=== PATIENT | female | born 1960 | race African-American/Black ===

== ENCOUNTER 2017-07-06 08:33 | Day surgery (SDC) | payer OTHER ==
[2017-07-05 15:24] VITALS: BMI 20.5
[~2017-07-06 08:33] MED LIST: ceFAZolin SODIUM 1 GM VIAL IVPB ONE
--- NOTE | 2017-07-06 09:12 | HP ---
Admitting History and Physical - Admission Chief Complaint: right renal colic History Source: Patient Limitations to Obtaining History: No Limitations - Past Medical History ...LMP: 07/02/09 - Smoking History Smoking history: Current every day smoker Have you smoked in the past 12 months: Yes Aproximately how many cigarettes per day: 10 - Alcohol/Substance Use Hx Alcohol Use: No Home Medications - Allergies Allergies/Adverse Reactions: Allergies Allergy/AdvReac Type Severity Reaction Status Date / Time shellfish derived Allergy Severe Swelling Verified 07/06/17 08:33 codeine Allergy Verified 07/06/17 08:33 levofloxacin [From Levaquin] Allergy Verified 07/06/17 08:33 Penicillins Allergy Verified 07/06/17 08:33 ketorolac tromethamine AdvReac Intermediate Nausea Verified 07/06/17 08:33 [From Toradol] - Home Medications Home Medications: Ambulatory Orders Amlodipine Besylate [Norvasc -] 10 mg PO DAILY 07/22/15 Baclofen 10 mg PO TID 07/22/15 Glatiramer Acetate [Copaxone] 44 mg SQ ASDIR 07/22/15 Cyanocobalamin (Vitamin B-12) [Vitamin B12] 2,500 mcg PO DAILY 06/07/17 Gabapentin 600 mg PO TID 06/07/17 Magnesium 30 mg PO DAILY 06/07/17 Metoprolol Succinate [Toprol XL -] 25 mg PO DAILY 06/07/17 Ramipril 5 mg PO HS 06/07/17 Physical Examination Vital Signs: Vital Signs Temperature 98.1 F 07/06/17 08:31 Pulse Rate 87 07/06/17 08:31 Respiratory Rate 18 07/06/17 08:31 Blood Pressure 142/62 07/06/17 08:31 O2 Sat by Pulse Oximetry (%) 100 07/06/17 08:30
[2017-07-06] MEDS ORDERED: PROPOFOL 20 ML ONE (09:15)
[2017-07-06] MEDS ORDERED: MIDAZOLAM HCL 2 MG/2 ML SINGLE DOSE VIAL ONE (09:15)
[2017-07-06] MEDS ORDERED: VANCOMYCIN 1,000 MG VIAL (RESTRICTED TO ID ONLY) ONE (09:22)
[2017-07-06] MEDS ORDERED: VANCOMYCIN 1,000 MG VIAL (RESTRICTED TO ID ONLY) IVPB ONE (09:25)
[2017-07-06] MEDS ORDERED: ACETAMINOPHEN 500 MG TABLET (FP) PO PRN (09:58)
[2017-07-06] MEDS ORDERED: ONDANSETRON 4 MG/2 ML VIAL IVPUSH PRN (09:58)
[2017-07-06] MEDS ORDERED: LACTATED RINGERS SOLUTION 1,000 ML IV SCH (10:00)
--- NOTE | 2017-07-06 10:26 | OP ---
Operative Note - Note: Operative Date: 07/06/17 Operation: right Lithotripsy Surgeon: Wagner Ruiz MD. Anesthesia: General Operative Report Dictated: Yes
[2017-07-06 12:29] VITALS: TEMP 98.2
[2017-07-06 13:30] VITALS: BP 140/75; PULSE 73
--- NOTE | 2017-07-07 08:29 | OP ---
DATE OF OPERATION: 07/06/2017 SURGEON: Wagner Ruiz MD PREOPERATIVE DIAGNOSIS: Right ureteral calculus. POSTOPERATIVE DIAGNOSIS: Right ureteral calculus. PROCEDURE: Right lithotripsy. HISTORY: This is a 56-year-old lady with a history of MS and prior history of renal calculi. She was found to have an obstructing ureteral stone on preoperative imaging, which appeared to be a 4-mm distal ureteral stone. Discussing treatment options, the patient elected to undergo the above stated procedure. Risks and benefits of treatment and treatment alternative were discussed in detail. All questions were answered. BRIEF OPERATIVE NOTE: The patient was brought into the operating room, placed in supine position. Once general anesthesia was administered, the stone was visualized under 3D fluoroscopy, and approximately 3000 shocks were delivered in electromagnetic fashion. The patient tolerated the procedure well and was brought to the recovery room in stable and satisfactory condition. WAGNER RUIZ M.D. [id number]
== END 2017-07-06 14:00 | disposition home or self-care (01) ==
LOC: JASU-SURG 08:33
PROVIDERS: ATTEND Urology
PROC: 0TF3XZZ Fragmentation in Right Kidney Pelvis, External Approach (ICD-10-PCS; principal; 2017-07-06 10:30)
DX: N20.0 Calculus of kidney (principal)

== ENCOUNTER 2017-09-24 07:36 | Day surgery (SDC) | payer OTHER ==
[2017-09-24] MEDS ORDERED: IRON SUCROSE INJECTION 200 MG in SODIUM CHLORIDE 100 ML IVPB ONE (10:00)
[2017-09-24 11:09] VITALS: BP 149/77; PULSE 90; TEMP 98.2
== END 2017-09-24 11:00 | disposition home or self-care (01) ==
LOC: JONCNONCHE 07:36 → J7W 09:07 → JONCNONCHE 11:00
PROVIDERS: ATTEND Internal Medicine Hematology & Oncology
PROC: 3E033GC Introduction of Other Therapeutic Substance into Peripheral Vein, Percutaneous Approach (ICD-10-PCS; principal; 2017-09-24)
DX: D50.9 Iron deficiency anemia, unspecified (principal)
CPT/HCPCS: 96365; J1756

== ENCOUNTER 2017-12-13 07:57 | Day surgery (SDC) | payer OTHER ==
[2017-12-10 19:59] VITALS: BMI 20.2
[2017-12-13 08:22] LABS: BASO % 0.9 % (0-2.0); EOS % 3.4 % (0-4.5); HEMATOCRIT 37.5 % (32.4-45.2); HEMOGLOBIN 12.8 GM/dL (10.7-15.3); LYMPH % 26.6 % (8-40); MCH 29.5 pg (25.7-33.7); MCHC 34.1 g/dl (32.0-36.0); MEAN CELL VOLUME 86.4 fl (80-96); MEAN PLT VOLUME 8.4 fl (7.5-11.1); MONO % 6.8 % (3.8-10.2); NEUT % 62.3 % (42.8-82.8); PLATELET COUNT 399 K/MM3 (134-434); RBC 4.34 M/mm3 (3.60-5.2); RDW 14.8 % (11.6-15.6); WHITE BLOOD COUNT 10.8 K/mm3 (4.0-10.0)
[2017-12-13 08:40] LABS: INR 1.13 (0.82-1.09); PROTHROMBIN TIME (PATIENT) 12.8 SEC (9.7-13.0)
[2017-12-13 09:27] VITALS: TEMP 98.7
[2017-12-13] MEDS ORDERED: PORTA CATH FLUSH 10 ML IVPUSH PRN (09:45)
[2017-12-13 13:29] VITALS: BP 135/84; PULSE 78
== END 2017-12-13 15:00 | disposition home or self-care (01) ==
LOC: JRADIR 07:57
PROVIDERS: ATTEND Internal Medicine Hematology & Oncology
PROC: 02HV33Z Insertion of Infusion Device into Superior Vena Cava, Percutaneous Approach (ICD-10-PCS; principal; 2017-12-13)
PROC: B518YZA Fluoroscopy of Superior Vena Cava using Other Contrast, Guidance (ICD-10-PCS; 2017-12-13)
DX: C18.9 Malignant neoplasm of colon, unspecified (principal)
CPT/HCPCS: 36561; C1751; 36415; 77001-TC-FY; 85025; 85610; C1788

== ENCOUNTER 2017-12-14 07:35 | Day surgery (SDC) | payer OTHER ==
[2017-12-14] MEDS ORDERED: DEXAMETHASONE INJECTION 10 MG in SODIUM CHLORIDE 50 ML IVPB ONE (08:00)
[2017-12-14] MEDS ORDERED: PALONOSETRON HCL 0.25 MG/5 ML VIAL IVPUSH ONE (08:00)
[2017-12-14] MEDS ORDERED: OXALIPLATIN 100 MG, OXALIPLATIN 50 MG in DEXTROSE 5%-WATER - 500 ML IV ONE (08:30)
[2017-12-14] MEDS ORDERED: DEXTROSE 5% IVPB ONE (08:30)
[2017-12-14] MEDS ORDERED: LEUCOVORIN IVPB ONE (08:30)
[2017-12-14] MEDS ORDERED: WATER IVPB ONE (08:30)
[2017-12-14] MEDS ORDERED: FLUOROURACIL 2,500 MG/50 ML VIAL IVPUSH ONE (10:30)
[2017-12-14] MEDS ORDERED: SODIUM CHLORIDE CP ONE (10:40)
[2017-12-14] MEDS ORDERED: FLUOROURACIL CP ONE (10:40)
[2017-12-14 11:25] LABS: BASO % 0.8 % (0-2.0); EOS % 2.1 % (0-4.5); HEMATOCRIT 34.6 % (32.4-45.2); HEMOGLOBIN 11.5 GM/dL (10.7-15.3); LYMPH % 29.7 % (8-40); MCH 28.8 pg (25.7-33.7); MCHC 33.2 g/dl (32.0-36.0); MEAN CELL VOLUME 86.8 fl (80-96); MEAN PLT VOLUME 8.4 fl (7.5-11.1); MONO % 6.4 % (3.8-10.2); PLATELET COUNT 367 K/MM3 (134-434); RBC 3.98 M/mm3 (3.60-5.2); WHITE BLOOD COUNT 8.6 K/mm3 (4.0-10.0)
[2017-12-14 11:53] LABS: ALBUMIN 3.5 g/dl (3.4-5.0); ANION GAP 6 (8-16); BILIRUBIN,DIRECT < 0.2 mg/dL (0.0-0.2); BILIRUBIN,TOTAL 0.4 mg/dL (0.2-1.0); BLOOD UREA NITROGEN 10 mg/dL (7-18); CHLORIDE 107 mmol/L (98-107); CO2 29 mmol/L (21-32); CREATININE 0.8 mg/dL (0.55-1.02); GLUCOSE,RANDOM 192 mg/dL (74-106); MAGNESIUM 2.3 mg/dL (1.8-2.4); POTASSIUM 3.8 mmol/L (3.5-5.1); SGOT/AST 10 U/L (15-37); SGPT/ALT 19 U/L (12-78); SODIUM 142 mmol/L (136-145); TOT PROT 7.8 g/dl (6.4-8.2)
[2017-12-14 11:54] LABS: ALK PHOS 125 U/L (45-117)
[2017-12-14] MEDS ORDERED: SODIUM CHLORIDE 500 ML IV STA (12:27)
[2017-12-14 16:55] VITALS: TEMP 98.4
[2017-12-14 17:16] VITALS: BP 170/85; PULSE 92
== END 2017-12-14 17:18 | disposition home or self-care (01) ==
LOC: JONCCHEMO 07:35 → J7W 12:18 → JONCCHEMO 17:18
PROVIDERS: ATTEND Internal Medicine Hematology & Oncology
PROC: 3E04305 Introduction of Other Antineoplastic into Central Vein, Percutaneous Approach (ICD-10-PCS; principal; 2017-12-14)
PROC: 3E04305 Introduction of Other Antineoplastic into Central Vein, Percutaneous Approach (ICD-10-PCS; 2017-12-14)
PROC: 3E043GC Introduction of Other Therapeutic Substance into Central Vein, Percutaneous Approach (ICD-10-PCS; 2017-12-14)
DX: Z51.11 Encounter for antineoplastic chemotherapy (principal); C18.9 Malignant neoplasm of colon, unspecified; I10 Essential (primary) hypertension; E78.00 Pure hypercholesterolemia, unspecified; K58.9 Irritable bowel syndrome, unspecified; G35 Multiple sclerosis; Z87.442 Personal history of urinary calculi
CPT/HCPCS: 36415; 80053; 80076; 83735; 85025; 96366; 96367; 96375; 96409; 96413; 96415; 96417; G0498; J1100; J2469; J7030; J9263

== ENCOUNTER 2017-12-16 07:41 | Day surgery (SDC) | payer OTHER ==
[2017-12-16 16:45] VITALS: TEMP 98.7
[2017-12-16 16:47] VITALS: BP 150/87; PULSE 92
== END 2017-12-16 14:39 | disposition home or self-care (01) ==
LOC: JONCNONCHE 07:41 → J7W 13:27 → JONCNONCHE 14:39
PROVIDERS: ATTEND Internal Medicine Hematology & Oncology
PROC: 0JPVXVZ Removal of Infusion Pump from Upper Extremity Subcutaneous Tissue and Fascia, External Approach (ICD-10-PCS; principal; 2017-12-16)
DX: Z53.8 Procedure and treatment not carried out for other reasons (principal); C18.9 Malignant neoplasm of colon, unspecified

== ENCOUNTER 2017-12-28 08:01 | Day surgery (SDC) | payer OTHER ==
[~2017-12-28 08:01] MED LIST changes: +DEXAMETHASONE INJECTION 10 MG in SODIUM CHLORIDE 100 ML IVPB ONE; +PALONOSETRON HCL 0.25 MG/5 ML VIAL IVPUSH ONE; -ceFAZolin SODIUM 1 GM VIAL IVPB ONE
[2017-12-28] MEDS ORDERED: DEXTROSE 5% IVPB ONE (08:30)
[2017-12-28] MEDS ORDERED: WATER IV ONE (08:30)
[2017-12-28] MEDS ORDERED: WATER IVPB ONE (08:30)
[2017-12-28] MEDS ORDERED: DEXTROSE 5% IV ONE (08:30)
[2017-12-28] MEDS ORDERED: OXALIPLATIN IV ONE (08:30)
[2017-12-28] MEDS ORDERED: LEUCOVORIN IVPB ONE (08:30)
[2017-12-28 09:25] LABS: BASO % 0.6 % (0-2.0); EOS % 2.7 % (0-4.5); HEMATOCRIT 33.5 % (32.4-45.2); HEMOGLOBIN 11.1 GM/dL (10.7-15.3); LYMPH % 28.2 % (8-40); MCH 28.3 pg (25.7-33.7); MCHC 33.1 g/dl (32.0-36.0); MEAN CELL VOLUME 85.5 fl (80-96); MEAN PLT VOLUME 7.3 fl (7.5-11.1); MONO % 8.2 % (3.8-10.2); NEUT % 60.3 % (42.8-82.8); PLATELET COUNT 257 K/MM3 (134-434); RBC 3.92 M/mm3 (3.60-5.2); RDW 14.8 % (11.6-15.6); WHITE BLOOD COUNT 5.2 K/mm3 (4.0-10.0)
[2017-12-28] MEDS ORDERED: SODIUM CHLORIDE 1,000 ML IV STA (09:35)
[2017-12-28 10:21] LABS: ALBUMIN 3.3 g/dl (3.4-5.0); ANION GAP 6 (8-16); BILIRUBIN,DIRECT < 0.2 mg/dL (0.0-0.2); BLOOD UREA NITROGEN 6 mg/dL (7-18); CALCIUM 8.5 mg/dL (8.5-10.1); CHLORIDE 113 mmol/L (98-107); CO2 27 mmol/L (21-32); CREATININE 0.7 mg/dL (0.55-1.02); GLUCOSE,RANDOM 129 mg/dL (74-106); MAGNESIUM 2.1 mg/dL (1.8-2.4); POTASSIUM 3.2 mmol/L (3.5-5.1); SGOT/AST 14 U/L (15-37); SGPT/ALT 18 U/L (12-78); SODIUM 146 mmol/L (136-145)
[2017-12-28 10:23] LABS: ALK PHOS 109 U/L (45-117); BILIRUBIN,TOTAL 0.2 mg/dL (0.2-1.0); TOT PROT 6.9 g/dl (6.4-8.2)
[2017-12-28] MEDS ORDERED: FLUOROURACIL 2,500 MG/50 ML VIAL IVPUSH ONE (10:30)
[2017-12-28] MEDS ORDERED: FLUOROURACIL CP ONE (10:40)
[2017-12-28] MEDS ORDERED: SODIUM CHLORIDE CP ONE (10:40)
[2017-12-28] MEDS ORDERED: POTASSIUM CHLORIDE TABS 20 MEQ TABLET.ER (FP) PO ONE ×2 (11:08)
[2017-12-28] MEDS ORDERED: KCL 10 MEQ IVPB 10 MEQ/100 ML INFUS.BAG IVPB SCH (11:15)
[2017-12-28 14:14] VITALS: TEMP 98.1
[2017-12-28] MEDS ORDERED: PORTA CATH FLUSH 10 ML IVPUSH ONE (15:59)
[2017-12-28 16:12] VITALS: BP 134/74; PULSE 84
== END 2017-12-28 15:40 | disposition home or self-care (01) ==
LOC: JONCCHEMO 08:01 → J7W 09:53 → JONCCHEMO 15:40
PROVIDERS: ATTEND Internal Medicine Hematology & Oncology
DX: Z51.11 Encounter for antineoplastic chemotherapy (principal); C18.9 Malignant neoplasm of colon, unspecified
CPT/HCPCS: 36415; 80053; 80076; 83735; 85025; 96361; 96366; 96367; 96375; 96409; 96413; 96415; 96417; G0498; J1100; J2469; J7030; J9263

== ENCOUNTER 2017-12-30 09:01 | Day surgery (SDC) | payer OTHER ==
[2017-12-30 14:01] VITALS: BP 137/85; PULSE 81; TEMP 98.5
== END 2017-12-30 13:30 | disposition home or self-care (01) ==
LOC: JONCCHEMO 09:01 → J7W 13:00 → JONCCHEMO 13:30
PROVIDERS: ATTEND Internal Medicine Hematology & Oncology
PROC: 0JPVXVZ Removal of Infusion Pump from Upper Extremity Subcutaneous Tissue and Fascia, External Approach (ICD-10-PCS; principal; 2017-12-30)
DX: Z53.8 Procedure and treatment not carried out for other reasons (principal)

== ENCOUNTER → 2018-01-11 | Day surgery (SDC) | payer OTHER ==
[2018-01-11 09:14] LABS: BASO % 1.3 % (0-2.0); EOS % 4.4 % (0-4.5); HEMOGLOBIN 11.6 GM/dL (10.7-15.3); LYMPH % 46.4 % (8-40); MCH 28.5 pg (25.7-33.7); MCHC 33.2 g/dl (32.0-36.0); MEAN CELL VOLUME 85.9 fl (80-96); MEAN PLT VOLUME 7.3 fl (7.5-11.1); MONO % 10.4 % (3.8-10.2); NEUT % 37.5 % (42.8-82.8); PLATELET COUNT 225 K/MM3 (134-434); RBC 4.08 M/mm3 (3.60-5.2); RDW 15.4 % (11.6-15.6)
[2018-01-11 09:47] LABS: ALBUMIN 3.5 g/dl (3.4-5.0); ALK PHOS 116 U/L (45-117); ANION GAP 6 (8-16); BILIRUBIN,DIRECT < 0.2 mg/dL (0.0-0.2); BILIRUBIN,TOTAL 0.2 mg/dL (0.2-1.0); BLOOD UREA NITROGEN 8 mg/dL (7-18); CALCIUM 8.6 mg/dL (8.5-10.1); CHLORIDE 112 mmol/L (98-107); CO2 27 mmol/L (21-32); CREATININE 0.7 mg/dL (0.55-1.02); GLUCOSE,RANDOM 86 mg/dL (74-106); MAGNESIUM 2.2 mg/dL (1.8-2.4); POTASSIUM 3.7 mmol/L (3.5-5.1); SGOT/AST 12 U/L (15-37); SGPT/ALT 22 U/L (12-78); SODIUM 145 mmol/L (136-145); TOT PROT 7.3 g/dl (6.4-8.2)
== END | disposition home or self-care (01) ==
LOC: JONCCHEMO 07:36
PROVIDERS: ATTEND Internal Medicine Hematology & Oncology
PROC: 0JPVXVZ Removal of Infusion Pump from Upper Extremity Subcutaneous Tissue and Fascia, External Approach (ICD-10-PCS; principal; 2018-01-11)
DX: Z53.8 Procedure and treatment not carried out for other reasons (principal)
CPT/HCPCS: 36415; 80048; 80076; 83735; 85025

== ENCOUNTER 2018-01-25 07:37 | Day surgery (SDC) | payer OTHER ==
[~2018-01-25 07:37] MED LIST changes: -DEXAMETHASONE INJECTION 10 MG in SODIUM CHLORIDE 100 ML IVPB ONE; +DEXAMETHASONE INJECTION 10 MG in SODIUM CHLORIDE 50 ML IVPB ONE; +DEXTROSE 5% IV ONE; +DEXTROSE 5% IVPB ONE; +FLUOROURACIL 500 MG/10 ML VIAL IVPUSH ONE; +FLUOROURACIL CP ONE; +LEUCOVORIN IVPB ONE; +OXALIPLATIN IV ONE; +SODIUM CHLORIDE CP ONE; +WATER IV ONE; +WATER IVPB ONE
[2018-01-25 09:49] LABS: BASO % 0.8 % (0-2.0); EOS % 2.1 % (0-4.5); HEMATOCRIT 39.3 % (32.4-45.2); HEMOGLOBIN 13.1 GM/dL (10.7-15.3); LYMPH % 23.1 % (8-40); MCH 28.9 pg (25.7-33.7); MCHC 33.3 g/dl (32.0-36.0); MEAN CELL VOLUME 86.9 fl (80-96); MEAN PLT VOLUME 8.7 fl (7.5-11.1); MONO % 7.2 % (3.8-10.2); NEUT % 66.8 % (42.8-82.8); PLATELET COUNT 270 K/MM3 (134-434); RBC 4.52 M/mm3 (3.60-5.2); RDW 17.7 % (11.6-15.6); WHITE BLOOD COUNT 10.7 K/mm3 (4.0-10.0)
[2018-01-25] MEDS ORDERED: PALONOSETRON HCL 0.25 MG/5 ML VIAL IVPUSH ONE (10:00)
[2018-01-25] MEDS ORDERED: DEXAMETHASONE INJECTION 10 MG in SODIUM CHLORIDE 50 ML IVPB ONE (10:00)
[2018-01-25] MEDS ORDERED: WATER IVPB ONE (10:30)
[2018-01-25] MEDS ORDERED: WATER IV ONE (10:30)
[2018-01-25] MEDS ORDERED: OXALIPLATIN IV ONE (10:30)
[2018-01-25] MEDS ORDERED: LEUCOVORIN IVPB ONE (10:30)
[2018-01-25] MEDS ORDERED: DEXTROSE 5% IVPB ONE (10:30)
[2018-01-25] MEDS ORDERED: DEXTROSE 5% IV ONE (10:30)
[2018-01-25 10:32] LABS: ALBUMIN 3.8 g/dl (3.4-5.0); ALK PHOS 119 U/L (45-117); ANION GAP 6 (8-16); BILIRUBIN,DIRECT < 0.2 mg/dL (0.0-0.2); BILIRUBIN,TOTAL 0.3 mg/dL (0.2-1.0); BLOOD UREA NITROGEN 6 mg/dL (7-18); CALCIUM 9.1 mg/dL (8.5-10.1); CHLORIDE 111 mmol/L (98-107); CO2 29 mmol/L (21-32); CREATININE 0.8 mg/dL (0.55-1.02); GLUCOSE,RANDOM 95 mg/dL (74-106); MAGNESIUM 2.2 mg/dL (1.8-2.4); POTASSIUM 3.5 mmol/L (3.5-5.1); SGOT/AST 15 U/L (15-37); SGPT/ALT 17 U/L (12-78); SODIUM 146 mmol/L (136-145); TOT PROT 7.6 g/dl (6.4-8.2)
[2018-01-25] MEDS ORDERED: SODIUM CHLORIDE 500 ML IV SCH (11:30)
[2018-01-25] MEDS ORDERED: FLUOROURACIL 2,500 MG/50 ML VIAL IVPUSH ONE (12:30)
[2018-01-25] MEDS ORDERED: SODIUM CHLORIDE CP ONE (12:45)
[2018-01-25] MEDS ORDERED: FLUOROURACIL CP ONE (12:45)
[2018-01-25 17:13] VITALS: TEMP 98
[2018-01-25 18:01] VITALS: BP 158/91; PULSE 66
== END 2018-01-25 16:05 | disposition home or self-care (01) ==
LOC: JONCCHEMO 07:37 → J7W 11:07 → JONCCHEMO 16:05
PROVIDERS: ATTEND Internal Medicine Hematology & Oncology
DX: Z51.11 Encounter for antineoplastic chemotherapy (principal); C18.9 Malignant neoplasm of colon, unspecified
CPT/HCPCS: 36415; 80053; 80076; 83735; 85025; 96361; 96375; 96409; 96413; 96415; 96417; G0498; J1100; J2469; J7030; J9263

== ENCOUNTER 2018-02-08 07:35 | Day surgery (SDC) | payer OTHER ==
[2018-02-08] MEDS ORDERED: DEXAMETHASONE INJECTION 10 MG in SODIUM CHLORIDE 50 ML IVPB ONE (08:00)
[2018-02-08] MEDS ORDERED: PALONOSETRON HCL 0.25 MG/5 ML VIAL IVPUSH ONE (08:00)
[2018-02-08] MEDS ORDERED: WATER IVPB ONE (08:30)
[2018-02-08] MEDS ORDERED: OXALIPLATIN 100 MG, OXALIPLATIN 10 MG in DEXTROSE 5%-WATER - 500 ML IV ONE (08:30)
[2018-02-08] MEDS ORDERED: LEUCOVORIN IVPB ONE (08:30)
[2018-02-08] MEDS ORDERED: DEXTROSE 5% IVPB ONE (08:30)
[2018-02-08 09:24] LABS: EOS % 3.4 % (0-4.5); HEMATOCRIT 38.6 % (32.4-45.2); HEMOGLOBIN 12.8 GM/dL (10.7-15.3); LYMPH % 27.9 % (8-40); MCH 29.2 pg (25.7-33.7); MCHC 33.1 g/dl (32.0-36.0); MEAN CELL VOLUME 88.2 fl (80-96); MEAN PLT VOLUME 8.3 fl (7.5-11.1); MONO % 6.2 % (3.8-10.2); NEUT % 61.5 % (42.8-82.8); PLATELET COUNT 284 K/MM3 (134-434); RBC 4.37 M/mm3 (3.60-5.2); RDW 17.8 % (11.6-15.6); WHITE BLOOD COUNT 7.5 K/mm3 (4.0-10.0)
[2018-02-08 09:56] LABS: ALBUMIN 3.5 g/dl (3.4-5.0); ALK PHOS 115 U/L (45-117); ANION GAP 8 (8-16); BILIRUBIN,DIRECT < 0.2 mg/dL (0.0-0.2); BILIRUBIN,TOTAL 0.2 mg/dL (0.2-1.0); BLOOD UREA NITROGEN 7 mg/dL (7-18); CALCIUM 8.8 mg/dL (8.5-10.1); CHLORIDE 111 mmol/L (98-107); CO2 25 mmol/L (21-32); CREATININE 0.7 mg/dL (0.55-1.02); GLUCOSE,RANDOM 135 mg/dL (74-106); MAGNESIUM 2.2 mg/dL (1.8-2.4); POTASSIUM 3.7 mmol/L (3.5-5.1); SGOT/AST 17 U/L (15-37); SGOT/AST 20 U/L (15-37); SGPT/ALT 23 U/L (12-78); SGPT/ALT 24 U/L (12-78); SODIUM 144 mmol/L (136-145); TOT PROT 7.4 g/dl (6.4-8.2)
[2018-02-08 09:57] LABS: ALK PHOS 113 U/L (45-117)
[2018-02-08 10:08] VITALS: BP 146/82; PULSE 71; TEMP 98.4
[2018-02-08] MEDS ORDERED: PORTA CATH FLUSH 10 ML IVPUSH ONE (10:09)
[2018-02-08] MEDS ORDERED: FLUOROURACIL 2,500 MG/50 ML VIAL IVPUSH ONE (10:30)
[2018-02-08] MEDS ORDERED: SODIUM CHLORIDE 1,000 ML IV SCH (10:45)
[2018-02-08] MEDS ORDERED: SODIUM CHLORIDE CP ONE (10:45)
[2018-02-08] MEDS ORDERED: FLUOROURACIL CP ONE (10:45)
== END 2018-02-08 13:20 | disposition home or self-care (01) ==
LOC: JONCCHEMO 07:35 → J7W 09:54 → JONCCHEMO 13:20
PROVIDERS: ATTEND Internal Medicine Hematology & Oncology
PROC: 3E04305 Introduction of Other Antineoplastic into Central Vein, Percutaneous Approach (ICD-10-PCS; principal; 2018-02-08)
PROC: 3E043GC Introduction of Other Therapeutic Substance into Central Vein, Percutaneous Approach (ICD-10-PCS; 2018-02-08)
PROC: 3E0437Z Introduction of Electrolytic and Water Balance Substance into Central Vein, Percutaneous Approach (ICD-10-PCS; 2018-02-08)
DX: Z51.11 Encounter for antineoplastic chemotherapy (principal); C18.9 Malignant neoplasm of colon, unspecified; I10 Essential (primary) hypertension; E78.00 Pure hypercholesterolemia, unspecified; G35 Multiple sclerosis
CPT/HCPCS: 36415; 80053; 80076; 83735; 84439; 84443; 85025; 96361; 96375; 96409; 96413; 96415; 96417; G0498; J1100; J2469; J7030; J9263

== ENCOUNTER 2018-02-22 07:32 | Day surgery (SDC) | payer OTHER ==
[2018-02-22] MEDS ORDERED: DEXAMETHASONE INJECTION 10 MG in SODIUM CHLORIDE 50 ML IVPB ONE (08:00)
[2018-02-22] MEDS ORDERED: PALONOSETRON HCL 0.25 MG/5 ML VIAL IVPUSH ONE (08:00)
[2018-02-22] MEDS ORDERED: WATER IVPB ONE (08:30)
[2018-02-22] MEDS ORDERED: DEXTROSE 5% IV ONE (08:30)
[2018-02-22] MEDS ORDERED: OXALIPLATIN IV ONE (08:30)
[2018-02-22] MEDS ORDERED: WATER IV ONE (08:30)
[2018-02-22] MEDS ORDERED: LEUCOVORIN IVPB ONE (08:30)
[2018-02-22] MEDS ORDERED: DEXTROSE 5% IVPB ONE (08:30)
[2018-02-22 09:19] LABS: BASO % 0.9 % (0-2.0); EOS % 5.1 % (0-4.5); HEMATOCRIT 37.8 % (32.4-45.2); HEMOGLOBIN 12.5 GM/dL (10.7-15.3); LYMPH % 40.8 % (8-40); MCH 29.2 pg (25.7-33.7); MCHC 33.1 g/dl (32.0-36.0); MEAN CELL VOLUME 88.3 fl (80-96); MEAN PLT VOLUME 7.8 fl (7.5-11.1); MONO % 8.8 % (3.8-10.2); NEUT % 44.4 % (42.8-82.8); PLATELET COUNT 214 K/MM3 (134-434); RBC 4.28 M/mm3 (3.60-5.2); RDW 17.6 % (11.6-15.6); WHITE BLOOD COUNT 6.3 K/mm3 (4.0-10.0)
[2018-02-22 09:55] LABS: ALBUMIN 3.4 g/dl (3.4-5.0); ALBUMIN 3.5 g/dl (3.4-5.0); ANION GAP 8 (8-16); BILIRUBIN,DIRECT < 0.2 mg/dL (0.0-0.2); BLOOD UREA NITROGEN 9 mg/dL (7-18); CALCIUM 8.9 mg/dL (8.5-10.1); CHLORIDE 112 mmol/L (98-107); CO2 27 mmol/L (21-32); GLUCOSE,RANDOM 103 mg/dL (74-106); MAGNESIUM 2.2 mg/dL (1.8-2.4); POTASSIUM 3.7 mmol/L (3.5-5.1); SGOT/AST 17 U/L (15-37); SGPT/ALT 20 U/L (12-78); SODIUM 147 mmol/L (136-145)
[2018-02-22 09:58] LABS: ALK PHOS 109 U/L (45-117); BILIRUBIN,TOTAL 0.2 mg/dL (0.2-1.0); TOT PROT 7.2 g/dl (6.4-8.2)
[2018-02-22 09:59] LABS: ALK PHOS 107 U/L (45-117); BILIRUBIN,TOTAL 0.2 mg/dL (0.2-1.0); CREATININE 0.8 mg/dL (0.55-1.02); SGOT/AST 16 U/L (15-37); SGPT/ALT 19 U/L (12-78); TOT PROT 6.9 g/dl (6.4-8.2)
[2018-02-22] MEDS ORDERED: SODIUM CHLORIDE 500 ML IV ONE ×2 (10:15→12:15)
[2018-02-22] MEDS ORDERED: DEXAMETHASONE INJECTION 20 MG in SODIUM CHLORIDE 100 ML IVPB ONE (10:15)
[2018-02-22] MEDS ORDERED: DEXAMETHASONE SOD PHOSPHATE 10 MG/1 ML VIAL ONE (10:24)
[2018-02-22] MEDS ORDERED: FLUOROURACIL 2,500 MG/50 ML VIAL IVPUSH ONE (10:30)
[2018-02-22] MEDS ORDERED: DEXAMETHASONE SOD PHOSPHATE 20 MG/5 ML VIAL IVPB ONE (10:45)
[2018-02-22] MEDS ORDERED: FLUOROURACIL CP ONE (10:45)
[2018-02-22] MEDS ORDERED: SODIUM CHLORIDE CP ONE (10:45)
[2018-02-22] MEDS ORDERED: SODIUM CHLORIDE 0.45% 500 ML IV ONE ×2 (10:45→12:45)
[2018-02-22 16:31] VITALS: TEMP 98.1
[2018-02-22 16:33] VITALS: BP 144/77; PULSE 84
== END 2018-02-22 15:30 | disposition home or self-care (01) ==
LOC: JONCCHEMO 07:32 → J7W 09:53 → JONCCHEMO 15:30
PROVIDERS: ATTEND Internal Medicine Hematology & Oncology
DX: Z51.11 Encounter for antineoplastic chemotherapy (principal); C18.9 Malignant neoplasm of colon, unspecified; I10 Essential (primary) hypertension; E78.00 Pure hypercholesterolemia, unspecified; G35 Multiple sclerosis
CPT/HCPCS: 36415; 80053; 80076; 83735; 85025; 96361; 96375; 96409; 96413; 96415; 96417; G0498; J1100; J2469; J9263

== ENCOUNTER 2018-03-22 07:45 | Day surgery (SDC) | payer OTHER ==
[2018-03-22 09:00] LABS: BASO % 1.1 % (0-2.0); EOS % 4.1 % (0-4.5); HEMATOCRIT 35.1 % (32.4-45.2); HEMOGLOBIN 12.1 GM/dL (10.7-15.3); LYMPH % 30.8 % (8-40); MCH 30.9 pg (25.7-33.7); MCHC 34.5 g/dl (32.0-36.0); MEAN CELL VOLUME 89.7 fl (80-96); MEAN PLT VOLUME 8.4 fl (7.5-11.1); MONO % 8.7 % (3.8-10.2); NEUT % 55.3 % (42.8-82.8); PLATELET COUNT 188 K/MM3 (134-434); RBC 3.91 M/mm3 (3.60-5.2); RDW 18.5 % (11.6-15.6); WHITE BLOOD COUNT 5.9 K/mm3 (4.0-10.0)
[2018-03-22] MEDS ORDERED: SODIUM CHLORIDE 500 ML IV ONE ×2 (09:00→12:30)
[2018-03-22 09:56] LABS: ALBUMIN 3.2 g/dl (3.4-5.0); ANION GAP 10 (8-16); BILIRUBIN,DIRECT < 0.2 mg/dL (0.0-0.2); BLOOD UREA NITROGEN 10 mg/dL (7-18); CALCIUM 8.4 mg/dL (8.5-10.1); CHLORIDE 113 mmol/L (98-107); CO2 23 mmol/L (21-32); GLUCOSE,RANDOM 155 mg/dL (74-106); MAGNESIUM 2.1 mg/dL (1.8-2.4); POTASSIUM 3.6 mmol/L (3.5-5.1); SODIUM 146 mmol/L (136-145)
[2018-03-22 09:59] LABS: ALK PHOS 107 U/L (45-117); BILIRUBIN,TOTAL 0.2 mg/dL (0.2-1.0); CREATININE 0.6 mg/dL (0.55-1.02); SGOT/AST 22 U/L (15-37); SGPT/ALT 26 U/L (12-78); TOT PROT 7.1 g/dl (6.4-8.2)
[2018-03-22] MEDS ORDERED: PALONOSETRON HCL 0.25 MG/5 ML VIAL IVPUSH ONE (10:00)
[2018-03-22] MEDS ORDERED: DEXAMETHASONE INJECTION 20 MG in SODIUM CHLORIDE 50 ML IVPB ONE (10:00)
[2018-03-22] MEDS ORDERED: LEUCOVORIN IVPB ONE (10:30)
[2018-03-22] MEDS ORDERED: WATER IVPB ONE (10:30)
[2018-03-22] MEDS ORDERED: OXALIPLATIN IV ONE ×3 (10:30→11:01)
[2018-03-22] MEDS ORDERED: DEXTROSE 5% IVPB ONE (10:30)
[2018-03-22] MEDS ORDERED: WATER IV ONE ×3 (10:30→11:01)
[2018-03-22] MEDS ORDERED: DEXTROSE 5% IV ONE ×3 (10:30→11:01)
[2018-03-22] MEDS ORDERED: FLUOROURACIL 500 MG/10 ML VIAL IVPUSH ONE (12:30)
[2018-03-22] MEDS ORDERED: SODIUM CHLORIDE CP ONE (12:45)
[2018-03-22] MEDS ORDERED: FLUOROURACIL CP ONE (12:45)
[2018-03-22 17:43] VITALS: TEMP 98
[2018-03-22 18:28] VITALS: BP 143/83; PULSE 89
== END 2018-03-22 16:20 | disposition home or self-care (01) ==
LOC: JONCCHEMO 07:45 → J7W 10:46 → JONCCHEMO 16:20
PROVIDERS: ATTEND Internal Medicine Hematology & Oncology
DX: Z51.11 Encounter for antineoplastic chemotherapy (principal); C18.9 Malignant neoplasm of colon, unspecified
CPT/HCPCS: 36415; 80048; 80076; 83735; 85025; 96361; 96366; 96367; 96375; 96409; 96413; 96415; 96417; G0498; J1100; J2469; J9190; J9263

== ENCOUNTER 2018-04-06 07:43 | Day surgery (SDC) | payer OTHER ==
[~2018-04-06 07:43] MED LIST changes: -DEXAMETHASONE INJECTION 10 MG in SODIUM CHLORIDE 50 ML IVPB ONE; -DEXTROSE 5% IV ONE; -DEXTROSE 5% IVPB ONE; -FLUOROURACIL 500 MG/10 ML VIAL IVPUSH ONE; -FLUOROURACIL CP ONE; -LEUCOVORIN IVPB ONE; -OXALIPLATIN IV ONE; -PALONOSETRON HCL 0.25 MG/5 ML VIAL IVPUSH ONE; +SODIUM CHLORIDE 500 ML IV ONE; -SODIUM CHLORIDE CP ONE; -WATER IV ONE; -WATER IVPB ONE
[2018-04-06] MEDS ORDERED: PALONOSETRON HCL 0.25 MG/5 ML VIAL IVPUSH ONE (08:00)
[2018-04-06] MEDS ORDERED: DEXAMETHASONE INJECTION 20 MG in SODIUM CHLORIDE 50 ML IVPB ONE (08:00)
[2018-04-06] MEDS ORDERED: DEXTROSE 5% IV ONE (08:30)
[2018-04-06] MEDS ORDERED: LEUCOVORIN IVPB ONE (08:30)
[2018-04-06] MEDS ORDERED: DEXTROSE 5% IVPB ONE (08:30)
[2018-04-06] MEDS ORDERED: WATER IVPB ONE (08:30)
[2018-04-06] MEDS ORDERED: OXALIPLATIN IV ONE (08:30)
[2018-04-06] MEDS ORDERED: WATER IV ONE (08:30)
[2018-04-06 08:43] VITALS: TEMP 98.5
[2018-04-06 09:00] LABS: BASO % 0.9 % (0-2.0); EOS % 3.4 % (0-4.5); HEMATOCRIT 35.8 % (32.4-45.2); HEMOGLOBIN 11.9 GM/dL (10.7-15.3); LYMPH % 26.4 % (8-40); MCH 30.5 pg (25.7-33.7); MCHC 33.3 g/dl (32.0-36.0); MEAN CELL VOLUME 91.7 fl (80-96); MEAN PLT VOLUME 8.3 fl (7.5-11.1); MONO % 9.9 % (3.8-10.2); NEUT % 59.4 % (42.8-82.8); PLATELET COUNT 245 K/MM3 (134-434); RDW 18.4 % (11.6-15.6); WHITE BLOOD COUNT 7.3 K/mm3 (4.0-10.0)
[2018-04-06 09:34] LABS: ALBUMIN 3.3 g/dl (3.4-5.0); ALK PHOS 117 U/L (45-117); ANION GAP 9 MMOL/L (8-16); BILIRUBIN,DIRECT < 0.2 mg/dL (0.0-0.2); BILIRUBIN,TOTAL 0.3 mg/dL (0.2-1.0); BLOOD UREA NITROGEN 10 mg/dL (7-18); CALCIUM 9.1 mg/dL (8.5-10.1); CHLORIDE 109 mmol/L (98-107); CO2 28 mmol/L (21-32); CREATININE 0.6 mg/dL (0.55-1.02); GLUCOSE,RANDOM 162 mg/dL (74-106); MAGNESIUM 2.4 mg/dL (1.8-2.4); POTASSIUM 4.2 mmol/L (3.5-5.1); SGOT/AST 17 U/L (15-37); SGPT/ALT 22 U/L (12-78); SODIUM 146 mmol/L (136-145); TOT PROT 7.3 g/dl (6.4-8.2)
[2018-04-06] MEDS ORDERED: FLUOROURACIL 2,500 MG/50 ML VIAL IVPUSH ONE (10:30)
[2018-04-06] MEDS ORDERED: PORTA CATH FLUSH 10 ML IVPUSH ONE (10:38)
[2018-04-06] MEDS ORDERED: FLUOROURACIL CP ONE (10:45)
[2018-04-06] MEDS ORDERED: SODIUM CHLORIDE CP ONE (10:45)
[2018-04-06] MEDS ORDERED: SODIUM CHLORIDE 500 ML IV ONE (14:15)
[2018-04-06 16:59] VITALS: BP 154/88; PULSE 90
== END 2018-04-06 15:10 | disposition home or self-care (01) ==
LOC: JONCCHEMO 07:43 → J7W 10:10 → JONCCHEMO 15:10
PROVIDERS: ATTEND Internal Medicine Hematology & Oncology
PROC: 3E04305 Introduction of Other Antineoplastic into Central Vein, Percutaneous Approach (ICD-10-PCS; principal; 2018-04-06)
PROC: 3E04305 Introduction of Other Antineoplastic into Central Vein, Percutaneous Approach (ICD-10-PCS; 2018-04-06)
PROC: 3E043GC Introduction of Other Therapeutic Substance into Central Vein, Percutaneous Approach (ICD-10-PCS; 2018-04-06)
PROC: 3E0437Z Introduction of Electrolytic and Water Balance Substance into Central Vein, Percutaneous Approach (ICD-10-PCS; 2018-04-06)
DX: Z51.11 Encounter for antineoplastic chemotherapy (principal); C18.9 Malignant neoplasm of colon, unspecified; I10 Essential (primary) hypertension; E78.00 Pure hypercholesterolemia, unspecified; G35 Multiple sclerosis
CPT/HCPCS: 36415; 80048; 80076; 83735; 85025; 96361; 96366; 96367; 96375; 96409; 96413; 96415; 96417; G0498; J1100; J2469; J9263

== ENCOUNTER 2018-04-08 07:31 | Day surgery (SDC) | payer OTHER ==
[2018-04-08] MEDS ORDERED: PORTA CATH FLUSH 10 ML IVPUSH ONE (10:51)
[2018-04-08 10:52] VITALS: BP 147/80; PULSE 64; TEMP 97.7
== END 2018-04-08 10:30 | disposition home or self-care (01) ==
LOC: JONCCHEMO 07:31 → J7W 09:40 → JONCCHEMO 10:30
PROVIDERS: ATTEND Internal Medicine Hematology & Oncology
PROC: 0JPVXVZ Removal of Infusion Pump from Upper Extremity Subcutaneous Tissue and Fascia, External Approach (ICD-10-PCS; principal; 2018-04-08)
DX: Z53.8 Procedure and treatment not carried out for other reasons (principal)

== ENCOUNTER 2018-04-20 07:40 | Day surgery (SDC) | payer OTHER ==
[2018-04-20] MEDS ORDERED: SODIUM CHLORIDE 500 ML IV ONE (09:00)
[2018-04-20 09:59] LABS: ALBUMIN 3.3 g/dl (3.4-5.0); ALK PHOS 112 U/L (45-117); ANION GAP 3 MMOL/L (8-16); BILIRUBIN,DIRECT < 0.2 mg/dL (0.0-0.2); BILIRUBIN,TOTAL 0.2 mg/dL (0.2-1); BLOOD UREA NITROGEN 11 mg/dL (7-18); CALCIUM 8.7 mg/dL (8.5-10.1); CHLORIDE 111 mmol/L (98-107); CO2 31 mmol/L (21-32); CREATININE 0.8 mg/dL (0.55-1.3); GLUCOSE,RANDOM 99 mg/dL (74-106); MAGNESIUM 2.2 mg/dL (1.8-2.4); POTASSIUM 3.9 mmol/L (3.5-5.1); SGOT/AST 21 U/L (15-37); SGPT/ALT 19 U/L (13-61); SODIUM 145 mmol/L (136-145); TOT PROT 7.4 g/dl (6.4-8.2)
[2018-04-20] MEDS ORDERED: PALONOSETRON HCL 0.25 MG/5 ML VIAL IVPUSH ONE (10:00)
[2018-04-20] MEDS ORDERED: DEXAMETHASONE INJECTION 20 MG in SODIUM CHLORIDE 50 ML IVPB ONE (10:00)
[2018-04-20 10:14] LABS: BASO % 0.8 % (0-2.0); HEMATOCRIT 35.6 % (32.4-45.2); HEMOGLOBIN 11.8 GM/dL (10.7-15.3); LYMPH % 33.7 % (8-40); MCH 31.3 pg (25.7-33.7); MCHC 33.3 g/dl (32.0-36.0); MEAN CELL VOLUME 94.1 fl (80-96); MONO % 9.1 % (3.8-10.2); NEUT % 53.4 % (42.8-82.8); PLATELET COUNT 222 K/MM3 (134-434); RBC 3.78 M/mm3 (3.60-5.2); RDW 18.6 % (11.6-15.6)
[2018-04-20] MEDS ORDERED: DEXTROSE 5% IVPB ONE (10:30)
[2018-04-20] MEDS ORDERED: OXALIPLATIN IV ONE (10:30)
[2018-04-20] MEDS ORDERED: WATER IV ONE (10:30)
[2018-04-20] MEDS ORDERED: DEXTROSE 5% IV ONE (10:30)
[2018-04-20] MEDS ORDERED: WATER IVPB ONE (10:30)
[2018-04-20] MEDS ORDERED: LEUCOVORIN IVPB ONE (10:30)
[2018-04-20] MEDS ORDERED: FLUOROURACIL 2,500 MG/50 ML VIAL IVPUSH ONE (12:30)
[2018-04-20] MEDS ORDERED: SODIUM CHLORIDE CP ONE (12:45)
[2018-04-20] MEDS ORDERED: FLUOROURACIL CP ONE (12:45)
[2018-04-20] MEDS: SODIUM CHLORIDE 500 ML IV ONE ×2 (14:15→14:42)
[2018-04-20 17:52] VITALS: BP 156/90; PULSE 82; TEMP 98.2
== END 2018-04-20 15:20 | disposition home or self-care (01) ==
LOC: JONCCHEMO 07:40 → J7W 09:34 → JONCCHEMO 15:20
PROVIDERS: ATTEND Internal Medicine Hematology & Oncology
DX: Z51.11 Encounter for antineoplastic chemotherapy (principal); C18.9 Malignant neoplasm of colon, unspecified
CPT/HCPCS: 36415; 80053; 80076; 82378; 83735; 84439; 84443; 85025; 96361; 96366; 96367; 96375; 96413; 96415; 96417; G0498; J1100; J2469; J9263

== ENCOUNTER 2018-05-04 07:38 | Day surgery (SDC) | payer OTHER ==
[2018-05-04] MEDS ORDERED: DEXAMETHASONE INJECTION 20 MG in SODIUM CHLORIDE 50 ML IVPB ONE (08:00)
[2018-05-04] MEDS ORDERED: PALONOSETRON HCL 0.25 MG/5 ML VIAL IVPUSH ONE (08:00)
[2018-05-04] MEDS ORDERED: DEXTROSE 5% IV ONE (08:30)
[2018-05-04] MEDS ORDERED: WATER IV ONE (08:30)
[2018-05-04] MEDS ORDERED: WATER IVPB ONE (08:30)
[2018-05-04] MEDS ORDERED: LEUCOVORIN IVPB ONE (08:30)
[2018-05-04] MEDS ORDERED: DEXTROSE 5% IVPB ONE (08:30)
[2018-05-04] MEDS ORDERED: OXALIPLATIN IV ONE (08:30)
[2018-05-04 09:12] LABS: BASO % 0.7 % (0-2.0); EOS % 3.2 % (0-4.5); HEMATOCRIT 36.5 % (32.4-45.2); LYMPH % 26.2 % (8-40); MCH 31.3 pg (25.7-33.7); MEAN CELL VOLUME 94.8 fl (80-96); MEAN PLT VOLUME 8.7 fl (7.5-11.1); MONO % 7.6 % (3.8-10.2); NEUT % 62.3 % (42.8-82.8); PLATELET COUNT 240 K/MM3 (134-434); RBC 3.85 M/mm3 (3.60-5.2); RDW 18.3 % (11.6-15.6); WHITE BLOOD COUNT 8.8 K/mm3 (4.0-10.0)
[2018-05-04 09:40] LABS: ALBUMIN 3.3 g/dl (3.4-5.0); ALK PHOS 122 U/L (45-117); ANION GAP 6 MMOL/L (8-16); BILIRUBIN,DIRECT < 0.2 mg/dL (0.0-0.2); BILIRUBIN,TOTAL 0.2 mg/dL (0.2-1); BLOOD UREA NITROGEN 11 mg/dL (7-18); CALCIUM 8.9 mg/dL (8.5-10.1); CHLORIDE 111 mmol/L (98-107); CO2 24 mmol/L (21-32); CREATININE 0.6 mg/dL (0.55-1.3); GLUCOSE,RANDOM 165 mg/dL (74-106); MAGNESIUM 2.2 mg/dL (1.8-2.4); POTASSIUM 4.2 mmol/L (3.5-5.1); SGOT/AST 16 U/L (15-37); SGPT/ALT 20 U/L (13-61); SODIUM 141 mmol/L (136-145); TOT PROT 7.4 g/dl (6.4-8.2)
[2018-05-04] MEDS ORDERED: FLUOROURACIL 500 MG/10 ML VIAL IVPUSH ONE (10:30)
[2018-05-04] MEDS ORDERED: SODIUM CHLORIDE 500 ML IV ONE ×3 (10:30→11:41)
[2018-05-04] MEDS ORDERED: DEXAMETHASONE SOD PHOSPHATE 10 MG/1 ML VIAL IVPB ONE (10:37)
[2018-05-04] MEDS ORDERED: SODIUM CHLORIDE CP ONE (10:45)
[2018-05-04] MEDS ORDERED: FLUOROURACIL CP ONE (10:45)
[2018-05-04] MEDS ORDERED: SODIUM CHLORIDE 500 ML IV SCH (10:45)
[2018-05-04 11:17] VITALS: TEMP 98
[2018-05-04 15:18] VITALS: BP 129/72; PULSE 84
== END 2018-05-04 15:18 | disposition home or self-care (01) ==
LOC: JONCCHEMO 07:38 → J7W 10:28 → JONCCHEMO 15:18
PROVIDERS: ATTEND Internal Medicine Hematology & Oncology
DX: Z51.11 Encounter for antineoplastic chemotherapy (principal); C18.9 Malignant neoplasm of colon, unspecified
CPT/HCPCS: 36415; 80053; 80076; 83735; 85025; 96361; 96365; 96366; 96375; 96409; 96411; 96415; 96417; G0498; J1100; J2469; J7030; J9190

== ENCOUNTER 2018-05-18 07:30 | Day surgery (SDC) | payer OTHER ==
[2018-05-18] MEDS ORDERED: SODIUM CHLORIDE 500 ML IV ONE ×2 (09:00→12:30)
[2018-05-18 09:18] VITALS: TEMP 98.1
[2018-05-18 09:55] LABS: EOS % 3.3 % (0-4.5); HEMATOCRIT 39.3 % (32.4-45.2); HEMOGLOBIN 12.9 GM/dL (10.7-15.3); MCH 31.4 pg (25.7-33.7); MCHC 32.8 g/dl (32.0-36.0); MEAN CELL VOLUME 95.5 fl (80-96); MEAN PLT VOLUME 8.8 fl (7.5-11.1); MONO % 7.8 % (3.8-10.2); NEUT % 62.9 % (42.8-82.8); PLATELET COUNT 319 K/MM3 (134-434); RBC 4.12 M/mm3 (3.60-5.2); WHITE BLOOD COUNT 9.3 K/mm3 (4.0-10.0)
[2018-05-18] MEDS ORDERED: DEXAMETHASONE INJECTION 20 MG in SODIUM CHLORIDE 50 ML IVPB ONE (10:00)
[2018-05-18] MEDS ORDERED: PALONOSETRON HCL 0.25 MG/5 ML VIAL IVPUSH ONE (10:00)
[2018-05-18 10:29] LABS: ALBUMIN 3.4 g/dl (3.4-5.0); ALK PHOS 120 U/L (45-117); ANION GAP 8 MMOL/L (8-16); BILIRUBIN,TOTAL 0.2 mg/dL (0.2-1); BLOOD UREA NITROGEN 11 mg/dL (7-18); CALCIUM 9.4 mg/dL (8.5-10.1); CHLORIDE 111 mmol/L (98-107); CO2 26 mmol/L (21-32); CREATININE 0.6 mg/dL (0.55-1.3); GLUCOSE,RANDOM 121 mg/dL (74-106); POTASSIUM 4.1 mmol/L (3.5-5.1); SGOT/AST 17 U/L (15-37); SGPT/ALT 22 U/L (13-61); SODIUM 144 mmol/L (136-145); TOT PROT 7.8 g/dl (6.4-8.2)
[2018-05-18] MEDS ORDERED: DEXTROSE 5% IV ONE (10:30)
[2018-05-18] MEDS ORDERED: DEXTROSE 5% IVPB ONE (10:30)
[2018-05-18] MEDS ORDERED: WATER IVPB ONE (10:30)
[2018-05-18] MEDS ORDERED: WATER IV ONE (10:30)
[2018-05-18] MEDS ORDERED: LEUCOVORIN IVPB ONE (10:30)
[2018-05-18] MEDS ORDERED: OXALIPLATIN IV ONE (10:30)
[2018-05-18 11:07] LABS: ALBUMIN 3.4 g/dl (3.4-5.0); BILIRUBIN,DIRECT 0.1 mg/dL (0.0-0.2); BILIRUBIN,TOTAL 0.2 mg/dL (0.2-1); MAGNESIUM 2.2 mg/dL (1.8-2.4); TOT PROT 7.7 g/dl (6.4-8.2)
[2018-05-18] MEDS ORDERED: FLUOROURACIL 500 MG/10 ML VIAL IVPUSH ONE (12:30)
[2018-05-18] MEDS ORDERED: SODIUM CHLORIDE CP ONE (12:45)
[2018-05-18] MEDS ORDERED: FLUOROURACIL CP ONE (12:45)
[2018-05-18 14:42] VITALS: BP 126/62; PULSE 77
== END 2018-05-18 14:50 | disposition home or self-care (01) ==
LOC: JONCCHEMO 07:30 → J7W 09:55 → JONCCHEMO 14:50
PROVIDERS: ATTEND Internal Medicine Hematology & Oncology
DX: Z51.11 Encounter for antineoplastic chemotherapy (principal); C18.9 Malignant neoplasm of colon, unspecified
CPT/HCPCS: 36415; 80053; 80076; 83735; 85025; 96361; 96366; 96367; 96375; 96413; 96415; 96417; G0498; J1100; J2469; J9190; J9263

== ENCOUNTER 2018-05-20 07:42 | Day surgery (SDC) | payer OTHER ==
[2018-05-20 13:13] VITALS: BP 131/68; PULSE 88; TEMP 97.9
[2018-05-20] MEDS ORDERED: PORTA CATH FLUSH 10 ML IVPUSH ONE (13:15)
== END 2018-05-20 12:40 | disposition home or self-care (01) ==
LOC: JONCCHEMO 07:42 → J7W 12:52
PROVIDERS: ATTEND Internal Medicine Hematology & Oncology
PROC: 0JPVXVZ Removal of Infusion Pump from Upper Extremity Subcutaneous Tissue and Fascia, External Approach (ICD-10-PCS; principal; 2018-05-20)
DX: Z53.8 Procedure and treatment not carried out for other reasons (principal)

== ENCOUNTER 2018-06-01 07:30 | Day surgery (SDC) | payer OTHER ==
[2018-06-01] MEDS ORDERED: SODIUM CHLORIDE 500 ML IV ONE ×2 (08:00→11:30)
[2018-06-01] MEDS ORDERED: PALONOSETRON HCL 0.25 MG/5 ML VIAL IVPUSH ONE (08:30)
[2018-06-01] MEDS ORDERED: DEXAMETHASONE INJECTION 20 MG in SODIUM CHLORIDE 50 ML IVPB ONE (08:30)
[2018-06-01] MEDS ORDERED: DEXTROSE 5% IVPB ONE (09:00)
[2018-06-01] MEDS ORDERED: OXALIPLATIN IV ONE (09:00)
[2018-06-01] MEDS ORDERED: DEXTROSE 5% IV ONE (09:00)
[2018-06-01] MEDS ORDERED: WATER IVPB ONE (09:00)
[2018-06-01] MEDS ORDERED: WATER IV ONE (09:00)
[2018-06-01] MEDS ORDERED: LEUCOVORIN IVPB ONE (09:00)
[2018-06-01 09:32] LABS: BASO % 0.8 % (0-2.0); EOS % 3.7 % (0-4.5); HEMATOCRIT 37.1 % (32.4-45.2); HEMOGLOBIN 12.4 GM/dL (10.7-15.3); LYMPH % 28.8 % (8-40); MCH 32.1 pg (25.7-33.7); MCHC 33.5 g/dl (32.0-36.0); MEAN CELL VOLUME 95.8 fl (80-96); MEAN PLT VOLUME 8.2 fl (7.5-11.1); MONO % 6.3 % (3.8-10.2); NEUT % 60.4 % (42.8-82.8); PLATELET COUNT 264 K/MM3 (134-434); RBC 3.87 M/mm3 (3.60-5.2); RDW 17.8 % (11.6-15.6); WHITE BLOOD COUNT 7.5 K/mm3 (4.0-10.0)
[2018-06-01 10:02] LABS: ALBUMIN 3.6 g/dl (3.4-5.0); ALK PHOS 129 U/L (45-117); ANION GAP 7 MMOL/L (8-16); BILIRUBIN,DIRECT 0.1 mg/dL (0.0-0.2); BILIRUBIN,TOTAL 0.2 mg/dL (0.2-1); BLOOD UREA NITROGEN 11 mg/dL (7-18); CALCIUM 8.8 mg/dL (8.5-10.1); CHLORIDE 109 mmol/L (98-107); CO2 27 mmol/L (21-32); CREATININE 0.7 mg/dL (0.55-1.3); GLUCOSE,RANDOM 131 mg/dL (74-106); MAGNESIUM 2.1 mg/dL (1.8-2.4); SGOT/AST 18 U/L (15-37); SGPT/ALT 22 U/L (13-61); SODIUM 143 mmol/L (136-145); TOT PROT 7.5 g/dl (6.4-8.2)
[2018-06-01] MEDS ORDERED: FLUOROURACIL 500 MG/10 ML VIAL IVPUSH ONE (11:00)
[2018-06-01] MEDS ORDERED: SODIUM CHLORIDE CP ONE (11:15)
[2018-06-01] MEDS ORDERED: FLUOROURACIL CP ONE (11:15)
[2018-06-01 16:21] VITALS: TEMP 97.9
[2018-06-01 16:25] VITALS: BP 129/70; PULSE 83
== END 2018-06-01 16:00 | disposition home or self-care (01) ==
LOC: JONCCHEMO 07:30 → J7W 11:11 → JONCCHEMO 16:00
PROVIDERS: ATTEND Internal Medicine Hematology & Oncology
DX: Z51.11 Encounter for antineoplastic chemotherapy (principal); C18.9 Malignant neoplasm of colon, unspecified
CPT/HCPCS: 36415; 80053; 80076; 83735; 85025; 96361; 96366; 96367; 96375; 96409; 96411; 96413; 96415; 96417; G0498; J1100; J2469; J9190; J9263

== ENCOUNTER 2018-06-03 07:29 | Day surgery (SDC) | payer OTHER ==
[2018-06-03] MEDS ORDERED: PORTA CATH FLUSH 10 ML IVPUSH ONE (13:54)
[2018-06-03 13:59] VITALS: BP 156/72; PULSE 80; TEMP 97.5
== END 2018-06-03 09:40 | disposition home or self-care (01) ==
LOC: JONCCHEMO 07:29 → J7W 08:39 → JONCCHEMO 09:40
PROVIDERS: ATTEND Internal Medicine Hematology & Oncology
PROC: 0JPVXVZ Removal of Infusion Pump from Upper Extremity Subcutaneous Tissue and Fascia, External Approach (ICD-10-PCS; principal; 2018-06-03)
DX: Z53.8 Procedure and treatment not carried out for other reasons (principal)

== ENCOUNTER 2018-07-14 05:44 | Day surgery (SDC) | payer OTHER ==
[2018-07-14 09:33] LABS: BASO % 1.4 % (0-2.0); EOS % 3.9 % (0-4.5); HEMATOCRIT 38.6 % (32.4-45.2); HEMOGLOBIN 12.4 GM/dL (10.7-15.3); LYMPH % 30.5 % (8-40); MCH 30.5 pg (25.7-33.7); MCHC 32.2 g/dl (32.0-36.0); MEAN CELL VOLUME 94.8 fl (80-96); MEAN PLT VOLUME 9.4 fl (7.5-11.1); NEUT % 58.2 % (42.8-82.8); PLATELET COUNT 346 K/MM3 (134-434); RBC 4.07 M/mm3 (3.60-5.2); WHITE BLOOD COUNT 11.6 K/mm3 (4.0-10.0)
[2018-07-14] MEDS ORDERED: ATROPINE SO4 0.4 MG/1 ML VIAL IVPUSH ONE (10:00)
[2018-07-14] MEDS ORDERED: DEXAMETHASONE SODIUM PHOSPHATE 10 MG, ONDANSETRON INJECTION 12 MG in SODIUM CHLORIDE 10... IVPB ONE (10:00)
[2018-07-14 10:16] LABS: ALBUMIN 3.6 g/dl (3.4-5.0); ALK PHOS 127 U/L (45-117); ANION GAP 8 MMOL/L (8-16); BILIRUBIN,DIRECT 0.1 mg/dL (0.0-0.2); BILIRUBIN,TOTAL 0.2 mg/dL (0.2-1); BLOOD UREA NITROGEN 10 mg/dL (7-18); CHLORIDE 109 mmol/L (98-107); CO2 26 mmol/L (21-32); CREATININE 0.7 mg/dL (0.55-1.3); GLUCOSE,RANDOM 90 mg/dL (74-106); POTASSIUM 3.9 mmol/L (3.5-5.1); SGOT/AST 17 U/L (15-37); SGPT/ALT 23 U/L (13-61); SODIUM 143 mmol/L (136-145); TOT PROT 7.7 g/dl (6.4-8.2)
[2018-07-14] MEDS ORDERED: IRINOTECAN HCL 200 MG in DEXTROSE 5%-WATER - 500 ML IVPB ONE (10:30)
[2018-07-14] MEDS ORDERED: SODIUM CHLORIDE 1,000 ML IV SCH ×2 (12:15→18:45)
[2018-07-14 16:33] VITALS: BP 148/76; PULSE 78
[2018-07-14 17:55] VITALS: TEMP 98.2
== END 2018-07-14 17:10 | disposition home or self-care (01) ==
LOC: JONCCHEMO 05:44 → J7W 10:42 → JONCCHEMO 17:10
PROVIDERS: ATTEND Internal Medicine Hematology & Oncology
PROC: 3E04305 Introduction of Other Antineoplastic into Central Vein, Percutaneous Approach (ICD-10-PCS; principal; 2018-07-14)
PROC: 3E043GC Introduction of Other Therapeutic Substance into Central Vein, Percutaneous Approach (ICD-10-PCS; 2018-07-14)
PROC: 3E0437Z Introduction of Electrolytic and Water Balance Substance into Central Vein, Percutaneous Approach (ICD-10-PCS; 2018-07-14)
DX: Z51.11 Encounter for antineoplastic chemotherapy (principal); C18.8 Malignant neoplasm of overlapping sites of colon; I10 Essential (primary) hypertension; E78.00 Pure hypercholesterolemia, unspecified; K58.9 Irritable bowel syndrome, unspecified; G35 Multiple sclerosis
CPT/HCPCS: 36415; 80053; 80076; 83735; 85025; 96361; 96367; 96375; 96413; 96415; J7030; J9206

== ENCOUNTER 2018-07-28 08:23 | Day surgery (SDC) | payer OTHER ==
[~2018-07-28 08:23] MED LIST changes: +ATROPINE SULFATE 1 MG/10 ML DISP.SYRIN IVPUSH ONE; +DEXAMETHASONE INJECTION 10 MG in SODIUM CHLORIDE 50 ML IVPB ONE; +PALONOSETRON HCL 0.25 MG/5 ML VIAL IVPUSH ONE; -SODIUM CHLORIDE 500 ML IV ONE
[2018-07-28] MEDS ORDERED: BEVACIZUMAB IV ONE (08:30)
[2018-07-28] MEDS ORDERED: SODIUM CHLORIDE IV ONE (08:30)
[2018-07-28 08:38] LABS: BASO % 0.8 % (0-2.0); EOS % 3.9 % (0-4.5); HEMATOCRIT 34.8 % (32.4-45.2); HEMOGLOBIN 12.3 GM/dL (10.7-15.3); LYMPH % 25.9 % (8-40); MCH 33.1 pg (25.7-33.7); MCHC 35.4 g/dl (32.0-36.0); MEAN CELL VOLUME 93.4 fl (80-96); MEAN PLT VOLUME 7.7 fl (7.5-11.1); MONO % 6.2 % (3.8-10.2); NEUT % 63.2 % (42.8-82.8); PLATELET COUNT 361 K/MM3 (134-434); RBC 3.72 M/mm3 (3.60-5.2); RDW 14.6 % (11.6-15.6); WHITE BLOOD COUNT 8.4 K/mm3 (4.0-10.0)
[2018-07-28 09:32] LABS: ALBUMIN 3.2 g/dl (3.4-5.0); ALK PHOS 128 U/L (45-117); ANION GAP 7 MMOL/L (8-16); BILIRUBIN,DIRECT 0.1 mg/dL (0.0-0.2); BILIRUBIN,TOTAL 0.2 mg/dL (0.2-1); BLOOD UREA NITROGEN 6 mg/dL (7-18); CALCIUM 8.5 mg/dL (8.5-10.1); CHLORIDE 111 mmol/L (98-107); CO2 27 mmol/L (21-32); CREATININE 0.7 mg/dL (0.55-1.3); GLUCOSE,RANDOM 120 mg/dL (74-106); MAGNESIUM 2.2 mg/dL (1.8-2.4); POTASSIUM 3.8 mmol/L (3.5-5.1); SGOT/AST 18 U/L (15-37); SGPT/ALT 27 U/L (13-61); SODIUM 144 mmol/L (136-145); TOT PROT 7.1 g/dl (6.4-8.2)
[2018-07-28] MEDS ORDERED: WATER IVPB ONE (10:00)
[2018-07-28] MEDS ORDERED: DEXTROSE 5% IVPB ONE (10:00)
[2018-07-28] MEDS ORDERED: IRINOTECAN HCL IVPB ONE (10:00)
[2018-07-28] MEDS ORDERED: SODIUM CHLORIDE 1,000 ML IV ONE (11:30)
[2018-07-28] MEDS: SODIUM CHLORIDE 0.9% 500 ML INFUS.BAG IV ONE ×2 (12:03→14:58)
[2018-07-28 14:31] VITALS: TEMP 98.6
[2018-07-28] MEDS ORDERED: PORTA CATH FLUSH 10 ML IVPUSH ONE (14:31)
[2018-07-28 16:30] VITALS: BP 147/75; PULSE 86
== END 2018-07-28 16:15 | disposition home or self-care (01) ==
LOC: JONCCHEMO 08:23 → J7W 12:02 → JONCCHEMO 16:15
PROVIDERS: ATTEND Internal Medicine Hematology & Oncology
PROC: 3E04305 Introduction of Other Antineoplastic into Central Vein, Percutaneous Approach (ICD-10-PCS; principal; 2018-07-28)
PROC: 3E043GC Introduction of Other Therapeutic Substance into Central Vein, Percutaneous Approach (ICD-10-PCS; 2018-07-28)
PROC: 3E0437Z Introduction of Electrolytic and Water Balance Substance into Central Vein, Percutaneous Approach (ICD-10-PCS; 2018-07-28)
DX: Z51.11 Encounter for antineoplastic chemotherapy (principal); C18.8 Malignant neoplasm of overlapping sites of colon; I10 Essential (primary) hypertension; E78.00 Pure hypercholesterolemia, unspecified; K58.9 Irritable bowel syndrome, unspecified; N32.89 Other specified disorders of bladder; G35 Multiple sclerosis; Z87.442 Personal history of urinary calculi
CPT/HCPCS: 36415; 80048; 80076; 83735; 85025; 96361; 96375; 96413; 96415; J1100; J2469; J9206

== ENCOUNTER 2018-08-10 05:50 | Day surgery (SDC) | payer OTHER ==
[2018-08-10] MEDS ORDERED: DEXAMETHASONE SODIUM PHOSPHATE 10 MG, ONDANSETRON INJECTION 12 MG in SODIUM CHLORIDE 10... IVPB ONE (08:00)
[2018-08-10] MEDS ORDERED: ATROPINE SULFATE 1 MG/10 ML DISP.SYRIN IVPUSH ONE (08:00)
[2018-08-10] MEDS ORDERED: IRINOTECAN HCL 200 MG in DEXTROSE 5%-WATER - 500 ML IVPB ONE (08:30)
[2018-08-10 08:55] LABS: BASO % 0.3 % (0-2.0); EOS % 2.6 % (0-4.5); HEMATOCRIT 35.4 % (32.4-45.2); HEMOGLOBIN 12.5 GM/dL (10.7-15.3); LYMPH % 21.1 % (8-40); MCH 32.3 pg (25.7-33.7); MCHC 35.2 g/dl (32.0-36.0); MEAN CELL VOLUME 91.8 fl (80-96); MEAN PLT VOLUME 8.7 fl (7.5-11.1); MONO % 5.3 % (3.8-10.2); NEUT % 70.7 % (42.8-82.8); PLATELET COUNT 350 K/MM3 (134-434); RBC 3.85 M/mm3 (3.60-5.2); WHITE BLOOD COUNT 10.7 K/mm3 (4.0-10.0)
[2018-08-10] MEDS ORDERED: SODIUM CHLORIDE 1,000 ML IV SCH (09:30)
[2018-08-10 09:35] LABS: ALBUMIN 3.4 g/dl (3.4-5.0); ALK PHOS 128 U/L (45-117); ANION GAP 10 MMOL/L (8-16); BILIRUBIN,DIRECT < 0.1 mg/dL (0.0-0.2); BILIRUBIN,TOTAL 0.2 mg/dL (0.2-1); BLOOD UREA NITROGEN 11 mg/dL (7-18); CALCIUM 8.6 mg/dL (8.5-10.1); CHLORIDE 111 mmol/L (98-107); CO2 22 mmol/L (21-32); CREATININE 0.7 mg/dL (0.55-1.3); GLUCOSE,RANDOM 158 mg/dL (74-106); MAGNESIUM 2.1 mg/dL (1.8-2.4); POTASSIUM 4.2 mmol/L (3.5-5.1); SGOT/AST 17 U/L (15-37); SGPT/ALT 31 U/L (13-61); SODIUM 144 mmol/L (136-145); TOT PROT 7.3 g/dl (6.4-8.2)
[2018-08-10 16:10] VITALS: TEMP 97.6
[2018-08-10 16:11] VITALS: BP 152/73; PULSE 91
== END 2018-08-10 14:45 | disposition home or self-care (01) ==
LOC: JONCCHEMO 05:50 → J7W 09:46 → JONCCHEMO 14:45
PROVIDERS: ATTEND Internal Medicine Hematology & Oncology
DX: Z51.11 Encounter for antineoplastic chemotherapy (principal); C18.8 Malignant neoplasm of overlapping sites of colon
CPT/HCPCS: 36415; 80048; 80076; 82378; 83735; 85025; 96361; 96375; 96413; 96415; 96416; J2405; J7030; J9206

== ENCOUNTER 2018-08-24 07:03 | Day surgery (SDC) | payer OTHER ==
[2018-08-24 09:50] LABS: BASO % 0.9 % (0-2.0); EOS % 4.2 % (0-4.5); HEMATOCRIT 36.6 % (32.4-45.2); HEMOGLOBIN 12.3 GM/dL (10.7-15.3); LYMPH % 32.2 % (8-40); MCH 31.5 pg (25.7-33.7); MCHC 33.7 g/dl (32.0-36.0); MEAN CELL VOLUME 93.5 fl (80-96); MEAN PLT VOLUME 8.9 fl (7.5-11.1); MONO % 5.8 % (3.8-10.2); NEUT % 56.9 % (42.8-82.8); PLATELET COUNT 366 K/MM3 (134-434); RBC 3.92 M/mm3 (3.60-5.2); RDW 15.7 % (11.6-15.6); WHITE BLOOD COUNT 8.4 K/mm3 (4.0-10.0)
[2018-08-24] MEDS ORDERED: ATROPINE SO4 0.4 MG/1 ML VIAL IVPUSH ONE (10:00)
[2018-08-24] MEDS ORDERED: DEXAMETHASONE SODIUM PHOSPHATE 10 MG, ONDANSETRON INJECTION 12 MG in SODIUM CHLORIDE 10... IVPB ONE (10:00)
[2018-08-24] MEDS ORDERED: SODIUM CHLORIDE 500 ML IV STA (10:25)
[2018-08-24] MEDS ORDERED: IRINOTECAN HCL 210 MG in DEXTROSE 5%-WATER - 500 ML IVPB ONE (10:30)
[2018-08-24 10:33] LABS: ALBUMIN 3.6 g/dl (3.4-5.0); ALK PHOS 127 U/L (45-117); ANION GAP 9 MMOL/L (8-16); BILIRUBIN,DIRECT 0.2 mg/dL (0.0-0.2); BILIRUBIN,TOTAL 0.9 mg/dL (0.2-1); BLOOD UREA NITROGEN 10 mg/dL (7-18); CHLORIDE 109 mmol/L (98-107); CO2 24 mmol/L (21-32); CREATININE 0.9 mg/dL (0.55-1.3); GLUCOSE,RANDOM 183 mg/dL (74-106); MAGNESIUM 1.9 mg/dL (1.8-2.4); POTASSIUM 4.1 mmol/L (3.5-5.1); SGOT/AST 35 U/L (15-37); SGPT/ALT 51 U/L (13-61); SODIUM 142 mmol/L (136-145); TOT PROT 7.5 g/dl (6.4-8.2)
[2018-08-24 16:53] VITALS: TEMP 98.2
[2018-08-24] MEDS ORDERED: PORTA CATH FLUSH 10 ML IVPUSH ONE (16:53)
[2018-08-24 16:55] VITALS: BP 125/64; PULSE 84
== END 2018-08-24 16:15 | disposition home or self-care (01) ==
LOC: JONCCHEMO 07:03 → J7W 10:44 → JONCCHEMO 16:15
PROVIDERS: ATTEND Internal Medicine Hematology & Oncology
DX: Z51.11 Encounter for antineoplastic chemotherapy (principal); C18.8 Malignant neoplasm of overlapping sites of colon
CPT/HCPCS: 36415; 80048; 80076; 83735; 85025; 96361; 96367; 96375; 96413; 96415; J2405; J7030; J9206

== ENCOUNTER 2018-09-07 07:12 | Day surgery (SDC) | payer OTHER ==
[2018-09-07 09:47] LABS: BASO % 0.9 % (0-2.0); EOS % 3.3 % (0-4.5); HEMATOCRIT 33.1 % (32.4-45.2); HEMOGLOBIN 11.8 GM/dL (10.7-15.3); LYMPH % 24.2 % (8-40); MCH 32.9 pg (25.7-33.7); MCHC 35.6 g/dl (32.0-36.0); MEAN CELL VOLUME 92.5 fl (80-96); MEAN PLT VOLUME 8.7 fl (7.5-11.1); MONO % 6.4 % (3.8-10.2); NEUT % 65.2 % (42.8-82.8); PLATELET COUNT 397 K/MM3 (134-434); RBC 3.58 M/mm3 (3.60-5.2); RDW 15.4 % (11.6-15.6); WHITE BLOOD COUNT 9.4 K/mm3 (4.0-10.0)
[2018-09-07] MEDS ORDERED: DEXAMETHASONE SODIUM PHOSPHATE 10 MG, ONDANSETRON INJECTION 12 MG in SODIUM CHLORIDE 10... IVPB ONE (10:00)
[2018-09-07] MEDS ORDERED: ATROPINE SO4 0.4 MG/1 ML VIAL IVPUSH ONE (10:00)
[2018-09-07] MEDS ORDERED: SODIUM CHLORIDE 500 ML IV SCH (10:30)
[2018-09-07] MEDS ORDERED: IRINOTECAN HCL 210 MG in DEXTROSE 5%-WATER - 500 ML IVPB ONE (10:30)
[2018-09-07 10:43] LABS: ALBUMIN 3.6 g/dl (3.4-5.0); ALK PHOS 134 U/L (45-117); ANION GAP 8 MMOL/L (8-16); BILIRUBIN,DIRECT 0.1 mg/dL (0.0-0.2); BILIRUBIN,TOTAL 0.3 mg/dL (0.2-1); BLOOD UREA NITROGEN 8 mg/dL (7-18); CALCIUM 8.9 mg/dL (8.5-10.1); CHLORIDE 109 mmol/L (98-107); CO2 26 mmol/L (21-32); CREATININE 0.7 mg/dL (0.55-1.3); GLUCOSE,RANDOM 132 mg/dL (74-106); POTASSIUM 3.7 mmol/L (3.5-5.1); SGOT/AST 21 U/L (15-37); SGPT/ALT 34 U/L (13-61); SODIUM 143 mmol/L (136-145); TOT PROT 7.4 g/dl (6.4-8.2)
[2018-09-07] MEDS ORDERED: PORTA CATH FLUSH 10 ML IVPUSH ONE (16:40)
[2018-09-07 16:41] VITALS: BP 135/74; PULSE 95; TEMP 98.1
== END 2018-09-07 15:30 | disposition home or self-care (01) ==
LOC: JONCCHEMO 07:12 → J7W 09:59 → JONCCHEMO 15:30
PROVIDERS: ATTEND Internal Medicine Hematology & Oncology
DX: Z51.11 Encounter for antineoplastic chemotherapy (principal); C18.8 Malignant neoplasm of overlapping sites of colon
CPT/HCPCS: 36415; 80048; 80076; 83735; 85025; 96361; 96367; 96375; 96413; 96415; J2405; J9206

== ENCOUNTER 2018-09-21 07:16 | Day surgery (SDC) | payer OTHER ==
[2018-09-21] MEDS ORDERED: ACETAMINOPHEN 325 MG TABLET (FP) PO ONE (08:00)
[2018-09-21] MEDS ORDERED: DIPHENHYDRAMINE IVPB ONE (08:00)
[2018-09-21] MEDS ORDERED: ATROPINE SULFATE 1 MG/10 ML DISP.SYRIN IVPUSH ONE (08:00)
[2018-09-21] MEDS ORDERED: DEXAMETHASONE SODIUM PHOSPHATE IVPB ONE (08:00)
[2018-09-21] MEDS ORDERED: [UNRECOGNIZED DRUG - OTHER] IVPB ONE (08:00)
[2018-09-21] MEDS ORDERED: PANITUMUMAB IVPB ONE ×2 (08:30→11:30)
[2018-09-21] MEDS ORDERED: SODIUM CHLORIDE IVPB ONE ×2 (08:30→11:30)
[2018-09-21 09:04] LABS: BASO % 0.7 % (0-2.0); EOS % 4.1 % (0-4.5); HEMATOCRIT 34.2 % (32.4-45.2); HEMOGLOBIN 11.9 GM/dL (10.7-15.3); LYMPH % 23.7 % (8-40); MCH 32.3 pg (25.7-33.7); MCHC 34.8 g/dl (32.0-36.0); MEAN CELL VOLUME 92.7 fl (80-96); MEAN PLT VOLUME 8.2 fl (7.5-11.1); MONO % 7.9 % (3.8-10.2); NEUT % 63.6 % (42.8-82.8); PLATELET COUNT 345 K/MM3 (134-434); RBC 3.69 M/mm3 (3.60-5.2); RDW 15.3 % (11.6-15.6); WHITE BLOOD COUNT 7.7 K/mm3 (4.0-10.0)
[2018-09-21] MEDS ORDERED: IRINOTECAN HCL 210 MG in DEXTROSE 5%-WATER - 500 ML IVPB ONE (09:30)
[2018-09-21 09:31] LABS: ALBUMIN 3.6 g/dl (3.4-5.0); ALK PHOS 164 U/L (45-117); ANION GAP 6 MMOL/L (8-16); BILIRUBIN,DIRECT 0.1 mg/dL (0.0-0.2); BILIRUBIN,TOTAL 0.2 mg/dL (0.2-1); BLOOD UREA NITROGEN 8 mg/dL (7-18); CHLORIDE 109 mmol/L (98-107); CO2 26 mmol/L (21-32); CREATININE 0.9 mg/dL (0.55-1.3); GLUCOSE,RANDOM 113 mg/dL (74-106); MAGNESIUM 2.1 mg/dL (1.8-2.4); POTASSIUM 3.5 mmol/L (3.5-5.1); SGOT/AST 21 U/L (15-37); SGPT/ALT 32 U/L (13-61); SODIUM 141 mmol/L (136-145); TOT PROT 7.4 g/dl (6.4-8.2); TOT PROT 7.6 g/dl (6.4-8.2)
[2018-09-21] MEDS ORDERED: WATER IVPB ONE (11:00)
[2018-09-21] MEDS ORDERED: DEXTROSE 5% IVPB ONE (11:00)
[2018-09-21] MEDS ORDERED: IRINOTECAN HCL IVPB ONE (11:00)
[2018-09-21] MEDS ORDERED: DEXAMETHASONE SOD PHOSPHATE 4 MG/1 ML VIAL IVPB ONE (12:37)
[2018-09-21 17:19] VITALS: TEMP 97.9
[2018-09-21] MEDS ORDERED: PORTA CATH FLUSH 10 ML IVPUSH ONE (17:19)
[2018-09-21 17:43] VITALS: BP 120/60; PULSE 78
== END 2018-09-21 16:00 | disposition home or self-care (01) ==
LOC: JONCCHEMO 07:16 → J7W 09:44 → JONCCHEMO 16:00
PROVIDERS: ATTEND Internal Medicine Hematology & Oncology
DX: Z51.11 Encounter for antineoplastic chemotherapy (principal); C18.8 Malignant neoplasm of overlapping sites of colon
CPT/HCPCS: 36415; 80053; 80076; 83735; 85025; 96367; 96375; 96413; 96415; 96417; J2405; J9206; J9303

== ENCOUNTER 2018-10-05 07:20 | Day surgery (SDC) | payer OTHER ==
[2018-10-05] MEDS ORDERED: ATROPINE SULFATE 1 MG/10 ML DISP.SYRIN IVPUSH SCH (08:00)
[2018-10-05] MEDS ORDERED: ACETAMINOPHEN 325 MG TABLET (FP) PO ONE (08:00)
[2018-10-05] MEDS ORDERED: SODIUM CHLORIDE IVPB ONE (08:30)
[2018-10-05] MEDS ORDERED: PANITUMUMAB IVPB ONE (08:30)
[2018-10-05 09:03] VITALS: BP 125/78; PULSE 87; TEMP 98
[2018-10-05 09:30] LABS: BASO % 0.5 % (0-2.0); EOS % 3.8 % (0-4.5); HEMATOCRIT 37.9 % (32.4-45.2); HEMOGLOBIN 13.1 GM/dL (10.7-15.3); LYMPH % 22.5 % (8-40); MCH 31.9 pg (25.7-33.7); MCHC 34.6 g/dl (32.0-36.0); MEAN CELL VOLUME 92.3 fl (80-96); MEAN PLT VOLUME 8.7 fl (7.5-11.1); MONO % 8.4 % (3.8-10.2); NEUT % 64.8 % (42.8-82.8); PLATELET COUNT 349 K/MM3 (134-434); RDW 15.4 % (11.6-15.6); WHITE BLOOD COUNT 7.6 K/mm3 (4.0-10.0)
[2018-10-05] MEDS ORDERED: WATER IVPB ONE (09:30)
[2018-10-05] MEDS ORDERED: IRINOTECAN HCL IVPB ONE (09:30)
[2018-10-05] MEDS ORDERED: DEXTROSE 5% IVPB ONE (09:30)
[2018-10-05 10:00] LABS: ALBUMIN 4.1 g/dl (3.4-5.0); ALK PHOS 178 U/L (45-117); ANION GAP 8 MMOL/L (8-16); BILIRUBIN,DIRECT 0.1 mg/dL (0.0-0.2); BILIRUBIN,TOTAL 0.5 mg/dL (0.2-1); BLOOD UREA NITROGEN 8 mg/dL (7-18); CALCIUM 9.6 mg/dL (8.5-10.1); CHLORIDE 108 mmol/L (98-107); CO2 26 mmol/L (21-32); CREATININE 0.9 mg/dL (0.55-1.3); GLUCOSE,RANDOM 104 mg/dL (74-106); MAGNESIUM 2.3 mg/dL (1.8-2.4); POTASSIUM 4.1 mmol/L (3.5-5.1); SGOT/AST 57 U/L (15-37); SGPT/ALT 54 U/L (13-61); SODIUM 142 mmol/L (136-145); TOT PROT 8.1 g/dl (6.4-8.2); TOT PROT 8.2 g/dl (6.4-8.2)
[2018-10-05] MEDS ORDERED: [UNRECOGNIZED DRUG - OTHER] IVPB ONE (12:00)
[2018-10-05] MEDS ORDERED: DEXAMETHASONE SODIUM PHOSPHATE IVPB ONE (12:00)
[2018-10-05] MEDS ORDERED: DIPHENHYDRAMINE IVPB ONE (12:00)
[2018-10-05] MEDS ORDERED: PORTA CATH FLUSH 10 ML IVPUSH ONE (17:27)
== END 2018-10-05 13:50 | disposition home or self-care (01) ==
LOC: JONCCHEMO 07:20 → J7W 11:11 → JONCCHEMO 13:50
PROVIDERS: ATTEND Internal Medicine Hematology & Oncology
DX: Z51.11 Encounter for antineoplastic chemotherapy (principal); C18.8 Malignant neoplasm of overlapping sites of colon
CPT/HCPCS: 36415; 80053; 80076; 83735; 85025; 96367; 96375; 96413; 96415; J2405; J9206

== ENCOUNTER 2018-10-19 07:23 | Day surgery (SDC) | payer OTHER ==
[2018-10-19 08:48] VITALS: TEMP 98.1
[2018-10-19 09:51] LABS: BASO % 0.8 % (0-2.0); EOS % 3.7 % (0-4.5); HEMATOCRIT 35.4 % (32.4-45.2); HEMOGLOBIN 12.3 GM/dL (10.7-15.3); LYMPH % 25.6 % (8-40); MCHC 34.8 g/dl (32.0-36.0); MEAN PLT VOLUME 8.9 fl (7.5-11.1); MONO % 7.7 % (3.8-10.2); NEUT % 62.2 % (42.8-82.8); PLATELET COUNT 394 K/MM3 (134-434); RBC 3.85 M/mm3 (3.60-5.2); RDW 15.6 % (11.6-15.6); WHITE BLOOD COUNT 8.1 K/mm3 (4.0-10.0)
[2018-10-19] MEDS ORDERED: ACETAMINOPHEN 325 MG TABLET (FP) PO ONE (10:00)
[2018-10-19] MEDS ORDERED: DEXAMETHASONE SODIUM PHOSPHATE IVPB ONE (10:00)
[2018-10-19] MEDS ORDERED: ATROPINE SO4 0.4 MG/1 ML VIAL IVPUSH ONE (10:00)
[2018-10-19] MEDS ORDERED: [UNRECOGNIZED DRUG - OTHER] IVPB ONE (10:00)
[2018-10-19] MEDS ORDERED: DIPHENHYDRAMINE IVPB ONE (10:00)
[2018-10-19 10:24] LABS: ALBUMIN 3.9 g/dl (3.4-5.0); ALK PHOS 157 U/L (45-117); ANION GAP 7 MMOL/L (8-16); BILIRUBIN,DIRECT 0.1 mg/dL (0.0-0.2); BILIRUBIN,TOTAL 0.2 mg/dL (0.2-1); BLOOD UREA NITROGEN 9 mg/dL (7-18); CALCIUM 9.3 mg/dL (8.5-10.1); CHLORIDE 109 mmol/L (98-107); CO2 25 mmol/L (21-32); CREATININE 0.9 mg/dL (0.55-1.3); GLUCOSE,RANDOM 88 mg/dL (74-106); MAGNESIUM 2.1 mg/dL (1.8-2.4); SGOT/AST 22 U/L (15-37); SGPT/ALT 40 U/L (13-61); SODIUM 141 mmol/L (136-145); TOT PROT 7.7 g/dl (6.4-8.2); TOT PROT 7.8 g/dl (6.4-8.2)
[2018-10-19] MEDS ORDERED: WATER IVPB ONE (10:30)
[2018-10-19] MEDS ORDERED: IRINOTECAN HCL IVPB ONE (10:30)
[2018-10-19] MEDS ORDERED: DEXTROSE 5% IVPB ONE (10:30)
[2018-10-19] MEDS ORDERED: SODIUM CHLORIDE 500 ML IV STA (10:38)
[2018-10-19] MEDS ORDERED: RAMIPRIL 5 MG CAPSULE (FP) PO ONE (11:30)
[2018-10-19] MEDS ORDERED: SODIUM CHLORIDE IVPB ONE (12:00)
[2018-10-19] MEDS ORDERED: PANITUMUMAB IVPB ONE (12:00)
[2018-10-19] MEDS ORDERED: PORTA CATH FLUSH 10 ML IVPUSH ONE (15:23)
[2018-10-19 16:03] VITALS: BP 142/71; PULSE 66
== END 2018-10-19 16:07 | disposition home or self-care (01) ==
LOC: JONCCHEMO 07:23 → J7W 09:44 → JONCCHEMO 16:07
PROVIDERS: ATTEND Internal Medicine Hematology & Oncology
PROC: 3E04305 Introduction of Other Antineoplastic into Central Vein, Percutaneous Approach (ICD-10-PCS; principal; 2018-10-19)
PROC: 3E043GC Introduction of Other Therapeutic Substance into Central Vein, Percutaneous Approach (ICD-10-PCS; 2018-10-19)
PROC: 3E0437Z Introduction of Electrolytic and Water Balance Substance into Central Vein, Percutaneous Approach (ICD-10-PCS; 2018-10-19)
DX: Z51.11 Encounter for antineoplastic chemotherapy (principal); C18.8 Malignant neoplasm of overlapping sites of colon; I10 Essential (primary) hypertension; E78.00 Pure hypercholesterolemia, unspecified; K58.9 Irritable bowel syndrome, unspecified; G35 Multiple sclerosis
CPT/HCPCS: 36415; 80053; 80076; 83735; 85025; 96361; 96367; 96375; 96413; 96415; 96417; J9206; J9303

== ENCOUNTER 2018-11-02 07:13 | Day surgery (SDC) | payer OTHER ==
[2018-11-02 09:16] LABS: BASO % 1.3 % (0-2.0); EOS % 3.2 % (0-4.5); HEMATOCRIT 37.3 % (32.4-45.2); HEMOGLOBIN 12.4 GM/dL (10.7-15.3); LYMPH % 25.2 % (8-40); MCH 30.8 pg (25.7-33.7); MCHC 33.2 g/dl (32.0-36.0); MEAN CELL VOLUME 92.7 fl (80-96); MEAN PLT VOLUME 8.7 fl (7.5-11.1); MONO % 7.3 % (3.8-10.2); PLATELET COUNT 323 K/MM3 (134-434); RBC 4.03 M/mm3 (3.60-5.2); RDW 15.9 % (11.6-15.6); WHITE BLOOD COUNT 9.7 K/mm3 (4.0-10.0)
[2018-11-02 09:54] LABS: ALBUMIN 3.7 g/dl (3.4-5.0); ALBUMIN 3.8 g/dl (3.4-5.0); ALK PHOS 133 U/L (45-117); ANION GAP 6 MMOL/L (8-16); BILIRUBIN,DIRECT 0.1 mg/dL (0.0-0.2); BILIRUBIN,TOTAL 0.2 mg/dL (0.2-1); BILIRUBIN,TOTAL 0.3 mg/dL (0.2-1); BLOOD UREA NITROGEN 7 mg/dL (7-18); CALCIUM 9.6 mg/dL (8.5-10.1); CHLORIDE 109 mmol/L (98-107); CO2 27 mmol/L (21-32); CREATININE 0.6 mg/dL (0.55-1.3); GLUCOSE,RANDOM 111 mg/dL (74-106); MAGNESIUM 2.6 mg/dL (1.8-2.4); POTASSIUM 3.8 mmol/L (3.5-5.1); SGOT/AST 14 U/L (15-37); SGPT/ALT 27 U/L (13-61); SODIUM 143 mmol/L (136-145); TOT PROT 7.6 g/dl (6.4-8.2); TOT PROT 7.8 g/dl (6.4-8.2)
[2018-11-02] MEDS ORDERED: DEXAMETHASONE SODIUM PHOSPHATE 10 MG, DIPHENHYDRAMINE 25 MG in SODIUM CHLORIDE 100 ML IVPB ONE (10:00)
[2018-11-02] MEDS ORDERED: ACETAMINOPHEN 325 MG TABLET (FP) PO ONE (10:00)
[2018-11-02] MEDS ORDERED: SODIUM CHLORIDE IVPB ONE (10:30)
[2018-11-02] MEDS ORDERED: PANITUMUMAB IVPB ONE (10:30)
[2018-11-02] MEDS ORDERED: SODIUM CHLORIDE 500 ML IV STA (10:54)
[2018-11-02 17:27] VITALS: BP 129/74; PULSE 82; TEMP 99.1
== END 2018-11-02 15:10 | disposition home or self-care (01) ==
LOC: JONCCHEMO 07:13 → J7W 10:28 → JONCCHEMO 15:10
PROVIDERS: ATTEND Internal Medicine Hematology & Oncology
DX: Z51.11 Encounter for antineoplastic chemotherapy (principal); C18.8 Malignant neoplasm of overlapping sites of colon
CPT/HCPCS: 36415; 80053; 80076; 83735; 85025; 96361; 96375; 96413; J9303

== ENCOUNTER 2018-11-16 07:12 | Day surgery (SDC) | payer OTHER ==
[2018-11-16] MEDS ORDERED: DEXAMETHASONE SODIUM PHOSPHATE 10 MG, DIPHENHYDRAMINE 25 MG in SODIUM CHLORIDE 100 ML IVPB ONE (08:00)
[2018-11-16] MEDS ORDERED: ACETAMINOPHEN 325 MG TABLET (FP) PO ONE (08:00)
[2018-11-16] MEDS ORDERED: SODIUM CHLORIDE IVPB ONE (08:30)
[2018-11-16] MEDS ORDERED: PANITUMUMAB IVPB ONE (08:30)
[2018-11-16 08:43] LABS: BASO % 0.9 % (0-2.0); EOS % 3.4 % (0-4.5); HEMATOCRIT 37.5 % (32.4-45.2); HEMOGLOBIN 12.6 GM/dL (10.7-15.3); LYMPH % 21.1 % (8-40); MCH 30.8 pg (25.7-33.7); MCHC 33.7 g/dl (32.0-36.0); MEAN CELL VOLUME 91.5 fl (80-96); MEAN PLT VOLUME 8.5 fl (7.5-11.1); MONO % 7.4 % (3.8-10.2); NEUT % 67.2 % (42.8-82.8); PLATELET COUNT 374 K/MM3 (134-434); RDW 15.8 % (11.6-15.6); WHITE BLOOD COUNT 7.2 K/mm3 (4.0-10.0)
[2018-11-16 09:13] LABS: ALBUMIN 3.8 g/dl (3.4-5.0); ALK PHOS 151 U/L (45-117); ANION GAP 7 MMOL/L (8-16); BILIRUBIN,DIRECT 0.1 mg/dL (0.0-0.2); BILIRUBIN,TOTAL 0.2 mg/dL (0.2-1); BLOOD UREA NITROGEN 7 mg/dL (7-18); CALCIUM 9.3 mg/dL (8.5-10.1); CHLORIDE 108 mmol/L (98-107); CO2 26 mmol/L (21-32); CREATININE 0.8 mg/dL (0.55-1.3); GLUCOSE,RANDOM 107 mg/dL (74-106); MAGNESIUM 2.2 mg/dL (1.8-2.4); POTASSIUM 3.7 mmol/L (3.5-5.1); SGOT/AST 31 U/L (15-37); SGPT/ALT 40 U/L (13-61); SODIUM 140 mmol/L (136-145); TOT PROT 7.5 g/dl (6.4-8.2)
[2018-11-16] MEDS ORDERED: SODIUM CHLORIDE 500 ML IV SCH (09:45)
[2018-11-16 16:14] VITALS: BP 120/68; PULSE 87; TEMP 98.5
[2018-11-16] MEDS ORDERED: PORTA CATH FLUSH 10 ML IVPUSH ONE (16:14)
== END 2018-11-16 16:22 | disposition home or self-care (01) ==
LOC: JONCCHEMO 07:12 → J7W 10:05 → JONCCHEMO 16:22
PROVIDERS: ATTEND Internal Medicine Hematology & Oncology
DX: Z51.11 Encounter for antineoplastic chemotherapy (principal); C18.8 Malignant neoplasm of overlapping sites of colon
CPT/HCPCS: 36415; 80048; 80076; 83735; 85025; 96361; 96367; 96375; 96413; J7030; J9303

== ENCOUNTER 2018-11-30 07:16 | Day surgery (SDC) | payer OTHER ==
[2018-11-30] MEDS ORDERED: ACETAMINOPHEN 325 MG TABLET (FP) PO ONE (08:00)
[2018-11-30] MEDS ORDERED: DEXAMETHASONE SODIUM PHOSPHATE 10 MG, DIPHENHYDRAMINE 25 MG in SODIUM CHLORIDE 100 ML IVPB ONE (08:00)
[2018-11-30] MEDS ORDERED: PANITUMUMAB IVPB ONE (08:30)
[2018-11-30] MEDS ORDERED: SODIUM CHLORIDE IVPB ONE (08:30)
[2018-11-30 09:51] LABS: BASO % 0.4 % (0-2.0); EOS % 1.4 % (0-4.5); HEMOGLOBIN 13.9 GM/dL (10.7-15.3); MCH 29.9 pg (25.7-33.7); MEAN CELL VOLUME 90.6 fl (80-96); MEAN PLT VOLUME 8.8 fl (7.5-11.1); MONO % 5.6 % (3.8-10.2); NEUT % 77.6 % (42.8-82.8); PLATELET COUNT 395 K/MM3 (134-434); RBC 4.63 M/mm3 (3.60-5.2); RDW 15.2 % (11.6-15.6); WHITE BLOOD COUNT 15.3 K/mm3 (4.0-10.0)
[2018-11-30 10:31] LABS: ALBUMIN 3.8 g/dl (3.4-5.0); ALK PHOS 118 U/L (45-117); ANION GAP 7 MMOL/L (8-16); BILIRUBIN,DIRECT 0.1 mg/dL (0.0-0.2); BILIRUBIN,TOTAL 0.2 mg/dL (0.2-1); BLOOD UREA NITROGEN 7 mg/dL (7-18); CALCIUM 9.6 mg/dL (8.5-10.1); CHLORIDE 105 mmol/L (98-107); CO2 29 mmol/L (21-32); CREATININE 0.6 mg/dL (0.55-1.3); GLUCOSE,RANDOM 95 mg/dL (74-106); MAGNESIUM 2.3 mg/dL (1.8-2.4); POTASSIUM 3.4 mmol/L (3.5-5.1); SGOT/AST 13 U/L (15-37); SGPT/ALT 28 U/L (13-61); SODIUM 140 mmol/L (136-145); TOT PROT 7.6 g/dl (6.4-8.2)
[2018-11-30] MEDS ORDERED: POTASSIUM CHLORIDE TABS 20 MEQ TABLET.ER (FP) PO ONE (10:34)
[2018-11-30] MEDS ORDERED: SODIUM CHLORIDE 500 ML IV ONE (11:00)
[2018-11-30 15:35] VITALS: BP 159/84; PULSE 78
[2018-11-30] MEDS ORDERED: PORTA CATH FLUSH 10 ML IVPUSH ONE (15:35)
[2018-11-30 15:40] VITALS: TEMP 98.6
== END 2018-11-30 14:30 | disposition home or self-care (01) ==
LOC: JONCCHEMO 07:16 → J7W 10:17 → JONCCHEMO 14:30
PROVIDERS: ATTEND Internal Medicine Hematology & Oncology
DX: Z51.11 Encounter for antineoplastic chemotherapy (principal); C18.8 Malignant neoplasm of overlapping sites of colon
CPT/HCPCS: 36415; 80048; 80076; 82378; 83735; 85025; 96361; 96367; 96375; 96413; J9303

== ENCOUNTER 2018-12-14 07:34 | Day surgery (SDC) | payer OTHER ==
[2018-12-14 08:37] LABS: BASO % 0.9 % (0-2.0); EOS % 3.2 % (0-4.5); HEMATOCRIT 39.4 % (32.4-45.2); LYMPH % 21.8 % (8-40); MCH 30.1 pg (25.7-33.7); MCHC 32.9 g/dl (32.0-36.0); MEAN CELL VOLUME 91.6 fl (80-96); MEAN PLT VOLUME 8.4 fl (7.5-11.1); MONO % 7.4 % (3.8-10.2); NEUT % 66.7 % (42.8-82.8); PLATELET COUNT 366 K/MM3 (134-434); RDW 14.8 % (11.6-15.6); WHITE BLOOD COUNT 9.8 K/mm3 (4.0-10.0)
[2018-12-14 09:13] LABS: ALBUMIN 3.7 g/dl (3.4-5.0); BILIRUBIN,TOTAL 0.3 mg/dL (0.2-1); CALCIUM 9.1 mg/dL (8.5-10.1); CREATININE 0.7 mg/dL (0.55-1.3); MAGNESIUM 2.1 mg/dL (1.8-2.4); POTASSIUM 3.4 mmol/L (3.5-5.1); TOT PROT 7.4 g/dl (6.4-8.2)
[2018-12-14] MEDS ORDERED: DEXAMETHASONE SODIUM PHOSPHATE 10 MG, DIPHENHYDRAMINE 25 MG in SODIUM CHLORIDE 100 ML IVPB ONE (10:00)
[2018-12-14] MEDS ORDERED: ACETAMINOPHEN 325 MG TABLET (FP) PO ONE (10:00)
[2018-12-14] MEDS ORDERED: PANITUMUMAB IVPB ONE (10:30)
[2018-12-14] MEDS ORDERED: SODIUM CHLORIDE IVPB ONE (10:30)
[2018-12-14] MEDS ORDERED: POTASSIUM CHLORIDE ORAL LIQUID 20 MEQ/15 ML PO ONE (10:30)
[2018-12-14] MEDS ORDERED: SODIUM CHLORIDE 500 ML IV ONE (12:30)
[2018-12-14 15:19] VITALS: TEMP 98.2
[2018-12-14] MEDS ORDERED: PORTA CATH FLUSH 10 ML IVPUSH ONE (15:19)
[2018-12-14 15:21] VITALS: BP 117/76; PULSE 86
== END 2018-12-14 13:15 | disposition home or self-care (01) ==
LOC: JONCCHEMO 07:34 → J7W 09:49 → JONCCHEMO 13:15
PROVIDERS: ATTEND Internal Medicine Hematology & Oncology
DX: Z51.11 Encounter for antineoplastic chemotherapy (principal); C18.8 Malignant neoplasm of overlapping sites of colon
CPT/HCPCS: 36415; 80053; 83735; 85025; 96361; 96367; 96375; 96413; J9303

== ENCOUNTER 2018-12-28 07:12 | Day surgery (SDC) | payer OTHER ==
[2018-12-28 08:26] LABS: EOS % 2.8 % (0-4.5); HEMATOCRIT 40.7 % (32.4-45.2); HEMOGLOBIN 13.4 GM/dL (10.7-15.3); LYMPH % 20.7 % (8-40); MCH 29.5 pg (25.7-33.7); MCHC 32.9 g/dl (32.0-36.0); MEAN CELL VOLUME 89.4 fl (80-96); MEAN PLT VOLUME 8.6 fl (7.5-11.1); MONO % 5.9 % (3.8-10.2); NEUT % 69.6 % (42.8-82.8); PLATELET COUNT 364 K/MM3 (134-434); RBC 4.55 M/mm3 (3.60-5.2); RDW 14.7 % (11.6-15.6); WHITE BLOOD COUNT 12.1 K/mm3 (4.0-10.0)
[2018-12-28] MEDS ORDERED: SODIUM CHLORIDE 500 ML IV STA (09:47)
[2018-12-28 09:49] LABS: CREATININE 0.9 mg/dL (0.55-1.3)
[2018-12-28 09:50] LABS: ALBUMIN 3.6 g/dl (3.4-5.0); BILIRUBIN,DIRECT 0.1 mg/dL (0.0-0.2); BILIRUBIN,TOTAL 0.3 mg/dL (0.2-1); CALCIUM 8.9 mg/dL (8.5-10.1); MAGNESIUM 2.4 mg/dL (1.8-2.4); POTASSIUM 3.2 mmol/L (3.5-5.1); TOT PROT 7.2 g/dl (6.4-8.2)
[2018-12-28] MEDS ORDERED: DEXAMETHASONE SODIUM PHOSPHATE 10 MG, DIPHENHYDRAMINE 25 MG in SODIUM CHLORIDE 100 ML IVPB ONE (10:00)
[2018-12-28] MEDS ORDERED: ACETAMINOPHEN 325 MG TABLET (FP) PO ONE (10:00)
[2018-12-28] MEDS ORDERED: SODIUM CHLORIDE IVPB ONE (10:30)
[2018-12-28] MEDS ORDERED: PANITUMUMAB IVPB ONE (10:30)
[2018-12-28] MEDS ORDERED: PT OWN MED DRAWER 7, Y5N ONE (13:07)
[2018-12-28] MEDS ORDERED: POTASSIUM CHLORIDE TABS 20 MEQ TABLET.ER (FP) PO ONE (13:30)
[2018-12-28] MEDS ORDERED: PORTA CATH FLUSH 10 ML IVPUSH ONE (15:10)
[2018-12-28 15:11] VITALS: BP 159/86; PULSE 59; TEMP 99.2
== END 2018-12-28 13:20 | disposition home or self-care (01) ==
LOC: JONCCHEMO 07:12 → J7W 10:07 → JONCCHEMO 13:20
PROVIDERS: ATTEND Internal Medicine Hematology & Oncology
DX: Z51.11 Encounter for antineoplastic chemotherapy (principal); C18.8 Malignant neoplasm of overlapping sites of colon
CPT/HCPCS: 36415; 80048; 80076; 83735; 85025; 96361; 96367; 96375; 96413; J7030; J9303

== ENCOUNTER 2019-01-11 05:59 | Day surgery (SDC) | payer OTHER | END 2019-01-11 16:40 | disposition home or self-care (01) | LOC: JONCCHEMO 05:59 → J7W 10:13 → JONCCHEMO 16:40 ==

== ENCOUNTER 2019-01-25 07:11 | Day surgery (SDC) | payer OTHER ==
[2019-01-25 08:59] LABS: EOS % 2.4 % (0-4.5); HEMATOCRIT 42.9 % (32.4-45.2); HEMOGLOBIN 14.1 GM/dL (10.7-15.3); LYMPH % 19.6 % (8-40); MCH 29.7 pg (25.7-33.7); MCHC 32.9 g/dl (32.0-36.0); MEAN CELL VOLUME 90.3 fl (80-96); MEAN PLT VOLUME 8.5 fl (7.5-11.1); MONO % 6.1 % (3.8-10.2); NEUT % 70.9 % (42.8-82.8); PLATELET COUNT 439 K/MM3 (134-434); RBC 4.75 M/mm3 (3.60-5.2); RDW 14.9 % (11.6-15.6); WHITE BLOOD COUNT 10.5 K/mm3 (4.0-10.0)
[2019-01-25] MEDS ORDERED: ACETAMINOPHEN 325 MG TABLET (FP) PO ONE (09:00)
[2019-01-25] MEDS ORDERED: DEXAMETHASONE SODIUM PHOSPHATE 10 MG, ONDANSETRON INJECTION 8 MG, DIPHENHYDRAMINE 25 MG... IVPB ONE (09:00)
[2019-01-25 09:17] LABS: ALBUMIN 4.1 g/dl (3.4-5.0); BILIRUBIN,TOTAL 0.3 mg/dL (0.2-1); CALCIUM 9.5 mg/dL (8.5-10.1); MAGNESIUM 2.2 mg/dL (1.8-2.4); POTASSIUM 4.1 mmol/L (3.5-5.1); TOT PROT 8.2 g/dl (6.4-8.2)
[2019-01-25] MEDS ORDERED: DEXTROSE 5% IVPB ONE (09:30)
[2019-01-25] MEDS ORDERED: ATROPINE SO4 0.4 MG/1 ML VIAL IVPUSH ONE (09:30)
[2019-01-25] MEDS ORDERED: IRINOTECAN HCL IVPB ONE (09:30)
[2019-01-25] MEDS ORDERED: WATER IVPB ONE (09:30)
[2019-01-25] MEDS ORDERED: SODIUM CHLORIDE 250 ML IV STA (10:06)
[2019-01-25] MEDS ORDERED: SODIUM CHLORIDE 500 ML IV SCH (10:15)
[2019-01-25] MEDS ORDERED: PANITUMUMAB IVPB ONE (11:00)
[2019-01-25] MEDS ORDERED: SODIUM CHLORIDE IVPB ONE (11:00)
[2019-01-25] MEDS ORDERED: DEXAMETHASONE SOD PHOSPHATE 4 MG/1 ML VIAL IVPB ONE (12:45)
[2019-01-25 15:42] VITALS: TEMP 98.7
[2019-01-25] MEDS ORDERED: PORTA CATH FLUSH 10 ML IVPUSH ONE (15:42)
[2019-01-25 16:28] VITALS: BP 138/82; PULSE 91
== END 2019-01-25 16:37 | disposition home or self-care (01) ==
LOC: JONCCHEMO 07:11 → J7W 09:52 → JONCCHEMO 16:50
PROVIDERS: ATTEND Internal Medicine Hematology & Oncology
DX: Z51.11 Encounter for antineoplastic chemotherapy (principal); C18.8 Malignant neoplasm of overlapping sites of colon
CPT/HCPCS: 36415; 80053; 83735; 85025; 96361; 96367; 96375; 96413; 96415; 96417; J2405; J7030; J9206; J9303

== ENCOUNTER 2019-02-08 06:55 | Day surgery (SDC) | payer OTHER ==
[2019-02-08 08:52] LABS: BASO % 0.4 % (0-2.0); EOS % 3.6 % (0-4.5); HEMATOCRIT 33.1 % (32.4-45.2); HEMOGLOBIN 11.4 GM/dL (10.7-15.3); LYMPH % 21.4 % (8-40); MCH 30.1 pg (25.7-33.7); MCHC 34.4 g/dl (32.0-36.0); MEAN CELL VOLUME 87.4 fl (80-96); MONO % 6.4 % (3.8-10.2); NEUT % 68.2 % (42.8-82.8); PLATELET COUNT 418 K/MM3 (134-434); RBC 3.78 M/mm3 (3.60-5.2); RDW 14.7 % (11.6-15.6); WHITE BLOOD COUNT 7.6 K/mm3 (4.0-10.0)
[2019-02-08] MEDS ORDERED: ATROPINE SO4 0.4 MG/1 ML VIAL IVPUSH ONE (09:00)
[2019-02-08 09:20] LABS: ALBUMIN 3.3 g/dl (3.4-5.0); BILIRUBIN,DIRECT 0.1 mg/dL (0.0-0.2); BILIRUBIN,TOTAL 0.3 mg/dL (0.2-1); BLOOD UREA NITROGEN 3.5 mg/dL (7-18); CREATININE 0.7 mg/dL (0.55-1.3); MAGNESIUM 2.2 mg/dL (1.8-2.4); POTASSIUM 3.2 mmol/L (3.5-5.1)
[2019-02-08] MEDS ORDERED: [UNRECOGNIZED DRUG - OTHER] IVPB ONE (09:30)
[2019-02-08] MEDS ORDERED: DIPHENHYDRAMINE IVPB ONE (09:30)
[2019-02-08] MEDS ORDERED: ONDANSETRON IVPB ONE (09:30)
[2019-02-08] MEDS ORDERED: ACETAMINOPHEN 325 MG TABLET (FP) PO ONE (09:30)
[2019-02-08] MEDS ORDERED: DEXAMETHASONE IVPB ONE (09:30)
[2019-02-08] MEDS ORDERED: SODIUM CHLORIDE 500 ML IV STA (09:38)
[2019-02-08] MEDS ORDERED: IRINOTECAN HCL IVPB ONE (10:00)
[2019-02-08] MEDS ORDERED: WATER IVPB ONE (10:00)
[2019-02-08] MEDS ORDERED: DEXTROSE 5% IVPB ONE (10:00)
[2019-02-08] MEDS ORDERED: PANITUMUMAB IVPB ONE (11:30)
[2019-02-08] MEDS ORDERED: SODIUM CHLORIDE IVPB ONE (11:30)
[2019-02-08] MEDS ORDERED: POTASSIUM CHLORIDE TABS 20 MEQ TABLET.ER (FP) PO ONE ×2 (11:33→16:00)
[2019-02-08] MEDS ORDERED: SODIUM CHLORIDE 250 ML IV ONE ×2 (11:45→13:00)
[2019-02-08 15:05] VITALS: TEMP 98.6
[2019-02-08] MEDS ORDERED: PORTA CATH FLUSH 10 ML IVPUSH ONE (15:05)
[2019-02-08] MEDS: KCL 10 MEQ IVPB 10 MEQ/100 ML INFUS.BAG IVPB SCH ×2 (16:56→18:02)
[2019-02-08 19:05] VITALS: BP 138/73; PULSE 75
== END 2019-02-08 19:10 | disposition home or self-care (01) ==
LOC: JONCCHEMO 06:55 → J7W 09:34 → JONCCHEMO 19:10
PROVIDERS: ATTEND Internal Medicine Hematology & Oncology
DX: Z51.11 Encounter for antineoplastic chemotherapy (principal); C18.8 Malignant neoplasm of overlapping sites of colon
CPT/HCPCS: 36415; 80048; 80076; 82378; 83735; 85025; 96361; 96366; 96367; 96375; 96413; 96415; 96417; J1100; J9206; J9303

== ENCOUNTER 2019-02-22 08:10 | Day surgery (SDC) | payer OTHER ==
[2019-02-22 08:58] LABS: BASO % 1.4 % (0-2.0); EOS % 4.1 % (0-4.5); HEMATOCRIT 35.6 % (32.4-45.2); HEMOGLOBIN 12.1 GM/dL (10.7-15.3); LYMPH % 21.1 % (8-40); MCHC 33.9 g/dl (32.0-36.0); MEAN CELL VOLUME 88.6 fl (80-96); MEAN PLT VOLUME 8.6 fl (7.5-11.1); MONO % 7.1 % (3.8-10.2); NEUT % 66.3 % (42.8-82.8); PLATELET COUNT 455 K/MM3 (134-434); RBC 4.02 M/mm3 (3.60-5.2); RDW 15.1 % (11.6-15.6); WHITE BLOOD COUNT 9.4 K/mm3 (4.0-10.0)
[2019-02-22 09:22] LABS: BLOOD UREA NITROGEN 3.9 mg/dL (7-18); CREATININE 0.7 mg/dL (0.55-1.3); POTASSIUM 3.5 mmol/L (3.5-5.1)
[2019-02-22 09:23] LABS: ALBUMIN 3.6 g/dl (3.4-5.0); BILIRUBIN,DIRECT 0.1 mg/dL (0.0-0.2); BILIRUBIN,TOTAL 0.3 mg/dL (0.2-1); CALCIUM 9.2 mg/dL (8.5-10.1); MAGNESIUM 2.2 mg/dL (1.8-2.4); TOT PROT 7.2 g/dl (6.4-8.2)
[2019-02-22] MEDS ORDERED: DEXTROSE 5%-NORMAL SALINE 500 ML IV SCH (10:00)
[2019-02-22] MEDS ORDERED: ACETAMINOPHEN 325 MG TABLET (FP) PO ONE (10:00)
[2019-02-22] MEDS ORDERED: DEXAMETHASONE SODIUM PHOSPHATE 10 MG, ONDANSETRON INJECTION 8 MG, DIPHENHYDRAMINE 25 MG... IVPB ONE (10:00)
[2019-02-22] MEDS ORDERED: ATROPINE SO4 0.4 MG/1 ML VIAL IVPUSH ONE (10:00)
[2019-02-22] MEDS ORDERED: PANITUMUMAB IVPB ONE (10:30)
[2019-02-22] MEDS ORDERED: SODIUM CHLORIDE IVPB ONE (10:30)
[2019-02-22] MEDS ORDERED: POTASSIUM CHLORIDE TABS 20 MEQ TABLET.ER (FP) PO ONE (10:30)
[2019-02-22] MEDS ORDERED: WATER IVPB ONE (11:30)
[2019-02-22] MEDS ORDERED: IRINOTECAN HCL IVPB ONE (11:30)
[2019-02-22] MEDS ORDERED: DEXTROSE 5% IVPB ONE (11:30)
[2019-02-22 16:03] VITALS: BP 163/86; PULSE 75; TEMP 98
[2019-02-22] MEDS ORDERED: PORTA CATH FLUSH 10 ML IVPUSH ONE (16:03)
== END 2019-02-22 14:45 | disposition home or self-care (01) ==
LOC: JONCCHEMO 08:10 → J7W 09:33 → JONCCHEMO 14:45
PROVIDERS: ATTEND Internal Medicine Hematology & Oncology
DX: Z51.11 Encounter for antineoplastic chemotherapy (principal); C18.8 Malignant neoplasm of overlapping sites of colon
CPT/HCPCS: 36415; 80048; 80076; 83735; 85025; 96361; 96367; 96375; 96413; 96415; 96417; J9206; J9303

== ENCOUNTER 2019-03-08 07:20 | Day surgery (SDC) | payer OTHER ==
[2019-03-08 08:32] LABS: BASO % 0.6 % (0-2.0); EOS % 4.7 % (0-4.5); HEMATOCRIT 36.8 % (32.4-45.2); HEMOGLOBIN 12.2 GM/dL (10.7-15.3); LYMPH % 29.1 % (8-40); MCH 29.1 pg (25.7-33.7); MCHC 33.3 g/dl (32.0-36.0); MEAN CELL VOLUME 87.5 fl (80-96); MEAN PLT VOLUME 8.4 fl (7.5-11.1); NEUT % 58.6 % (42.8-82.8); PLATELET COUNT 431 K/MM3 (134-434); RDW 15.6 % (11.6-15.6); WHITE BLOOD COUNT 8.2 K/mm3 (4.0-10.0)
[2019-03-08 09:09] LABS: ALBUMIN 3.7 g/dl (3.4-5.0); BILIRUBIN,DIRECT 0.1 mg/dL (0.0-0.2); BILIRUBIN,TOTAL 0.4 mg/dL (0.2-1); CALCIUM 9.1 mg/dL (8.5-10.1); CREATININE 0.7 mg/dL (0.55-1.3); MAGNESIUM 2.1 mg/dL (1.8-2.4); POTASSIUM 3.3 mmol/L (3.5-5.1); TOT PROT 7.3 g/dl (6.4-8.2)
[2019-03-08] MEDS ORDERED: DEXAMETHASONE SODIUM PHOSPHATE 10 MG, DIPHENHYDRAMINE 25 MG, ONDANSETRON INJECTION 8 MG... IVPB ONE (09:30)
[2019-03-08] MEDS ORDERED: ACETAMINOPHEN 325 MG TABLET (FP) PO ONE (09:30)
[2019-03-08] MEDS ORDERED: ATROPINE SULFATE 1 MG/10 ML DISP.SYRIN IVPUSH ONE (09:30)
[2019-03-08] MEDS ORDERED: DEXTROSE 5% IVPB ONE (10:00)
[2019-03-08] MEDS ORDERED: WATER IVPB ONE (10:00)
[2019-03-08] MEDS ORDERED: IRINOTECAN HCL IVPB ONE (10:00)
[2019-03-08] MEDS ORDERED: SODIUM CHLORIDE 250 ML IV STA (10:16)
[2019-03-08] MEDS ORDERED: SODIUM CHLORIDE IVPB ONE (11:30)
[2019-03-08] MEDS ORDERED: PANITUMUMAB IVPB ONE (11:30)
[2019-03-08] MEDS ORDERED: POTASSIUM CHLORIDE ORAL LIQUID 20 MEQ/15 ML PO ONE (11:30)
[2019-03-08 15:31] VITALS: TEMP 98.5
[2019-03-08] MEDS ORDERED: PORTA CATH FLUSH 10 ML IVPUSH ONE (15:31)
[2019-03-08 16:17] VITALS: BP 118/69; PULSE 78
== END 2019-03-08 16:17 | disposition home or self-care (01) ==
LOC: JONCCHEMO 07:20 → J7W 10:37 → JONCCHEMO 16:17
PROVIDERS: ATTEND Internal Medicine Hematology & Oncology
DX: Z51.11 Encounter for antineoplastic chemotherapy (principal); C18.8 Malignant neoplasm of overlapping sites of colon
CPT/HCPCS: 36415; 80048; 80076; 83735; 85025; 96361; 96367; 96375; 96413; 96415; 96417; J2405; J9206; J9303

== ENCOUNTER 2019-03-29 07:13 | Day surgery (SDC) | payer OTHER ==
[2019-03-29 09:07] LABS: BASO % 0.9 % (0-2.0); EOS % 4.1 % (0-4.5); HEMATOCRIT 34.1 % (32.4-45.2); HEMOGLOBIN 11.4 GM/dL (10.7-15.3); LYMPH % 23.4 % (8-40); MCH 29.1 pg (25.7-33.7); MCHC 33.3 g/dl (32.0-36.0); MEAN CELL VOLUME 87.3 fl (80-96); MEAN PLT VOLUME 8.1 fl (7.5-11.1); MONO % 8.5 % (3.8-10.2); NEUT % 63.1 % (42.8-82.8); PLATELET COUNT 501 K/MM3 (134-434); RBC 3.91 M/mm3 (3.60-5.2); RDW 16.4 % (11.6-15.6)
[2019-03-29] MEDS ORDERED: ATROPINE SULFATE 1 MG/10 ML DISP.SYRIN IVPUSH ONE (09:30)
[2019-03-29] MEDS ORDERED: ACETAMINOPHEN 325 MG TABLET (FP) PO ONE (09:30)
[2019-03-29] MEDS ORDERED: DEXAMETHASONE SODIUM PHOSPHATE 10 MG, ONDANSETRON INJECTION 8 MG, DIPHENHYDRAMINE 25 MG... IVPB ONE (09:30)
[2019-03-29] MEDS ORDERED: SODIUM CHLORIDE 500 ML IV STA (09:40)
[2019-03-29 09:42] LABS: ALBUMIN 3.7 g/dl (3.4-5.0); BILIRUBIN,DIRECT 0.1 mg/dL (0.0-0.2); BILIRUBIN,TOTAL 0.3 mg/dL (0.2-1); CALCIUM 9.6 mg/dL (8.5-10.1); CREATININE 0.8 mg/dL (0.55-1.3); MAGNESIUM 2.5 mg/dL (1.8-2.4); POTASSIUM 3.7 mmol/L (3.5-5.1); TOT PROT 7.6 g/dl (6.4-8.2)
[2019-03-29] MEDS ORDERED: WATER IVPB ONE (10:00)
[2019-03-29] MEDS ORDERED: IRINOTECAN HCL IVPB ONE (10:00)
[2019-03-29] MEDS ORDERED: DEXTROSE 5% IVPB ONE (10:00)
[2019-03-29] MEDS ORDERED: PANITUMUMAB IVPB ONE (11:30)
[2019-03-29] MEDS ORDERED: SODIUM CHLORIDE IVPB ONE (11:30)
[2019-03-29 14:04] VITALS: TEMP 98.1
[2019-03-29] MEDS ORDERED: PORTA CATH FLUSH 10 ML IVPUSH ONE (14:04)
[2019-03-29 18:07] VITALS: BP 152/73; PULSE 78
== END 2019-03-29 15:54 | disposition home or self-care (01) ==
LOC: JONCCHEMO 07:13 → J7W 10:05 → JONCCHEMO 15:54
PROVIDERS: ATTEND Internal Medicine Hematology & Oncology
DX: Z51.11 Encounter for antineoplastic chemotherapy (principal); C18.8 Malignant neoplasm of overlapping sites of colon
CPT/HCPCS: 36415; 73560-TC-LT-FY; 73560-TC-RT-FY; 80048; 80076; 83735; 85025; 96361; 96367; 96375; 96413; 96415; 96417; J2405; J9206; J9303

== ENCOUNTER 2019-04-12 05:41 | Day surgery (SDC) | payer OTHER | END 2019-04-12 15:46 | disposition home or self-care (01) | LOC: JONCCHEMO 05:41 → J7W 09:48 → JONCCHEMO 15:46 ==

== ENCOUNTER → 2019-04-26 | Day surgery (SDC) | payer OTHER ==
[~2019-04-26] MED LIST changes: +ACETAMINOPHEN 325 MG TABLET (FP) PO ONE; +ATROPINE SO4 0.4 MG/1 ML VIAL IVPUSH ONE; -ATROPINE SULFATE 1 MG/10 ML DISP.SYRIN IVPUSH ONE; -DEXAMETHASONE INJECTION 10 MG in SODIUM CHLORIDE 50 ML IVPB ONE; +DEXAMETHASONE INJECTION 10 MG, ONDANSETRON INJECTION 8 MG in SODIUM CHLORIDE 100 ML IVPB ONE; +DEXTROSE 5% IVPB ONE; +IRINOTECAN HCL IVPB ONE; -PALONOSETRON HCL 0.25 MG/5 ML VIAL IVPUSH ONE; +PANITUMUMAB IVPB ONE; +SODIUM CHLORIDE IVPB ONE; +WATER IVPB ONE
[2019-04-26 09:24] LABS: BASO % 0.5 % (0-2.0); EOS % 2.8 % (0-4.5); HEMATOCRIT 35.9 % (32.4-45.2); HEMOGLOBIN 11.7 GM/dL (10.7-15.3); LYMPH % 20.3 % (8-40); MCHC 32.7 g/dl (32.0-36.0); MEAN CELL VOLUME 85.6 fl (80-96); MEAN PLT VOLUME 8.2 fl (7.5-11.1); MONO % 5.4 % (3.8-10.2); PLATELET COUNT 436 K/MM3 (134-434); RBC 4.19 M/mm3 (3.60-5.2); RDW 16.7 % (11.6-15.6); WHITE BLOOD COUNT 9.7 K/mm3 (4.0-10.0)
[2019-04-26 09:50] LABS: ALBUMIN 3.6 g/dl (3.4-5.0); BILIRUBIN,DIRECT 0.1 mg/dL (0.0-0.2); BILIRUBIN,TOTAL 0.2 mg/dL (0.2-1); BLOOD UREA NITROGEN 6.5 mg/dL (7-18); CALCIUM 9.5 mg/dL (8.5-10.1); CREATININE 0.6 mg/dL (0.55-1.3); MAGNESIUM 2.2 mg/dL (1.8-2.4); POTASSIUM 3.5 mmol/L (3.5-5.1); TOT PROT 7.2 g/dl (6.4-8.2)
== END | disposition home or self-care (01) ==
LOC: JONCCHEMO 05:34
PROVIDERS: ATTEND Internal Medicine Hematology & Oncology
DX: Z53.8 Procedure and treatment not carried out for other reasons (principal)
CPT/HCPCS: 36415; 80048; 80076; 83735; 85025

== ENCOUNTER 2019-05-03 05:50 | Day surgery (SDC) | payer OTHER ==
[2019-05-03] MEDS ORDERED: DEXAMETHASONE SOD PHOSPHATE 10 MG/1 ML VIAL IVPB ONE (09:19)
[2019-05-03] MEDS ORDERED: SODIUM CHLORIDE 500 ML IV STA (09:20)
[2019-05-03] MEDS ORDERED: ACETAMINOPHEN 325 MG TABLET (FP) PO ONE (09:30)
[2019-05-03] MEDS ORDERED: DIPHENHYDRAMINE 25 MG in SODIUM CHLORIDE 50 ML IVPB ONE (09:30)
[2019-05-03 09:41] LABS: BASO % 1.4 % (0-2.0); HEMATOCRIT 37.2 % (32.4-45.2); HEMOGLOBIN 12.3 GM/dL (10.7-15.3); LYMPH % 14.6 % (8-40); MCH 28.1 pg (25.7-33.7); MCHC 32.9 g/dl (32.0-36.0); MEAN CELL VOLUME 85.4 fl (80-96); MEAN PLT VOLUME 8.8 fl (7.5-11.1); MONO % 5.7 % (3.8-10.2); NEUT % 76.3 % (42.8-82.8); PLATELET COUNT 476 K/MM3 (134-434); RBC 4.36 M/mm3 (3.60-5.2); RDW 17.3 % (11.6-15.6); WHITE BLOOD COUNT 15.2 K/mm3 (4.0-10.0)
[2019-05-03] MEDS ORDERED: NIVOLUMAB IVPB ONE (10:00)
[2019-05-03] MEDS ORDERED: SODIUM CHLORIDE IVPB ONE (10:00)
[2019-05-03 10:21] LABS: ALBUMIN 3.7 g/dl (3.4-5.0); BILIRUBIN,TOTAL 0.5 mg/dL (0.2-1); BLOOD UREA NITROGEN 7.6 mg/dL (7-18); CALCIUM 9.2 mg/dL (8.5-10.1); CREATININE 0.7 mg/dL (0.55-1.3); MAGNESIUM 2.1 mg/dL (1.8-2.4); POTASSIUM 3.4 mmol/L (3.5-5.1); TOT PROT 7.6 g/dl (6.4-8.2)
[2019-05-03] MEDS ORDERED: POTASSIUM CHLORIDE TABS 20 MEQ TABLET.ER (FP) PO ONE (12:15)
[2019-05-03 17:00] VITALS: BP 115/72; PULSE 89; TEMP 98.8
[2019-05-03] MEDS ORDERED: PORTA CATH FLUSH 10 ML IVPUSH ONE (17:00)
== END 2019-05-03 12:25 | disposition home or self-care (01) ==
LOC: JONCCHEMO 05:50 → J7W 08:53 → JONCCHEMO 12:25
PROVIDERS: ATTEND Internal Medicine Hematology & Oncology
DX: Z51.11 Encounter for antineoplastic chemotherapy (principal); C18.8 Malignant neoplasm of overlapping sites of colon
CPT/HCPCS: 36415; 80053; 83735; 84439; 84443; 85025; 96361; 96375; 96413; J1100; J9299

== ENCOUNTER 2019-05-17 07:18 | Day surgery (SDC) | payer OTHER ==
[2019-05-17 09:02] LABS: BASO % 1.3 % (0-2.0); EOS % 3.8 % (0-4.5); HEMATOCRIT 35.2 % (32.4-45.2); HEMOGLOBIN 11.7 GM/dL (10.7-15.3); LYMPH % 21.4 % (8-40); MCH 28.1 pg (25.7-33.7); MCHC 33.4 g/dl (32.0-36.0); MONO % 6.2 % (3.8-10.2); NEUT % 67.3 % (42.8-82.8); PLATELET COUNT 611 K/MM3 (134-434); RBC 4.19 M/mm3 (3.60-5.2); RDW 16.4 % (11.6-15.6); WHITE BLOOD COUNT 11.1 K/mm3 (4.0-10.0)
[2019-05-17] MEDS ORDERED: DIPHENHYDRAMINE 25 MG in SODIUM CHLORIDE 50 ML IVPB ONE (09:30)
[2019-05-17] MEDS ORDERED: ACETAMINOPHEN 325 MG TABLET (FP) PO ONE (09:30)
[2019-05-17 09:33] LABS: ALBUMIN 3.4 g/dl (3.4-5.0); BILIRUBIN,TOTAL 0.2 mg/dL (0.2-1); BLOOD UREA NITROGEN 7.2 mg/dL (7-18); CALCIUM 9.3 mg/dL (8.5-10.1); CREATININE 0.7 mg/dL (0.55-1.3); MAGNESIUM 2.3 mg/dL (1.8-2.4); POTASSIUM 3.4 mmol/L (3.5-5.1); TOT PROT 7.4 g/dl (6.4-8.2)
[2019-05-17] MEDS ORDERED: NIVOLUMAB IVPB ONE (10:00)
[2019-05-17] MEDS ORDERED: SODIUM CHLORIDE IVPB ONE (10:00)
[2019-05-17 10:15] LABS: EPI CELLS 1.7 /HPF (0-5/HPF); HYALINE CASTS 115 /lpf (0-8); PH,URINE 5.5 (5.0-8.0); URINE APPEARANCE CLOUDY; URINE BACTERIA 280.6 /hpf (NEGATIVE); URINE BILIRUBIN NEGATIVE (NEGATIVE); URINE COLOR YELLOW; URINE GLUCOSE (UA) NEGATIVE (NEGATIVE); URINE KETONE TRACE (NEGATIVE); URINE LEUK ESTERASE 2+ (NEGATIVE); URINE NITRITE NEGATIVE (NEGATIVE); URINE PROTEIN 1+ (NEGATIVE); URINE RBC 1 /hpf (0-4); URINE UROBILINOGEN 0.2 mg/dL (0.2-1.0); URINE WBC 146 /hpf (0-5)
[2019-05-17 10:41] LABS: URINE CRYSTALS NEGATIVE /hpf
[2019-05-17] MEDS ORDERED: POTASSIUM CHLORIDE TABS 20 MEQ TABLET.ER (FP) PO ONE (11:45)
[2019-05-17 16:10] VITALS: TEMP 98.7
[2019-05-17] MEDS ORDERED: PORTA CATH FLUSH 10 ML IVPUSH ONE (16:11)
[2019-05-17 16:12] VITALS: BP 128/68; PULSE 77
== END 2019-05-17 12:10 | disposition home or self-care (01) ==
LOC: JONCCHEMO 07:18 → J7W 09:43 → JONCCHEMO 12:10
PROVIDERS: ATTEND Internal Medicine Hematology & Oncology
DX: Z51.11 Encounter for antineoplastic chemotherapy (principal); C18.8 Malignant neoplasm of overlapping sites of colon; G35 Multiple sclerosis
CPT/HCPCS: 36415; 80053; 81003; 82533; 83036; 83735; 84443; 85025; 87086; 87186; 96375; 96413; J9299

== ENCOUNTER 2019-05-31 05:37 | Day surgery (SDC) | payer OTHER ==
[2019-05-31] MEDS ORDERED: ACETAMINOPHEN 325 MG TABLET (FP) PO ONE (10:00)
[2019-05-31] MEDS ORDERED: DIPHENHYDRAMINE 25 MG in SODIUM CHLORIDE 50 ML IVPB ONE (10:00)
[2019-05-31 10:11] LABS: BASO % 0.6 % (0-2.0); EOS % 3.2 % (0-4.5); HEMATOCRIT 37.5 % (32.4-45.2); HEMOGLOBIN 12.2 GM/dL (10.7-15.3); LYMPH % 24.6 % (8-40); MCH 27.8 pg (25.7-33.7); MCHC 32.6 g/dl (32.0-36.0); MEAN CELL VOLUME 85.3 fl (80-96); MEAN PLT VOLUME 9.3 fl (7.5-11.1); MONO % 6.1 % (3.8-10.2); NEUT % 65.5 % (42.8-82.8); PLATELET COUNT 397 K/MM3 (134-434); RDW 17.1 % (11.6-15.6); WHITE BLOOD COUNT 8.8 K/mm3 (4.0-10.0)
[2019-05-31] MEDS ORDERED: NIVOLUMAB IVPB ONE (10:30)
[2019-05-31] MEDS ORDERED: SODIUM CHLORIDE IVPB ONE (10:30)
[2019-05-31 10:37] LABS: ALBUMIN 3.6 g/dl (3.4-5.0); BILIRUBIN,TOTAL 0.2 mg/dL (0.2-1); BLOOD UREA NITROGEN 6.1 mg/dL (7-18); CALCIUM 9.7 mg/dL (8.5-10.1); CREATININE 0.6 mg/dL (0.55-1.3); MAGNESIUM 2.3 mg/dL (1.8-2.4); TOT PROT 7.4 g/dl (6.4-8.2)
[2019-05-31 15:55] VITALS: TEMP 98.3
[2019-05-31 15:56] VITALS: BP 152/85; PULSE 84
== END 2019-05-31 11:30 | disposition home or self-care (01) ==
LOC: JONCCHEMO 05:37 → J7W 09:31 → JONCCHEMO 11:30
PROVIDERS: ATTEND Internal Medicine Hematology & Oncology
PROC: 3E04305 Introduction of Other Antineoplastic into Central Vein, Percutaneous Approach (ICD-10-PCS; principal; 2019-05-31)
PROC: 3E043GC Introduction of Other Therapeutic Substance into Central Vein, Percutaneous Approach (ICD-10-PCS; 2019-05-31)
DX: Z51.11 Encounter for antineoplastic chemotherapy (principal); C18.8 Malignant neoplasm of overlapping sites of colon; G35 Multiple sclerosis; I10 Essential (primary) hypertension; E78.00 Pure hypercholesterolemia, unspecified; K58.9 Irritable bowel syndrome, unspecified
CPT/HCPCS: 36415; 80053; 83735; 84439; 84443; 85025; 96375; 96413; J9299

== ENCOUNTER 2019-06-14 05:54 | Day surgery (SDC) | payer OTHER ==
[2019-06-14 09:04] LABS: BASO % 1.3 % (0-2.0); HEMATOCRIT 37.4 % (32.4-45.2); HEMOGLOBIN 12.5 GM/dL (10.7-15.3); LYMPH % 28.8 % (8-40); MCH 28.4 pg (25.7-33.7); MCHC 33.4 g/dl (32.0-36.0); MEAN PLT VOLUME 8.5 fl (7.5-11.1); MONO % 6.9 % (3.8-10.2); PLATELET COUNT 402 K/MM3 (134-434); RBC 4.39 M/mm3 (3.60-5.2); WHITE BLOOD COUNT 9.8 K/mm3 (4.0-10.0)
[2019-06-14 09:31] LABS: ALBUMIN 3.6 g/dl (3.4-5.0); BILIRUBIN,TOTAL 0.2 mg/dL (0.2-1); CALCIUM 9.9 mg/dL (8.5-10.1); CREATININE 0.7 mg/dL (0.55-1.3); MAGNESIUM 2.4 mg/dL (1.8-2.4); POTASSIUM 4.5 mmol/L (3.5-5.1); TOT PROT 7.3 g/dl (6.4-8.2)
[2019-06-14] MEDS ORDERED: ACETAMINOPHEN 325 MG TABLET (FP) PO ONE (10:00)
[2019-06-14] MEDS ORDERED: DIPHENHYDRAMINE 25 MG in SODIUM CHLORIDE 50 ML IVPB ONE (10:00)
[2019-06-14] MEDS ORDERED: NIVOLUMAB IVPB ONE (10:30)
[2019-06-14] MEDS ORDERED: SODIUM CHLORIDE IVPB ONE (10:30)
[2019-06-14 14:31] VITALS: BP 167/80; PULSE 91; TEMP 98.1
[2019-06-14] MEDS ORDERED: PORTA CATH FLUSH 10 ML IVPUSH ONE (14:31)
== END 2019-06-14 11:45 | disposition home or self-care (01) ==
LOC: JONCCHEMO 05:54 → J7W 10:05 → JONCCHEMO 11:45
PROVIDERS: ATTEND Internal Medicine Hematology & Oncology
DX: Z51.11 Encounter for antineoplastic chemotherapy (principal); C18.8 Malignant neoplasm of overlapping sites of colon; G35 Multiple sclerosis; I10 Essential (primary) hypertension; E78.00 Pure hypercholesterolemia, unspecified; K58.9 Irritable bowel syndrome, unspecified
CPT/HCPCS: 36415; 80053; 82378; 83735; 85025; 96375; 96413; J9299

== ENCOUNTER 2019-06-28 07:13 | Day surgery (SDC) | payer OTHER ==
[2019-06-28 09:21] LABS: BASO % 1.5 % (0-2.0); EOS % 2.9 % (0-4.5); HEMATOCRIT 37.3 % (32.4-45.2); HEMOGLOBIN 12.5 GM/dL (10.7-15.3); LYMPH % 29.2 % (8-40); MCH 28.4 pg (25.7-33.7); MCHC 33.6 g/dl (32.0-36.0); MEAN CELL VOLUME 84.5 fl (80-96); MEAN PLT VOLUME 8.4 fl (7.5-11.1); MONO % 5.4 % (3.8-10.2); PLATELET COUNT 380 K/MM3 (134-434); RBC 4.41 M/mm3 (3.60-5.2); RDW 16.5 % (11.6-15.6)
[2019-06-28] MEDS ORDERED: DIPHENHYDRAMINE 25 MG in SODIUM CHLORIDE 50 ML IVPB ONE (09:30)
[2019-06-28] MEDS ORDERED: ACETAMINOPHEN 325 MG TABLET (FP) PO ONE (09:30)
[2019-06-28] MEDS ORDERED: NIVOLUMAB IVPB ONE (10:00)
[2019-06-28] MEDS ORDERED: SODIUM CHLORIDE IVPB ONE (10:00)
[2019-06-28 10:02] LABS: ALBUMIN 3.6 g/dl (3.4-5.0); BILIRUBIN,TOTAL 0.2 mg/dL (0.2-1); BLOOD UREA NITROGEN 8.9 mg/dL (7-18); CREATININE 0.7 mg/dL (0.55-1.3); MAGNESIUM 2.4 mg/dL (1.8-2.4); POTASSIUM 3.9 mmol/L (3.5-5.1); TOT PROT 7.7 g/dl (6.4-8.2)
[2019-06-28 13:40] VITALS: BP 166/84; PULSE 80; TEMP 98.2
[2019-06-28] MEDS ORDERED: PORTA CATH FLUSH 10 ML IVPUSH ONE (13:40)
== END 2019-06-28 12:17 | disposition home or self-care (01) ==
LOC: JONCCHEMO 07:13 → J7W 10:17 → JONCCHEMO 12:17
PROVIDERS: ATTEND Internal Medicine Hematology & Oncology
DX: Z51.11 Encounter for antineoplastic chemotherapy (principal); C18.8 Malignant neoplasm of overlapping sites of colon; G35 Multiple sclerosis; I10 Essential (primary) hypertension
CPT/HCPCS: 36415; 80053; 83735; 84443; 85025; 96375; 96413; J9299

== ENCOUNTER 2019-07-12 07:02 | Day surgery (SDC) | payer OTHER ==
[2019-07-12 09:28] LABS: BASO % 0.4 % (0-2.0); HEMATOCRIT 37.8 % (32.4-45.2); HEMOGLOBIN 12.7 GM/dL (10.7-15.3); LYMPH % 23.7 % (8-40); MCH 28.5 pg (25.7-33.7); MCHC 33.4 g/dl (32.0-36.0); MEAN CELL VOLUME 85.4 fl (80-96); MEAN PLT VOLUME 8.6 fl (7.5-11.1); NEUT % 67.9 % (42.8-82.8); PLATELET COUNT 357 K/MM3 (134-434); RBC 4.43 M/mm3 (3.60-5.2); RDW 16.1 % (11.6-15.6); WHITE BLOOD COUNT 10.9 K/mm3 (4.0-10.0)
[2019-07-12] MEDS ORDERED: ACETAMINOPHEN 325 MG TABLET (FP) PO PRN (10:00)
[2019-07-12] MEDS ORDERED: DIPHENHYDRAMINE 25 MG in SODIUM CHLORIDE 50 ML IVPB ONE (10:00)
[2019-07-12] MEDS ORDERED: NIVOLUMAB IVPB ONE (10:30)
[2019-07-12] MEDS ORDERED: SODIUM CHLORIDE IVPB ONE (10:30)
[2019-07-12 10:35] LABS: ALBUMIN 3.4 g/dl (3.4-5.0); BILIRUBIN,TOTAL 0.2 mg/dL (0.2-1); BLOOD UREA NITROGEN 5.7 mg/dL (7-18); CALCIUM 9.2 mg/dL (8.5-10.1); CREATININE 0.6 mg/dL (0.55-1.3); MAGNESIUM 2.2 mg/dL (1.8-2.4); POTASSIUM 4.1 mmol/L (3.5-5.1); TOT PROT 7.3 g/dl (6.4-8.2)
[2019-07-12 14:24] VITALS: BP 151/75; PULSE 90; TEMP 98.4
[2019-07-12] MEDS ORDERED: PORTA CATH FLUSH 10 ML IVPUSH ONE (14:24)
== END 2019-07-12 12:15 | disposition home or self-care (01) ==
LOC: JONCCHEMO 07:02 → J7W 09:43 → JONCCHEMO 12:15
PROVIDERS: ATTEND Internal Medicine Hematology & Oncology
DX: Z51.11 Encounter for antineoplastic chemotherapy (principal); C18.8 Malignant neoplasm of overlapping sites of colon; G35 Multiple sclerosis
CPT/HCPCS: 36415; 80053; 83735; 84443; 85025; 96375; 96413; J9299

== ENCOUNTER 2019-07-27 06:29 | Day surgery (SDC) | payer OTHER ==
[2019-07-27 09:17] LABS: BASO % 0.9 % (0-2.0); EOS % 2.6 % (0-4.5); HEMATOCRIT 40.1 % (32.4-45.2); HEMOGLOBIN 13.3 GM/dL (10.7-15.3); LYMPH % 27.8 % (8-40); MCH 28.5 pg (25.7-33.7); MCHC 33.3 g/dl (32.0-36.0); MEAN CELL VOLUME 85.8 fl (80-96); MEAN PLT VOLUME 8.4 fl (7.5-11.1); MONO % 6.5 % (3.8-10.2); NEUT % 62.2 % (42.8-82.8); PLATELET COUNT 374 K/MM3 (134-434); RBC 4.68 M/mm3 (3.60-5.2); RDW 16.1 % (11.6-15.6); WHITE BLOOD COUNT 10.7 K/mm3 (4.0-10.0)
[2019-07-27 09:53] LABS: ALBUMIN 3.8 g/dl (3.4-5.0); BILIRUBIN,TOTAL 0.2 mg/dL (0.2-1); BLOOD UREA NITROGEN 11.1 mg/dL (7-18); CALCIUM 9.6 mg/dL (8.5-10.1); CREATININE 0.7 mg/dL (0.55-1.3); MAGNESIUM 2.2 mg/dL (1.8-2.4); POTASSIUM 4.4 mmol/L (3.5-5.1); TOT PROT 7.7 g/dl (6.4-8.2)
[2019-07-27] MEDS ORDERED: ACETAMINOPHEN 325 MG TABLET (FP) PO ONE (10:00)
[2019-07-27] MEDS ORDERED: DIPHENHYDRAMINE 25 MG in SODIUM CHLORIDE 50 ML IVPB ONE (10:00)
[2019-07-27] MEDS ORDERED: NIVOLUMAB IVPB ONE (10:30)
[2019-07-27] MEDS ORDERED: SODIUM CHLORIDE IVPB ONE (10:30)
[2019-07-27 15:26] VITALS: TEMP 98
[2019-07-27 15:27] VITALS: BP 141/83; PULSE 86
== END 2019-07-27 13:00 | disposition home or self-care (01) ==
LOC: JONCCHEMO 06:29 → J7W 10:01 → JONCCHEMO 13:00
PROVIDERS: ATTEND Internal Medicine Hematology & Oncology
DX: Z51.11 Encounter for antineoplastic chemotherapy (principal); C18.8 Malignant neoplasm of overlapping sites of colon; G35 Multiple sclerosis
CPT/HCPCS: 36415; 80053; 83735; 85025; 96375; 96413; J9299

== ENCOUNTER → 2019-08-04 | Day surgery (SDC) | payer OTHER ==
[2019-08-04 10:57] LABS: BASO % 0.9 % (0-2.0); EOS % 1.9 % (0-4.5); HEMATOCRIT 39.5 % (32.4-45.2); HEMOGLOBIN 12.9 GM/dL (10.7-15.3); LYMPH % 22.6 % (8-40); MCH 28.2 pg (25.7-33.7); MCHC 32.7 g/dl (32.0-36.0); MEAN CELL VOLUME 86.2 fl (80-96); MEAN PLT VOLUME 9.1 fl (7.5-11.1); MONO % 5.9 % (3.8-10.2); NEUT % 68.7 % (42.8-82.8); PLATELET COUNT 375 K/MM3 (134-434); RBC 4.58 M/mm3 (3.60-5.2); RDW 15.8 % (11.6-15.6); WHITE BLOOD COUNT 11.8 K/mm3 (4.0-10.0)
[2019-08-04 11:24] LABS: ALBUMIN 3.7 g/dl (3.4-5.0); BILIRUBIN,TOTAL 0.3 mg/dL (0.2-1); BLOOD UREA NITROGEN 7.3 mg/dL (7-18); CALCIUM 9.6 mg/dL (8.5-10.1); CREATININE 0.7 mg/dL (0.55-1.3); MAGNESIUM 2.4 mg/dL (1.8-2.4); POTASSIUM 4.3 mmol/L (3.5-5.1); TOT PROT 7.6 g/dl (6.4-8.2)
== END | disposition home or self-care (01) ==
LOC: JONCCHEMO 06:27
PROVIDERS: ATTEND Internal Medicine Hematology & Oncology
DX: Z53.8 Procedure and treatment not carried out for other reasons (principal)
CPT/HCPCS: 36415; 80053; 83735; 85025; 96365

== ENCOUNTER 2019-08-09 05:40 | Day surgery (SDC) | payer OTHER ==
[2019-08-09 09:04] LABS: BASO % 0.8 % (0-2.0); EOS % 2.3 % (0-4.5); HEMATOCRIT 39.2 % (32.4-45.2); LYMPH % 24.8 % (8-40); MCH 28.5 pg (25.7-33.7); MCHC 33.2 g/dl (32.0-36.0); MEAN CELL VOLUME 85.9 fl (80-96); MEAN PLT VOLUME 8.7 fl (7.5-11.1); MONO % 6.5 % (3.8-10.2); NEUT % 65.6 % (42.8-82.8); PLATELET COUNT 396 K/MM3 (134-434); RBC 4.57 M/mm3 (3.60-5.2); RDW 15.7 % (11.6-15.6); WHITE BLOOD COUNT 10.8 K/mm3 (4.0-10.0)
[2019-08-09 09:33] LABS: ALBUMIN 3.7 g/dl (3.4-5.0); BLOOD UREA NITROGEN 11.9 mg/dL (7-18); CALCIUM 9.4 mg/dL (8.5-10.1); CREATININE 0.7 mg/dL (0.55-1.3); MAGNESIUM 2.5 mg/dL (1.8-2.4); POTASSIUM 4.4 mmol/L (3.5-5.1); TOT PROT 7.4 g/dl (6.4-8.2)
[2019-08-09 09:34] LABS: BILIRUBIN,TOTAL 0.2 mg/dL (0.2-1)
[2019-08-09] MEDS ORDERED: DIPHENHYDRAMINE 25 MG in SODIUM CHLORIDE 50 ML IVPB ONE (10:00)
[2019-08-09] MEDS ORDERED: ACETAMINOPHEN 325 MG TABLET (FP) PO ONE (10:00)
[2019-08-09] MEDS ORDERED: SODIUM CHLORIDE IVPB ONE (10:30)
[2019-08-09] MEDS ORDERED: NIVOLUMAB IVPB ONE (10:30)
[2019-08-09 11:40] VITALS: TEMP 98.4
[2019-08-09] MEDS ORDERED: PORTA CATH FLUSH 10 ML IVPUSH ONE (11:56)
[2019-08-10 09:13] VITALS: BP 129/77; PULSE 76
== END 2019-08-09 12:26 | disposition home or self-care (01) ==
LOC: JONCCHEMO 05:40 → J7W 09:59 → JONCCHEMO 12:26
PROVIDERS: ATTEND Internal Medicine Hematology & Oncology
DX: Z51.11 Encounter for antineoplastic chemotherapy (principal); C18.8 Malignant neoplasm of overlapping sites of colon; G35 Multiple sclerosis
CPT/HCPCS: 36415; 80053; 82378; 83735; 85025; 96375; 96413; J9299

== ENCOUNTER 2019-08-23 05:35 | Day surgery (SDC) | payer OTHER ==
[2019-08-23 09:15] LABS: BASO % 0.8 % (0-2.0); EOS % 3.2 % (0-4.5); HEMATOCRIT 38.2 % (32.4-45.2); HEMOGLOBIN 12.8 GM/dL (10.7-15.3); LYMPH % 25.3 % (8-40); MCH 28.9 pg (25.7-33.7); MCHC 33.6 g/dl (32.0-36.0); MEAN CELL VOLUME 86.2 fl (80-96); MEAN PLT VOLUME 8.5 fl (7.5-11.1); MONO % 5.6 % (3.8-10.2); NEUT % 65.1 % (42.8-82.8); PLATELET COUNT 345 K/MM3 (134-434); RBC 4.43 M/mm3 (3.60-5.2); RDW 15.4 % (11.6-15.6); WHITE BLOOD COUNT 9.9 K/mm3 (4.0-10.0)
[2019-08-23] MEDS ORDERED: DIPHENHYDRAMINE 25 MG in SODIUM CHLORIDE 50 ML IVPB ONE (09:30)
[2019-08-23] MEDS ORDERED: ACETAMINOPHEN 325 MG TABLET (FP) PO ONE (09:30)
[2019-08-23 09:47] LABS: BLOOD UREA NITROGEN 7.5 mg/dL (7-18); CALCIUM 9.2 mg/dL (8.5-10.1); CREATININE 0.7 mg/dL (0.55-1.3); POTASSIUM 3.8 mmol/L (3.5-5.1)
[2019-08-23 10:00] LABS: ALBUMIN 3.7 g/dl (3.4-5.0); BILIRUBIN,DIRECT 0.1 mg/dL (0.0-0.2); BILIRUBIN,TOTAL 0.2 mg/dL (0.2-1); MAGNESIUM 2.3 mg/dL (1.8-2.4); TOT PROT 7.4 g/dl (6.4-8.2)
[2019-08-23] MEDS ORDERED: NIVOLUMAB IVPB ONE (10:00)
[2019-08-23] MEDS ORDERED: SODIUM CHLORIDE IVPB ONE (10:00)
[2019-08-23 11:58] VITALS: TEMP 98.1
[2019-08-23 12:19] VITALS: BP 113/66; PULSE 79
[2019-08-23] MEDS ORDERED: PORTA CATH FLUSH 10 ML IVPUSH ONE (12:19)
== END 2019-08-23 12:40 | disposition home or self-care (01) ==
LOC: JONCCHEMO 05:35 → J7W 10:09 → JONCCHEMO 12:40
PROVIDERS: ATTEND Internal Medicine Hematology & Oncology
PROC: 3E04305 Introduction of Other Antineoplastic into Central Vein, Percutaneous Approach (ICD-10-PCS; principal; 2019-08-23)
PROC: 3E043GC Introduction of Other Therapeutic Substance into Central Vein, Percutaneous Approach (ICD-10-PCS; 2019-08-23)
DX: Z51.11 Encounter for antineoplastic chemotherapy (principal); C18.8 Malignant neoplasm of overlapping sites of colon; I10 Essential (primary) hypertension; G35 Multiple sclerosis
CPT/HCPCS: 36415; 80048; 80076; 82378; 83735; 84443; 85025; 96375; 96413; J9299

== ENCOUNTER 2019-09-06 05:46 | Day surgery (SDC) | payer OTHER ==
[2019-09-06 09:04] LABS: BASO % 1.4 % (0-2.0); EOS % 2.6 % (0-4.5); HEMATOCRIT 38.8 % (32.4-45.2); HEMOGLOBIN 12.8 GM/dL (10.7-15.3); LYMPH % 29.5 % (8-40); MCH 28.9 pg (25.7-33.7); MEAN CELL VOLUME 87.5 fl (80-96); MEAN PLT VOLUME 8.5 fl (7.5-11.1); MONO % 6.9 % (3.8-10.2); NEUT % 59.6 % (42.8-82.8); PLATELET COUNT 342 K/MM3 (134-434); RBC 4.43 M/mm3 (3.60-5.2); RDW 15.3 % (11.6-15.6); WHITE BLOOD COUNT 10.7 K/mm3 (4.0-10.0)
[2019-09-06] MEDS ORDERED: ACETAMINOPHEN 325 MG TABLET (FP) PO ONE (09:30)
[2019-09-06] MEDS ORDERED: DIPHENHYDRAMINE 25 MG in SODIUM CHLORIDE 50 ML IVPB ONE (09:30)
[2019-09-06 09:32] LABS: ALBUMIN 3.6 g/dl (3.4-5.0); BILIRUBIN,TOTAL 0.2 mg/dL (0.2-1); BLOOD UREA NITROGEN 9.6 mg/dL (7-18); CALCIUM 9.3 mg/dL (8.5-10.1); CREATININE 0.8 mg/dL (0.55-1.3); MAGNESIUM 2.3 mg/dL (1.8-2.4); POTASSIUM 4.1 mmol/L (3.5-5.1); TOT PROT 7.7 g/dl (6.4-8.2)
[2019-09-06] MEDS ORDERED: SODIUM CHLORIDE IVPB ONE (10:00)
[2019-09-06] MEDS ORDERED: NIVOLUMAB IVPB ONE (10:00)
[2019-09-06 13:00] VITALS: TEMP 98.5
[2019-09-06 13:02] VITALS: BP 129/68; PULSE 77
== END 2019-09-06 12:20 | disposition home or self-care (01) ==
LOC: JONCCHEMO 05:46 → J7W 09:47 → JONCCHEMO 12:20
PROVIDERS: ATTEND Internal Medicine Hematology & Oncology
DX: Z51.11 Encounter for antineoplastic chemotherapy (principal); C18.8 Malignant neoplasm of overlapping sites of colon; G35 Multiple sclerosis; I10 Essential (primary) hypertension
CPT/HCPCS: 36415; 80053; 82378; 83735; 85025; 96375; 96413; J9299

== ENCOUNTER 2019-09-20 05:56 | Day surgery (SDC) | payer OTHER ==
[2019-09-20 09:14] LABS: BASO % 0.7 % (0-2.0); EOS % 1.8 % (0-4.5); HEMATOCRIT 37.1 % (32.4-45.2); HEMOGLOBIN 12.5 GM/dL (10.7-15.3); LYMPH % 17.9 % (8-40); MCH 29.3 pg (25.7-33.7); MCHC 33.7 g/dl (32.0-36.0); MEAN CELL VOLUME 87.1 fl (80-96); MEAN PLT VOLUME 8.8 fl (7.5-11.1); MONO % 6.2 % (3.8-10.2); NEUT % 73.4 % (42.8-82.8); PLATELET COUNT 329 K/MM3 (134-434); RBC 4.26 M/mm3 (3.60-5.2); RDW 15.4 % (11.6-15.6); WHITE BLOOD COUNT 12.2 K/mm3 (4.0-10.0)
[2019-09-20 09:24] LABS: ALBUMIN 3.6 g/dl (3.4-5.0); BILIRUBIN,TOTAL 0.2 mg/dL (0.2-1); BLOOD UREA NITROGEN 10.5 mg/dL (7-18); CALCIUM 9.2 mg/dL (8.5-10.1); CREATININE 0.7 mg/dL (0.55-1.3); POTASSIUM 4.1 mmol/L (3.5-5.1); TOT PROT 7.5 g/dl (6.4-8.2)
[2019-09-20] MEDS ORDERED: ACETAMINOPHEN 325 MG TABLET (FP) PO ONE (10:00)
[2019-09-20] MEDS ORDERED: DIPHENHYDRAMINE 25 MG in SODIUM CHLORIDE 50 ML IVPB ONE (10:00)
[2019-09-20] MEDS ORDERED: SODIUM CHLORIDE IVPB ONE (10:30)
[2019-09-20] MEDS ORDERED: NIVOLUMAB IVPB ONE (10:30)
[2019-09-20 15:16] VITALS: BP 160/80; PULSE 82; TEMP 98.1
== END 2019-09-20 12:15 | disposition home or self-care (01) ==
LOC: JONCCHEMO 05:56 → J7W 09:52 → JONCCHEMO 12:15
PROVIDERS: ATTEND Internal Medicine Hematology & Oncology
PROC: 3E04305 Introduction of Other Antineoplastic into Central Vein, Percutaneous Approach (ICD-10-PCS; principal; 2019-09-20)
PROC: 3E043GC Introduction of Other Therapeutic Substance into Central Vein, Percutaneous Approach (ICD-10-PCS; 2019-09-20)
DX: Z51.11 Encounter for antineoplastic chemotherapy (principal); C18.8 Malignant neoplasm of overlapping sites of colon; I10 Essential (primary) hypertension; G35 Multiple sclerosis
CPT/HCPCS: 36415; 80053; 82378; 85025; 96375; 96413; J9299

== ENCOUNTER 2019-10-04 05:45 | Day surgery (SDC) | payer OTHER ==
[2019-10-04 09:07] LABS: BASO % 1.1 % (0-2.0); EOS % 2.5 % (0-4.5); HEMOGLOBIN 13.1 GM/dL (10.7-15.3); LYMPH % 26.6 % (8-40); MCH 29.7 pg (25.7-33.7); MCHC 33.6 g/dl (32.0-36.0); MEAN CELL VOLUME 88.4 fl (80-96); MONO % 5.9 % (3.8-10.2); NEUT % 63.9 % (42.8-82.8); PLATELET COUNT 355 K/MM3 (134-434); RBC 4.41 M/mm3 (3.60-5.2); RDW 14.7 % (11.6-15.6); WHITE BLOOD COUNT 10.2 K/mm3 (4.0-10.0)
[2019-10-04 09:47] LABS: ALBUMIN 3.5 g/dl (3.4-5.0); BILIRUBIN,TOTAL 0.2 mg/dL (0.2-1); BLOOD UREA NITROGEN 6.1 mg/dL (7-18); CALCIUM 9.3 mg/dL (8.5-10.1); CREATININE 0.7 mg/dL (0.55-1.3); POTASSIUM 3.9 mmol/L (3.5-5.1); TOT PROT 7.3 g/dl (6.4-8.2)
[2019-10-04] MEDS ORDERED: ACETAMINOPHEN 325 MG TABLET (FP) PO ONE (10:00)
[2019-10-04] MEDS ORDERED: DIPHENHYDRAMINE 25 MG in SODIUM CHLORIDE 50 ML IVPB ONE (10:00)
[2019-10-04] MEDS ORDERED: NIVOLUMAB IVPB ONE (10:30)
[2019-10-04] MEDS ORDERED: SODIUM CHLORIDE IVPB ONE (10:30)
[2019-10-04 14:10] VITALS: TEMP 98.4
[2019-10-04 14:11] VITALS: BP 158/94; PULSE 83
== END 2019-10-04 12:20 | disposition home or self-care (01) ==
LOC: JONCCHEMO 05:45 → J7W 09:53 → JONCCHEMO 12:20
PROVIDERS: ATTEND Internal Medicine Hematology & Oncology
PROC: 3E04305 Introduction of Other Antineoplastic into Central Vein, Percutaneous Approach (ICD-10-PCS; principal; 2019-10-04)
PROC: 3E043GC Introduction of Other Therapeutic Substance into Central Vein, Percutaneous Approach (ICD-10-PCS; 2019-10-04)
DX: Z51.11 Encounter for antineoplastic chemotherapy (principal); C18.8 Malignant neoplasm of overlapping sites of colon; I10 Essential (primary) hypertension; E78.00 Pure hypercholesterolemia, unspecified; G35 Multiple sclerosis
CPT/HCPCS: 36415; 80053; 82378; 85025; 96375; 96413; J9299

== ENCOUNTER 2020-01-24 05:50 | Day surgery (SDC) | payer OTHER ==
[2020-01-24 09:39] LABS: BASO % 1.1 % (0-2.0); EOS % 3.3 % (0-4.5); HEMATOCRIT 40.6 % (32.4-45.2); HEMOGLOBIN 13.2 GM/dL (10.7-15.3); LYMPH % 25.8 % (8-40); MCH 28.6 pg (25.7-33.7); MCHC 32.6 g/dl (32.0-36.0); MEAN CELL VOLUME 87.8 fl (80-96); MEAN PLT VOLUME 9.1 fl (7.5-11.1); MONO % 6.7 % (3.8-10.2); NEUT % 63.1 % (42.8-82.8); PLATELET COUNT 340 K/MM3 (134-434); RBC 4.63 M/mm3 (3.60-5.2); RDW 14.7 % (11.6-15.6); WHITE BLOOD COUNT 9.2 K/mm3 (4.0-10.0)
[2020-01-24] MEDS ORDERED: DIPHENHYDRAMINE 25 MG in SODIUM CHLORIDE 50 ML IVPB ONE (10:00)
[2020-01-24] MEDS ORDERED: ACETAMINOPHEN 325 MG TABLET (FP) PO ONE (10:00)
[2020-01-24 10:25] LABS: ALBUMIN 3.6 g/dl (3.4-5.0); BILIRUBIN,TOTAL 0.4 mg/dL (0.2-1); BLOOD UREA NITROGEN 6.6 mg/dL (7-18); CALCIUM 9.4 mg/dL (8.5-10.1); CREATININE 0.8 mg/dL (0.55-1.3); TOT PROT 7.6 g/dl (6.4-8.2)
[2020-01-24] MEDS ORDERED: SODIUM CHLORIDE IVPB ONE (10:30)
[2020-01-24] MEDS ORDERED: NIVOLUMAB IVPB ONE (10:30)
[2020-01-24 16:26] VITALS: TEMP 98.4
[2020-01-24 16:27] VITALS: BP 168/82; PULSE 90
== END 2020-01-24 12:40 | disposition home or self-care (01) ==
LOC: JONCCHEMO 05:50
PROVIDERS: ATTEND Internal Medicine Hematology & Oncology
DX: Z51.11 Encounter for antineoplastic chemotherapy (principal); C18.8 Malignant neoplasm of overlapping sites of colon; G35 Multiple sclerosis
CPT/HCPCS: 36415; 80053; 82378; 84439; 84443; 85025; 96367; 96413; J9299

== ENCOUNTER 2020-02-21 07:40 | Day surgery (SDC) | payer OTHER ==
--- NOTE | 2020-02-01 19:24 | PN ---
Progress Note (short form) - Note Progress Note: Called patient -- discussed results of CT scan ? early inflammatory changes ? ILD No obvious metastatic disease Recommended COVID testing although ground glass opacities are not peripheral Recommended pulmonary consult She has mild cough. No other symptoms Hold immuntherapy till above w/u is done
[2020-02-21 09:44] LABS: BASO % 0.7 % (0-2.0); EOS % 1.8 % (0-4.5); HEMATOCRIT 39.4 % (32.4-45.2); LYMPH % 25.5 % (8-40); MCH 28.9 pg (25.7-33.7); MEAN CELL VOLUME 87.7 fl (80-96); MEAN PLT VOLUME 9.4 fl (7.5-11.1); MONO % 5.9 % (3.8-10.2); NEUT % 66.1 % (42.8-82.8); PLATELET COUNT 325 K/MM3 (134-434); RBC 4.49 M/mm3 (3.60-5.2); RDW 14.4 % (11.6-15.6); WHITE BLOOD COUNT 11.3 K/mm3 (4.0-10.0)
[2020-02-21 10:23] LABS: ALBUMIN 3.6 g/dl (3.4-5.0); BILIRUBIN,TOTAL 0.4 mg/dL (0.2-1); BLOOD UREA NITROGEN 7.2 mg/dL (7-18); CALCIUM 9.2 mg/dL (8.5-10.1); CREATININE 0.9 mg/dL (0.55-1.3); POTASSIUM 3.7 mmol/L (3.5-5.1); TOT PROT 7.4 g/dl (6.4-8.2)
[2020-02-21] MEDS ORDERED: DEXAMETHASONE SOD PHOSPHATE 20 MG/5 ML VIAL IVPB ONE (10:30)
[2020-02-21] MEDS ORDERED: DEXAMETHASONE SODIUM PHOSPHATE 20 MG, DIPHENHYDRAMINE 25 MG in SODIUM CHLORIDE 100 ML IVPB ONE (11:15)
[2020-02-21] MEDS ORDERED: ACETAMINOPHEN 325 MG TABLET (FP) PO ONE (11:15)
[2020-02-21] MEDS ORDERED: NIVOLUMAB IVPB ONE (11:45)
[2020-02-21] MEDS ORDERED: SODIUM CHLORIDE IVPB ONE (11:45)
[2020-02-21 17:52] VITALS: TEMP 98.8
[2020-02-21 17:55] VITALS: BP 157/81; PULSE 79
[2020-02-21] MEDS ORDERED: PORTA CATH FLUSH 10 ML IVPUSH ONE (17:55)
== END 2020-02-21 14:05 | disposition home or self-care (01) ==
LOC: JONCCHEMO 07:40
PROVIDERS: ATTEND Internal Medicine Hematology & Oncology
DX: Z51.11 Encounter for antineoplastic chemotherapy (principal); C18.8 Malignant neoplasm of overlapping sites of colon; C78.00 Secondary malignant neoplasm of unspecified lung; G35 Multiple sclerosis
CPT/HCPCS: 36415; 80053; 84439; 84443; 85025; 96367; 96413; J9299

== ENCOUNTER 2020-03-06 07:18 | Day surgery (SDC) | payer OTHER ==
[2020-03-06] MEDS ORDERED: DIPHENHYDRAMINE 25 MG in SODIUM CHLORIDE 50 ML IVPB ONE (10:00)
[2020-03-06] MEDS ORDERED: ACETAMINOPHEN 325 MG TABLET (FP) PO ONE (10:00)
[2020-03-06] MEDS ORDERED: SODIUM CHLORIDE IVPB ONE (10:30)
[2020-03-06] MEDS ORDERED: NIVOLUMAB IVPB ONE (10:30)
[2020-03-06 10:35] LABS: EOS % 2.7 % (0-4.5); HEMOGLOBIN 12.5 GM/dL (10.7-15.3); LYMPH % 25.6 % (8-40); MCH 29.6 pg (25.7-33.7); MCHC 33.6 g/dl (32.0-36.0); MEAN PLT VOLUME 9.4 fl (7.5-11.1); MONO % 5.9 % (3.8-10.2); NEUT % 64.8 % (42.8-82.8); PLATELET COUNT 359 K/MM3 (134-434); RBC 4.21 M/mm3 (3.60-5.2); RDW 14.5 % (11.6-15.6); WHITE BLOOD COUNT 9.2 K/mm3 (4.0-10.0)
[2020-03-06 11:19] LABS: ALBUMIN 3.2 g/dl (3.4-5.0); BILIRUBIN,TOTAL 0.3 mg/dL (0.2-1); BLOOD UREA NITROGEN 9.6 mg/dL (7-18); CALCIUM 9.5 mg/dL (8.5-10.1); CREATININE 0.7 mg/dL (0.55-1.3); POTASSIUM 3.9 mmol/L (3.5-5.1)
[2020-03-06 15:54] VITALS: TEMP 98.7
[2020-03-06 15:57] VITALS: BP 128/74; PULSE 79
[2020-03-06] MEDS ORDERED: PORTA CATH FLUSH 10 ML IVPUSH ONE (15:57)
== END 2020-03-06 13:15 | disposition home or self-care (01) ==
LOC: JONCCHEMO 07:18
PROVIDERS: ATTEND Internal Medicine Hematology & Oncology
PROC: 3E04305 Introduction of Other Antineoplastic into Central Vein, Percutaneous Approach (ICD-10-PCS; principal; 2020-03-06)
PROC: 3E043GC Introduction of Other Therapeutic Substance into Central Vein, Percutaneous Approach (ICD-10-PCS; 2020-03-06)
DX: Z51.11 Encounter for antineoplastic chemotherapy (principal); C18.8 Malignant neoplasm of overlapping sites of colon; I10 Essential (primary) hypertension; E78.00 Pure hypercholesterolemia, unspecified; G35 Multiple sclerosis
CPT/HCPCS: 36415; 80053; 84439; 84443; 85025; 96375; 96413; J9299

== ENCOUNTER 2020-03-20 07:14 | Day surgery (SDC) | payer OTHER ==
[2020-03-20 09:21] LABS: BASO % 0.4 % (0-2.0); EOS % 3.2 % (0-4.5); HEMATOCRIT 37.7 % (32.4-45.2); HEMOGLOBIN 12.4 GM/dL (10.7-15.3); LYMPH % 24.3 % (8-40); MCH 28.8 pg (25.7-33.7); MCHC 32.9 g/dl (32.0-36.0); MEAN CELL VOLUME 87.6 fl (80-96); MEAN PLT VOLUME 9.3 fl (7.5-11.1); MONO % 5.7 % (3.8-10.2); NEUT % 66.4 % (42.8-82.8); PLATELET COUNT 315 K/MM3 (134-434); RBC 4.31 M/mm3 (3.60-5.2); RDW 14.5 % (11.6-15.6); WHITE BLOOD COUNT 9.2 K/mm3 (4.0-10.0)
[2020-03-20] MEDS ORDERED: DIPHENHYDRAMINE 25 MG in SODIUM CHLORIDE 50 ML IVPB ONE (10:00)
[2020-03-20] MEDS ORDERED: ACETAMINOPHEN 325 MG TABLET (FP) PO PRN (10:00)
[2020-03-20 10:08] LABS: ALBUMIN 3.5 g/dl (3.4-5.0); BILIRUBIN,TOTAL 0.3 mg/dL (0.2-1); BLOOD UREA NITROGEN 11.3 mg/dL (7-18); CALCIUM 8.8 mg/dL (8.5-10.1); CREATININE 0.9 mg/dL (0.55-1.3); POTASSIUM 3.2 mmol/L (3.5-5.1)
[2020-03-20] MEDS ORDERED: NIVOLUMAB IVPB ONE (10:30)
[2020-03-20] MEDS ORDERED: SODIUM CHLORIDE IVPB ONE (10:30)
[2020-03-20] MEDS ORDERED: POTASSIUM CHLORIDE TABS 20 MEQ TABLET.ER (FP) PO ONE (10:57)
[2020-03-20 12:38] VITALS: TEMP 98.1
[2020-03-20 12:46] VITALS: BP 153/78; PULSE 74
[2020-03-20] MEDS ORDERED: PORTA CATH FLUSH 10 ML IVPUSH ONE (12:47)
== END 2020-03-20 12:15 | disposition home or self-care (01) ==
LOC: JONCCHEMO 07:14
PROVIDERS: ATTEND Internal Medicine Hematology & Oncology
DX: Z51.11 Encounter for antineoplastic chemotherapy (principal); C18.8 Malignant neoplasm of overlapping sites of colon; C78.00 Secondary malignant neoplasm of unspecified lung; G35 Multiple sclerosis
CPT/HCPCS: 36415; 80053; 82378; 85025; 96367; 96413; J9299

== ENCOUNTER 2020-04-03 07:14 | Day surgery (SDC) | payer OTHER ==
[2020-04-03 08:59] LABS: BASO % 0.2 % (0-2.0); EOS % 2.7 % (0-4.5); HEMATOCRIT 38.1 % (32.4-45.2); HEMOGLOBIN 12.6 GM/dL (10.7-15.3); LYMPH % 27.4 % (8-40); MCH 29.1 pg (25.7-33.7); MEAN CELL VOLUME 88.2 fl (80-96); MEAN PLT VOLUME 8.8 fl (7.5-11.1); MONO % 5.8 % (3.8-10.2); NEUT % 63.9 % (42.8-82.8); PLATELET COUNT 416 K/MM3 (134-434); RBC 4.33 M/mm3 (3.60-5.2); RDW 14.9 % (11.6-15.6); WHITE BLOOD COUNT 12.2 K/mm3 (4.0-10.0)
[2020-04-03] MEDS ORDERED: DIPHENHYDRAMINE 25 MG in SODIUM CHLORIDE 50 ML IVPB ONE (09:30)
[2020-04-03] MEDS ORDERED: ACETAMINOPHEN 325 MG TABLET (FP) PO ONE (09:30)
[2020-04-03 09:54] LABS: ALBUMIN 3.5 g/dl (3.4-5.0); BILIRUBIN,TOTAL 0.2 mg/dL (0.2-1); BLOOD UREA NITROGEN 8.3 mg/dL (7-18); CALCIUM 8.7 mg/dL (8.5-10.1); CREATININE 0.9 mg/dL (0.55-1.3); POTASSIUM 3.7 mmol/L (3.5-5.1); TOT PROT 7.4 g/dl (6.4-8.2)
[2020-04-03] MEDS ORDERED: NIVOLUMAB IVPB ONE (10:00)
[2020-04-03] MEDS ORDERED: SODIUM CHLORIDE IVPB ONE (10:00)
[2020-04-03 13:36] VITALS: TEMP 97.7
[2020-04-03 13:37] VITALS: BP 157/88; PULSE 92
== END 2020-04-03 11:35 | disposition home or self-care (01) ==
LOC: JONCCHEMO 07:14
PROVIDERS: ATTEND Internal Medicine Hematology & Oncology
PROC: 3E04305 Introduction of Other Antineoplastic into Central Vein, Percutaneous Approach (ICD-10-PCS; principal; 2020-04-03)
PROC: 3E043GC Introduction of Other Therapeutic Substance into Central Vein, Percutaneous Approach (ICD-10-PCS; 2020-04-03)
DX: Z51.11 Encounter for antineoplastic chemotherapy (principal); C18.8 Malignant neoplasm of overlapping sites of colon; G35 Multiple sclerosis; I10 Essential (primary) hypertension; E78.00 Pure hypercholesterolemia, unspecified; K58.9 Irritable bowel syndrome, unspecified
CPT/HCPCS: 36415; 80053; 82378; 84439; 84443; 85025; 96375; 96413; J9299

== ENCOUNTER 2020-04-17 07:17 | Day surgery (SDC) | payer OTHER ==
--- OUTSIDE RECORDS SUMMARY | 2020-04-17 07:21 | XMS ---
:1960 Author Organization [facility] Support Name Relationship Address Phone RE, RETIRED Unavailable Unavailable Unavailable RE Unavailable Unavailable Unavailable SHAGGY ESCALANTE PARTNER [address] [place] [address] Re-disclosure Warning The records that you are about to access may contain information from federally- assisted alcohol or drug abuse programs. If such information is present, then the following federally mandated warning applies: This information has been disclosed to you from records protected by federal confidentiality rules (42 CFR part 2). The federal rules prohibit you from making any further disclosure of this information unless further disclosure is expressly permitted by the written consent of the person to whom it pertains or as otherwise permitted by 42 CFR part 2. A general authorization for the release of medical or other information is NOT sufficient for this purpose. The Federal rules restrict any use of the information to criminally investigate or prosecute any alcohol or drug abuse patient.The records that you are about to access may contain highly sensitive health information, the redisclosure of which is protected by Article 27-F of the [facility] Public Health law. If you continue you may haveaccess to information: Regarding HIV / AIDS; Provided by facilities licensed or operated by the [facility] Office of Mental Health; or Provided by the [facility] Office for People With Developmental Disabilities. If such information is present, then the following [facility] mandated warning applies: This information has been disclosed to you from confidential records which are protected by state law. State law prohibits you from making any further disclosure of this information without the specific written consent of the person to whom it pertains, or as otherwise permitted by law. Any unauthorized further disclosure in violation of state law may result in a fine or mcc sentence or both. A general authorization for the release of medical or other information is NOT sufficient authorization for further disclosure. Insurance Providers Payer name Policy type Policy ID Covered Covered alliance party's Policy P angy / Coverage alliance party ID relationship to [employer] Inf ormation type [employer] UMR [id number] SP [id number] MEDICARE [id number] SP [id number] 97 7 MEDICARE [id number] SP [id number] 97 7 Results ID Date Data Source [id number] 02/12/2020 08:35:00 AM EDT [facility] Name Value Range Interpretation Description Data Sup porting Code Source(s) Document(s ) SARS [facility] coronavirus 2 RNA This lab was ordered by [facility] and reported by [facility]. ID Date Data Source [id number] 02/02/2020 11:45:00 AM EDT [facility] Name Value Range Interpretation Description Data Sup porting Code Source(s) Document(s ) SARS [facility] coronavirus 2 RNA This lab was ordered by [facility] and reported by [facility]. Procedure
[2020-04-17 08:56] LABS: BASO % 0.6 % (0-2.0); EOS % 3.5 % (0-4.5); HEMATOCRIT 39.2 % (32.4-45.2); HEMOGLOBIN 12.9 GM/dL (10.7-15.3); LYMPH % 29.2 % (8-40); MCHC 32.9 g/dl (32.0-36.0); MEAN CELL VOLUME 88.2 fl (80-96); MEAN PLT VOLUME 8.7 fl (7.5-11.1); MONO % 6.1 % (3.8-10.2); NEUT % 60.6 % (42.8-82.8); PLATELET COUNT 309 K/MM3 (134-434); RBC 4.44 M/mm3 (3.60-5.2); RDW 14.7 % (11.6-15.6); WHITE BLOOD COUNT 10.1 K/mm3 (4.0-10.0)
[2020-04-17 09:14] LABS: ALBUMIN 3.6 g/dl (3.4-5.0); BILIRUBIN,TOTAL 0.2 mg/dL (0.2-1); CREATININE 0.8 mg/dL (0.55-1.3); POTASSIUM 3.6 mmol/L (3.5-5.1); TOT PROT 7.4 g/dl (6.4-8.2)
[2020-04-17] MEDS ORDERED: DIPHENHYDRAMINE 25 MG in SODIUM CHLORIDE 50 ML IVPB ONE (10:30)
[2020-04-17] MEDS ORDERED: ACETAMINOPHEN 325 MG TABLET (FP) PO PRN (10:30)
[2020-04-17] MEDS ORDERED: NIVOLUMAB IVPB ONE (11:00)
[2020-04-17] MEDS ORDERED: SODIUM CHLORIDE IVPB ONE (11:00)
[2020-04-17 16:17] VITALS: TEMP 98.5
[2020-04-17 16:22] VITALS: BP 145/74; PULSE 74
[2020-04-17] MEDS ORDERED: PORTA CATH FLUSH 10 ML IVPUSH ONE (16:22)
== END 2020-04-17 12:30 | disposition home or self-care (01) ==
LOC: JONCCHEMO 07:17
PROVIDERS: ATTEND Internal Medicine Hematology & Oncology
DX: Z51.11 Encounter for antineoplastic chemotherapy (principal); C18.8 Malignant neoplasm of overlapping sites of colon; G35 Multiple sclerosis
CPT/HCPCS: 36415; 80053; 85025; 96375; 96413; J9299

== ENCOUNTER 2020-05-01 07:20 | Day surgery (SDC) | payer OTHER ==
--- OUTSIDE RECORDS SUMMARY | 2020-05-01 07:25 | XMS ---
:1960 Author Organization [facility] Support Name Relationship Address Phone RE, RETIRED Unavailable Unavailable Unavailable RE Unavailable Unavailable Unavailable SHAGGY ESCALANTE PARTNER [address] [place] [address] Re-disclosure Warning The records that you are [...] is protected by Article 27-F of the [facility] Public Health law. If you continue you may haveaccess to information: Regarding HIV / AIDS; Provided by facilities licensed or operated by the [facility] Office of Mental Health; or Provided by the [facility] Office for People With Developmental Disabilities. If such information is present, then the following [facility] mandated warning applies: This information has been [...] law may result in a fine or halfway sentence or both. A general authorization for the release of medical or other information is NOT sufficient authorization for further disclosure. Insurance Providers Payer name Policy type Policy ID Covered Covered alliance party's Policy P angy / Coverage alliance party ID relationship to [employer] Inf ormation type [employer] UMR [id number] SP [id number] MEDICARE [id number] SP [id number] 97 7 MEDICARE [id number] SP [id number] 97 7 Results ID Date Data Source [id number] 04/26/2020 08:40:00 AM EDT [facility] Name Value Range Interpretation Description Data Sup porting Code Source(s) Document(s ) SARS [facility] coronavirus 2 RNA This lab was ordered by [facility] and reported by [facility]. ID Date Data Source [id number] 02/12/2020 08:35:00 AM EDT [facility] Name Value Range Interpretation Description Data Sup porting Code Source(s) Document(s ) SARS [facility] coronavirus 2 RNA This lab was ordered by [facility] and reported by [facility]. ID Date Data Source [id number] 02/02/2020 11:45:00 AM EDT [facility] Name Value Range Interpretation Description Data Sup porting Code Source(s) Document(s ) SARS [facility] coronavirus 2 RNA This lab was ordered by [facility] and reported by [facility]. Procedure
[2020-05-01 09:11] LABS: EOS % 3.6 % (0-4.5); HEMATOCRIT 37.4 % (32.4-45.2); HEMOGLOBIN 12.4 GM/dL (10.7-15.3); LYMPH % 29.5 % (8-40); MCH 29.4 pg (25.7-33.7); MCHC 33.2 g/dl (32.0-36.0); MEAN CELL VOLUME 88.6 fl (80-96); MEAN PLT VOLUME 9.2 fl (7.5-11.1); MONO % 5.3 % (3.8-10.2); NEUT % 60.6 % (42.8-82.8); PLATELET COUNT 386 K/MM3 (134-434); RBC 4.22 M/mm3 (3.60-5.2); RDW 14.2 % (11.6-15.6); WHITE BLOOD COUNT 9.2 K/mm3 (4.0-10.0)
[2020-05-01 09:50] LABS: ALBUMIN 3.4 g/dl (3.4-5.0); BILIRUBIN,TOTAL 0.2 mg/dL (0.2-1); BLOOD UREA NITROGEN 13.7 mg/dL (7-18); CALCIUM 9.5 mg/dL (8.5-10.1); CREATININE 0.8 mg/dL (0.55-1.3); POTASSIUM 3.8 mmol/L (3.5-5.1); TOT PROT 7.2 g/dl (6.4-8.2)
[2020-05-01] MEDS ORDERED: ACETAMINOPHEN 325 MG TABLET (FP) PO ONE (10:00)
[2020-05-01] MEDS ORDERED: DIPHENHYDRAMINE 25 MG in SODIUM CHLORIDE 50 ML IVPB ONE (10:00)
[2020-05-01] MEDS ORDERED: NIVOLUMAB IVPB ONE (10:30)
[2020-05-01] MEDS ORDERED: SODIUM CHLORIDE IVPB ONE (10:30)
[2020-05-01 12:58] VITALS: TEMP 98.2
[2020-05-01 13:14] VITALS: BP 152/81; PULSE 75
[2020-05-01] MEDS ORDERED: PORTA CATH FLUSH 10 ML IVPUSH ONE (13:15)
== END 2020-05-01 12:10 | disposition home or self-care (01) ==
LOC: JONCCHEMO 07:20
PROVIDERS: ATTEND Internal Medicine Hematology & Oncology
DX: Z51.11 Encounter for antineoplastic chemotherapy (principal); C18.8 Malignant neoplasm of overlapping sites of colon
CPT/HCPCS: 36415; 80053; 82378; 84439; 84443; 85025; 96367; 96413; J9299

== ENCOUNTER 2020-05-15 06:45 | Day surgery (SDC) | payer OTHER ==
--- OUTSIDE RECORDS SUMMARY | 2020-05-15 06:49 | XMS ---
:1960 Author Organization [facility] Support Name Relationship Address Phone RE, RETIRED Unavailable Unavailable Unavailable RE Unavailable Unavailable Unavailable SHAGGY ESCALANTE PARTNER [address] [place] [address] Re-disclosure Warning The records that you are [...] is protected by Article 27-F of the [facility] Public Health law. If you continue you may haveaccess to information: Regarding HIV / AIDS; Provided by facilities licensed or operated by the [facility] Office of Mental Health; or Provided by the [facility] Office for People With Developmental Disabilities. If such information is present, then the following [facility] mandated warning applies: This information has [...] law may result in a fine or chcf sentence or both. A general authorization for the release of medical or other information is NOT sufficient authorization for further disclosure. Insurance Providers Payer name Policy type Policy ID Covered Covered green party's Policy P angy / Coverage green party ID relationship to [employer] Inf ormation type [employer] UMR [id number] SP [id number] MEDICARE [id number] SP [id number] 97 7 MEDICARE [id number] SP [id number] 97 7 Results ID Date Data Source [id number] 04/26/2020 08:40:00 AM EDT [facility] Name Value Range Interpretation Description Data Sup porting Code Source(s) Document(s ) SARS [facility] coronavirus 2 RNA This lab was ordered by [facility] and reported by [facility]. ID Date Data Source [id number] 02/12/2020 08:35:00 AM EDT [facility] Name Value Range Interpretation Description Data Sup porting Code Source(s) Document(s ) SARS [facility] coronavirus 2 RNA This lab was ordered by [facility] and reported by [facility]. ID Date Data Source [id number] 02/02/2020 11:45:00 AM EDT [facility] Name Value Range Interpretation Description Data Sup porting Code Source(s) Document(s ) SARS [facility] coronavirus 2 RNA This lab was ordered by [facility] and reported by [facility]. Procedure
[2020-05-15 09:05] LABS: EOS % 3.3 % (0-4.5); HEMATOCRIT 37.5 % (32.4-45.2); HEMOGLOBIN 12.8 GM/dL (10.7-15.3); LYMPH % 26.5 % (8-40); MCH 30.1 pg (25.7-33.7); MCHC 34.1 g/dl (32.0-36.0); MEAN CELL VOLUME 88.4 fl (80-96); MEAN PLT VOLUME 9.1 fl (7.5-11.1); NEUT % 62.2 % (42.8-82.8); PLATELET COUNT 335 K/MM3 (134-434); RBC 4.24 M/mm3 (3.60-5.2); RDW 14.1 % (11.6-15.6); WHITE BLOOD COUNT 11.3 K/mm3 (4.0-10.0)
[2020-05-15 09:39] LABS: POTASSIUM 3.8 mmol/L (3.5-5.1)
[2020-05-15 09:45] LABS: ALBUMIN 3.6 g/dl (3.4-5.0); BILIRUBIN,TOTAL 0.6 mg/dL (0.2-1); BLOOD UREA NITROGEN 9.5 mg/dL (7-18); CALCIUM 9.2 mg/dL (8.5-10.1); CREATININE 0.7 mg/dL (0.55-1.3); TOT PROT 7.4 g/dl (6.4-8.2)
[2020-05-15] MEDS ORDERED: ACETAMINOPHEN 325 MG TABLET (FP) PO ONE (10:00)
[2020-05-15] MEDS ORDERED: DIPHENHYDRAMINE 25 MG in SODIUM CHLORIDE 50 ML IVPB ONE (10:00)
[2020-05-15] MEDS ORDERED: NIVOLUMAB IVPB ONE (10:30)
[2020-05-15] MEDS ORDERED: SODIUM CHLORIDE IVPB ONE (10:30)
[2020-05-15 16:19] VITALS: BP 151/74; PULSE 81
[2020-05-15] MEDS ORDERED: PORTA CATH FLUSH 10 ML IVPUSH ONE (16:19)
[2020-05-15 16:26] VITALS: TEMP 98.4
== END 2020-05-15 13:10 | disposition home or self-care (01) ==
LOC: JONCCHEMO 06:45
PROVIDERS: ATTEND Internal Medicine Hematology & Oncology
DX: Z51.11 Encounter for antineoplastic chemotherapy (principal); C18.8 Malignant neoplasm of overlapping sites of colon
CPT/HCPCS: 36415; 80053; 84439; 84443; 85025; 96375; 96413; J9299

== ENCOUNTER 2020-06-12 07:17 | Day surgery (SDC) | payer OTHER ==
[2020-06-12] MEDS ORDERED: DIPHENHYDRAMINE 25 MG in SODIUM CHLORIDE 50 ML IVPB ONE (09:30)
[2020-06-12] MEDS ORDERED: ACETAMINOPHEN 325 MG TABLET (FP) PO ONE (09:30)
[2020-06-12] MEDS ORDERED: NIVOLUMAB IVPB ONE (10:00)
[2020-06-12] MEDS ORDERED: SODIUM CHLORIDE IVPB ONE (10:00)
[2020-06-12 10:05] LABS: BASO % 1.1 % (0-2.0); EOS % 2.8 % (0-4.5); LYMPH % 23.8 % (8-40); MCH 29.7 pg (25.7-33.7); MCHC 33.4 g/dl (32.0-36.0); MEAN CELL VOLUME 88.8 fl (80-96); MEAN PLT VOLUME 9.7 fl (7.5-11.1); MONO % 5.4 % (3.8-10.2); NEUT % 66.9 % (42.8-82.8); PLATELET COUNT 370 K/MM3 (134-434); RBC 4.39 M/mm3 (3.60-5.2); WHITE BLOOD COUNT 10.6 K/mm3 (4.0-10.0)
[2020-06-12 10:37] LABS: POTASSIUM 3.4 mmol/L (3.5-5.1)
[2020-06-12 10:39] LABS: ALBUMIN 3.4 g/dl (3.4-5.0); CALCIUM 9.2 mg/dL (8.5-10.1)
[2020-06-12 10:40] LABS: BLOOD UREA NITROGEN 8.1 mg/dL (7-18)
[2020-06-12 10:43] LABS: CREATININE 0.8 mg/dL (0.55-1.3)
[2020-06-12 10:44] LABS: TOT PROT 7.4 g/dl (6.4-8.2)
[2020-06-12 10:48] LABS: BILIRUBIN,TOTAL 0.4 mg/dL (0.2-1)
[2020-06-12] MEDS ORDERED: POTASSIUM CHLORIDE TABS 20 MEQ TABLET.ER (FP) PO ONE (10:59)
[2020-06-12] MEDS ORDERED: PORTA CATH FLUSH 10 ML IVPUSH ONE (14:51)
[2020-06-12 14:52] VITALS: BP 135/73; PULSE 80; TEMP 98.5
== END 2020-06-12 13:15 | disposition home or self-care (01) ==
LOC: JONCCHEMO 07:17
PROVIDERS: ATTEND Internal Medicine Hematology & Oncology
DX: Z51.11 Encounter for antineoplastic chemotherapy (principal); C18.8 Malignant neoplasm of overlapping sites of colon
CPT/HCPCS: 36415; 80053; 82378; 84439; 84443; 85025; 96375; 96413; J9299

== ENCOUNTER 2020-07-10 06:21 | Day surgery (SDC) | payer OTHER ==
[2020-07-10 09:13] LABS: BASO % 0.2 % (0-2.0); EOS % 2.4 % (0-4.5); HEMATOCRIT 39.6 % (32.4-45.2); HEMOGLOBIN 13.1 GM/dL (10.7-15.3); LYMPH % 20.7 % (8-40); MCH 29.3 pg (25.7-33.7); MCHC 32.9 g/dl (32.0-36.0); MEAN PLT VOLUME 9.5 fl (7.5-11.1); MONO % 4.8 % (3.8-10.2); NEUT % 71.9 % (42.8-82.8); PLATELET COUNT 305 K/MM3 (134-434); RBC 4.45 M/mm3 (3.60-5.2); RDW 14.2 % (11.6-15.6); WHITE BLOOD COUNT 13.8 K/mm3 (4.0-10.0)
[2020-07-10 09:29] LABS: POTASSIUM 3.4 mmol/L (3.5-5.1)
[2020-07-10 09:33] LABS: ALBUMIN 3.6 g/dl (3.4-5.0); BLOOD UREA NITROGEN 9.7 mg/dL (7-18); CALCIUM 9.2 mg/dL (8.5-10.1)
[2020-07-10 09:36] LABS: BILIRUBIN,TOTAL 0.4 mg/dL (0.2-1); CREATININE 0.8 mg/dL (0.55-1.3)
[2020-07-10 09:38] LABS: TOT PROT 7.5 g/dl (6.4-8.2)
[2020-07-10] MEDS ORDERED: ACETAMINOPHEN 325 MG TABLET (FP) PO ONE (10:00)
[2020-07-10] MEDS ORDERED: DIPHENHYDRAMINE 25 MG in SODIUM CHLORIDE 50 ML IVPB ONE (10:00)
[2020-07-10] MEDS ORDERED: SODIUM CHLORIDE IVPB ONE (10:30)
[2020-07-10] MEDS ORDERED: NIVOLUMAB IVPB ONE (10:30)
[2020-07-10 14:40] VITALS: TEMP 97.9
[2020-07-10 14:43] VITALS: BP 155/74; PULSE 80
== END 2020-07-10 12:15 | disposition home or self-care (01) ==
LOC: JONCCHEMO 06:21
PROVIDERS: ATTEND Internal Medicine Hematology & Oncology
DX: Z51.11 Encounter for antineoplastic chemotherapy (principal); C18.8 Malignant neoplasm of overlapping sites of colon
CPT/HCPCS: 36415; 80053; 82378; 84439; 84443; 85025; 96375; 96413; J9299

== ENCOUNTER 2020-07-24 06:06 | Day surgery (SDC) | payer OTHER ==
[2020-07-24 09:16] LABS: BASO % 0.6 % (0-2.0); EOS % 2.8 % (0-4.5); HEMOGLOBIN 12.4 GM/dL (10.7-15.3); LYMPH % 23.9 % (8-40); MCH 29.1 pg (25.7-33.7); MCHC 32.7 g/dl (32.0-36.0); MEAN PLT VOLUME 9.5 fl (7.5-11.1); MONO % 5.2 % (3.8-10.2); NEUT % 67.5 % (42.8-82.8); PLATELET COUNT 341 K/MM3 (134-434); RBC 4.27 M/mm3 (3.60-5.2); RDW 13.9 % (11.6-15.6); WHITE BLOOD COUNT 9.5 K/mm3 (4.0-10.0)
[2020-07-24] MEDS ORDERED: ACETAMINOPHEN 325 MG TABLET (FP) PO ONE (09:30)
[2020-07-24] MEDS ORDERED: DIPHENHYDRAMINE 25 MG in SODIUM CHLORIDE 50 ML IVPB ONE (09:30)
[2020-07-24 09:38] LABS: POTASSIUM 3.3 mmol/L (3.5-5.1)
[2020-07-24 09:41] LABS: CALCIUM 9.1 mg/dL (8.5-10.1)
[2020-07-24 09:42] LABS: ALBUMIN 3.5 g/dl (3.4-5.0)
[2020-07-24 09:45] LABS: CREATININE 0.9 mg/dL (0.55-1.3)
[2020-07-24 09:46] LABS: BILIRUBIN,TOTAL 0.2 mg/dL (0.2-1); TOT PROT 7.2 g/dl (6.4-8.2)
[2020-07-24] MEDS ORDERED: SODIUM CHLORIDE IVPB ONE (10:00)
[2020-07-24] MEDS ORDERED: NIVOLUMAB IVPB ONE (10:00)
[2020-07-24] MEDS ORDERED: POTASSIUM CHLORIDE TABS 20 MEQ TABLET.ER (FP) PO ONE (11:00)
[2020-07-24 15:12] VITALS: TEMP 98.2
[2020-07-24 15:17] VITALS: BP 122/71; PULSE 83
[2020-07-24] MEDS ORDERED: PORTA CATH FLUSH 10 ML IVPUSH ONE (15:17)
== END 2020-07-24 12:45 | disposition home or self-care (01) ==
LOC: JONCCHEMO 06:06
PROVIDERS: ATTEND Internal Medicine Hematology & Oncology
DX: Z51.11 Encounter for antineoplastic chemotherapy (principal); C18.8 Malignant neoplasm of overlapping sites of colon
CPT/HCPCS: 36415; 80053; 82378; 84443; 85025; 96375; 96413; J9299

== ENCOUNTER 2020-08-07 08:34 | Day surgery (SDC) | payer OTHER ==
[2020-08-07 09:40] LABS: BASO % 1.1 % (0-2.0); EOS % 3.8 % (0-4.5); HEMATOCRIT 39.4 % (32.4-45.2); HEMOGLOBIN 13.2 GM/dL (10.7-15.3); LYMPH % 31.2 % (8-40); MCH 29.5 pg (25.7-33.7); MCHC 33.4 g/dl (32.0-36.0); MEAN CELL VOLUME 88.5 fl (80-96); MEAN PLT VOLUME 9.7 fl (7.5-11.1); MONO % 5.8 % (3.8-10.2); NEUT % 58.1 % (42.8-82.8); PLATELET COUNT 345 K/MM3 (134-434); RBC 4.46 M/mm3 (3.60-5.2); WHITE BLOOD COUNT 9.5 K/mm3 (4.0-10.0)
[2020-08-07] MEDS ORDERED: ACETAMINOPHEN 325 MG TABLET (FP) PO ONE (10:00)
[2020-08-07] MEDS ORDERED: DIPHENHYDRAMINE 25 MG in SODIUM CHLORIDE 50 ML IVPB ONE (10:00)
[2020-08-07 10:07] LABS: CALCIUM 9.3 mg/dL (8.5-10.1)
[2020-08-07 10:08] LABS: ALBUMIN 3.6 g/dl (3.4-5.0); BLOOD UREA NITROGEN 11.3 mg/dL (7-18)
[2020-08-07 10:13] LABS: BILIRUBIN,TOTAL 0.5 mg/dL (0.2-1); TOT PROT 7.5 g/dl (6.4-8.2)
[2020-08-07] MEDS ORDERED: NIVOLUMAB IVPB ONE (10:30)
[2020-08-07] MEDS ORDERED: SODIUM CHLORIDE IVPB ONE (10:30)
[2020-08-07 15:31] VITALS: TEMP 98.3
[2020-08-07 15:53] VITALS: BP 125/66; PULSE 75
== END 2020-08-07 13:16 | disposition home or self-care (01) ==
LOC: JONCCHEMO 08:34
PROVIDERS: ATTEND Internal Medicine Hematology & Oncology
DX: Z51.11 Encounter for antineoplastic chemotherapy (principal); C18.8 Malignant neoplasm of overlapping sites of colon
CPT/HCPCS: 36415; 80053; 84439; 84443; 85025; 96375; 96413; J9299

== ENCOUNTER 2020-08-21 07:26 | Day surgery (SDC) | payer OTHER ==
[2020-08-21 09:14] LABS: BASO % 1.1 % (0-2.0); EOS % 3.1 % (0-4.5); HEMATOCRIT 39.7 % (32.4-45.2); HEMOGLOBIN 13.3 GM/dL (10.7-15.3); LYMPH % 25.8 % (8-40); MCH 29.4 pg (25.7-33.7); MCHC 33.5 g/dl (32.0-36.0); MEAN CELL VOLUME 87.8 fl (80-96); MEAN PLT VOLUME 9.3 fl (7.5-11.1); PLATELET COUNT 341 K/MM3 (134-434); RBC 4.52 M/mm3 (3.60-5.2); WHITE BLOOD COUNT 9.3 K/mm3 (4.0-10.0)
[2020-08-21 09:41] LABS: POTASSIUM 3.6 mmol/L (3.5-5.1)
[2020-08-21 09:43] LABS: CALCIUM 9.2 mg/dL (8.5-10.1)
[2020-08-21 09:44] LABS: ALBUMIN 3.6 g/dl (3.4-5.0); BLOOD UREA NITROGEN 10.9 mg/dL (7-18)
[2020-08-21 09:47] LABS: CREATININE 0.9 mg/dL (0.55-1.3)
[2020-08-21 09:48] LABS: BILIRUBIN,TOTAL 0.3 mg/dL (0.2-1)
[2020-08-21 09:49] LABS: TOT PROT 7.6 g/dl (6.4-8.2)
[2020-08-21] MEDS ORDERED: DIPHENHYDRAMINE 25 MG in SODIUM CHLORIDE 50 ML IVPB ONE (10:00)
[2020-08-21] MEDS ORDERED: ACETAMINOPHEN 325 MG TABLET (FP) PO ONE (10:00)
[2020-08-21] MEDS ORDERED: NIVOLUMAB IVPB ONE (10:30)
[2020-08-21] MEDS ORDERED: SODIUM CHLORIDE IVPB ONE (10:30)
[2020-08-21 15:00] VITALS: BP 164/78; PULSE 78; TEMP 97.2
== END 2020-08-21 12:05 | disposition home or self-care (01) ==
LOC: JONCCHEMO 07:26
PROVIDERS: ATTEND Internal Medicine Hematology & Oncology
DX: Z51.11 Encounter for antineoplastic chemotherapy (principal); C18.8 Malignant neoplasm of overlapping sites of colon
CPT/HCPCS: 36415; 80053; 82378; 84439; 84443; 85025; 96375; 96413; J9299

== ENCOUNTER 2020-09-04 08:17 | Day surgery (SDC) | payer OTHER ==
[2020-09-04 09:26] LABS: POTASSIUM 3.8 mmol/L (3.5-5.1)
[2020-09-04 09:27] LABS: CALCIUM 9.5 mg/dL (8.5-10.1)
[2020-09-04 09:28] LABS: ALBUMIN 3.5 g/dl (3.4-5.0); BLOOD UREA NITROGEN 7.7 mg/dL (7-18)
[2020-09-04 09:29] LABS: BASO % 0.7 % (0-2.0); EOS % 2.2 % (0-4.5); HEMATOCRIT 40.3 % (32.4-45.2); HEMOGLOBIN 13.1 GM/dL (10.7-15.3); LYMPH % 22.4 % (8-40); MCH 28.9 pg (25.7-33.7); MCHC 32.5 g/dl (32.0-36.0); MEAN CELL VOLUME 88.9 fl (80-96); MEAN PLT VOLUME 9.3 fl (7.5-11.1); MONO % 5.9 % (3.8-10.2); NEUT % 68.8 % (42.8-82.8); PLATELET COUNT 386 K/MM3 (134-434); RBC 4.54 M/mm3 (3.60-5.2); RDW 14.3 % (11.6-15.6); WHITE BLOOD COUNT 11.3 K/mm3 (4.0-10.0)
[2020-09-04 09:31] LABS: CREATININE 0.9 mg/dL (0.55-1.3)
[2020-09-04 09:34] LABS: BILIRUBIN,TOTAL 0.2 mg/dL (0.2-1); TOT PROT 7.6 g/dl (6.4-8.2)
[2020-09-04] MEDS ORDERED: DIPHENHYDRAMINE 25 MG in SODIUM CHLORIDE 50 ML IVPB ONE (10:00)
[2020-09-04] MEDS ORDERED: ACETAMINOPHEN 325 MG TABLET (FP) PO ONE (10:00)
[2020-09-04] MEDS ORDERED: NIVOLUMAB IVPB ONE (10:30)
[2020-09-04] MEDS ORDERED: SODIUM CHLORIDE IVPB ONE (10:30)
[2020-09-04] MEDS ORDERED: PORTA CATH FLUSH 10 ML IVPUSH ONE (11:00)
[2020-09-04 13:12] VITALS: BP 140/78; PULSE 77
[2020-09-04 13:18] VITALS: TEMP 98.2
== END 2020-09-04 12:10 | disposition home or self-care (01) ==
LOC: JONCCHEMO 08:17
PROVIDERS: ATTEND Internal Medicine Hematology & Oncology
DX: Z51.11 Encounter for antineoplastic chemotherapy (principal); C18.8 Malignant neoplasm of overlapping sites of colon
CPT/HCPCS: 36415; 80053; 83036; 85025; 96375; 96413; J9299

== ENCOUNTER 2020-09-18 08:00 | Day surgery (SDC) | payer OTHER ==
[2020-09-18 09:28] LABS: BASO % 1.1 % (0-2.0); EOS % 3.8 % (0-4.5); HEMATOCRIT 40.4 % (32.4-45.2); HEMOGLOBIN 13.5 GM/dL (10.7-15.3); LYMPH % 33.4 % (8-40); MCH 29.5 pg (25.7-33.7); MCHC 33.5 g/dl (32.0-36.0); MEAN CELL VOLUME 88.1 fl (80-96); MEAN PLT VOLUME 9.3 fl (7.5-11.1); MONO % 6.3 % (3.8-10.2); NEUT % 55.4 % (42.8-82.8); PLATELET COUNT 347 K/MM3 (134-434); RBC 4.58 M/mm3 (3.60-5.2); RDW 13.9 % (11.6-15.6)
[2020-09-18] MEDS ORDERED: ACETAMINOPHEN 325 MG TABLET (FP) PO ONE (09:30)
[2020-09-18] MEDS ORDERED: DIPHENHYDRAMINE 25 MG in SODIUM CHLORIDE 50 ML IVPB ONE (09:30)
[2020-09-18 09:48] LABS: POTASSIUM 3.7 mmol/L (3.5-5.1)
[2020-09-18 09:56] LABS: CALCIUM 9.4 mg/dL (8.5-10.1)
[2020-09-18 09:57] LABS: ALBUMIN 3.5 g/dl (3.4-5.0); BLOOD UREA NITROGEN 6.7 mg/dL (7-18)
[2020-09-18 10:00] LABS: CREATININE 0.9 mg/dL (0.55-1.3)
[2020-09-18] MEDS ORDERED: NIVOLUMAB IVPB ONE (10:00)
[2020-09-18] MEDS ORDERED: SODIUM CHLORIDE IVPB ONE (10:00)
[2020-09-18 10:01] LABS: BILIRUBIN,TOTAL 0.2 mg/dL (0.2-1); TOT PROT 7.4 g/dl (6.4-8.2)
[2020-09-18 15:52] VITALS: BP 155/87; PULSE 97; TEMP 97
== END 2020-09-18 12:00 | disposition home or self-care (01) ==
LOC: JONCCHEMO 08:00
PROVIDERS: ATTEND Internal Medicine Hematology & Oncology
DX: Z51.11 Encounter for antineoplastic chemotherapy (principal); C18.8 Malignant neoplasm of overlapping sites of colon
CPT/HCPCS: 36415; 80053; 82378; 85025; 96375; 96413; J9299

== ENCOUNTER 2020-10-09 07:38 | Day surgery (SDC) | payer OTHER ==
[2020-10-09 09:00] LABS: BASO % 0.6 % (0-2.0); EOS % 2.9 % (0-4.5); HEMATOCRIT 38.3 % (32.4-45.2); LYMPH % 21.4 % (8-40); MCH 29.9 pg (25.7-33.7); MCHC 34.1 g/dl (32.0-36.0); MEAN CELL VOLUME 87.7 fl (80-96); MONO % 5.9 % (3.8-10.2); NEUT % 69.2 % (42.8-82.8); PLATELET COUNT 337 K/MM3 (134-434); RBC 4.37 M/mm3 (3.60-5.2); RDW 13.7 % (11.6-15.6); WHITE BLOOD COUNT 9.5 K/mm3 (4.0-10.0)
[2020-10-09 09:13] LABS: POTASSIUM 3.5 mmol/L (3.5-5.1)
[2020-10-09 09:15] LABS: ALBUMIN 3.3 g/dl (3.4-5.0); BLOOD UREA NITROGEN 9.1 mg/dL (7-18); CALCIUM 8.7 mg/dL (8.5-10.1)
[2020-10-09 09:20] LABS: BILIRUBIN,TOTAL 0.3 mg/dL (0.2-1); TOT PROT 7.3 g/dl (6.4-8.2)
[2020-10-09 10:54] LABS: URINE APPEARANCE CLEAR; URINE BILIRUBIN NEGATIVE (NEGATIVE); URINE COLOR YELLOW; URINE GLUCOSE (UA) 1+ (NEGATIVE); URINE KETONE TRACE (NEGATIVE); URINE LEUK ESTERASE NEGATIVE (NEGATIVE); URINE NITRITE NEGATIVE (NEGATIVE); URINE PROTEIN NEGATIVE (NEGATIVE); URINE UROBILINOGEN 0.2 mg/dL (0.2-1.0)
[2020-10-09] MEDS ORDERED: DIPHENHYDRAMINE 25 MG in SODIUM CHLORIDE 50 ML IVPB ONE (11:00)
[2020-10-09] MEDS ORDERED: ACETAMINOPHEN 325 MG TABLET (FP) PO ONE (11:00)
[2020-10-09] MEDS ORDERED: SODIUM CHLORIDE IVPB ONE (11:30)
[2020-10-09] MEDS ORDERED: NIVOLUMAB IVPB ONE (11:30)
[2020-10-09 16:06] VITALS: TEMP 97.9
[2020-10-09 16:07] VITALS: BP 161/80; PULSE 86
== END 2020-10-09 13:15 | disposition home or self-care (01) ==
LOC: JONCCHEMO 07:38
PROVIDERS: ATTEND Internal Medicine Hematology & Oncology
DX: Z51.11 Encounter for antineoplastic chemotherapy (principal); C18.8 Malignant neoplasm of overlapping sites of colon
CPT/HCPCS: 36415; 80053; 81003; 82378; 84439; 84443; 85025; 87086; 87186; 96367; 96413; J9299

== ENCOUNTER 2020-10-30 07:33 | Day surgery (SDC) | payer OTHER ==
[2020-10-30 09:26] LABS: BASO % 0.5 % (0-2.0); EOS % 1.8 % (0-4.5); HEMATOCRIT 38.8 % (32.4-45.2); HEMOGLOBIN 13.2 GM/dL (10.7-15.3); LYMPH % 22.6 % (8-40); MCH 29.4 pg (25.7-33.7); MEAN CELL VOLUME 86.5 fl (80-96); MEAN PLT VOLUME 9.1 fl (7.5-11.1); MONO % 5.2 % (3.8-10.2); NEUT % 69.9 % (42.8-82.8); PLATELET COUNT 341 K/MM3 (134-434); RBC 4.49 M/mm3 (3.60-5.2); RDW 13.7 % (11.6-15.6); WHITE BLOOD COUNT 11.9 K/mm3 (4.0-10.0)
[2020-10-30 09:42] LABS: POTASSIUM 3.8 mmol/L (3.5-5.1)
[2020-10-30 09:45] LABS: ALBUMIN 3.4 g/dl (3.4-5.0); BLOOD UREA NITROGEN 9.7 mg/dL (7-18)
[2020-10-30 09:48] LABS: CREATININE 0.8 mg/dL (0.55-1.3)
[2020-10-30 09:49] LABS: BILIRUBIN,TOTAL 0.3 mg/dL (0.2-1); TOT PROT 7.4 g/dl (6.4-8.2)
[2020-10-30 09:49] LABS: CHOLESTEROL 185 mg/dL (50-200); LDL CHOLESTEROL (ONLY SJRH) 95 mg/dL (5-100); TRIGLYCERIDES 153 mg/dL (0-150)
[2020-10-30 09:51] LABS: HDL CHOLESTEROL 42 mg/dL (40-60)
[2020-10-30] MEDS ORDERED: DIPHENHYDRAMINE 25 MG in SODIUM CHLORIDE 50 ML IVPB ONE (10:00)
[2020-10-30] MEDS ORDERED: ACETAMINOPHEN 325 MG TABLET (FP) PO ONE (10:00)
[2020-10-30] MEDS ORDERED: SODIUM CHLORIDE IVPB ONE (10:30)
[2020-10-30] MEDS ORDERED: NIVOLUMAB IVPB ONE (10:30)
[2020-10-30] MEDS ORDERED: DEXAMETHASONE SOD PHOSPHATE 10 MG/1 ML VIAL IVPB ONE (10:30)
[2020-10-30 14:15] VITALS: BP 149/67; PULSE 82; TEMP 98.3
== END 2020-10-30 12:20 | disposition home or self-care (01) ==
LOC: JONCCHEMO 07:33
PROVIDERS: ATTEND Internal Medicine Hematology & Oncology
DX: Z51.11 Encounter for antineoplastic chemotherapy (principal); C18.8 Malignant neoplasm of overlapping sites of colon
CPT/HCPCS: 36415; 80053; 80061; 82378; 83036; 83721; 84439; 84443; 85025; 96375; 96413; J1100; J9299

== ENCOUNTER 2020-11-13 07:44 | Day surgery (SDC) | payer OTHER ==
[2020-11-13 09:21] LABS: BASO % 1.3 % (0-2.0); EOS % 2.6 % (0-4.5); HEMOGLOBIN 13.1 GM/dL (10.7-15.3); LYMPH % 22.8 % (8-40); MCHC 34.4 g/dl (32.0-36.0); MEAN CELL VOLUME 87.4 fl (80-96); MEAN PLT VOLUME 9.6 fl (7.5-11.1); MONO % 5.9 % (3.8-10.2); NEUT % 67.4 % (42.8-82.8); PLATELET COUNT 353 K/MM3 (134-434); RBC 4.35 M/mm3 (3.60-5.2); RDW 14.2 % (11.6-15.6); WHITE BLOOD COUNT 9.6 K/mm3 (4.0-10.0)
[2020-11-13] MEDS ORDERED: DIPHENHYDRAMINE 25 MG in SODIUM CHLORIDE 50 ML IVPB ONE (09:30)
[2020-11-13] MEDS ORDERED: ACETAMINOPHEN 325 MG TABLET (FP) PO ONE (09:30)
[2020-11-13 09:41] LABS: ALBUMIN 3.4 g/dl (3.4-5.0); BLOOD UREA NITROGEN 9.3 mg/dL (7-18); CALCIUM 9.1 mg/dL (8.5-10.1)
[2020-11-13 09:44] LABS: CREATININE 0.8 mg/dL (0.55-1.3)
[2020-11-13 09:46] LABS: BILIRUBIN,TOTAL 0.3 mg/dL (0.2-1); TOT PROT 7.2 g/dl (6.4-8.2)
[2020-11-13] MEDS ORDERED: SODIUM CHLORIDE IVPB ONE (10:00)
[2020-11-13] MEDS ORDERED: NIVOLUMAB IVPB ONE (10:00)
[2020-11-13 16:50] VITALS: TEMP 98.2
[2020-11-13 17:04] VITALS: BP 164/88; PULSE 77
[2020-11-13] MEDS ORDERED: PORTA CATH FLUSH 10 ML IVPUSH ONE (17:04)
== END 2020-11-13 14:00 | disposition home or self-care (01) ==
LOC: JONCCHEMO 07:44
PROVIDERS: ATTEND Internal Medicine Hematology & Oncology
PROC: 3E04305 Introduction of Other Antineoplastic into Central Vein, Percutaneous Approach (ICD-10-PCS; principal; 2020-11-13)
PROC: 3E033GC Introduction of Other Therapeutic Substance into Peripheral Vein, Percutaneous Approach (ICD-10-PCS; 2020-11-13)
DX: Z51.11 Encounter for antineoplastic chemotherapy (principal); C18.8 Malignant neoplasm of overlapping sites of colon
CPT/HCPCS: 96375; 96413; J9999; 36415; 80053; 84439; 84443; 85025; J9299

== ENCOUNTER 2020-11-27 08:45 | Day surgery (SDC) | payer OTHER ==
[2020-11-27 09:15] LABS: BASO % 0.8 % (0-2.0); EOS % 2.7 % (0-4.5); HEMATOCRIT 39.5 % (32.4-45.2); HEMOGLOBIN 13.1 GM/dL (10.7-15.3); LYMPH % 23.8 % (8-40); MCH 29.3 pg (25.7-33.7); MCHC 33.3 g/dl (32.0-36.0); MEAN CELL VOLUME 87.9 fl (80-96); MONO % 5.2 % (3.8-10.2); NEUT % 67.5 % (42.8-82.8); PLATELET COUNT 339 K/MM3 (134-434); RBC 4.49 M/mm3 (3.60-5.2); RDW 14.6 % (11.6-15.6); WHITE BLOOD COUNT 12.1 K/mm3 (4.0-10.0)
[2020-11-27 10:14] LABS: CALCIUM 9.3 mg/dL (8.5-10.1)
[2020-11-27 10:15] LABS: ALBUMIN 3.6 g/dl (3.4-5.0); BLOOD UREA NITROGEN 8.7 mg/dL (7-18)
[2020-11-27 10:17] LABS: CREATININE 0.8 mg/dL (0.55-1.3)
[2020-11-27 10:20] LABS: TOT PROT 7.5 g/dl (6.4-8.2)
[2020-11-27 10:24] LABS: BILIRUBIN,TOTAL 0.4 mg/dL (0.2-1)
[2020-11-27] MEDS ORDERED: DIPHENHYDRAMINE 25 MG in SODIUM CHLORIDE 50 ML IVPB ONE (10:45)
[2020-11-27] MEDS ORDERED: SODIUM CHLORIDE IVPB ONE (10:45)
[2020-11-27] MEDS ORDERED: ACETAMINOPHEN 325 MG TABLET (FP) PO ONE (10:45)
[2020-11-27] MEDS ORDERED: NIVOLUMAB IVPB ONE (10:45)
[2020-11-27 16:49] VITALS: TEMP 98.6
[2020-11-27 16:52] VITALS: BP 143/77; PULSE 81
== END 2020-11-27 12:30 | disposition home or self-care (01) ==
LOC: JONCCHEMO 08:45
PROVIDERS: ATTEND Internal Medicine Hematology & Oncology
DX: Z51.11 Encounter for antineoplastic chemotherapy (principal); C18.8 Malignant neoplasm of overlapping sites of colon
CPT/HCPCS: 36415; 80053; 84439; 84443; 85025; 96375; 96413; J9299

== ENCOUNTER 2020-12-18 06:57 | Day surgery (SDC) | payer OTHER ==
[2020-12-18 08:45] LABS: BASO % 0.3 % (0-2.0); EOS % 2.5 % (0-4.5); HEMATOCRIT 38.3 % (32.4-45.2); LYMPH % 21.2 % (8-40); MCH 29.8 pg (25.7-33.7); MEAN CELL VOLUME 87.6 fl (80-96); MEAN PLT VOLUME 8.7 fl (7.5-11.1); MONO % 6.4 % (3.8-10.2); NEUT % 69.6 % (42.8-82.8); PLATELET COUNT 351 K/MM3 (134-434); RBC 4.37 M/mm3 (3.60-5.2); RDW 14.5 % (11.6-15.6); WHITE BLOOD COUNT 11.3 K/mm3 (4.0-10.0)
[2020-12-18 09:12] LABS: ALBUMIN 3.6 g/dl (3.4-5.0); BLOOD UREA NITROGEN 7.9 mg/dL (7-18); CALCIUM 8.9 mg/dL (8.5-10.1)
[2020-12-18 09:16] LABS: CREATININE 0.7 mg/dL (0.55-1.3)
[2020-12-18 09:17] LABS: BILIRUBIN,TOTAL 0.3 mg/dL (0.2-1); TOT PROT 7.1 g/dl (6.4-8.2)
[2020-12-18] MEDS ORDERED: ACETAMINOPHEN 325 MG TABLET (FP) PO PRN (10:27)
[2020-12-18] MEDS ORDERED: DIPHENHYDRAMINE 25 MG in SODIUM CHLORIDE 50 ML IVPB ONE (10:30)
[2020-12-18] MEDS ORDERED: NIVOLUMAB IVPB ONE (11:00)
[2020-12-18] MEDS ORDERED: SODIUM CHLORIDE IVPB ONE (11:00)
[2020-12-18 14:59] VITALS: TEMP 98.5
[2020-12-18 15:03] VITALS: BP 139/78; PULSE 85
[2020-12-18] MEDS ORDERED: PORTA CATH FLUSH 10 ML IVPUSH ONE (15:03)
== END 2020-12-18 12:22 | disposition home or self-care (01) ==
LOC: JONCCHEMO 06:57
PROVIDERS: ATTEND Internal Medicine Hematology & Oncology
DX: Z51.11 Encounter for antineoplastic chemotherapy (principal); C18.8 Malignant neoplasm of overlapping sites of colon
CPT/HCPCS: 36415; 80053; 84439; 84443; 85025; 96375; 96413; J9299

== ENCOUNTER 2021-01-01 07:48 | Day surgery (SDC) | payer OTHER ==
[2021-01-01 09:00] LABS: BASO % 0.5 % (0-2.0); EOS % 2.9 % (0-4.5); HEMATOCRIT 39.7 % (32.4-45.2); HEMOGLOBIN 13.5 GM/dL (10.7-15.3); LYMPH % 24.4 % (8-40); MCH 29.9 pg (25.7-33.7); MCHC 33.9 g/dl (32.0-36.0); MEAN CELL VOLUME 88.3 fl (80-96); MEAN PLT VOLUME 9.1 fl (7.5-11.1); MONO % 5.7 % (3.8-10.2); NEUT % 66.5 % (42.8-82.8); PLATELET COUNT 332 K/MM3 (134-434); RDW 14.5 % (11.6-15.6); WHITE BLOOD COUNT 10.1 K/mm3 (4.0-10.0)
[2021-01-01 09:27] LABS: ALBUMIN 3.5 g/dl (3.4-5.0); BLOOD UREA NITROGEN 8.4 mg/dL (7-18); CALCIUM 9.4 mg/dL (8.5-10.1)
[2021-01-01 09:30] LABS: CREATININE 0.8 mg/dL (0.55-1.3)
[2021-01-01 09:32] LABS: BILIRUBIN,TOTAL 0.2 mg/dL (0.2-1); TOT PROT 7.4 g/dl (6.4-8.2)
[2021-01-01] MEDS ORDERED: DIPHENHYDRAMINE 25 MG in SODIUM CHLORIDE 50 ML IVPB ONE (10:00)
[2021-01-01] MEDS ORDERED: ACETAMINOPHEN 325 MG TABLET (FP) PO PRN (10:00)
[2021-01-01] MEDS ORDERED: NIVOLUMAB IVPB ONE (10:30)
[2021-01-01] MEDS ORDERED: SODIUM CHLORIDE IVPB ONE (10:30)
[2021-01-01 16:56] VITALS: BP 129/73; PULSE 74; TEMP 98.4
[2021-01-01] MEDS ORDERED: PORTA CATH FLUSH 10 ML IVPUSH ONE (16:56)
== END 2021-01-01 12:05 | disposition home or self-care (01) ==
LOC: JONCCHEMO 07:48
PROVIDERS: ATTEND Internal Medicine Hematology & Oncology
DX: Z51.11 Encounter for antineoplastic chemotherapy (principal); C18.8 Malignant neoplasm of overlapping sites of colon
CPT/HCPCS: 36415; 80053; 85025; 96375; 96413; J9299

== ENCOUNTER 2021-01-15 07:54 | Day surgery (SDC) | payer OTHER ==
[2021-01-15 09:06] LABS: BASO % 1.1 % (0-2.0); EOS % 2.6 % (0-4.5); HEMATOCRIT 39.9 % (32.4-45.2); HEMOGLOBIN 13.4 GM/dL (10.7-15.3); MCH 29.3 pg (25.7-33.7); MCHC 33.6 g/dl (32.0-36.0); MEAN CELL VOLUME 87.1 fl (80-96); MEAN PLT VOLUME 9.2 fl (7.5-11.1); MONO % 4.9 % (3.8-10.2); NEUT % 68.4 % (42.8-82.8); PLATELET COUNT 407 10^3/uL (134-434); RBC 4.58 M/mm3 (3.60-5.2); RDW 14.2 % (11.6-15.6); WHITE BLOOD COUNT 10.7 K/mm3 (4.0-10.0)
[2021-01-15 09:26] LABS: CALCIUM 9.2 mg/dL (8.5-10.1)
[2021-01-15 09:27] LABS: ALBUMIN 3.6 g/dl (3.4-5.0); BLOOD UREA NITROGEN 11.8 mg/dL (7-18)
[2021-01-15 09:30] LABS: CREATININE 0.7 mg/dL (0.55-1.3)
[2021-01-15] MEDS ORDERED: DIPHENHYDRAMINE 25 MG in SODIUM CHLORIDE 50 ML IVPB ONE (09:30)
[2021-01-15] MEDS ORDERED: ACETAMINOPHEN 325 MG TABLET (FP) PO PRN (09:30)
[2021-01-15 09:31] LABS: BILIRUBIN,TOTAL 0.2 mg/dL (0.2-1); TOT PROT 7.8 g/dl (6.4-8.2)
[2021-01-15] MEDS ORDERED: SODIUM CHLORIDE IVPB ONE (10:00)
[2021-01-15] MEDS ORDERED: NIVOLUMAB IVPB ONE (10:00)
[2021-01-15 16:24] VITALS: TEMP 98.3
[2021-01-15 16:35] VITALS: BP 157/83; PULSE 88
== END 2021-01-15 12:20 | disposition home or self-care (01) ==
LOC: JONCCHEMO 07:54
PROVIDERS: ATTEND Internal Medicine Hematology & Oncology
DX: Z51.11 Encounter for antineoplastic chemotherapy (principal); C18.8 Malignant neoplasm of overlapping sites of colon
CPT/HCPCS: 36415; 80053; 84439; 84443; 85025; 96375; 96413; J9299

== ENCOUNTER 2021-01-29 07:07 | Day surgery (SDC) | payer OTHER ==
[2021-01-29] MEDS ORDERED: ACETAMINOPHEN 325 MG TABLET (FP) PO PRN (09:00)
[2021-01-29 09:19] LABS: BASO % 0.6 % (0-2.0); EOS % 2.4 % (0-4.5); HEMATOCRIT 36.9 % (32.4-45.2); HEMOGLOBIN 12.2 GM/dL (10.7-15.3); LYMPH % 26.8 % (8-40); MCH 28.9 pg (25.7-33.7); MCHC 33.1 g/dl (32.0-36.0); MEAN CELL VOLUME 87.4 fl (80-96); MEAN PLT VOLUME 8.8 fl (7.5-11.1); MONO % 6.9 % (3.8-10.2); NEUT % 63.3 % (42.8-82.8); PLATELET COUNT 359 10^3/uL (134-434); RBC 4.23 M/mm3 (3.60-5.2); RDW 14.6 % (11.6-15.6)
[2021-01-29] MEDS ORDERED: DIPHENHYDRAMINE 25 MG in SODIUM CHLORIDE 50 ML IVPB ONE (09:30)
[2021-01-29 09:33] LABS: CALCIUM 9.2 mg/dL (8.5-10.1)
[2021-01-29 09:34] LABS: ALBUMIN 3.7 g/dl (3.4-5.0); BLOOD UREA NITROGEN 9.3 mg/dL (7-18)
[2021-01-29 09:38] LABS: BILIRUBIN,TOTAL 0.4 mg/dL (0.2-1); TOT PROT 7.6 g/dl (6.4-8.2)
[2021-01-29 09:41] LABS: CREATININE 0.9 mg/dL (0.55-1.3)
[2021-01-29] MEDS ORDERED: SODIUM CHLORIDE IVPB ONE (10:00)
[2021-01-29] MEDS ORDERED: NIVOLUMAB IVPB ONE (10:00)
[2021-01-29 15:22] VITALS: TEMP 98.4
[2021-01-29 15:23] VITALS: BP 115/61; PULSE 88
== END 2021-01-29 11:50 | disposition home or self-care (01) ==
LOC: JONCCHEMO 07:07
PROVIDERS: ATTEND Internal Medicine Hematology & Oncology
DX: Z51.11 Encounter for antineoplastic chemotherapy (principal); C18.8 Malignant neoplasm of overlapping sites of colon
CPT/HCPCS: 36415; 80053; 85025; 96375; 96413; J9299

== ENCOUNTER 2021-02-12 05:20 | Day surgery (SDC) | payer OTHER ==
[2021-02-12 08:46] LABS: BASO % 1.3 % (0-2.0); EOS % 2.8 % (0-4.5); HEMOGLOBIN 12.4 GM/dL (10.7-15.3); LYMPH % 25.9 % (8-40); MCH 29.2 pg (25.7-33.7); MCHC 33.6 g/dl (32.0-36.0); MEAN PLT VOLUME 8.3 fl (7.5-11.1); MONO % 5.7 % (3.8-10.2); NEUT % 64.3 % (42.8-82.8); PLATELET COUNT 362 10^3/uL (134-434); RBC 4.25 M/mm3 (3.60-5.2); RDW 14.5 % (11.6-15.6)
[2021-02-12 09:08] LABS: CALCIUM 9.1 mg/dL (8.5-10.1)
[2021-02-12 09:09] LABS: ALBUMIN 3.4 g/dl (3.4-5.0); BLOOD UREA NITROGEN 5.8 mg/dL (7-18)
[2021-02-12 09:12] LABS: CREATININE 0.9 mg/dL (0.55-1.3)
[2021-02-12 09:14] LABS: BILIRUBIN,TOTAL 0.2 mg/dL (0.2-1); TOT PROT 7.4 g/dl (6.4-8.2)
[2021-02-12] MEDS ORDERED: ACETAMINOPHEN 325 MG TABLET (FP) PO ONE (10:00)
[2021-02-12] MEDS ORDERED: DIPHENHYDRAMINE 25 MG in SODIUM CHLORIDE 50 ML IVPB ONE (10:00)
[2021-02-12] MEDS ORDERED: SODIUM CHLORIDE IVPB ONE (10:30)
[2021-02-12] MEDS ORDERED: NIVOLUMAB IVPB ONE (10:30)
[2021-02-12 12:17] VITALS: TEMP 98.7
[2021-02-12 12:40] VITALS: BP 135/66; PULSE 71
[2021-02-12] MEDS ORDERED: PORTA CATH FLUSH 10 ML IVPUSH ONE (12:40)
== END 2021-02-12 12:10 | disposition home or self-care (01) ==
LOC: JONCCHEMO 05:20
PROVIDERS: ATTEND Internal Medicine Hematology & Oncology
DX: Z51.11 Encounter for antineoplastic chemotherapy (principal); C18.8 Malignant neoplasm of overlapping sites of colon
CPT/HCPCS: 36415; 80053; 82378; 84439; 84443; 85025; 96375; 96413; J9299

== ENCOUNTER 2021-02-26 07:16 | Day surgery (SDC) | payer OTHER ==
[2021-02-26 09:03] LABS: BASO % 0.9 % (0-2.0); EOS % 2.2 % (0-4.5); HEMATOCRIT 37.6 % (32.4-45.2); HEMOGLOBIN 12.3 GM/dL (10.7-15.3); LYMPH % 18.7 % (8-40); MCH 28.8 pg (25.7-33.7); MCHC 32.7 g/dl (32.0-36.0); MEAN CELL VOLUME 88.2 fl (80-96); MEAN PLT VOLUME 8.8 fl (7.5-11.1); MONO % 4.6 % (3.8-10.2); NEUT % 73.6 % (42.8-82.8); PLATELET COUNT 388 10^3/uL (134-434); RBC 4.26 M/mm3 (3.60-5.2); RDW 14.6 % (11.6-15.6)
[2021-02-26 09:34] LABS: ALBUMIN 3.5 g/dl (3.4-5.0); BLOOD UREA NITROGEN 8.8 mg/dL (7-18); CALCIUM 9.1 mg/dL (8.5-10.1)
[2021-02-26 09:37] LABS: CREATININE 0.8 mg/dL (0.55-1.3)
[2021-02-26 09:39] LABS: BILIRUBIN,TOTAL 0.2 mg/dL (0.2-1); TOT PROT 7.2 g/dl (6.4-8.2)
[2021-02-26] MEDS ORDERED: ACETAMINOPHEN 325 MG TABLET (FP) PO PRN (09:51)
[2021-02-26] MEDS ORDERED: DIPHENHYDRAMINE 25 MG in SODIUM CHLORIDE 50 ML IVPB ONE (10:00)
[2021-02-26] MEDS ORDERED: SODIUM CHLORIDE IVPB ONE (10:30)
[2021-02-26] MEDS ORDERED: NIVOLUMAB IVPB ONE (10:30)
[2021-02-26 12:18] VITALS: TEMP 98.2
[2021-02-26] MEDS ORDERED: PORTA CATH FLUSH 10 ML IVPUSH ONE (14:15)
[2021-02-26 15:33] VITALS: BP 114/68; PULSE 72
== END 2021-02-26 12:40 | disposition home or self-care (01) ==
LOC: JONCCHEMO 07:16
PROVIDERS: ATTEND Internal Medicine Hematology & Oncology
DX: Z51.11 Encounter for antineoplastic chemotherapy (principal); C18.8 Malignant neoplasm of overlapping sites of colon
CPT/HCPCS: 36415; 80053; 82378; 84439; 84443; 85025; 96375; 96413; J9299

== ENCOUNTER 2021-03-12 07:07 | Day surgery (SDC) | payer OTHER ==
[2021-03-12 08:27] LABS: EOS % 3.9 % (0-4.5); HEMOGLOBIN 12.6 GM/dL (10.7-15.3); LYMPH % 23.6 % (8-40); MCH 30.2 pg (25.7-33.7); MCHC 34.2 g/dl (32.0-36.0); MEAN CELL VOLUME 88.5 fl (80-96); MEAN PLT VOLUME 8.6 fl (7.5-11.1); MONO % 7.4 % (3.8-10.2); NEUT % 64.1 % (42.8-82.8); PLATELET COUNT 309 10^3/uL (134-434); RBC 4.18 M/mm3 (3.60-5.2); RDW 14.4 % (11.6-15.6); WHITE BLOOD COUNT 9.5 K/mm3 (4.0-10.0)
[2021-03-12 08:48] LABS: CALCIUM 8.6 mg/dL (8.5-10.1)
[2021-03-12 08:49] LABS: ALBUMIN 3.6 g/dl (3.4-5.0); BLOOD UREA NITROGEN 10.7 mg/dL (7-18)
[2021-03-12 08:52] LABS: CREATININE 0.7 mg/dL (0.55-1.3)
[2021-03-12 08:53] LABS: BILIRUBIN,TOTAL 0.4 mg/dL (0.2-1); TOT PROT 7.4 g/dl (6.4-8.2)
[2021-03-12] MEDS ORDERED: ACETAMINOPHEN 325 MG TABLET (FP) PO PRN (09:30)
[2021-03-12] MEDS ORDERED: DIPHENHYDRAMINE 25 MG in SODIUM CHLORIDE 50 ML IVPB ONE (09:30)
[2021-03-12] MEDS ORDERED: SODIUM CHLORIDE IVPB ONE (10:00)
[2021-03-12] MEDS ORDERED: NIVOLUMAB IVPB ONE (10:00)
[2021-03-12 14:16] LABS: URINE APPEARANCE CLEAR; URINE BILIRUBIN NEGATIVE (NEGATIVE); URINE COLOR YELLOW; URINE GLUCOSE (UA) NEGATIVE (NEGATIVE); URINE KETONE NEGATIVE (NEGATIVE); URINE LEUK ESTERASE NEGATIVE (NEGATIVE); URINE NITRITE NEGATIVE (NEGATIVE); URINE PROTEIN NEGATIVE (NEGATIVE); URINE UROBILINOGEN 0.2 mg/dL (0.2-1.0)
[2021-03-12 14:54] VITALS: TEMP 98.3
[2021-03-12] MEDS ORDERED: PORTA CATH FLUSH 10 ML IVPUSH ONE (16:11)
[2021-03-12 16:52] VITALS: BP 146/84; PULSE 75
== END 2021-03-12 13:10 | disposition home or self-care (01) ==
LOC: JONCCHEMO 07:07
PROVIDERS: ATTEND Internal Medicine Hematology & Oncology
DX: Z51.11 Encounter for antineoplastic chemotherapy (principal); C18.8 Malignant neoplasm of overlapping sites of colon; C78.00 Secondary malignant neoplasm of unspecified lung
CPT/HCPCS: 36415; 80053; 81003; 84439; 84443; 85025; 87086; 87186; 96375; 96413; J9299

== ENCOUNTER → 2021-03-26 | Day surgery (SDC) | payer OTHER ==
[~2021-03-26] MED LIST changes: -ACETAMINOPHEN 325 MG TABLET (FP) PO ONE; +ACETAMINOPHEN 325 MG TABLET (FP) PO PRN; -ATROPINE SO4 0.4 MG/1 ML VIAL IVPUSH ONE; -DEXAMETHASONE INJECTION 10 MG, ONDANSETRON INJECTION 8 MG in SODIUM CHLORIDE 100 ML IVPB ONE; -DEXTROSE 5% IVPB ONE; +DIPHENHYDRAMINE 25 MG in SODIUM CHLORIDE 50 ML IVPB ONE; -IRINOTECAN HCL IVPB ONE; +NIVOLUMAB IVPB ONE; -PANITUMUMAB IVPB ONE; -WATER IVPB ONE
[2021-03-26 09:15] LABS: BASO % 0.9 % (0-2.0); EOS % 3.2 % (0-4.5); HEMATOCRIT 36.6 % (32.4-45.2); HEMOGLOBIN 12.5 GM/dL (10.7-15.3); MCH 29.8 pg (25.7-33.7); MEAN CELL VOLUME 87.7 fl (80-96); MEAN PLT VOLUME 8.6 fl (7.5-11.1); MONO % 6.4 % (3.8-10.2); NEUT % 62.5 % (42.8-82.8); PLATELET COUNT 333 10^3/uL (134-434); RBC 4.17 M/mm3 (3.60-5.2); RDW 14.4 % (11.6-15.6); WHITE BLOOD COUNT 10.1 K/mm3 (4.0-10.0)
[2021-03-26 09:24] LABS: INR 1.02 (0.83-1.09); PROTHROMBIN TIME (PATIENT) 12.5 SEC (9.7-13.0)
[2021-03-26 09:27] LABS: ACTIVATED PTT 31.1 SECONDS (25.2-36.5)
[2021-03-26 09:41] LABS: BLOOD UREA NITROGEN 11.8 mg/dL (7-18)
[2021-03-26 09:42] LABS: ALBUMIN 3.5 g/dl (3.4-5.0); CALCIUM 9.3 mg/dL (8.5-10.1)
[2021-03-26 09:45] LABS: CREATININE 0.9 mg/dL (0.55-1.3)
[2021-03-26 09:47] LABS: BILIRUBIN,TOTAL 0.3 mg/dL (0.2-1); TOT PROT 7.6 g/dl (6.4-8.2)
== END | disposition home or self-care (01) ==
LOC: JONCCHEMO 07:09
PROVIDERS: ATTEND Internal Medicine Hematology & Oncology
DX: Z53.8 Procedure and treatment not carried out for other reasons (principal)
CPT/HCPCS: 36415; 80053; 85025; 85610; 85730

== ENCOUNTER 2021-04-02 07:40 | Day surgery (SDC) | payer OTHER ==
[2021-04-02 09:22] LABS: BASO % 0.6 % (0-2.0); EOS % 2.2 % (0-4.5); HEMATOCRIT 37.8 % (32.4-45.2); HEMOGLOBIN 12.7 GM/dL (10.7-15.3); LYMPH % 17.3 % (8-40); MCHC 33.5 g/dl (32.0-36.0); MEAN CELL VOLUME 89.6 fl (80-96); MEAN PLT VOLUME 9.2 fl (7.5-11.1); MONO % 4.8 % (3.8-10.2); NEUT % 75.1 % (42.8-82.8); PLATELET COUNT 353 10^3/uL (134-434); RBC 4.22 M/mm3 (3.60-5.2); RDW 14.5 % (11.6-15.6); WHITE BLOOD COUNT 11.6 K/mm3 (4.0-10.0)
[2021-04-02 09:42] LABS: CREATININE 0.8 mg/dL (0.55-1.3)
[2021-04-02 09:43] LABS: BILIRUBIN,TOTAL 0.3 mg/dL (0.2-1); TOT PROT 7.6 g/dl (6.4-8.2)
[2021-04-02] MEDS ORDERED: DIPHENHYDRAMINE 25 MG in SODIUM CHLORIDE 50 ML IVPB ONE (10:00)
[2021-04-02] MEDS ORDERED: ACETAMINOPHEN 325 MG TABLET (FP) PO ONE (10:00)
[2021-04-02 10:04] LABS: ALBUMIN 3.7 g/dl (3.4-5.0)
[2021-04-02] MEDS ORDERED: NIVOLUMAB IVPB ONE (10:30)
[2021-04-02] MEDS ORDERED: SODIUM CHLORIDE IVPB ONE (10:30)
[2021-04-02 14:07] VITALS: PULSE 80; TEMP 98.2
[2021-04-02 14:14] VITALS: BP 118/72
== END 2021-04-02 12:30 | disposition home or self-care (01) ==
LOC: JONCCHEMO 07:40
PROVIDERS: ATTEND Internal Medicine Hematology & Oncology
PROC: 3E04305 Introduction of Other Antineoplastic into Central Vein, Percutaneous Approach (ICD-10-PCS; principal; 2021-04-02)
PROC: 3E043GC Introduction of Other Therapeutic Substance into Central Vein, Percutaneous Approach (ICD-10-PCS; 2021-04-02)
DX: Z51.11 Encounter for antineoplastic chemotherapy (principal); C18.8 Malignant neoplasm of overlapping sites of colon; I10 Essential (primary) hypertension; E78.00 Pure hypercholesterolemia, unspecified; G35 Multiple sclerosis; Z87.891 Personal history of nicotine dependence
CPT/HCPCS: 36415; 80053; 85025; 96367; 96413; J9299

== ENCOUNTER 2021-04-16 07:17 | Day surgery (SDC) | payer OTHER ==
[2021-04-16] MEDS ORDERED: DIPHENHYDRAMINE 25 MG in SODIUM CHLORIDE 50 ML IVPB ONE (10:00)
[2021-04-16] MEDS ORDERED: ACETAMINOPHEN 325 MG TABLET (FP) PO ONE (10:00)
[2021-04-16] MEDS ORDERED: NIVOLUMAB IVPB ONE (10:30)
[2021-04-16] MEDS ORDERED: SODIUM CHLORIDE IVPB ONE (10:30)
[2021-04-16 11:07] LABS: BASO % 0.9 % (0-2.0); EOS % 4.4 % (0-4.5); HEMATOCRIT 40.1 % (32.4-45.2); HEMOGLOBIN 13.4 GM/dL (10.7-15.3); LYMPH % 26.7 % (8-40); MCH 29.5 pg (25.7-33.7); MCHC 33.4 g/dl (32.0-36.0); MEAN CELL VOLUME 88.4 fl (80-96); MEAN PLT VOLUME 9.5 fl (7.5-11.1); MONO % 4.9 % (3.8-10.2); NEUT % 63.1 % (42.8-82.8); PLATELET COUNT 365 10^3/uL (134-434); RBC 4.54 M/mm3 (3.60-5.2); RDW 14.2 % (11.6-15.6); WHITE BLOOD COUNT 11.2 K/mm3 (4.0-10.0)
[2021-04-16 11:17] LABS: INR 0.97 (0.83-1.09); PROTHROMBIN TIME (PATIENT) 11.8 SEC (9.7-13.0)
[2021-04-16 11:20] LABS: ACTIVATED PTT 31.6 SECONDS (25.2-36.5)
[2021-04-16 11:29] LABS: ALBUMIN 3.7 g/dl (3.4-5.0); BLOOD UREA NITROGEN 10.1 mg/dL (7-18); CALCIUM 9.1 mg/dL (8.5-10.1)
[2021-04-16 11:32] LABS: CREATININE 0.8 mg/dL (0.55-1.3)
[2021-04-16 11:33] LABS: BILIRUBIN,TOTAL 0.3 mg/dL (0.2-1); TOT PROT 8.1 g/dl (6.4-8.2)
[2021-04-16 16:25] VITALS: TEMP 98.3
[2021-04-16 16:35] VITALS: BP 117/67; PULSE 78
[2021-04-16] MEDS ORDERED: PORTA CATH FLUSH 10 ML IVPUSH ONE (16:35)
== END 2021-04-16 13:45 | disposition home or self-care (01) ==
LOC: JONCCHEMO 07:17
PROVIDERS: ATTEND Internal Medicine Hematology & Oncology
DX: Z51.11 Encounter for antineoplastic chemotherapy (principal); C18.8 Malignant neoplasm of overlapping sites of colon
CPT/HCPCS: 36415; 80053; 82378; 84439; 84443; 85025; 85610; 85730; 96375; 96413; J9299

== ENCOUNTER 2021-04-30 08:16 | Day surgery (SDC) | payer OTHER ==
[2021-04-30 08:58] LABS: BASO % 0.9 % (0-2.0); EOS % 2.8 % (0-4.5); HEMATOCRIT 38.3 % (32.4-45.2); HEMOGLOBIN 13.2 GM/dL (10.7-15.3); LYMPH % 23.9 % (8-40); MCH 30.1 pg (25.7-33.7); MCHC 34.6 g/dl (32.0-36.0); MEAN CELL VOLUME 86.9 fl (80-96); MEAN PLT VOLUME 8.6 fl (7.5-11.1); NEUT % 66.4 % (42.8-82.8); PLATELET COUNT 330 10^3/uL (134-434); RDW 14.2 % (11.6-15.6); WHITE BLOOD COUNT 9.6 K/mm3 (4.0-10.0)
[2021-04-30 09:28] LABS: CALCIUM 8.8 mg/dL (8.5-10.1)
[2021-04-30 09:29] LABS: ALBUMIN 3.7 g/dl (3.4-5.0); BLOOD UREA NITROGEN 10.4 mg/dL (7-18)
[2021-04-30 09:32] LABS: CREATININE 0.8 mg/dL (0.55-1.3)
[2021-04-30 09:33] LABS: BILIRUBIN,TOTAL 0.4 mg/dL (0.2-1); TOT PROT 7.9 g/dl (6.4-8.2)
[2021-04-30] MEDS ORDERED: DIPHENHYDRAMINE 25 MG in SODIUM CHLORIDE 50 ML IVPB ONE (10:30)
[2021-04-30] MEDS ORDERED: ACETAMINOPHEN 325 MG TABLET (FP) PO ONE (10:30)
[2021-04-30] MEDS ORDERED: SODIUM CHLORIDE IVPB ONE (11:00)
[2021-04-30] MEDS ORDERED: NIVOLUMAB IVPB ONE (11:00)
[2021-04-30 15:32] VITALS: BP 138/78; PULSE 82; TEMP 98.4
[2021-04-30] MEDS ORDERED: PORTA CATH FLUSH 10 ML IVPUSH ONE (15:32)
== END 2021-04-30 12:20 | disposition home or self-care (01) ==
LOC: JONCCHEMO 08:16
PROVIDERS: ATTEND Internal Medicine Hematology & Oncology
DX: Z51.11 Encounter for antineoplastic chemotherapy (principal); C18.8 Malignant neoplasm of overlapping sites of colon
CPT/HCPCS: 36415; 80053; 82378; 85025; 86304; 96367; 96413; J9299

== ENCOUNTER 2021-05-14 07:35 | Day surgery (SDC) | payer OTHER ==
[2021-05-14 09:48] LABS: BASO % 0.7 % (0-2.0); EOS % 2.7 % (0-4.5); HEMOGLOBIN 13.4 GM/dL (10.7-15.3); LYMPH % 23.5 % (8-40); MCH 30.1 pg (25.7-33.7); MCHC 34.3 g/dl (32.0-36.0); MEAN CELL VOLUME 87.8 fl (80-96); MEAN PLT VOLUME 9.6 fl (7.5-11.1); MONO % 5.2 % (3.8-10.2); NEUT % 67.9 % (42.8-82.8); PLATELET COUNT 366 10^3/uL (134-434); RBC 4.44 M/mm3 (3.60-5.2); RDW 13.8 % (11.6-15.6); WHITE BLOOD COUNT 10.5 K/mm3 (4.0-10.0)
[2021-05-14] MEDS ORDERED: DIPHENHYDRAMINE 25 MG in SODIUM CHLORIDE 50 ML IVPB ONE (10:00)
[2021-05-14] MEDS ORDERED: ACETAMINOPHEN 325 MG TABLET (FP) PO ONE (10:00)
[2021-05-14 10:08] LABS: ALBUMIN 3.4 g/dl (3.4-5.0); BLOOD UREA NITROGEN 8.8 mg/dL (7-18)
[2021-05-14 10:11] LABS: CREATININE 0.8 mg/dL (0.55-1.3)
[2021-05-14 10:13] LABS: BILIRUBIN,TOTAL 0.4 mg/dL (0.2-1); TOT PROT 7.8 g/dl (6.4-8.2)
[2021-05-14] MEDS ORDERED: SODIUM CHLORIDE IVPB ONE (10:30)
[2021-05-14] MEDS ORDERED: NIVOLUMAB IVPB ONE (10:30)
[2021-05-14 16:37] VITALS: TEMP 98.2
[2021-05-14 16:39] VITALS: BP 123/67; PULSE 75
== END 2021-05-14 13:20 | disposition home or self-care (01) ==
LOC: JONCCHEMO 07:35
PROVIDERS: ATTEND Internal Medicine Hematology & Oncology
DX: Z51.11 Encounter for antineoplastic chemotherapy (principal); C18.8 Malignant neoplasm of overlapping sites of colon
CPT/HCPCS: 36415; 80053; 85025; 96375; 96413; J9299

== ENCOUNTER 2021-07-17 22:27 | Inpatient (IN) | payer OTHER ==
[2021-07-17] MEDS ORDERED: LACTATED RINGERS SOLUTION 1,000 ML/1,000 ML INFUS.BAG IV STA (23:53)
[2021-07-18 00:21] LABS: BASO % 0.6 % (0-2.0); EOS % 0.1 % (0-4.5); HEMATOCRIT 35.3 % (32.4-45.2); LYMPH % 8.7 % (8-40); MCH 28.9 pg (25.7-33.7); MCHC 33.9 g/dl (32.0-36.0); MEAN CELL VOLUME 85.2 fl (80-96); MEAN PLT VOLUME 8.7 fl (7.5-11.1); MONO % 9.4 % (3.8-10.2); NEUT % 81.2 % (42.8-82.8); PLATELET COUNT 228 10^3/uL (134-434); RBC 4.15 M/mm3 (3.60-5.2); RDW 14.2 % (11.6-15.6); WHITE BLOOD COUNT 11.9 K/mm3 (4.0-10.0)
[2021-07-18 00:35] LABS: INR 1.28 (0.83-1.09)
[2021-07-18 00:37] LABS: ACTIVATED PTT 30.5 SECONDS (25.2-36.5)
[2021-07-18] MEDS ORDERED: ACETAMINOPHEN INJECTION 100 ML IVPB ONE (00:51)
[2021-07-18 01:02] LABS: ALBUMIN 2.3 g/dl (3.4-5.0); BLOOD UREA NITROGEN 43.1 mg/dL (7-18); CALCIUM 8.3 mg/dL (8.5-10.1); MAGNESIUM 2.7 mg/dL (1.8-2.4)
[2021-07-18 01:05] LABS: CREATININE 2.1 mg/dL (0.55-1.3); PHOSPHOROUS 2.2 mg/dL (2.5-4.9)
[2021-07-18 01:07] LABS: BILIRUBIN,TOTAL 1.5 mg/dL (0.2-1); TOT PROT 7.1 g/dl (6.4-8.2)
[2021-07-18] MEDS ORDERED: ACETAMINOPHEN 1000 MG/100 ML BAG IVPB ONE (01:29)
[2021-07-18] MEDS ORDERED: POTASSIUM CHLORIDE TABS 20 MEQ TABLET.ER (FP) PO ONE ×2 (02:11→03:43)
[2021-07-18] MEDS ORDERED: NAPH,MB-DB/K PH,MBDB POWDER PACKET PO ONE ×2 (02:11→07:47)
[2021-07-18] MEDS ORDERED: NAPH,MB-DB/K PH,MBDB POWDER PACKET ONE ×2 (03:43→08:32)
[2021-07-18] MEDS ORDERED: ACETAMINOPHEN 325 MG TABLET (FP) PO PRN (05:23)
[2021-07-18] MEDS ORDERED: LACTATED RINGERS SOLUTION 1,000 ML/1,000 ML INFUS.BAG IV SCH (05:30)
[2021-07-18] MEDS ORDERED: DEXTROSE 5%-NORMAL SALINE 1,000 ML IV SCH (05:30)
[2021-07-18] MEDS ORDERED: LOPERAMIDE HCL 2 MG CAPSULE PO PRN (05:33)
[2021-07-18] MEDS ORDERED: ALBUTEROL SO4 HFA INHALER IH PRN (05:44)
[2021-07-18] MEDS: HEPARIN NA (PORCINE) 5,000 UNITS/ML 1ML VIAL SQ SCH ×3 (07:23→21:35)
[2021-07-18] MEDS ORDERED: ACETAMINOPHEN 325 MG TABLET (FP) ONE (07:47)
[2021-07-18] MEDS ORDERED: HEPARIN NA (PORCINE) 5,000 UNITS/ML 1ML VIAL ONE (07:47)
[2021-07-18] MEDS ORDERED: ASPIRIN 81 MG CHEWABLE TABLETS ONE (08:31)
[2021-07-18] MEDS ORDERED: MECLIZINE HCL 25 MG TABLET (FP) ONE (08:32)
[2021-07-18] MEDS ORDERED: amLODIPine BESYLATE 5 MG TABLET (FP) ONE (08:32)
[2021-07-18] MEDS ORDERED: LABETALOL HCL 100 MG TABLET (FP) ONE (08:32)
[2021-07-18] MEDS ORDERED: LOSARTAN POTASSIUM 50 MG TABLET ONE (08:32)
[2021-07-18] MEDS ORDERED: PANTOPRAZOLE 20 MG TABLET PO ONE (08:32)
[2021-07-18] MEDS ORDERED: GABAPENTIN 100 MG CAPSULE ONE (08:33)
[2021-07-18] MEDS ORDERED: CHOLECALCIFEROL (VIT D3) 1,000 UNIT (25 MCG) TABLET ONE (08:33)
[2021-07-18] MEDS ORDERED: ACYCLOVIR 200 MG CAPSULE ONE (08:33)
[2021-07-18] MEDS ORDERED: CLOPIDOGREL BISULFATE 75 MG TABLET (FP) ONE (08:33)
[2021-07-18 08:38] LABS: EPI CELLS 22 /uL (0-25.1); HYALINE CASTS 6 /uL (0-3.1); PH,URINE 5.5 (5.0-8.0); URINE APPEARANCE TURBID; URINE BACTERIA >9,000 /uL (0-1359); URINE BILIRUBIN NEGATIVE (NEGATIVE); URINE COLOR DK YELLOW; URINE GLUCOSE (UA) NEGATIVE (NEGATIVE); URINE KETONE NEGATIVE (NEGATIVE); URINE LEUK ESTERASE 3+ (NEGATIVE); URINE NITRITE NEGATIVE (NEGATIVE); URINE PROTEIN 2+ (NEGATIVE); URINE RBC 84 /uL (0-23.9); URINE WBC 1611 /uL (0-25.8)
[2021-07-18] MEDS: MECLIZINE HCL 25 MG TABLET (FP) PO SCH ×2 (09:16→21:35)
[2021-07-18] MEDS: ASPIRIN 81 MG CHEWABLE TABLETS PO SCH (09:17)
[2021-07-18] MEDS: PANTOPRAZOLE SODIUM 40 MG VIAL IVPB SCH (09:17)
[2021-07-18] MEDS: ACYCLOVIR 400 MG TABLET PO SCH ×2 (09:17→23:06)
[2021-07-18] MEDS: CHOLECALCIFEROL (VIT D3) 1,000 UNIT (25 MCG) TABLET PO SCH (09:17)
[2021-07-18] MEDS: GABAPENTIN 300 MG CAPSULE PO SCH ×2 (09:17→21:35)
[2021-07-18] MEDS: FOLIC ACID 1 MG TABLET (FP) PO SCH (09:17)
[2021-07-18] MEDS: LABETALOL HCL 100 MG TABLET (FP) PO SCH ×2 (09:17→21:35)
[2021-07-18] MEDS: CLOPIDOGREL BISULFATE 75 MG TABLET (FP) PO SCH (09:17)
[2021-07-18] MEDS ORDERED: PANTOPRAZOLE 20 MG TABLET PO SCH (10:00)
[2021-07-18] MEDS ORDERED: LOSARTAN POTASSIUM 50 MG TABLET PO SCH (10:00)
[2021-07-18] MEDS ORDERED: amLODIPine BESYLATE 5 MG TABLET (FP) PO SCH (10:00)
[2021-07-18 10:44] LABS: BASO % 0.2 % (0-2.0); EOS % 0.6 % (0-4.5); HEMATOCRIT 30.8 % (32.4-45.2); HEMOGLOBIN 10.6 GM/dL (10.7-15.3); LYMPH % 6.5 % (8-40); MCH 29.3 pg (25.7-33.7); MCHC 34.4 g/dl (32.0-36.0); MEAN CELL VOLUME 85.2 fl (80-96); MEAN PLT VOLUME 9.2 fl (7.5-11.1); MONO % 10.7 % (3.8-10.2); PLATELET COUNT 203 10^3/uL (134-434); RBC 3.61 M/mm3 (3.60-5.2); RDW 14.1 % (11.6-15.6)
[2021-07-18 11:09] LABS: ALBUMIN 1.9 g/dl (3.4-5.0); BLOOD UREA NITROGEN 36.1 mg/dL (7-18); CALCIUM 7.8 mg/dL (8.5-10.1)
[2021-07-18 11:12] LABS: CREATININE 1.7 mg/dL (0.55-1.3); PHOSPHOROUS 2.1 mg/dL (2.5-4.9)
[2021-07-18 11:14] LABS: BILIRUBIN,TOTAL 1.4 mg/dL (0.2-1); TOT PROT 5.9 g/dl (6.4-8.2)
[2021-07-18] MEDS ORDERED: methylPREDNISolone NA SUCC 40 MG/1 ML VIAL ONE (11:53)
[2021-07-18] MEDS: methylPREDNISolone NA SUCC 125 MG/2 ML VIAL IVPB SCH ×2 (11:57→21:33)
[2021-07-18] MEDS: TRIAMCINOLONE ACET 0.1% CREAM 15 GM TUBE TP SCH ×2 (12:32→23:45)
[2021-07-18] MEDS: PRAMIPEXOLE DIHYDROCHLORIDE 0.25 MG TABLET PO SCH ×2 (12:32→17:45)
[2021-07-18 12:56] VITALS: BMI 20.9
[2021-07-18] MEDS: NYSTATIN 500,000 UNITS/5 ML SUSPENSION PO SCH ×3 (13:28→17:07)
[2021-07-18] MEDS: CYANOCOBALAMIN 1,000 MCG TABLET (FP) PO SCH (13:29)
[2021-07-18] MEDS: FLUTICASONE PROP 0.05% 16 GM NASAL SPRAY NS SCH (13:29)
[2021-07-18] MEDS: SODIUM CHLORIDE 0.45%/POT 20 MEQ/1,000 ML INFUS.BAG IV SCH (15:20)
[2021-07-18] MEDS ORDERED: POTASSIUM PHOSPHATE 15 MM in DEXTROSE 5%-WATER - 250 ML IVPB ONE (16:00)
[2021-07-18] MEDS: GLATIRAMER ACETATE 40 MG/ML SQ SCH (16:34)
[2021-07-18] MEDS: ROSUVASTATIN CA 10 MG TABLET PO SCH (21:35)
[2021-07-18] MEDS: MIRTAZAPINE 15 MG TABLET (FP) PO SCH (21:35)
[2021-07-19] MEDS: NYSTATIN 500,000 UNITS/5 ML SUSPENSION PO SCH ×5 (00:08→23:16)
[2021-07-19] MEDS: SODIUM CHLORIDE 0.45%/POT 20 MEQ/1,000 ML INFUS.BAG IV SCH ×2 (04:36→20:20)
[2021-07-19] MEDS: HEPARIN NA (PORCINE) 5,000 UNITS/ML 1ML VIAL SQ SCH ×3 (05:53→22:18)
[2021-07-19] MEDS: TRIAMCINOLONE ACET 0.1% CREAM 15 GM TUBE TP SCH ×2 (10:32→22:19)
[2021-07-19] MEDS: CYANOCOBALAMIN 1,000 MCG TABLET (FP) PO SCH (10:33)
[2021-07-19] MEDS: LABETALOL HCL 100 MG TABLET (FP) PO SCH ×2 (10:33→22:17)
[2021-07-19] MEDS: CHOLECALCIFEROL (VIT D3) 1,000 UNIT (25 MCG) TABLET PO SCH (10:33)
[2021-07-19] MEDS: ASPIRIN 81 MG CHEWABLE TABLETS PO SCH (10:33)
[2021-07-19] MEDS: PRAMIPEXOLE DIHYDROCHLORIDE 0.25 MG TABLET PO SCH ×2 (10:33→18:14)
[2021-07-19] MEDS: CLOPIDOGREL BISULFATE 75 MG TABLET (FP) PO SCH (10:33)
[2021-07-19] MEDS: GABAPENTIN 300 MG CAPSULE PO SCH ×2 (10:33→22:17)
[2021-07-19] MEDS: PANTOPRAZOLE SODIUM 40 MG VIAL IVPB SCH (10:33)
[2021-07-19] MEDS: MECLIZINE HCL 25 MG TABLET (FP) PO SCH ×2 (10:33→22:18)
[2021-07-19] MEDS: LOSARTAN POTASSIUM 50 MG TABLET PO SCH (10:34)
[2021-07-19] MEDS: FOLIC ACID 1 MG TABLET (FP) PO SCH (10:34)
[2021-07-19] MEDS: amLODIPine BESYLATE 5 MG TABLET (FP) PO SCH (10:34)
[2021-07-19] MEDS: FLUTICASONE PROP 0.05% 16 GM NASAL SPRAY NS SCH (10:34)
[2021-07-19] MEDS: methylPREDNISolone NA SUCC 125 MG/2 ML VIAL IVPB SCH ×2 (10:34→22:18)
[2021-07-19] MEDS: ACYCLOVIR 400 MG TABLET PO SCH ×2 (10:35→22:18)
[2021-07-19 10:42] LABS: BASO % 0.5 % (0-2.0); HEMOGLOBIN 10.9 GM/dL (10.7-15.3); LYMPH % 6.7 % (8-40); MCH 29.5 pg (25.7-33.7); MCHC 34.2 g/dl (32.0-36.0); MEAN CELL VOLUME 86.3 fl (80-96); MEAN PLT VOLUME 10.1 fl (7.5-11.1); MONO % 8.6 % (3.8-10.2); NEUT % 84.2 % (42.8-82.8); PLATELET COUNT 245 10^3/uL (134-434); RDW 14.1 % (11.6-15.6)
[2021-07-19 11:19] LABS: CALCIUM 8.4 mg/dL (8.5-10.1)
[2021-07-19 11:20] LABS: ALBUMIN 1.9 g/dl (3.4-5.0); BLOOD UREA NITROGEN 23.4 mg/dL (7-18)
[2021-07-19 11:21] LABS: ALBUMIN 1.9 g/dl (3.4-5.0)
[2021-07-19 11:23] LABS: CREATININE 1.3 mg/dL (0.55-1.3)
[2021-07-19 11:24] LABS: BILIRUBIN,TOTAL 0.9 mg/dL (0.2-1); TOT PROT 6.2 g/dl (6.4-8.2)
[2021-07-19 11:25] LABS: BILIRUBIN,DIRECT 0.4 mg/dL (0.0-0.2)
[2021-07-19 11:26] LABS: BILIRUBIN,TOTAL 0.6 mg/dL (0.2-1); TOT PROT 6.3 g/dl (6.4-8.2)
[2021-07-19] MEDS ORDERED: PT OWN MED DRAWER 7, Y5N ONE (22:14)
[2021-07-19] MEDS: MIRTAZAPINE 15 MG TABLET (FP) PO SCH (22:17)
[2021-07-19] MEDS: ROSUVASTATIN CA 10 MG TABLET PO SCH (22:18)
[2021-07-20] MEDS ORDERED: PORTA CATH FLUSH 10 ML IVPUSH PRN (00:02)
[2021-07-20] MEDS: HEPARIN NA (PORCINE) 5,000 UNITS/ML 1ML VIAL SQ SCH ×3 (05:57→21:54)
[2021-07-20] MEDS: NYSTATIN 500,000 UNITS/5 ML SUSPENSION PO SCH ×3 (05:57→18:10)
[2021-07-20] MEDS: SUMAtriptan SUCCINATE 25 MG TABLET PO PRN ×2 (07:54→22:44)
[2021-07-20 08:00] LABS: ALBUMIN 1.9 g/dl (3.4-5.0)
[2021-07-20 08:02] LABS: HEMATOCRIT 30.8 % (32.4-45.2); HEMOGLOBIN 10.7 GM/dL (10.7-15.3); MCH 29.7 pg (25.7-33.7); MCHC 34.7 g/dl (32.0-36.0); MEAN CELL VOLUME 85.6 fl (80-96); MEAN PLT VOLUME 10.2 fl (7.5-11.1); PLATELET COUNT 274 10^3/uL (134-434); RDW 14.5 % (11.6-15.6); WHITE BLOOD COUNT 20.5 K/mm3 (4.0-10.0)
[2021-07-20 08:03] LABS: BILIRUBIN,DIRECT 0.2 mg/dL (0.0-0.2); CALCIUM 8.3 mg/dL (8.5-10.1)
[2021-07-20 08:04] LABS: BLOOD UREA NITROGEN 21.3 mg/dL (7-18)
[2021-07-20 08:05] LABS: BILIRUBIN,TOTAL 0.6 mg/dL (0.2-1); TOT PROT 6.2 g/dl (6.4-8.2)
[2021-07-20] MEDS: methylPREDNISolone NA SUCC 125 MG/2 ML VIAL IVPB SCH ×2 (09:13→21:55)
[2021-07-20] MEDS: PANTOPRAZOLE SODIUM 40 MG VIAL IVPB SCH (09:13)
[2021-07-20] MEDS: ACYCLOVIR 400 MG TABLET PO SCH ×2 (09:14→21:54)
[2021-07-20] MEDS: CYANOCOBALAMIN 1,000 MCG TABLET (FP) PO SCH (09:14)
[2021-07-20] MEDS: LABETALOL HCL 100 MG TABLET (FP) PO SCH ×2 (09:14→21:54)
[2021-07-20] MEDS: CHOLECALCIFEROL (VIT D3) 1,000 UNIT (25 MCG) TABLET PO SCH (09:14)
[2021-07-20] MEDS: amLODIPine BESYLATE 5 MG TABLET (FP) PO SCH (09:14)
[2021-07-20] MEDS: MECLIZINE HCL 25 MG TABLET (FP) PO SCH ×2 (09:14→21:54)
[2021-07-20] MEDS: GABAPENTIN 300 MG CAPSULE PO SCH ×2 (09:14→21:54)
[2021-07-20] MEDS: CLOPIDOGREL BISULFATE 75 MG TABLET (FP) PO SCH (09:14)
[2021-07-20] MEDS: TRIAMCINOLONE ACET 0.1% CREAM 15 GM TUBE TP SCH ×2 (09:15→21:55)
[2021-07-20] MEDS: PRAMIPEXOLE DIHYDROCHLORIDE 0.25 MG TABLET PO SCH ×2 (09:15→18:10)
[2021-07-20] MEDS: FOLIC ACID 1 MG TABLET (FP) PO SCH (09:15)
[2021-07-20] MEDS: FLUTICASONE PROP 0.05% 16 GM NASAL SPRAY NS SCH (09:15)
[2021-07-20] MEDS: LOSARTAN POTASSIUM 50 MG TABLET PO SCH (09:15)
[2021-07-20] MEDS: ASPIRIN 81 MG CHEWABLE TABLETS PO SCH (09:15)
[2021-07-20] MEDS: SODIUM CHLORIDE 0.45%/POT 20 MEQ/1,000 ML INFUS.BAG IV SCH ×2 (09:32→15:54)
[2021-07-20 11:26] LABS: ANISOCYTOSIS 0; MACROCYTOSIS 0; PLATELET ESTIMATE NORMAL
[2021-07-20] MEDS ORDERED: PT OWN MED DRAWER 7, Y5N ONE ×2 (21:38→21:54)
[2021-07-20] MEDS: ROSUVASTATIN CA 10 MG TABLET PO SCH (21:54)
[2021-07-20] MEDS: MIRTAZAPINE 15 MG TABLET (FP) PO SCH (21:54)
[2021-07-21] MEDS: NYSTATIN 500,000 UNITS/5 ML SUSPENSION PO SCH ×5 (00:10→23:50)
[2021-07-21] MEDS: HEPARIN NA (PORCINE) 5,000 UNITS/ML 1ML VIAL SQ SCH ×3 (05:06→22:04)
[2021-07-21] MEDS ORDERED: PT OWN MED DRAWER 7, Y5N ONE ×3 (05:23→17:16)
[2021-07-21 09:27] LABS: INR 1.09 (0.83-1.09); PROTHROMBIN TIME (PATIENT) 12.8 SEC (9.7-13.0)
[2021-07-21 09:30] LABS: ACTIVATED PTT 31.5 SECONDS (25.2-36.5)
[2021-07-21] MEDS: CYANOCOBALAMIN 1,000 MCG TABLET (FP) PO SCH (10:36)
[2021-07-21] MEDS: CLOPIDOGREL BISULFATE 75 MG TABLET (FP) PO SCH (10:36)
[2021-07-21] MEDS: ASPIRIN 81 MG CHEWABLE TABLETS PO SCH (10:36)
[2021-07-21] MEDS: LABETALOL HCL 100 MG TABLET (FP) PO SCH ×2 (10:37→22:04)
[2021-07-21] MEDS: FOLIC ACID 1 MG TABLET (FP) PO SCH (10:37)
[2021-07-21] MEDS: LOSARTAN POTASSIUM 50 MG TABLET PO SCH (10:37)
[2021-07-21] MEDS: GABAPENTIN 300 MG CAPSULE PO SCH ×2 (10:37→22:04)
[2021-07-21] MEDS: amLODIPine BESYLATE 5 MG TABLET (FP) PO SCH (10:38)
[2021-07-21] MEDS: MECLIZINE HCL 25 MG TABLET (FP) PO SCH ×2 (10:38→22:05)
[2021-07-21] MEDS: PRAMIPEXOLE DIHYDROCHLORIDE 0.25 MG TABLET PO SCH ×2 (10:38→17:36)
[2021-07-21] MEDS: methylPREDNISolone NA SUCC 125 MG/2 ML VIAL IVPB SCH ×2 (10:39→22:05)
[2021-07-21] MEDS: PANTOPRAZOLE SODIUM 40 MG VIAL IVPB SCH (10:40)
[2021-07-21] MEDS: SUMAtriptan SUCCINATE 25 MG TABLET PO PRN (10:41)
[2021-07-21] MEDS: ACYCLOVIR 400 MG TABLET PO SCH ×2 (10:41→22:05)
[2021-07-21] MEDS: ATOVAQUONE 750 MG/5 ML (UNIT-DOSE PACKAGING) PO SCH (10:41)
[2021-07-21] MEDS: TRIAMCINOLONE ACET 0.1% CREAM 15 GM TUBE TP SCH ×2 (10:49→22:06)
[2021-07-21] MEDS: GLATIRAMER ACETATE 40 MG/ML SQ SCH (10:50)
[2021-07-21] MEDS: CHOLECALCIFEROL (VIT D3) 1,000 UNIT (25 MCG) TABLET PO SCH (10:53)
[2021-07-21] MEDS: FLUTICASONE PROP 0.05% 16 GM NASAL SPRAY NS SCH (11:48)
[2021-07-21] MEDS ORDERED: PORTA CATH FLUSH 10 ML IVPUSH ONE (11:54)
[2021-07-21 13:25] LABS: EPI CELLS 8 /uL (0-25.1); HYALINE CASTS 1 /uL (0-3.1); URINE APPEARANCE CLEAR; URINE BACTERIA >9,000 /uL (0-1359); URINE BILIRUBIN NEGATIVE (NEGATIVE); URINE COLOR YELLOW; URINE GLUCOSE (UA) TRACE (NEGATIVE); URINE KETONE NEGATIVE (NEGATIVE); URINE LEUK ESTERASE 3+ (NEGATIVE); URINE NITRITE NEGATIVE (NEGATIVE); URINE PROTEIN NEGATIVE (NEGATIVE); URINE RBC 15 /uL (0-23.9); URINE UROBILINOGEN 0.2 mg/dL (0.2-1.0); URINE WBC 413 /uL (0-25.8)
[2021-07-21] MEDS: SODIUM CHLORIDE 0.45%/POT 20 MEQ/1,000 ML INFUS.BAG IV SCH ×2 (14:32→19:37)
[2021-07-21 17:31] LABS: BASO % 0.3 % (0-2.0); EOS % 0.1 % (0-4.5); HEMATOCRIT 32.7 % (32.4-45.2); LYMPH % 8.4 % (8-40); MCH 28.7 pg (25.7-33.7); MCHC 33.6 g/dl (32.0-36.0); MEAN CELL VOLUME 85.5 fl (80-96); MEAN PLT VOLUME 9.5 fl (7.5-11.1); MONO % 5.3 % (3.8-10.2); NEUT % 85.9 % (42.8-82.8); PLATELET COUNT 372 10^3/uL (134-434); RBC 3.83 M/mm3 (3.60-5.2); RDW 14.5 % (11.6-15.6); WHITE BLOOD COUNT 21.5 K/mm3 (4.0-10.0)
[2021-07-21 17:36] LABS: CALCIUM 8.2 mg/dL (8.5-10.1)
[2021-07-21] MEDS: NITROFURANTOIN MACROCRYSTAL 50 MG CAPSULE (FP) PO SCH ×2 (17:36→23:50)
[2021-07-21 17:37] LABS: BLOOD UREA NITROGEN 18.6 mg/dL (7-18)
[2021-07-21 17:39] LABS: BILIRUBIN,DIRECT 0.2 mg/dL (0.0-0.2)
[2021-07-21 17:40] LABS: CREATININE 0.9 mg/dL (0.55-1.3)
[2021-07-21 17:41] LABS: TOT PROT 6.4 g/dl (6.4-8.2)
[2021-07-21 17:42] LABS: BILIRUBIN,TOTAL 0.4 mg/dL (0.2-1)
[2021-07-21 18:00] LABS: ANISOCYTOSIS 1+; MACROCYTOSIS 0; PLATELET ESTIMATE NORMAL
[2021-07-21] MEDS: ACETAMINOPHEN 325 MG TABLET (FP) PO SCH (18:21)
[2021-07-21 20:41] LABS: BASO % 0.4 % (0-2.0); HEMOGLOBIN 10.7 GM/dL (10.7-15.3); LYMPH % 10.9 % (8-40); MCH 28.6 pg (25.7-33.7); MCHC 33.4 g/dl (32.0-36.0); MEAN CELL VOLUME 85.7 fl (80-96); MEAN PLT VOLUME 9.3 fl (7.5-11.1); MONO % 5.9 % (3.8-10.2); NEUT % 82.8 % (42.8-82.8); PLATELET COUNT 361 10^3/uL (134-434); RBC 3.74 M/mm3 (3.60-5.2); RDW 14.1 % (11.6-15.6); WHITE BLOOD COUNT 20.2 K/mm3 (4.0-10.0)
[2021-07-21 20:51] LABS: CALCIUM 8.1 mg/dL (8.5-10.1)
[2021-07-21 20:55] LABS: CREATININE 0.9 mg/dL (0.55-1.3)
[2021-07-21 21:08] LABS: ANISOCYTOSIS 3+; MACROCYTOSIS 0; PLATELET ESTIMATE NORMAL
[2021-07-21] MEDS: MIRTAZAPINE 15 MG TABLET (FP) PO SCH (22:05)
[2021-07-21] MEDS: ROSUVASTATIN CA 10 MG TABLET PO SCH (22:05)
[2021-07-22] MEDS: ACETAMINOPHEN 325 MG TABLET (FP) PO SCH ×2 (02:33→05:23)
[2021-07-22] MEDS: NITROFURANTOIN MACROCRYSTAL 50 MG CAPSULE (FP) PO SCH ×4 (05:23→23:52)
[2021-07-22] MEDS: NYSTATIN 500,000 UNITS/5 ML SUSPENSION PO SCH ×4 (05:23→23:47)
[2021-07-22] MEDS: HEPARIN NA (PORCINE) 5,000 UNITS/ML 1ML VIAL SQ SCH ×3 (05:23→23:49)
[2021-07-22 08:06] LABS: IGA IMMUNOGLOBULIN 270 mg/dL (87-352); IGG QN IMMUNOGLOBULIN 990 mg/dL (586-1602); IGM QN SERUM 235 mg/dL (26-217)
[2021-07-22 09:27] LABS: HEMATOCRIT 31.9 % (32.4-45.2); HEMOGLOBIN 10.7 GM/dL (10.7-15.3); MCH 28.9 pg (25.7-33.7); MCHC 33.4 g/dl (32.0-36.0); MEAN CELL VOLUME 86.4 fl (80-96); MEAN PLT VOLUME 9.4 fl (7.5-11.1); PLATELET COUNT 411 10^3/uL (134-434); RBC 3.69 M/mm3 (3.60-5.2); RDW 14.8 % (11.6-15.6); WHITE BLOOD COUNT 19.1 K/mm3 (4.0-10.0)
[2021-07-22 09:35] LABS: ALBUMIN 2.1 g/dl (3.4-5.0)
[2021-07-22 09:38] LABS: BILIRUBIN,DIRECT 0.2 mg/dL (0.0-0.2)
[2021-07-22 09:40] LABS: BILIRUBIN,TOTAL 0.4 mg/dL (0.2-1); TOT PROT 6.4 g/dl (6.4-8.2)
[2021-07-22 10:31] LABS: CREATININE 0.9 mg/dL (0.55-1.3)
[2021-07-22 10:32] LABS: CALCIUM 7.8 mg/dL (8.5-10.1)
[2021-07-22] MEDS ORDERED: PT OWN MED DRAWER 7, Y5N ONE ×3 (10:37→23:35)
[2021-07-22] MEDS: PANTOPRAZOLE SODIUM 40 MG VIAL IVPB SCH (10:39)
[2021-07-22] MEDS: ACYCLOVIR 400 MG TABLET PO SCH ×2 (10:39→23:52)
[2021-07-22] MEDS: ATOVAQUONE 750 MG/5 ML (UNIT-DOSE PACKAGING) PO SCH (10:39)
[2021-07-22] MEDS: methylPREDNISolone 4 MG TABLET PO SCH ×2 (10:40→23:49)
[2021-07-22] MEDS: GABAPENTIN 300 MG CAPSULE PO SCH ×2 (10:41→23:48)
[2021-07-22] MEDS: amLODIPine BESYLATE 5 MG TABLET (FP) PO SCH (10:41)
[2021-07-22] MEDS: CHOLECALCIFEROL (VIT D3) 1,000 UNIT (25 MCG) TABLET PO SCH (10:41)
[2021-07-22] MEDS: LABETALOL HCL 100 MG TABLET (FP) PO SCH ×2 (10:41→23:47)
[2021-07-22] MEDS: CYANOCOBALAMIN 1,000 MCG TABLET (FP) PO SCH (10:41)
[2021-07-22] MEDS: CLOPIDOGREL BISULFATE 75 MG TABLET (FP) PO SCH (10:41)
[2021-07-22] MEDS: FOLIC ACID 1 MG TABLET (FP) PO SCH (10:41)
[2021-07-22] MEDS: ASPIRIN 81 MG CHEWABLE TABLETS PO SCH (10:42)
[2021-07-22] MEDS: MECLIZINE HCL 25 MG TABLET (FP) PO SCH ×2 (10:42→23:48)
[2021-07-22] MEDS: LOSARTAN POTASSIUM 50 MG TABLET PO SCH (10:42)
[2021-07-22] MEDS: PRAMIPEXOLE DIHYDROCHLORIDE 0.25 MG TABLET PO SCH ×2 (10:42→17:30)
[2021-07-22] MEDS: FLUTICASONE PROP 0.05% 16 GM NASAL SPRAY NS SCH (10:43)
[2021-07-22 11:59] LABS: ANISOCYTOSIS 0; MACROCYTOSIS 0; PLATELET ESTIMATE NORMAL
[2021-07-22] MEDS: SODIUM CHLORIDE 0.45%/POT 20 MEQ/1,000 ML INFUS.BAG IV SCH (12:32)
[2021-07-22] MEDS: TRIAMCINOLONE ACET 0.1% CREAM 15 GM TUBE TP SCH (12:38)
[2021-07-22 16:45] LABS: EPI CELLS 21 /uL (0-25.1); HYALINE CASTS 1 /uL (0-3.1); PH,URINE 6.5 (5.0-8.0); URINE APPEARANCE CLEAR; URINE BACTERIA 90 /uL (0-1359); URINE BILIRUBIN NEGATIVE (NEGATIVE); URINE COLOR YELLOW; URINE GLUCOSE (UA) TRACE (NEGATIVE); URINE KETONE NEGATIVE (NEGATIVE); URINE LEUK ESTERASE 1+ (NEGATIVE); URINE NITRITE NEGATIVE (NEGATIVE); URINE PROTEIN TRACE (NEGATIVE); URINE RBC 1589 /uL (0-23.9); URINE UROBILINOGEN 0.2 mg/dL (0.2-1.0); URINE WBC 129 /uL (0-25.8)
[2021-07-22] MEDS: VANCOMYCIN 250 MG/5 ML ORAL SOLUTION PO SCH ×2 (17:21→23:46)
[2021-07-22] MEDS: ROSUVASTATIN CA 10 MG TABLET PO SCH (23:48)
[2021-07-22] MEDS: MIRTAZAPINE 15 MG TABLET (FP) PO SCH (23:48)
[2021-07-23] MEDS: TRIAMCINOLONE ACET 0.1% CREAM 15 GM TUBE TP SCH ×2 (00:04→11:17)
[2021-07-23] MEDS: VANCOMYCIN 250 MG/5 ML ORAL SOLUTION PO SCH ×5 (00:09→23:44)
[2021-07-23] MEDS: NITROFURANTOIN MACROCRYSTAL 50 MG CAPSULE (FP) PO SCH ×4 (06:26→23:45)
[2021-07-23] MEDS: NYSTATIN 500,000 UNITS/5 ML SUSPENSION PO SCH ×4 (06:26→23:46)
[2021-07-23] MEDS ORDERED: PT OWN MED DRAWER 7, Y5N ONE ×6 (06:50→23:34)
[2021-07-23 08:28] LABS: HEMATOCRIT 32.2 % (32.4-45.2); HEMOGLOBIN 10.7 GM/dL (10.7-15.3); MCH 28.6 pg (25.7-33.7); MCHC 33.2 g/dl (32.0-36.0); MEAN CELL VOLUME 86.3 fl (80-96); MEAN PLT VOLUME 8.9 fl (7.5-11.1); PLATELET COUNT 469 10^3/uL (134-434); RBC 3.73 M/mm3 (3.60-5.2); RDW 14.3 % (11.6-15.6); WHITE BLOOD COUNT 17.8 K/mm3 (4.0-10.0)
[2021-07-23 08:33] LABS: BLOOD UREA NITROGEN 23.5 mg/dL (7-18); CALCIUM 8.6 mg/dL (8.5-10.1)
[2021-07-23 08:36] LABS: ALBUMIN 2.2 g/dl (3.4-5.0)
[2021-07-23 08:37] LABS: CREATININE 0.9 mg/dL (0.55-1.3)
[2021-07-23 08:38] LABS: BILIRUBIN,DIRECT 0.2 mg/dL (0.0-0.2)
[2021-07-23 08:40] LABS: TOT PROT 6.6 g/dl (6.4-8.2)
[2021-07-23 08:41] LABS: BILIRUBIN,TOTAL 0.4 mg/dL (0.2-1)
[2021-07-23 09:24] LABS: ANISOCYTOSIS 1+; MACROCYTOSIS 0; PLATELET ESTIMATE NORMAL
[2021-07-23] MEDS: PRAMIPEXOLE DIHYDROCHLORIDE 0.25 MG TABLET PO SCH ×2 (10:58→17:51)
[2021-07-23] MEDS: GABAPENTIN 300 MG CAPSULE PO SCH ×2 (10:58→23:45)
[2021-07-23] MEDS: MECLIZINE HCL 25 MG TABLET (FP) PO SCH ×2 (10:58→23:46)
[2021-07-23] MEDS: PANTOPRAZOLE 20 MG TABLET PO SCH (10:58)
[2021-07-23] MEDS: LOSARTAN POTASSIUM 50 MG TABLET PO SCH (10:58)
[2021-07-23] MEDS: ASPIRIN 81 MG CHEWABLE TABLETS PO SCH (10:58)
[2021-07-23] MEDS: ACYCLOVIR 400 MG TABLET PO SCH ×2 (10:58→23:46)
[2021-07-23] MEDS: CHOLECALCIFEROL (VIT D3) 1,000 UNIT (25 MCG) TABLET PO SCH (10:58)
[2021-07-23] MEDS: CLOPIDOGREL BISULFATE 75 MG TABLET (FP) PO SCH (10:58)
[2021-07-23] MEDS: CYANOCOBALAMIN 1,000 MCG TABLET (FP) PO SCH (10:58)
[2021-07-23] MEDS: FOLIC ACID 1 MG TABLET (FP) PO SCH (10:59)
[2021-07-23] MEDS: amLODIPine BESYLATE 5 MG TABLET (FP) PO SCH (10:59)
[2021-07-23] MEDS: HEPARIN NA (PORCINE) 5,000 UNITS/ML 1ML VIAL SQ SCH ×2 (10:59→23:47)
[2021-07-23] MEDS: ATOVAQUONE 750 MG/5 ML (UNIT-DOSE PACKAGING) PO SCH (11:00)
[2021-07-23] MEDS: methylPREDNISolone 4 MG TABLET PO SCH ×2 (11:01→23:47)
[2021-07-23] MEDS: LABETALOL HCL 100 MG TABLET (FP) PO SCH ×2 (11:03→23:46)
[2021-07-23] MEDS: FLUTICASONE PROP 0.05% 16 GM NASAL SPRAY NS SCH (11:17)
[2021-07-23] MEDS: GLATIRAMER ACETATE 40 MG/ML SQ SCH (11:18)
[2021-07-23] MEDS: MIRTAZAPINE 15 MG TABLET (FP) PO SCH (23:46)
[2021-07-23] MEDS: ROSUVASTATIN CA 10 MG TABLET PO SCH (23:46)
[2021-07-24] MEDS: VANCOMYCIN 250 MG/5 ML ORAL SOLUTION PO SCH ×4 (05:36→23:28)
[2021-07-24] MEDS: NYSTATIN 500,000 UNITS/5 ML SUSPENSION PO SCH ×4 (05:36→23:28)
[2021-07-24] MEDS: NITROFURANTOIN MACROCRYSTAL 50 MG CAPSULE (FP) PO SCH ×4 (05:37→23:28)
[2021-07-24 09:03] LABS: CALCIUM 8.9 mg/dL (8.5-10.1)
[2021-07-24 09:06] LABS: CREATININE 0.8 mg/dL (0.55-1.3)
[2021-07-24 09:20] LABS: HEMATOCRIT 30.6 % (32.4-45.2); HEMOGLOBIN 10.2 GM/dL (10.7-15.3); MCH 28.8 pg (25.7-33.7); MCHC 33.2 g/dl (32.0-36.0); MEAN CELL VOLUME 86.8 fl (80-96); MEAN PLT VOLUME 8.8 fl (7.5-11.1); PLATELET COUNT 495 10^3/uL (134-434); RBC 3.52 M/mm3 (3.60-5.2); RDW 14.4 % (11.6-15.6); WHITE BLOOD COUNT 17.3 K/mm3 (4.0-10.0)
[2021-07-24 10:54] LABS: ALBUMIN 2.5 g/dl (3.4-5.0)
[2021-07-24 10:57] LABS: BILIRUBIN,DIRECT 0.2 mg/dL (0.0-0.2)
[2021-07-24 10:59] LABS: TOT PROT 6.7 g/dl (6.4-8.2)
[2021-07-24 11:00] LABS: BILIRUBIN,TOTAL 0.4 mg/dL (0.2-1)
[2021-07-24 11:22] LABS: ANISOCYTOSIS 1+; MACROCYTOSIS 1+; OVALOCYTE 1+; PLATELET ESTIMATE INCREASED
[2021-07-24] MEDS ORDERED: PT OWN MED DRAWER 7, Y5N ONE ×2 (12:35→17:57)
[2021-07-24] MEDS: HEPARIN NA (PORCINE) 5,000 UNITS/ML 1ML VIAL SQ SCH ×2 (12:48→22:11)
[2021-07-24] MEDS: CLOPIDOGREL BISULFATE 75 MG TABLET (FP) PO SCH (12:49)
[2021-07-24] MEDS: ASPIRIN 81 MG CHEWABLE TABLETS PO SCH (12:50)
[2021-07-24] MEDS: MECLIZINE HCL 25 MG TABLET (FP) PO SCH ×2 (12:50→22:11)
[2021-07-24] MEDS: LOSARTAN POTASSIUM 50 MG TABLET PO SCH (12:50)
[2021-07-24] MEDS: CYANOCOBALAMIN 1,000 MCG TABLET (FP) PO SCH (12:52)
[2021-07-24] MEDS: amLODIPine BESYLATE 10 MG TABLET (FP) PO SCH (12:52)
[2021-07-24] MEDS: PANTOPRAZOLE 20 MG TABLET PO SCH (12:52)
[2021-07-24] MEDS: PRAMIPEXOLE DIHYDROCHLORIDE 0.25 MG TABLET PO SCH ×2 (12:53→18:38)
[2021-07-24] MEDS: CHOLECALCIFEROL (VIT D3) 1,000 UNIT (25 MCG) TABLET PO SCH (12:53)
[2021-07-24] MEDS: FOLIC ACID 1 MG TABLET (FP) PO SCH (12:53)
[2021-07-24] MEDS: GABAPENTIN 300 MG CAPSULE PO SCH ×2 (12:53→22:11)
[2021-07-24] MEDS: LABETALOL HCL 100 MG TABLET (FP) PO SCH ×2 (12:54→22:11)
[2021-07-24] MEDS: ATOVAQUONE 750 MG/5 ML (UNIT-DOSE PACKAGING) PO SCH (12:55)
[2021-07-24] MEDS: methylPREDNISolone 4 MG TABLET PO SCH (12:56)
[2021-07-24] MEDS: ACYCLOVIR 400 MG TABLET PO SCH ×2 (13:00→22:11)
[2021-07-24] MEDS: TRIAMCINOLONE ACET 0.1% CREAM 15 GM TUBE TP SCH ×3 (13:02→23:28)
[2021-07-24] MEDS: FLUTICASONE PROP 0.05% 16 GM NASAL SPRAY NS SCH (14:34)
[2021-07-24 20:18] LABS: BASO % 0.2 % (0-2.0); HEMATOCRIT 31.1 % (32.4-45.2); HEMOGLOBIN 10.5 GM/dL (10.7-15.3); LYMPH % 7.1 % (8-40); MCH 29.3 pg (25.7-33.7); MCHC 33.8 g/dl (32.0-36.0); MEAN CELL VOLUME 86.7 fl (80-96); MEAN PLT VOLUME 8.7 fl (7.5-11.1); MONO % 3.7 % (3.8-10.2); PLATELET COUNT 514 10^3/uL (134-434); RBC 3.58 M/mm3 (3.60-5.2); RDW 14.4 % (11.6-15.6)
[2021-07-24] MEDS ORDERED: methylPREDNISolone 8 MG TABLET PO ONE (20:30)
[2021-07-24 20:36] LABS: CHLORIDE 102 mmol/L (98-107); SODIUM 136 mmol/L (136-145)
[2021-07-24 20:37] LABS: CALCIUM 8.9 mg/dL (8.5-10.1)
[2021-07-24 20:38] LABS: ANION GAP 11 MMOL/L (8-16); CO2 24 mmol/L (21-32)
[2021-07-24 20:41] LABS: CREATININE 1.2 mg/dL (0.55-1.3)
[2021-07-24 20:47] LABS: GLUCOSE,RANDOM 437 mg/dL (74-106)
[2021-07-24 21:07] LABS: ANISOCYTOSIS 2+; MACROCYTOSIS 0; PLATELET ESTIMATE INCREASED
[2021-07-24] MEDS ORDERED: INSULIN (NOVOLOG) ASPART 100 UNITS/ML 10ML VIAL SQ ONE (21:20)
[2021-07-24] MEDS ORDERED: METHYLPREDNISOLONE PO ONE (22:00)
[2021-07-24] MEDS: MIRTAZAPINE 15 MG TABLET (FP) PO SCH (22:11)
[2021-07-24] MEDS: ROSUVASTATIN CA 10 MG TABLET PO SCH (22:11)
[2021-07-25] MEDS: VANCOMYCIN 250 MG/5 ML ORAL SOLUTION PO SCH ×4 (06:50→23:02)
[2021-07-25] MEDS: NYSTATIN 500,000 UNITS/5 ML SUSPENSION PO SCH ×4 (06:50→23:02)
[2021-07-25] MEDS: NITROFURANTOIN MACROCRYSTAL 50 MG CAPSULE (FP) PO SCH ×4 (06:50→23:00)
[2021-07-25] MEDS ORDERED: PT OWN MED DRAWER 7, Y5N ONE ×3 (09:20→19:29)
[2021-07-25] MEDS: PRAMIPEXOLE DIHYDROCHLORIDE 0.25 MG TABLET PO SCH ×2 (10:28→17:30)
[2021-07-25] MEDS: ASPIRIN 81 MG CHEWABLE TABLETS PO SCH (10:28)
[2021-07-25] MEDS: FOLIC ACID 1 MG TABLET (FP) PO SCH (10:28)
[2021-07-25] MEDS: CLOPIDOGREL BISULFATE 75 MG TABLET (FP) PO SCH (10:29)
[2021-07-25] MEDS: GABAPENTIN 300 MG CAPSULE PO SCH ×2 (10:29→22:36)
[2021-07-25] MEDS: MECLIZINE HCL 25 MG TABLET (FP) PO SCH ×2 (10:29→22:37)
[2021-07-25] MEDS: CHOLECALCIFEROL (VIT D3) 1,000 UNIT (25 MCG) TABLET PO SCH (10:29)
[2021-07-25] MEDS: LABETALOL HCL 100 MG TABLET (FP) PO SCH ×2 (10:29→22:38)
[2021-07-25] MEDS: HEPARIN NA (PORCINE) 5,000 UNITS/ML 1ML VIAL SQ SCH ×2 (10:29→22:37)
[2021-07-25] MEDS: LOSARTAN POTASSIUM 50 MG TABLET PO SCH (10:29)
[2021-07-25] MEDS: PANTOPRAZOLE 20 MG TABLET PO SCH (10:29)
[2021-07-25] MEDS: CYANOCOBALAMIN 1,000 MCG TABLET (FP) PO SCH (10:29)
[2021-07-25] MEDS: amLODIPine BESYLATE 10 MG TABLET (FP) PO SCH (10:29)
[2021-07-25] MEDS: ATOVAQUONE 750 MG/5 ML (UNIT-DOSE PACKAGING) PO SCH (10:30)
[2021-07-25] MEDS: FLUTICASONE PROP 0.05% 16 GM NASAL SPRAY NS SCH (10:30)
[2021-07-25] MEDS: TRIAMCINOLONE ACET 0.1% CREAM 15 GM TUBE TP SCH ×2 (10:30→22:41)
[2021-07-25] MEDS: methylPREDNISolone 4 MG TABLET PO SCH (10:31)
[2021-07-25] MEDS ORDERED: SODIUM ZIRCONIUM CYCLOSILICATE (LOKELMA) 5 GM PACKET PO ONE (11:46)
[2021-07-25] MEDS: GLATIRAMER ACETATE 40 MG/ML SQ SCH (11:51)
[2021-07-25] MEDS: SODIUM CHLORIDE 1,000 ML IV SCH (14:35)
[2021-07-25 14:41] LABS: HEMATOCRIT 30.6 % (32.4-45.2); HEMOGLOBIN 10.1 GM/dL (10.7-15.3); MCH 28.9 pg (25.7-33.7); MCHC 33.1 g/dl (32.0-36.0); MEAN CELL VOLUME 87.2 fl (80-96); MEAN PLT VOLUME 8.6 fl (7.5-11.1); PLATELET COUNT 479 10^3/uL (134-434); RBC 3.51 M/mm3 (3.60-5.2); RDW 14.7 % (11.6-15.6); WHITE BLOOD COUNT 22.8 K/mm3 (4.0-10.0)
[2021-07-25] MEDS ORDERED: INSULIN (NOVOLOG) ASPART 100 UNITS/ML 10ML VIAL SQ ONE (15:00)
[2021-07-25 15:03] LABS: CHLORIDE 103 mmol/L (98-107); SODIUM 136 mmol/L (136-145)
[2021-07-25 15:05] LABS: CALCIUM 8.9 mg/dL (8.5-10.1)
[2021-07-25 15:06] LABS: ALBUMIN 2.6 g/dl (3.4-5.0); ANION GAP 10 MMOL/L (8-16); BLOOD UREA NITROGEN 29.1 mg/dL (7-18); CO2 24 mmol/L (21-32); MAGNESIUM 2.3 mg/dL (1.8-2.4)
[2021-07-25 15:09] LABS: SGOT/AST 15 U/L (15-37); SGPT/ALT 53 U/L (13-61)
[2021-07-25 15:10] LABS: BILIRUBIN,TOTAL 0.4 mg/dL (0.2-1)
[2021-07-25 15:11] LABS: TOT PROT 6.7 g/dl (6.4-8.2)
[2021-07-25 15:12] LABS: ALK PHOS 118 U/L (45-117); GLUCOSE,RANDOM 401 mg/dL (74-106)
[2021-07-25 15:55] LABS: ANISOCYTOSIS 0; MACROCYTOSIS 0; PLATELET ESTIMATE NORMAL
[2021-07-25] MEDS ORDERED: methylPREDNISolone 8 MG TABLET PO SCH (22:00)
[2021-07-25] MEDS: MIRTAZAPINE 15 MG TABLET (FP) PO SCH (22:36)
[2021-07-25] MEDS: ROSUVASTATIN CA 10 MG TABLET PO SCH (22:37)
[2021-07-25] MEDS: METHYLPREDNISOLONE PO SCH (22:38)
[2021-07-25] MEDS: INSULIN (NOVOLOG) ASPART 100 UNITS/ML 10ML VIAL SQ SCH (22:54)
[2021-07-26] MEDS: SODIUM CHLORIDE 1,000 ML IV SCH ×2 (03:08→17:57)
[2021-07-26] MEDS ORDERED: PT OWN MED DRAWER 7, Y5N ONE ×4 (05:59→23:15)
[2021-07-26] MEDS: NITROFURANTOIN MACROCRYSTAL 50 MG CAPSULE (FP) PO SCH ×4 (06:51→23:27)
[2021-07-26] MEDS: NYSTATIN 500,000 UNITS/5 ML SUSPENSION PO SCH ×4 (06:51→23:26)
[2021-07-26] MEDS: VANCOMYCIN 250 MG/5 ML ORAL SOLUTION PO SCH ×4 (06:53→23:48)
[2021-07-26] MEDS: INSULIN (NOVOLOG) ASPART 100 UNITS/ML 10ML VIAL SQ SCH ×3 (06:54→16:12)
[2021-07-26 07:11] LABS: BASO % 0.1 % (0-2.0); HEMATOCRIT 29.8 % (32.4-45.2); HEMOGLOBIN 9.7 GM/dL (10.7-15.3); MCH 28.7 pg (25.7-33.7); MCHC 32.7 g/dl (32.0-36.0); MEAN CELL VOLUME 87.8 fl (80-96); MEAN PLT VOLUME 8.6 fl (7.5-11.1); MONO % 3.5 % (3.8-10.2); NEUT % 89.4 % (42.8-82.8); PLATELET COUNT 498 10^3/uL (134-434); RBC 3.39 M/mm3 (3.60-5.2); RDW 14.4 % (11.6-15.6); WHITE BLOOD COUNT 17.3 K/mm3 (4.0-10.0)
[2021-07-26 07:32] LABS: CALCIUM 8.5 mg/dL (8.5-10.1)
[2021-07-26 07:33] LABS: ALBUMIN 2.5 g/dl (3.4-5.0); BLOOD UREA NITROGEN 26.6 mg/dL (7-18)
[2021-07-26 07:36] LABS: ALBUMIN 2.6 g/dl (3.4-5.0); BILIRUBIN,DIRECT 0.2 mg/dL (0.0-0.2); BLOOD UREA NITROGEN 27.7 mg/dL (7-18); CALCIUM 8.6 mg/dL (8.5-10.1); CREATININE 0.9 mg/dL (0.55-1.3)
[2021-07-26 07:37] LABS: CREATININE 0.9 mg/dL (0.55-1.3)
[2021-07-26 07:38] LABS: BILIRUBIN,TOTAL 0.4 mg/dL (0.2-1); TOT PROT 6.4 g/dl (6.4-8.2)
[2021-07-26 07:39] LABS: BILIRUBIN,TOTAL 0.4 mg/dL (0.2-1)
[2021-07-26 07:42] LABS: TOT PROT 6.4 g/dl (6.4-8.2)
[2021-07-26 08:25] LABS: ERYTHROCYTE SEDIMENTATION RATE 58 mm/hr (0-30)
[2021-07-26] MEDS: ASPIRIN 81 MG CHEWABLE TABLETS PO SCH (09:20)
[2021-07-26] MEDS: FOLIC ACID 1 MG TABLET (FP) PO SCH (09:21)
[2021-07-26] MEDS: LABETALOL HCL 100 MG TABLET (FP) PO SCH ×2 (09:21→23:27)
[2021-07-26] MEDS: GABAPENTIN 300 MG CAPSULE PO SCH ×2 (09:21→23:26)
[2021-07-26] MEDS: PRAMIPEXOLE DIHYDROCHLORIDE 0.25 MG TABLET PO SCH ×2 (09:21→17:53)
[2021-07-26] MEDS: MECLIZINE HCL 25 MG TABLET (FP) PO SCH ×2 (09:21→23:27)
[2021-07-26] MEDS: CYANOCOBALAMIN 1,000 MCG TABLET (FP) PO SCH (09:21)
[2021-07-26] MEDS: CHOLECALCIFEROL (VIT D3) 1,000 UNIT (25 MCG) TABLET PO SCH (09:22)
[2021-07-26] MEDS: amLODIPine BESYLATE 10 MG TABLET (FP) PO SCH (09:22)
[2021-07-26] MEDS: CLOPIDOGREL BISULFATE 75 MG TABLET (FP) PO SCH (09:22)
[2021-07-26] MEDS: PANTOPRAZOLE 20 MG TABLET PO SCH (09:22)
[2021-07-26] MEDS: TRIAMCINOLONE ACET 0.1% CREAM 15 GM TUBE TP SCH ×2 (09:23→23:30)
[2021-07-26] MEDS: HEPARIN NA (PORCINE) 5,000 UNITS/ML 1ML VIAL SQ SCH ×2 (09:23→23:28)
[2021-07-26] MEDS: ATOVAQUONE 750 MG/5 ML (UNIT-DOSE PACKAGING) PO SCH (10:25)
[2021-07-26] MEDS: methylPREDNISolone 4 MG TABLET PO SCH (10:25)
[2021-07-26] MEDS: FLUTICASONE PROP 0.05% 16 GM NASAL SPRAY NS SCH (10:26)
[2021-07-26] MEDS: ROSUVASTATIN CA 10 MG TABLET PO SCH (23:27)
[2021-07-26] MEDS: MIRTAZAPINE 15 MG TABLET (FP) PO SCH (23:27)
[2021-07-26] MEDS: METHYLPREDNISOLONE PO SCH (23:30)
[2021-07-27] MEDS: SODIUM CHLORIDE 1,000 ML IV SCH ×2 (06:10→17:27)
[2021-07-27] MEDS: NYSTATIN 500,000 UNITS/5 ML SUSPENSION PO SCH ×4 (06:10→23:34)
[2021-07-27] MEDS: NITROFURANTOIN MACROCRYSTAL 50 MG CAPSULE (FP) PO SCH ×4 (06:11→23:34)
[2021-07-27] MEDS: VANCOMYCIN 250 MG/5 ML ORAL SOLUTION PO SCH ×4 (06:11→23:34)
[2021-07-27] MEDS: INSULIN (NOVOLOG) ASPART 100 UNITS/ML 10ML VIAL SQ SCH ×3 (06:14→16:54)
[2021-07-27] MEDS ORDERED: PT OWN MED DRAWER 7, Y5N ONE ×4 (06:32→21:18)
[2021-07-27] MEDS: FOLIC ACID 1 MG TABLET (FP) PO SCH (09:18)
[2021-07-27] MEDS: PANTOPRAZOLE 20 MG TABLET PO SCH (09:18)
[2021-07-27] MEDS: LABETALOL HCL 100 MG TABLET (FP) PO SCH ×2 (09:18→22:20)
[2021-07-27] MEDS: ATOVAQUONE 750 MG/5 ML (UNIT-DOSE PACKAGING) PO SCH (09:18)
[2021-07-27] MEDS: CHOLECALCIFEROL (VIT D3) 1,000 UNIT (25 MCG) TABLET PO SCH (09:18)
[2021-07-27] MEDS: PRAMIPEXOLE DIHYDROCHLORIDE 0.25 MG TABLET PO SCH ×2 (09:19→17:30)
[2021-07-27] MEDS: ASPIRIN 81 MG CHEWABLE TABLETS PO SCH (09:19)
[2021-07-27] MEDS: CLOPIDOGREL BISULFATE 75 MG TABLET (FP) PO SCH (09:19)
[2021-07-27] MEDS: MECLIZINE HCL 25 MG TABLET (FP) PO SCH ×2 (09:19→22:20)
[2021-07-27] MEDS: CYANOCOBALAMIN 1,000 MCG TABLET (FP) PO SCH (09:19)
[2021-07-27] MEDS: amLODIPine BESYLATE 10 MG TABLET (FP) PO SCH (09:19)
[2021-07-27] MEDS: GABAPENTIN 300 MG CAPSULE PO SCH ×2 (09:19→22:19)
[2021-07-27] MEDS: HEPARIN NA (PORCINE) 5,000 UNITS/ML 1ML VIAL SQ SCH ×2 (09:19→22:20)
[2021-07-27] MEDS: methylPREDNISolone 4 MG TABLET PO SCH (09:20)
[2021-07-27] MEDS: FLUTICASONE PROP 0.05% 16 GM NASAL SPRAY NS SCH (09:21)
[2021-07-27] MEDS: TRIAMCINOLONE ACET 0.1% CREAM 15 GM TUBE TP SCH ×3 (09:21→22:40)
[2021-07-27] MEDS: ACETAMINOPHEN 325 MG TABLET (FP) PO SCH ×3 (11:42→22:19)
[2021-07-27] MEDS ORDERED: ACETAMINOPHEN 325 MG TABLET (FP) PO SCH (14:00)
[2021-07-27] MEDS: MIRTAZAPINE 15 MG TABLET (FP) PO SCH (22:20)
[2021-07-27] MEDS: ROSUVASTATIN CA 10 MG TABLET PO SCH (22:20)
[2021-07-27] MEDS: METHYLPREDNISOLONE PO SCH (22:24)
[2021-07-28] MEDS ORDERED: PT OWN MED DRAWER 7, Y5N ONE ×2 (06:31→21:55)
[2021-07-28] MEDS: NYSTATIN 500,000 UNITS/5 ML SUSPENSION PO SCH ×4 (06:46→23:05)
[2021-07-28] MEDS: ACETAMINOPHEN 325 MG TABLET (FP) PO SCH ×3 (06:47→22:02)
[2021-07-28] MEDS: NITROFURANTOIN MACROCRYSTAL 50 MG CAPSULE (FP) PO SCH ×2 (06:47→12:44)
[2021-07-28] MEDS: VANCOMYCIN 250 MG/5 ML ORAL SOLUTION PO SCH ×4 (06:47→23:05)
[2021-07-28] MEDS: INSULIN (NOVOLOG) ASPART 100 UNITS/ML 10ML VIAL SQ SCH ×3 (06:52→17:08)
[2021-07-28] MEDS: FOLIC ACID 1 MG TABLET (FP) PO SCH (09:07)
[2021-07-28] MEDS: CLOPIDOGREL BISULFATE 75 MG TABLET (FP) PO SCH (09:07)
[2021-07-28] MEDS: CHOLECALCIFEROL (VIT D3) 1,000 UNIT (25 MCG) TABLET PO SCH (09:07)
[2021-07-28] MEDS: CYANOCOBALAMIN 1,000 MCG TABLET (FP) PO SCH (09:08)
[2021-07-28] MEDS: MECLIZINE HCL 25 MG TABLET (FP) PO SCH ×2 (09:08→22:01)
[2021-07-28] MEDS: LABETALOL HCL 100 MG TABLET (FP) PO SCH ×2 (09:08→22:02)
[2021-07-28] MEDS: PRAMIPEXOLE DIHYDROCHLORIDE 0.25 MG TABLET PO SCH ×2 (09:08→17:59)
[2021-07-28] MEDS: GABAPENTIN 300 MG CAPSULE PO SCH ×2 (09:08→22:01)
[2021-07-28] MEDS: amLODIPine BESYLATE 10 MG TABLET (FP) PO SCH (09:08)
[2021-07-28] MEDS: ASPIRIN 81 MG CHEWABLE TABLETS PO SCH (09:09)
[2021-07-28] MEDS: HEPARIN NA (PORCINE) 5,000 UNITS/ML 1ML VIAL SQ SCH ×2 (09:09→22:02)
[2021-07-28] MEDS: ATOVAQUONE 750 MG/5 ML (UNIT-DOSE PACKAGING) PO SCH (09:12)
[2021-07-28] MEDS: FLUTICASONE PROP 0.05% 16 GM NASAL SPRAY NS SCH (09:13)
[2021-07-28] MEDS: TRIAMCINOLONE ACET 0.1% CREAM 15 GM TUBE TP SCH ×2 (09:13→22:02)
[2021-07-28] MEDS: PANTOPRAZOLE 20 MG TABLET PO SCH (09:13)
[2021-07-28] MEDS: methylPREDNISolone 4 MG TABLET PO SCH (09:16)
[2021-07-28] MEDS: GLATIRAMER ACETATE 40 MG/ML SQ SCH (09:23)
[2021-07-28] MEDS: SODIUM CHLORIDE 1,000 ML IV SCH ×2 (09:23→14:25)
[2021-07-28 09:51] LABS: BASO % 0.1 % (0-2.0); HEMATOCRIT 30.5 % (32.4-45.2); HEMOGLOBIN 10.1 GM/dL (10.7-15.3); LYMPH % 10.1 % (8-40); MCH 29.3 pg (25.7-33.7); MCHC 32.9 g/dl (32.0-36.0); MEAN PLT VOLUME 8.6 fl (7.5-11.1); MONO % 4.2 % (3.8-10.2); NEUT % 85.6 % (42.8-82.8); PLATELET COUNT 474 10^3/uL (134-434); RBC 3.43 M/mm3 (3.60-5.2); WHITE BLOOD COUNT 13.4 K/mm3 (4.0-10.0)
[2021-07-28 10:14] LABS: ALBUMIN 2.6 g/dl (3.4-5.0); CALCIUM 8.7 mg/dL (8.5-10.1)
[2021-07-28 10:15] LABS: BLOOD UREA NITROGEN 19.3 mg/dL (7-18)
[2021-07-28 10:17] LABS: BILIRUBIN,DIRECT 0.2 mg/dL (0.0-0.2)
[2021-07-28 10:18] LABS: CREATININE 0.8 mg/dL (0.55-1.3)
[2021-07-28 10:19] LABS: BILIRUBIN,TOTAL 0.4 mg/dL (0.2-1); TOT PROT 6.3 g/dl (6.4-8.2)
[2021-07-28] MEDS: ROSUVASTATIN CA 10 MG TABLET PO SCH (22:01)
[2021-07-28] MEDS: MIRTAZAPINE 15 MG TABLET (FP) PO SCH (22:01)
[2021-07-28] MEDS: METHYLPREDNISOLONE PO SCH (23:05)
[2021-07-28] MEDS ORDERED: guaiFENesin 200 MG/10 ML 10 ML UNIT-DOSE CUPS PO ONE (23:34)
[2021-07-29] MEDS: VANCOMYCIN 250 MG/5 ML ORAL SOLUTION PO SCH ×3 (06:40→17:31)
[2021-07-29] MEDS: NYSTATIN 500,000 UNITS/5 ML SUSPENSION PO SCH ×3 (06:41→17:31)
[2021-07-29] MEDS: ACETAMINOPHEN 325 MG TABLET (FP) PO SCH ×3 (06:41→22:16)
[2021-07-29] MEDS ORDERED: guaiFENesin 200 MG/10 ML 10 ML UNIT-DOSE CUPS PO ONE (06:45)
[2021-07-29] MEDS: INSULIN (NOVOLOG) ASPART 100 UNITS/ML 10ML VIAL SQ SCH ×3 (06:52→16:54)
[2021-07-29] MEDS: amLODIPine BESYLATE 10 MG TABLET (FP) PO SCH (11:04)
[2021-07-29] MEDS: CYANOCOBALAMIN 1,000 MCG TABLET (FP) PO SCH (11:04)
[2021-07-29] MEDS: LABETALOL HCL 100 MG TABLET (FP) PO SCH ×2 (11:06→22:15)
[2021-07-29] MEDS: ASPIRIN 81 MG CHEWABLE TABLETS PO SCH (11:06)
[2021-07-29] MEDS: CLOPIDOGREL BISULFATE 75 MG TABLET (FP) PO SCH (11:06)
[2021-07-29] MEDS: MECLIZINE HCL 25 MG TABLET (FP) PO SCH ×2 (11:06→22:09)
[2021-07-29] MEDS: SULFAMETHOXAZOLE/TRIMETHOPRIM 800MG/160MG D.S. TABLET PO SCH ×2 (11:07→22:08)
[2021-07-29] MEDS: FOLIC ACID 1 MG TABLET (FP) PO SCH (11:07)
[2021-07-29] MEDS: PRAMIPEXOLE DIHYDROCHLORIDE 0.25 MG TABLET PO SCH ×2 (11:07→17:31)
[2021-07-29] MEDS: TRIAMCINOLONE ACET 0.1% CREAM 15 GM TUBE TP SCH ×2 (11:07→22:09)
[2021-07-29] MEDS: FLUTICASONE PROP 0.05% 16 GM NASAL SPRAY NS SCH (11:07)
[2021-07-29] MEDS: PANTOPRAZOLE 20 MG TABLET PO SCH (11:07)
[2021-07-29] MEDS: CHOLECALCIFEROL (VIT D3) 1,000 UNIT (25 MCG) TABLET PO SCH (11:08)
[2021-07-29] MEDS: ATOVAQUONE 750 MG/5 ML (UNIT-DOSE PACKAGING) PO SCH (11:11)
[2021-07-29] MEDS: GABAPENTIN 300 MG CAPSULE PO SCH ×2 (11:11→22:09)
[2021-07-29] MEDS: SUMAtriptan SUCCINATE 25 MG TABLET PO PRN (12:45)
[2021-07-29] MEDS: methylPREDNISolone 4 MG TABLET PO SCH (15:46)
[2021-07-29] MEDS: MIRTAZAPINE 15 MG TABLET (FP) PO SCH (22:08)
[2021-07-29] MEDS: ROSUVASTATIN CA 10 MG TABLET PO SCH (22:08)
[2021-07-29] MEDS: METHYLPREDNISOLONE PO SCH (22:11)
[2021-07-30] MEDS: NYSTATIN 500,000 UNITS/5 ML SUSPENSION PO SCH ×2 (00:09→05:37)
[2021-07-30] MEDS: VANCOMYCIN 250 MG/5 ML ORAL SOLUTION PO SCH ×3 (00:09→11:02)
[2021-07-30] MEDS: ACETAMINOPHEN 325 MG TABLET (FP) PO SCH (05:37)
[2021-07-30 05:48] VITALS: TEMP 98.5
[2021-07-30] MEDS: INSULIN (NOVOLOG) ASPART 100 UNITS/ML 10ML VIAL SQ SCH ×2 (06:09→11:40)
[2021-07-30 09:16] LABS: BASO % 0.1 % (0-2.0); HEMATOCRIT 29.1 % (32.4-45.2); HEMOGLOBIN 9.4 GM/dL (10.7-15.3); LYMPH % 10.3 % (8-40); MCH 28.8 pg (25.7-33.7); MCHC 32.5 g/dl (32.0-36.0); MEAN CELL VOLUME 88.5 fl (80-96); MEAN PLT VOLUME 8.7 fl (7.5-11.1); NEUT % 85.6 % (42.8-82.8); PLATELET COUNT 389 10^3/uL (134-434); RBC 3.28 M/mm3 (3.60-5.2); RDW 15.2 % (11.6-15.6); WHITE BLOOD COUNT 12.5 K/mm3 (4.0-10.0)
[2021-07-30 09:36] LABS: BLOOD UREA NITROGEN 18.2 mg/dL (7-18); CALCIUM 8.7 mg/dL (8.5-10.1)
[2021-07-30 09:37] LABS: ALBUMIN 2.7 g/dl (3.4-5.0)
[2021-07-30 09:40] LABS: CREATININE 0.8 mg/dL (0.55-1.3)
[2021-07-30 09:41] LABS: BILIRUBIN,TOTAL 0.4 mg/dL (0.2-1)
[2021-07-30] MEDS ORDERED: INSULIN (NOVOLOG) ASPART 100 UNITS/ML 10ML VIAL ONE (09:59)
[2021-07-30] MEDS: ASPIRIN 81 MG CHEWABLE TABLETS PO SCH (11:03)
[2021-07-30] MEDS: PRAMIPEXOLE DIHYDROCHLORIDE 0.25 MG TABLET PO SCH (11:03)
[2021-07-30] MEDS: LABETALOL HCL 100 MG TABLET (FP) PO SCH (11:03)
[2021-07-30] MEDS: amLODIPine BESYLATE 10 MG TABLET (FP) PO SCH (11:03)
[2021-07-30] MEDS: SULFAMETHOXAZOLE/TRIMETHOPRIM 800MG/160MG D.S. TABLET PO SCH (11:03)
[2021-07-30] MEDS: CHOLECALCIFEROL (VIT D3) 1,000 UNIT (25 MCG) TABLET PO SCH (11:04)
[2021-07-30] MEDS: PANTOPRAZOLE 20 MG TABLET PO SCH (11:04)
[2021-07-30] MEDS: CLOPIDOGREL BISULFATE 75 MG TABLET (FP) PO SCH (11:04)
[2021-07-30] MEDS: MECLIZINE HCL 25 MG TABLET (FP) PO SCH (11:04)
[2021-07-30] MEDS: CYANOCOBALAMIN 1,000 MCG TABLET (FP) PO SCH (11:04)
[2021-07-30] MEDS: GABAPENTIN 300 MG CAPSULE PO SCH (11:05)
[2021-07-30] MEDS: GLATIRAMER ACETATE 40 MG/ML SQ SCH (11:05)
[2021-07-30] MEDS: FOLIC ACID 1 MG TABLET (FP) PO SCH (11:05)
[2021-07-30] MEDS: FLUTICASONE PROP 0.05% 16 GM NASAL SPRAY NS SCH (11:06)
[2021-07-30] MEDS: TRIAMCINOLONE ACET 0.1% CREAM 15 GM TUBE TP SCH (11:07)
[2021-07-30] MEDS: methylPREDNISolone 4 MG TABLET PO SCH (11:40)
[2021-07-30 14:47] VITALS: BP 123/61; PULSE 72
== END 2021-07-30 13:00 | disposition home health service (06) | DRG 394 ==
LOC: JER 22:27 → JERBED 07-18 04:24 → J7W 07-18 12:17
PROVIDERS: ADMIT Internal Medicine; ATTEND Internal Medicine
DX: K52.1 Toxic gastroenteritis and colitis (principal); N17.9 Acute kidney failure, unspecified; M62.82 Rhabdomyolysis; E87.0 Hyperosmolality and hypernatremia; I10 Essential (primary) hypertension; G35 Multiple sclerosis; R19.7 Diarrhea, unspecified; A04.72 Enterocolitis due to Clostridium difficile, not specified as recurrent; G25.81 Restless legs syndrome; E11.51 Type 2 diabetes mellitus with diabetic peripheral angiopathy without gangrene; E78.5 Hyperlipidemia, unspecified; M60.89 Other myositis, multiple sites; T45.1X5A Adverse effect of antineoplastic and immunosuppressive drugs, initial encounter; G43.909 Migraine, unspecified, not intractable, without status migrainosus; E83.39 Other disorders of phosphorus metabolism; E87.8 Other disorders of electrolyte and fluid balance, not elsewhere classified; D72.829 Elevated white blood cell count, unspecified; E87.6 Hypokalemia; R74.01 Elevation of levels of liver transaminase levels; E86.0 Dehydration; N20.0 Calculus of kidney; R94.5 Abnormal results of liver function studies; G47.00 Insomnia, unspecified; K58.9 Irritable bowel syndrome, unspecified; R26.9 Unspecified abnormalities of gait and mobility; E87.5 Hyperkalemia
CPT/HCPCS: 36415; 71045-TC-FY; 74176-TC; 76705-TC; 80048; 80053; 80076; 81003; 82533; 82550; 82553; 82656; 82784; 82962; 82977; 83615; 83735; 83993; 84100; 84439; 84443; 85025; 85610; 85651; 85730; 86140; 86480; 86704; 86708; 86709; 86803; 86850; 86900; 86901; 87040; 87045; 87046; 87086; 87186; 87205; 87324; 87340; 87449; 87493; 87517; 87902; 93005; 93010; 93970-TC; 94010; 97116-GP; 97161-GP; 99285-25; C9803; J0131; J1644; J3480; U0003; U0005

== ENCOUNTER 2021-09-19 18:49 | Inpatient (IN) | payer OTHER ==
[2021-09-19 20:35] LABS: EPI CELLS 3 /uL (0-25.1); HYALINE CASTS 1 /uL (0-3.1); URINE APPEARANCE CLEAR; URINE BACTERIA 5442 /uL (0-1359); URINE BILIRUBIN NEGATIVE (NEGATIVE); URINE COLOR YELLOW; URINE GLUCOSE (UA) 3+ (NEGATIVE); URINE KETONE NEGATIVE (NEGATIVE); URINE LEUK ESTERASE NEGATIVE (NEGATIVE); URINE NITRITE POSITIVE (NEGATIVE); URINE PROTEIN 1+ (NEGATIVE); URINE RBC 34 /uL (0-23.9); URINE UROBILINOGEN 0.2 mg/dL (0.2-1.0)
[2021-09-19] MEDS ORDERED: LOPERAMIDE HCL 2 MG CAPSULE PO PRN (21:53)
[2021-09-19] MEDS ORDERED: methylPREDNISolone NA SUCC 40 MG/1 ML VIAL IVPB SCH ×2 (22:00)
[2021-09-19] MEDS: methylPREDNISolone NA SUCC 40 MG/1 ML VIAL IVPB SCH (22:19)
[2021-09-19 23:04] LABS: URINE WBC 114 /uL (0-25.8)
[2021-09-19] MEDS ORDERED: ACETAMINOPHEN 325 MG TABLET (FP) PO PRN (23:19)
[2021-09-19] MEDS ORDERED: SODIUM CHLORIDE 1,000 ML IV SCH (23:30)
[2021-09-20] MEDS ORDERED: MECLIZINE HCL 25 MG TABLET (FP) PO PRN (00:43)
[2021-09-20] MEDS ORDERED: FLUTICASONE PROP 0.05% 16 GM NASAL SPRAY NS SCH (00:45)
[2021-09-20] MEDS ORDERED: GABAPENTIN 300 MG CAPSULE PO SCH (06:00)
[2021-09-20] MEDS: INSULIN SLIDING SCALE (NOVOLOG) 1 VIAL SQ SCH ×4 (06:14→22:04)
[2021-09-20 08:57] LABS: BASO % 0.7 % (0-2.0); HEMATOCRIT 27.9 % (32.4-45.2); HEMOGLOBIN 9.4 GM/dL (10.7-15.3); LYMPH % 6.7 % (8-40); MCH 29.9 pg (25.7-33.7); MCHC 33.7 g/dl (32.0-36.0); MEAN CELL VOLUME 88.6 fl (80-96); MEAN PLT VOLUME 9.5 fl (7.5-11.1); MONO % 4.2 % (3.8-10.2); NEUT % 88.4 % (42.8-82.8); PLATELET COUNT 199 10^3/uL (134-434); RBC 3.14 M/mm3 (3.60-5.2); RDW 15.8 % (11.6-15.6); WHITE BLOOD COUNT 8.2 K/mm3 (4.0-10.0)
[2021-09-20 09:05] LABS: INR 0.97 (0.83-1.09); PROTHROMBIN TIME (PATIENT) 11.1 SEC (9.7-13.0)
[2021-09-20 09:07] LABS: ACTIVATED PTT 57.8 SECONDS (25.2-36.5)
[2021-09-20 09:27] LABS: ALBUMIN 2.6 g/dl (3.4-5.0); BLOOD UREA NITROGEN 13.4 mg/dL (7-18); CALCIUM 8.7 mg/dL (8.5-10.1)
[2021-09-20 09:30] LABS: CREATININE 0.9 mg/dL (0.55-1.3)
[2021-09-20 09:32] LABS: BILIRUBIN,TOTAL 0.2 mg/dL (0.2-1)
[2021-09-20] MEDS ORDERED: MAGNESIUM OXIDE 400 MG TABLET (FP) PO SCH (10:00)
[2021-09-20] MEDS ORDERED: LABETALOL HCL 100 MG TABLET (FP) PO SCH (10:00)
[2021-09-20] MEDS ORDERED: LOSARTAN POTASSIUM 50 MG TABLET PO SCH (10:00)
[2021-09-20] MEDS: PANTOPRAZOLE SODIUM 40 MG VIAL IVPB SCH (10:01)
[2021-09-20] MEDS: CHOLECALCIFEROL (VIT D3) 1,000 UNIT (25 MCG) TABLET PO SCH (10:02)
[2021-09-20] MEDS: methylPREDNISolone NA SUCC 40 MG/1 ML VIAL IVPB SCH ×2 (10:02→22:00)
[2021-09-20] MEDS: ACYCLOVIR 400 MG TABLET PO SCH ×2 (10:06→21:55)
[2021-09-20] MEDS: LABETALOL HCL 200 MG TABLET (FP) PO SCH ×2 (10:06→21:56)
[2021-09-20] MEDS: CYANOCOBALAMIN 1,000 MCG TABLET (FP) PO SCH (10:06)
[2021-09-20] MEDS: amLODIPine BESYLATE 10 MG TABLET (FP) PO SCH (10:06)
[2021-09-20] MEDS: ASPIRIN 81 MG CHEWABLE TABLETS PO SCH (10:06)
[2021-09-20] MEDS: GABAPENTIN 300 MG CAPSULE PO SCH ×2 (10:06→21:56)
[2021-09-20] MEDS: CLOPIDOGREL BISULFATE 75 MG TABLET (FP) PO SCH (10:07)
[2021-09-20] MEDS: ATOVAQUONE 750 MG/5 ML (UNIT-DOSE PACKAGING) PO SCH (10:08)
[2021-09-20] MEDS: SODIUM CHLORIDE 0.45% 1,000 ML IV SCH (12:25)
[2021-09-20] MEDS ORDERED: SODIUM CHLORIDE NASAL SPRAY 44 ML BOTTLE NS PRN (12:26)
[2021-09-20] MEDS: VANCOMYCIN 250 MG/5 ML ORAL SOLUTION PO SCH ×2 (12:26→22:24)
[2021-09-20] MEDS: metFORMIN HCL 500 MG TABLET (FP) PO SCH (16:59)
[2021-09-20] MEDS: MIRTAZAPINE 15 MG TABLET (FP) PO SCH (21:56)
[2021-09-20] MEDS: ATORVASTATIN CA 40 MG TABLET (FP) PO SCH (21:56)
[2021-09-21] MEDS: SODIUM CHLORIDE 0.45% 1,000 ML IV SCH ×3 (03:03→22:41)
[2021-09-21] MEDS: metFORMIN HCL 500 MG TABLET (FP) PO SCH ×2 (06:41→18:00)
[2021-09-21] MEDS: INSULIN SLIDING SCALE (NOVOLOG) 1 VIAL SQ SCH ×4 (06:42→22:28)
[2021-09-21 09:00] LABS: BASO % 0.6 % (0-2.0); EOS % 0.1 % (0-4.5); HEMATOCRIT 26.4 % (32.4-45.2); HEMOGLOBIN 8.7 GM/dL (10.7-15.3); LYMPH % 8.2 % (8-40); MCH 29.2 pg (25.7-33.7); MCHC 32.9 g/dl (32.0-36.0); MEAN CELL VOLUME 88.9 fl (80-96); MEAN PLT VOLUME 9.3 fl (7.5-11.1); MONO % 4.1 % (3.8-10.2); PLATELET COUNT 235 10^3/uL (134-434); RBC 2.97 M/mm3 (3.60-5.2); RDW 15.9 % (11.6-15.6); WHITE BLOOD COUNT 13.5 K/mm3 (4.0-10.0)
[2021-09-21 09:17] LABS: BLOOD UREA NITROGEN 18.2 mg/dL (7-18)
[2021-09-21 09:18] LABS: CALCIUM 8.5 mg/dL (8.5-10.1)
[2021-09-21 09:22] LABS: CREATININE 0.9 mg/dL (0.55-1.3)
[2021-09-21] MEDS: VANCOMYCIN 250 MG/5 ML ORAL SOLUTION PO SCH ×2 (10:25→22:25)
[2021-09-21] MEDS: CHOLECALCIFEROL (VIT D3) 1,000 UNIT (25 MCG) TABLET PO SCH (10:25)
[2021-09-21] MEDS: PANTOPRAZOLE SODIUM 40 MG VIAL IVPB SCH (10:25)
[2021-09-21] MEDS: methylPREDNISolone NA SUCC 40 MG/1 ML VIAL IVPB SCH ×2 (10:26→22:26)
[2021-09-21] MEDS: CLOPIDOGREL BISULFATE 75 MG TABLET (FP) PO SCH (10:26)
[2021-09-21] MEDS: CYANOCOBALAMIN 1,000 MCG TABLET (FP) PO SCH (10:26)
[2021-09-21] MEDS: amLODIPine BESYLATE 10 MG TABLET (FP) PO SCH (10:28)
[2021-09-21] MEDS: GABAPENTIN 300 MG CAPSULE PO SCH ×2 (10:28→22:25)
[2021-09-21] MEDS: ASPIRIN 81 MG CHEWABLE TABLETS PO SCH (10:28)
[2021-09-21] MEDS: LABETALOL HCL 200 MG TABLET (FP) PO SCH ×2 (10:29→22:28)
[2021-09-21] MEDS: ATOVAQUONE 750 MG/5 ML (UNIT-DOSE PACKAGING) PO SCH (10:29)
[2021-09-21] MEDS: ACYCLOVIR 400 MG TABLET PO SCH ×2 (10:30→22:24)
[2021-09-21 10:50] LABS: ERYTHROCYTE SEDIMENTATION RATE 108 mm/hr (0-30)
[2021-09-21] MEDS: ATORVASTATIN CA 40 MG TABLET (FP) PO SCH (22:25)
[2021-09-21] MEDS: MIRTAZAPINE 15 MG TABLET (FP) PO SCH (22:25)
[2021-09-21] MEDS: INSULIN (LEVEMIR) 100 UNITS/ML UNITS SQ SCH (22:32)
[2021-09-22] MEDS: metFORMIN HCL 500 MG TABLET (FP) PO SCH ×2 (06:13→16:26)
[2021-09-22] MEDS: INSULIN SLIDING SCALE (NOVOLOG) 1 VIAL SQ SCH ×4 (06:14→23:00)
[2021-09-22 08:16] LABS: BLOOD UREA NITROGEN 15.7 mg/dL (7-18); CALCIUM 8.2 mg/dL (8.5-10.1)
[2021-09-22 08:20] LABS: CREATININE 0.8 mg/dL (0.55-1.3)
[2021-09-22] MEDS: ACYCLOVIR 400 MG TABLET PO SCH ×2 (09:29→22:35)
[2021-09-22] MEDS: ASPIRIN 81 MG CHEWABLE TABLETS PO SCH (09:29)
[2021-09-22] MEDS: CYANOCOBALAMIN 1,000 MCG TABLET (FP) PO SCH (09:29)
[2021-09-22] MEDS: ATOVAQUONE 750 MG/5 ML (UNIT-DOSE PACKAGING) PO SCH (09:29)
[2021-09-22] MEDS: CLOPIDOGREL BISULFATE 75 MG TABLET (FP) PO SCH (09:30)
[2021-09-22] MEDS: LABETALOL HCL 200 MG TABLET (FP) PO SCH ×2 (09:30→22:31)
[2021-09-22] MEDS: amLODIPine BESYLATE 10 MG TABLET (FP) PO SCH (09:30)
[2021-09-22] MEDS: GABAPENTIN 300 MG CAPSULE PO SCH ×2 (09:30→22:31)
[2021-09-22] MEDS: CHOLECALCIFEROL (VIT D3) 1,000 UNIT (25 MCG) TABLET PO SCH (09:30)
[2021-09-22] MEDS: VANCOMYCIN 250 MG/5 ML ORAL SOLUTION PO SCH ×2 (09:31→21:35)
[2021-09-22] MEDS: PANTOPRAZOLE SODIUM 40 MG VIAL IVPB SCH (09:32)
[2021-09-22] MEDS ORDERED: methylPREDNISolone 4 MG TABLET PO SCH ×2 (10:00→20:00)
[2021-09-22] MEDS: SODIUM CHLORIDE 0.45% 1,000 ML IV SCH ×2 (11:06→12:38)
[2021-09-22 14:04] LABS: EOS % 0.1 % (0-4.5); HEMATOCRIT 26.8 % (32.4-45.2); HEMOGLOBIN 8.9 GM/dL (10.7-15.3); LYMPH % 8.3 % (8-40); MCH 29.4 pg (25.7-33.7); MCHC 33.1 g/dl (32.0-36.0); MEAN CELL VOLUME 88.8 fl (80-96); MEAN PLT VOLUME 8.7 fl (7.5-11.1); MONO % 6.3 % (3.8-10.2); NEUT % 85.3 % (42.8-82.8); PLATELET COUNT 293 10^3/uL (134-434); RBC 3.02 M/mm3 (3.60-5.2); RDW 16.1 % (11.6-15.6); WHITE BLOOD COUNT 13.9 K/mm3 (4.0-10.0)
[2021-09-22 14:23] LABS: BLOOD UREA NITROGEN 12.2 mg/dL (7-18)
[2021-09-22 14:24] LABS: CALCIUM 8.5 mg/dL (8.5-10.1)
[2021-09-22 14:25] LABS: ALBUMIN 2.6 g/dl (3.4-5.0); MAGNESIUM 1.6 mg/dL (1.8-2.4)
[2021-09-22 14:28] LABS: CREATININE 0.9 mg/dL (0.55-1.3)
[2021-09-22 14:29] LABS: TOT PROT 5.6 g/dl (6.4-8.2)
[2021-09-22 14:30] LABS: BILIRUBIN,TOTAL 0.2 mg/dL (0.2-1)
[2021-09-22] MEDS ORDERED: MAGNESIUM SULF 50% (8.12 MEQ/2 ML-1 GM VIAL) IVPB ONE (14:35)
[2021-09-22] MEDS ORDERED: SODIUM CHLORIDE 0.45% 1,000 ML IV SCH (14:43)
[2021-09-22 14:47] LABS: ERYTHROCYTE SEDIMENTATION RATE 117 mm/hr (0-30)
[2021-09-22 15:49] VITALS: BMI 21.3
[2021-09-22] MEDS ORDERED: INSULIN (NOVOLOG) ASPART 100 UNITS/ML 10ML VIAL ONE ×2 (17:03→22:46)
[2021-09-22] MEDS: ATORVASTATIN CA 40 MG TABLET (FP) PO SCH (22:30)
[2021-09-22] MEDS: LACTOBACILLUS ACIDOPHILUS 1 TABLET PO SCH (22:30)
[2021-09-22] MEDS: MIRTAZAPINE 15 MG TABLET (FP) PO SCH (22:31)
[2021-09-22] MEDS: INSULIN (LEVEMIR) 100 UNITS/ML UNITS SQ SCH (22:45)
[2021-09-23] MEDS: metFORMIN HCL 500 MG TABLET (FP) PO SCH ×2 (06:18→16:22)
[2021-09-23] MEDS: INSULIN SLIDING SCALE (NOVOLOG) 1 VIAL SQ SCH ×3 (06:21→16:22)
[2021-09-23 09:02] VITALS: PULSE 80
[2021-09-23] MEDS: PANTOPRAZOLE SODIUM 40 MG VIAL IVPB SCH (09:03)
[2021-09-23] MEDS: LABETALOL HCL 200 MG TABLET (FP) PO SCH (09:03)
[2021-09-23] MEDS: amLODIPine BESYLATE 10 MG TABLET (FP) PO SCH (09:03)
[2021-09-23] MEDS: LACTOBACILLUS ACIDOPHILUS 1 TABLET PO SCH (09:03)
[2021-09-23] MEDS: CHOLECALCIFEROL (VIT D3) 1,000 UNIT (25 MCG) TABLET PO SCH (09:03)
[2021-09-23 09:04] LABS: BASO % 0.3 % (0-2.0); EOS % 0.1 % (0-4.5); HEMATOCRIT 27.6 % (32.4-45.2); HEMOGLOBIN 9.2 GM/dL (10.7-15.3); LYMPH % 6.7 % (8-40); MCH 29.5 pg (25.7-33.7); MCHC 33.3 g/dl (32.0-36.0); MEAN CELL VOLUME 88.8 fl (80-96); MEAN PLT VOLUME 8.6 fl (7.5-11.1); NEUT % 87.9 % (42.8-82.8); PLATELET COUNT 334 10^3/uL (134-434); RDW 16.3 % (11.6-15.6)
[2021-09-23] MEDS: ACYCLOVIR 400 MG TABLET PO SCH (09:04)
[2021-09-23] MEDS: GABAPENTIN 300 MG CAPSULE PO SCH (09:04)
[2021-09-23] MEDS: CYANOCOBALAMIN 1,000 MCG TABLET (FP) PO SCH (09:04)
[2021-09-23] MEDS: ATOVAQUONE 750 MG/5 ML (UNIT-DOSE PACKAGING) PO SCH (09:04)
[2021-09-23 09:24] LABS: CALCIUM 8.4 mg/dL (8.5-10.1)
[2021-09-23 09:25] LABS: ALBUMIN 2.6 g/dl (3.4-5.0); MAGNESIUM 2.3 mg/dL (1.8-2.4)
[2021-09-23 09:27] LABS: BLOOD UREA NITROGEN 17.1 mg/dL (7-18); CALCIUM 8.7 mg/dL (8.5-10.1)
[2021-09-23 09:28] LABS: CREATININE 0.7 mg/dL (0.55-1.3)
[2021-09-23 09:29] LABS: BILIRUBIN,TOTAL 0.2 mg/dL (0.2-1); TOT PROT 5.6 g/dl (6.4-8.2)
[2021-09-23 09:31] LABS: CREATININE 0.7 mg/dL (0.55-1.3)
[2021-09-23] MEDS: VANCOMYCIN 250 MG/5 ML ORAL SOLUTION PO SCH (09:56)
[2021-09-23] MEDS ORDERED: methylPREDNISolone 4 MG TABLET PO SCH (10:00)
[2021-09-23 14:24] VITALS: BP 135/74; TEMP 98.3
== END 2021-09-23 17:57 | disposition home or self-care (01) | DRG 392 ==
LOC: JER 18:49 → JERBED 20:08 → J7W 21:17
PROVIDERS: ADMIT Internal Medicine Hematology & Oncology; ATTEND Internal Medicine
DX: A09 Infectious gastroenteritis and colitis, unspecified (principal); I10 Essential (primary) hypertension; E11.9 Type 2 diabetes mellitus without complications; E78.5 Hyperlipidemia, unspecified; E86.0 Dehydration; G35 Multiple sclerosis; R82.71 Bacteriuria; K58.9 Irritable bowel syndrome, unspecified; Z85.038 Personal history of other malignant neoplasm of large intestine; Z88.0 Allergy status to penicillin
CPT/HCPCS: 36415; 71046-TC-FY; 76775-TC; 80048; 80053; 81003; 82550; 82962; 83615; 83735; 83993; 85025; 85384; 85610; 85651; 85730; 86140; 87040; 87086; 87177; 87186; 87209; 87497; 93005; 93010; 99285-25; C9803; U0003; U0005

== ENCOUNTER 2021-10-03 10:33 | Day surgery (SDC) | payer OTHER ==
[2021-10-03] MEDS ORDERED: SODIUM CHLORIDE 1,000 ML IV STA (11:14)
[2021-10-03 13:13] LABS: HEMATOCRIT 26.8 % (32.4-45.2); HEMOGLOBIN 8.8 GM/dL (10.7-15.3); MCH 28.7 pg (25.7-33.7); MCHC 32.8 g/dl (32.0-36.0); MEAN CELL VOLUME 87.7 fl (80-96); MEAN PLT VOLUME 8.4 fl (7.5-11.1); PLATELET COUNT 535 10^3/uL (134-434); RBC 3.06 M/mm3 (3.60-5.2); RDW 16.6 % (11.6-15.6); WHITE BLOOD COUNT 16.6 K/mm3 (4.0-10.0)
[2021-10-03 13:38] LABS: CALCIUM 8.9 mg/dL (8.5-10.1)
[2021-10-03 13:39] LABS: ALBUMIN 2.8 g/dl (3.4-5.0)
[2021-10-03 13:41] LABS: CREATININE 1.2 mg/dL (0.55-1.3)
[2021-10-03 13:43] LABS: BILIRUBIN,TOTAL 0.3 mg/dL (0.2-1); TOT PROT 6.6 g/dl (6.4-8.2)
[2021-10-03 14:14] LABS: ANISOCYTOSIS 1+; MACROCYTOSIS 0
[2021-10-03 14:36] VITALS: TEMP 98.1
[2021-10-03] MEDS ORDERED: INSULIN (NOVOLOG) ASPART 100 UNITS/ML 10ML VIAL SQ ONE (14:59)
[2021-10-03] MEDS ORDERED: Insulin (LOG) Aspart 100 UNITS/ML VIAL SQ ONE (15:00)
[2021-10-03 15:18] VITALS: BP 157/81; PULSE 87
== END 2021-10-03 15:25 | disposition home or self-care (01) ==
LOC: JONCNONCHE 10:33 → JLAB 10:33 → JONCNONCHE 15:25
PROVIDERS: ATTEND Internal Medicine Hematology & Oncology
PROC: 3E0437Z Introduction of Electrolytic and Water Balance Substance into Central Vein, Percutaneous Approach (ICD-10-PCS; principal; 2021-10-03)
PROC: 3E013GC Introduction of Other Therapeutic Substance into Subcutaneous Tissue, Percutaneous Approach (ICD-10-PCS; 2021-10-03)
DX: C18.8 Malignant neoplasm of overlapping sites of colon (principal); K52.89 Other specified noninfective gastroenteritis and colitis; E11.9 Type 2 diabetes mellitus without complications; Z79.4 Long term (current) use of insulin
CPT/HCPCS: 36415; 80053; 82656; 83735; 85025; 87324; 87449; 96360; 96361; 96372

== ENCOUNTER 2021-10-07 11:08 | Day surgery (SDC) | payer OTHER ==
[2021-10-06 11:31] VITALS: BMI 21.3
[2021-10-07] MEDS ORDERED: PROPOFOL 20 ML ONE ×3 (13:10)
[2021-10-07 14:39] VITALS: BP 130/77; PULSE 79; TEMP 97.8
== END 2021-10-07 15:04 | disposition home or self-care (01) ==
LOC: FASU-ENDO 11:08
PROVIDERS: ATTEND Internal Medicine Gastroenterology
PROC: 0DBL8ZX Excision of Transverse Colon, Via Natural or Artificial Opening Endoscopic, Diagnostic (ICD-10-PCS; 2021-10-07)
PROC: 0DBP8ZX Excision of Rectum, Via Natural or Artificial Opening Endoscopic, Diagnostic (ICD-10-PCS; 2021-10-07)
PROC: 0DBB8ZX Excision of Ileum, Via Natural or Artificial Opening Endoscopic, Diagnostic (ICD-10-PCS; 2021-10-07)
PROC: 0DBM8ZX Excision of Descending Colon, Via Natural or Artificial Opening Endoscopic, Diagnostic (ICD-10-PCS; 2021-10-07)
PROC: 0DBK8ZX Excision of Ascending Colon, Via Natural or Artificial Opening Endoscopic, Diagnostic (ICD-10-PCS; principal; 2021-10-07 13:40)
DX: R19.7 Diarrhea, unspecified (principal); K63.89 Other specified diseases of intestine; K64.1 Second degree hemorrhoids; Z98.890 Other specified postprocedural states
CPT/HCPCS: 82962; 88305-TC

== ENCOUNTER 2021-10-09 09:13 | Day surgery (SDC) | payer OTHER ==
[2021-10-09] MEDS ORDERED: SODIUM CHLORIDE 1,000 ML IV ONE (16:00)
[2021-10-09 16:20] LABS: HEMATOCRIT 29.2 % (32.4-45.2); HEMOGLOBIN 9.6 GM/dL (10.7-15.3); MCH 28.2 pg (25.7-33.7); MCHC 32.9 g/dl (32.0-36.0); MEAN CELL VOLUME 85.8 fl (80-96); MEAN PLT VOLUME 8.1 fl (7.5-11.1); PLATELET COUNT 548 10^3/uL (134-434); RDW 16.9 % (11.6-15.6); WHITE BLOOD COUNT 17.3 K/mm3 (4.0-10.0)
[2021-10-09 16:45] LABS: CALCIUM 9.3 mg/dL (8.5-10.1)
[2021-10-09 16:46] LABS: ALBUMIN 2.9 g/dl (3.4-5.0); BLOOD UREA NITROGEN 6.1 mg/dL (7-18)
[2021-10-09 16:48] LABS: CREATININE 0.9 mg/dL (0.55-1.3)
[2021-10-09 16:50] LABS: BILIRUBIN,TOTAL 0.3 mg/dL (0.2-1)
[2021-10-09 17:35] LABS: ERYTHROCYTE SEDIMENTATION RATE 108 mm/hr (0-30)
[2021-10-09 17:54] VITALS: TEMP 98.2
[2021-10-09 18:03] VITALS: BP 128/68; PULSE 89
[2021-10-09 18:30] LABS: ANISOCYTOSIS 2+; MACROCYTOSIS 1+
[2021-10-11 08:09] LABS: CARCINOEMBRYONIC ANTIGEN 3.4 ng/mL (0.0-4.7)
== END 2021-10-09 17:35 | disposition home or self-care (01) ==
LOC: JONCNONCHE 09:13
PROVIDERS: ATTEND Internal Medicine Hematology & Oncology
PROC: 3E0437Z Introduction of Electrolytic and Water Balance Substance into Central Vein, Percutaneous Approach (ICD-10-PCS; principal; 2021-10-09)
DX: C18.8 Malignant neoplasm of overlapping sites of colon (principal); K52.89 Other specified noninfective gastroenteritis and colitis; E11.9 Type 2 diabetes mellitus without complications; Z79.84 Long term (current) use of oral hypoglycemic drugs; Z76.89 Persons encountering health services in other specified circumstances
CPT/HCPCS: 36415; 80053; 82378; 82550; 82607; 82728; 83540; 83550; 83615; 84439; 84443; 85025; 85651; 86038; 96360; 96361

== ENCOUNTER 2021-10-16 12:12 | Inpatient (IN) | payer OTHER ==
[2021-10-16] MEDS ORDERED: MEROPENEM 1 GM in DEXTROSE 5%-WATER 100 ML IVPB ONE (14:44)
[2021-10-16] MEDS ORDERED: MEROPENEM 500 MG VIAL (RESTRICTED TO ID) IVPB ONE (15:00)
[2021-10-16 15:01] LABS: BASO % 1.1 % (0-2.0); EOS % 0.2 % (0-4.5); HEMATOCRIT 26.3 % (32.4-45.2); HEMOGLOBIN 8.6 GM/dL (10.7-15.3); LYMPH % 8.5 % (8-40); MCH 27.2 pg (25.7-33.7); MCHC 32.6 g/dl (32.0-36.0); MEAN CELL VOLUME 83.5 fl (80-96); MEAN PLT VOLUME 8.7 fl (7.5-11.1); MONO % 4.9 % (3.8-10.2); NEUT % 85.3 % (42.8-82.8); PLATELET COUNT 566 10^3/uL (134-434); RBC 3.15 M/mm3 (3.60-5.2); RDW 18.1 % (11.6-15.6); WHITE BLOOD COUNT 18.4 K/mm3 (4.0-10.0)
[2021-10-16] MEDS ORDERED: MEROPENEM 1 GM VIAL (RESTRICTED TO ID) IVPB ONE (15:01)
[2021-10-16 15:19] LABS: ALBUMIN 2.9 g/dl (3.4-5.0); BLOOD UREA NITROGEN 10.2 mg/dL (7-18); CALCIUM 9.8 mg/dL (8.5-10.1)
[2021-10-16 15:22] LABS: CREATININE 0.8 mg/dL (0.55-1.3)
[2021-10-16 15:24] LABS: BILIRUBIN,TOTAL 0.2 mg/dL (0.2-1); TOT PROT 6.4 g/dl (6.4-8.2)
[2021-10-16] MEDS ORDERED: methylPREDNISolone 8 MG TABLET PO ONE (20:37)
[2021-10-16] MEDS ORDERED: methylPREDNISolone 4 MG TABLET PO ONE (21:00)
[2021-10-17] MEDS: MEROPENEM 1 GM in DEXTROSE 5%-WATER 100 ML IVPB SCH ×4 (02:35→17:34)
[2021-10-17] MEDS ORDERED: MEROPENEM 1 GM VIAL (RESTRICTED TO ID) IVPB ONE ×3 (03:50→17:15)
[2021-10-17 06:53] LABS: EPI CELLS 2 /uL (0-25.1); HYALINE CASTS 0 /uL (0-3.1); PH,URINE 5.5 (5.0-8.0); URINE APPEARANCE CLOUDY; URINE BILIRUBIN NEGATIVE (NEGATIVE); URINE COLOR YELLOW; URINE GLUCOSE (UA) 2+ (NEGATIVE); URINE KETONE NEGATIVE (NEGATIVE); URINE LEUK ESTERASE 2+ (NEGATIVE); URINE NITRITE POSITIVE (NEGATIVE); URINE PROTEIN 1+ (NEGATIVE); URINE RBC 19 /uL (0-23.9); URINE UROBILINOGEN 0.2 mg/dL (0.2-1.0); URINE WBC 1046 /uL (0-25.8)
[2021-10-17 08:28] LABS: BASO % 0.5 % (0-2.0); EOS % 0.2 % (0-4.5); HEMATOCRIT 25.3 % (32.4-45.2); HEMOGLOBIN 8.4 GM/dL (10.7-15.3); LYMPH % 12.5 % (8-40); MCH 27.7 pg (25.7-33.7); MCHC 33.1 g/dl (32.0-36.0); MEAN CELL VOLUME 83.9 fl (80-96); MEAN PLT VOLUME 8.2 fl (7.5-11.1); MONO % 4.1 % (3.8-10.2); NEUT % 82.7 % (42.8-82.8); PLATELET COUNT 525 10^3/uL (134-434); RBC 3.02 M/mm3 (3.60-5.2); RDW 17.9 % (11.6-15.6); WHITE BLOOD COUNT 16.5 K/mm3 (4.0-10.0)
[2021-10-17 08:42] LABS: CALCIUM 8.9 mg/dL (8.5-10.1)
[2021-10-17 08:44] LABS: BLOOD UREA NITROGEN 14.8 mg/dL (7-18)
[2021-10-17 08:47] LABS: CREATININE 0.9 mg/dL (0.55-1.3)
[2021-10-17] MEDS: INSULIN SLIDING SCALE (NOVOLOG) 1 VIAL SQ SCH ×4 (10:19→22:32)
[2021-10-17] MEDS ORDERED: DEXTROSE 5%-WATER 100 ML IVPB ONE ×2 (11:11→17:15)
[2021-10-17] MEDS ORDERED: LABETALOL HCL 100 MG TABLET (FP) PO SCH (11:45)
[2021-10-17] MEDS: SODIUM CHLORIDE 0.45% 1,000 ML IV SCH (12:02)
[2021-10-17] MEDS: VANCOMYCIN 250 MG/5 ML ORAL SOLUTION PO SCH (12:37)
[2021-10-17] MEDS: methylPREDNISolone 4 MG TABLET PO SCH ×2 (15:18→22:23)
[2021-10-17] MEDS ORDERED: ACETAMINOPHEN 325 MG TABLET (FP) PO PRN (16:52)
[2021-10-17] MEDS: POLYETHYLENE GLYCOL (HEALTHYLAX) 3350 17 GM PACKET PO SCH (16:52)
[2021-10-17] MEDS: metFORMIN HCL 500 MG TABLET (FP) PO SCH (16:52)
[2021-10-17 17:18] LABS: URINE BACTERIA 68 /uL (0-1359)
[2021-10-17] MEDS ORDERED: LABETALOL HCL 200 MG TABLET (FP) PO SCH (22:00)
[2021-10-17] MEDS ORDERED: MIRTAZAPINE 15 MG TABLET (FP) ONE (22:18)
[2021-10-17] MEDS: LABETALOL HCL 100 MG TABLET (FP) PO SCH (22:21)
[2021-10-17] MEDS: ROSUVASTATIN CA 10 MG TABLET PO SCH (22:22)
[2021-10-17] MEDS: ACYCLOVIR 400 MG TABLET PO SCH (22:22)
[2021-10-17] MEDS: MIRTAZAPINE 30 MG TABLET PO SCH (22:37)
[2021-10-18] MEDS ORDERED: ACETAMINOPHEN 325 MG TABLET (FP) PO ONE (00:04)
[2021-10-18] MEDS ORDERED: MEROPENEM 1 GM VIAL (RESTRICTED TO ID) IVPB ONE ×3 (01:07→17:09)
[2021-10-18] MEDS ORDERED: DEXTROSE 5%-WATER 100 ML IVPB ONE ×3 (01:08→17:09)
[2021-10-18] MEDS: MEROPENEM 1 GM in DEXTROSE 5%-WATER 100 ML IVPB SCH ×3 (01:15→17:13)
[2021-10-18] MEDS: SODIUM CHLORIDE 0.45% 1,000 ML IV SCH (01:18)
[2021-10-18] MEDS: metFORMIN HCL 500 MG TABLET (FP) PO SCH ×2 (06:33→17:13)
[2021-10-18] MEDS: INSULIN SLIDING SCALE (NOVOLOG) 1 VIAL SQ SCH ×4 (06:33→21:30)
[2021-10-18] MEDS: POLYETHYLENE GLYCOL (HEALTHYLAX) 3350 17 GM PACKET PO SCH (09:52)
[2021-10-18] MEDS: ASPIRIN 81 MG CHEWABLE TABLETS PO SCH (09:53)
[2021-10-18] MEDS: PANTOPRAZOLE 40 MG TABLET PO SCH (09:53)
[2021-10-18] MEDS: amLODIPine BESYLATE 10 MG TABLET (FP) PO SCH (09:53)
[2021-10-18] MEDS: ACYCLOVIR 400 MG TABLET PO SCH ×2 (09:53→21:28)
[2021-10-18] MEDS: LACTOBACILLUS ACIDOPHILUS 1 TABLET PO SCH (09:53)
[2021-10-18] MEDS: LABETALOL HCL 100 MG TABLET (FP) PO SCH ×2 (09:53→21:29)
[2021-10-18] MEDS: ATOVAQUONE 750 MG/5 ML (UNIT-DOSE PACKAGING) PO SCH (09:53)
[2021-10-18] MEDS: CLOPIDOGREL BISULFATE 75 MG TABLET (FP) PO SCH (09:53)
[2021-10-18] MEDS: methylPREDNISolone 4 MG TABLET PO SCH ×2 (09:55→21:29)
[2021-10-18] MEDS: VANCOMYCIN 250 MG/5 ML ORAL SOLUTION PO SCH (09:59)
[2021-10-18] MEDS ORDERED: MIRTAZAPINE 15 MG TABLET (FP) ONE (20:49)
[2021-10-18] MEDS: ROSUVASTATIN CA 10 MG TABLET PO SCH (21:28)
[2021-10-18] MEDS: MIRTAZAPINE 30 MG TABLET PO SCH (21:29)
[2021-10-19] MEDS ORDERED: MEROPENEM 1 GM VIAL (RESTRICTED TO ID) IVPB ONE ×3 (01:27→16:54)
[2021-10-19] MEDS ORDERED: DEXTROSE 5%-WATER 100 ML IVPB ONE ×3 (01:28→16:54)
[2021-10-19] MEDS: MEROPENEM 1 GM in DEXTROSE 5%-WATER 100 ML IVPB SCH ×3 (01:47→17:00)
[2021-10-19] MEDS: SODIUM CHLORIDE 0.45% 1,000 ML IV SCH ×3 (01:49→21:37)
[2021-10-19] MEDS: INSULIN SLIDING SCALE (NOVOLOG) 1 VIAL SQ SCH ×4 (06:12→21:34)
[2021-10-19] MEDS: metFORMIN HCL 500 MG TABLET (FP) PO SCH ×2 (06:12→17:00)
[2021-10-19] MEDS: ATOVAQUONE 750 MG/5 ML (UNIT-DOSE PACKAGING) PO SCH (09:04)
[2021-10-19] MEDS: methylPREDNISolone 4 MG TABLET PO SCH ×2 (09:05→21:36)
[2021-10-19] MEDS: CLOPIDOGREL BISULFATE 75 MG TABLET (FP) PO SCH (09:05)
[2021-10-19] MEDS: amLODIPine BESYLATE 10 MG TABLET (FP) PO SCH (09:05)
[2021-10-19] MEDS: LABETALOL HCL 100 MG TABLET (FP) PO SCH ×2 (09:05→21:33)
[2021-10-19] MEDS: VANCOMYCIN 250 MG/5 ML ORAL SOLUTION PO SCH (09:05)
[2021-10-19] MEDS: LACTOBACILLUS ACIDOPHILUS 1 TABLET PO SCH (09:05)
[2021-10-19] MEDS: ACYCLOVIR 400 MG TABLET PO SCH ×2 (09:05→21:33)
[2021-10-19] MEDS: PANTOPRAZOLE 40 MG TABLET PO SCH (09:05)
[2021-10-19] MEDS: ASPIRIN 81 MG CHEWABLE TABLETS PO SCH (09:05)
[2021-10-19] MEDS: POLYETHYLENE GLYCOL (HEALTHYLAX) 3350 17 GM PACKET PO SCH (09:06)
[2021-10-19 09:14] LABS: BASO % 0.4 % (0-2.0); EOS % 0.7 % (0-4.5); HEMATOCRIT 26.8 % (32.4-45.2); HEMOGLOBIN 8.8 GM/dL (10.7-15.3); LYMPH % 11.6 % (8-40); MCH 27.6 pg (25.7-33.7); MCHC 32.7 g/dl (32.0-36.0); MEAN CELL VOLUME 84.3 fl (80-96); MEAN PLT VOLUME 8.1 fl (7.5-11.1); NEUT % 82.3 % (42.8-82.8); PLATELET COUNT 510 10^3/uL (134-434); RBC 3.19 M/mm3 (3.60-5.2); RDW 18.5 % (11.6-15.6); WHITE BLOOD COUNT 12.8 K/mm3 (4.0-10.0)
[2021-10-19 09:30] LABS: CALCIUM 8.7 mg/dL (8.5-10.1)
[2021-10-19 09:34] LABS: CREATININE 0.8 mg/dL (0.55-1.3)
[2021-10-19] MEDS ORDERED: SODIUM CHLORIDE NASAL SPRAY 44 ML BOTTLE NS PRN (15:15)
[2021-10-19] MEDS ORDERED: MIRTAZAPINE 15 MG TABLET (FP) ONE (21:19)
[2021-10-19] MEDS: ROSUVASTATIN CA 10 MG TABLET PO SCH (21:32)
[2021-10-19] MEDS: MIRTAZAPINE 30 MG TABLET PO SCH (21:33)
[2021-10-20] MEDS ORDERED: MEROPENEM 1 GM VIAL (RESTRICTED TO ID) IVPB ONE ×3 (01:16→16:49)
[2021-10-20] MEDS ORDERED: DEXTROSE 5%-WATER 100 ML IVPB ONE ×3 (01:16→16:49)
[2021-10-20] MEDS: MEROPENEM 1 GM in DEXTROSE 5%-WATER 100 ML IVPB SCH ×4 (01:24→17:10)
[2021-10-20] MEDS: metFORMIN HCL 500 MG TABLET (FP) PO SCH ×2 (06:03→17:09)
[2021-10-20] MEDS: INSULIN SLIDING SCALE (NOVOLOG) 1 VIAL SQ SCH ×4 (06:04→21:39)
[2021-10-20] MEDS ORDERED: MIDAZOLAM HCL 2 MG/2 ML SINGLE DOSE VIAL ONE (09:17)
[2021-10-20] MEDS ORDERED: LIDOCAINE HCL 1%, 10 MG/ML (20ML VIAL) INF ONE ×2 (09:24)
[2021-10-20] MEDS ORDERED: SODIUM CHLORIDE NASAL SPRAY 44 ML BOTTLE NS PRN (10:04)
[2021-10-20] MEDS ORDERED: ACETAMINOPHEN 325 MG TABLET (FP) PO PRN (10:04)
[2021-10-20] MEDS: methylPREDNISolone 4 MG TABLET PO SCH ×3 (10:55→21:38)
[2021-10-20] MEDS: ATOVAQUONE 750 MG/5 ML (UNIT-DOSE PACKAGING) PO SCH ×2 (10:56→11:23)
[2021-10-20] MEDS: SODIUM CHLORIDE 0.45% 1,000 ML IV SCH (11:02)
[2021-10-20] MEDS ORDERED: INSULIN (NOVOLOG) ASPART 100 UNITS/ML 10ML VIAL ONE (11:19)
[2021-10-20] MEDS: LACTOBACILLUS ACIDOPHILUS 1 TABLET PO SCH (11:23)
[2021-10-20] MEDS: ASPIRIN 81 MG CHEWABLE TABLETS PO SCH (11:23)
[2021-10-20] MEDS: LABETALOL HCL 100 MG TABLET (FP) PO SCH ×2 (11:24→21:38)
[2021-10-20] MEDS: POLYETHYLENE GLYCOL (HEALTHYLAX) 3350 17 GM PACKET PO SCH (11:24)
[2021-10-20] MEDS: amLODIPine BESYLATE 10 MG TABLET (FP) PO SCH (11:24)
[2021-10-20] MEDS: PANTOPRAZOLE 40 MG TABLET PO SCH (11:25)
[2021-10-20] MEDS: ACYCLOVIR 400 MG TABLET PO SCH ×2 (11:25→21:38)
[2021-10-20] MEDS: VANCOMYCIN 250 MG/5 ML ORAL SOLUTION PO SCH (11:25)
[2021-10-20 13:12] LABS: BASO % 0.4 % (0-2.0); EOS % 0.2 % (0-4.5); HEMATOCRIT 30.1 % (32.4-45.2); HEMOGLOBIN 9.7 GM/dL (10.7-15.3); LYMPH % 11.8 % (8-40); MCH 27.2 pg (25.7-33.7); MCHC 32.1 g/dl (32.0-36.0); MEAN CELL VOLUME 84.9 fl (80-96); MEAN PLT VOLUME 8.2 fl (7.5-11.1); MONO % 3.3 % (3.8-10.2); NEUT % 84.3 % (42.8-82.8); PLATELET COUNT 539 10^3/uL (134-434); RBC 3.55 M/mm3 (3.60-5.2); WHITE BLOOD COUNT 13.9 K/mm3 (4.0-10.0)
[2021-10-20 13:16] LABS: INR 1.03 (0.83-1.09); PROTHROMBIN TIME (PATIENT) 11.8 SEC (9.7-13.0)
[2021-10-20 13:37] LABS: BLOOD UREA NITROGEN 14.1 mg/dL (7-18)
[2021-10-20 13:41] LABS: CREATININE 0.8 mg/dL (0.55-1.3)
[2021-10-20] MEDS ORDERED: MEROPENEM 1 GM in DEXTROSE 5%-WATER 100 ML IVPB SCH (18:00)
[2021-10-20] MEDS ORDERED: MIRTAZAPINE 15 MG TABLET (FP) ONE (21:18)
[2021-10-20] MEDS: MIRTAZAPINE 30 MG TABLET PO SCH (21:38)
[2021-10-20] MEDS: ROSUVASTATIN CA 10 MG TABLET PO SCH (21:38)
[2021-10-21] MEDS: SODIUM CHLORIDE 0.45% 1,000 ML IV SCH ×3 (00:35→17:09)
[2021-10-21] MEDS ORDERED: MEROPENEM 1 GM VIAL (RESTRICTED TO ID) IVPB ONE ×3 (00:39→17:01)
[2021-10-21] MEDS ORDERED: DEXTROSE 5%-WATER 100 ML IVPB ONE ×3 (00:39→17:01)
[2021-10-21] MEDS: MEROPENEM 1 GM in DEXTROSE 5%-WATER 100 ML IVPB SCH ×3 (01:06→17:09)
[2021-10-21] MEDS: INSULIN SLIDING SCALE (NOVOLOG) 1 VIAL SQ SCH ×4 (06:15→21:31)
[2021-10-21] MEDS: metFORMIN HCL 500 MG TABLET (FP) PO SCH ×2 (06:15→16:37)
[2021-10-21 07:59] LABS: BASO % 0.3 % (0-2.0); EOS % 0.4 % (0-4.5); HEMATOCRIT 28.2 % (32.4-45.2); LYMPH % 11.1 % (8-40); MCH 27.1 pg (25.7-33.7); MCHC 32.1 g/dl (32.0-36.0); MEAN CELL VOLUME 84.5 fl (80-96); MEAN PLT VOLUME 8.3 fl (7.5-11.1); MONO % 3.9 % (3.8-10.2); NEUT % 84.3 % (42.8-82.8); PLATELET COUNT 465 10^3/uL (134-434); RBC 3.33 M/mm3 (3.60-5.2); RDW 19.1 % (11.6-15.6); WHITE BLOOD COUNT 11.4 K/mm3 (4.0-10.0)
[2021-10-21 08:28] LABS: BLOOD UREA NITROGEN 17.8 mg/dL (7-18); CALCIUM 9.1 mg/dL (8.5-10.1)
[2021-10-21 08:32] LABS: CREATININE 0.8 mg/dL (0.55-1.3)
[2021-10-21] MEDS: ACYCLOVIR 400 MG TABLET PO SCH ×2 (10:39→21:32)
[2021-10-21] MEDS: VANCOMYCIN 250 MG/5 ML ORAL SOLUTION PO SCH (10:39)
[2021-10-21] MEDS: PANTOPRAZOLE 40 MG TABLET PO SCH (10:40)
[2021-10-21] MEDS: LABETALOL HCL 100 MG TABLET (FP) PO SCH ×2 (10:40→21:32)
[2021-10-21] MEDS: LACTOBACILLUS ACIDOPHILUS 1 TABLET PO SCH (10:40)
[2021-10-21] MEDS: ASPIRIN 81 MG CHEWABLE TABLETS PO SCH (10:40)
[2021-10-21] MEDS: methylPREDNISolone 4 MG TABLET PO SCH ×2 (10:40→21:31)
[2021-10-21] MEDS: amLODIPine BESYLATE 10 MG TABLET (FP) PO SCH (10:40)
[2021-10-21] MEDS: POLYETHYLENE GLYCOL (HEALTHYLAX) 3350 17 GM PACKET PO SCH ×2 (10:41→15:38)
[2021-10-21] MEDS: ATOVAQUONE 750 MG/5 ML (UNIT-DOSE PACKAGING) PO SCH (12:50)
[2021-10-21] MEDS: CLOPIDOGREL BISULFATE 75 MG TABLET (FP) PO SCH (15:35)
[2021-10-21] MEDS ORDERED: MIRTAZAPINE 15 MG TABLET (FP) ONE (21:11)
[2021-10-21] MEDS: MIRTAZAPINE 30 MG TABLET PO SCH (21:32)
[2021-10-21] MEDS: ROSUVASTATIN CA 10 MG TABLET PO SCH (21:32)
[2021-10-22] MEDS ORDERED: MEROPENEM 1 GM VIAL (RESTRICTED TO ID) IVPB ONE ×3 (01:18→17:28)
[2021-10-22] MEDS ORDERED: DEXTROSE 5%-WATER 100 ML IVPB ONE ×3 (01:18→17:28)
[2021-10-22] MEDS: MEROPENEM 1 GM in DEXTROSE 5%-WATER 100 ML IVPB SCH ×3 (01:40→17:33)
[2021-10-22] MEDS: metFORMIN HCL 500 MG TABLET (FP) PO SCH ×2 (06:27→17:33)
[2021-10-22] MEDS: INSULIN SLIDING SCALE (NOVOLOG) 1 VIAL SQ SCH ×4 (06:28→21:57)
[2021-10-22] MEDS ORDERED: INSULIN (NOVOLOG) ASPART 100 UNITS/ML 10ML VIAL ONE (06:32)
[2021-10-22] MEDS: ATOVAQUONE 750 MG/5 ML (UNIT-DOSE PACKAGING) PO SCH (09:27)
[2021-10-22] MEDS: methylPREDNISolone 4 MG TABLET PO SCH ×2 (09:28→21:55)
[2021-10-22] MEDS: CLOPIDOGREL BISULFATE 75 MG TABLET (FP) PO SCH (09:28)
[2021-10-22] MEDS: ASPIRIN 81 MG CHEWABLE TABLETS PO SCH (09:28)
[2021-10-22] MEDS: LABETALOL HCL 100 MG TABLET (FP) PO SCH ×2 (09:28→21:56)
[2021-10-22] MEDS: PANTOPRAZOLE 40 MG TABLET PO SCH (09:28)
[2021-10-22] MEDS: LACTOBACILLUS ACIDOPHILUS 1 TABLET PO SCH (09:28)
[2021-10-22] MEDS: amLODIPine BESYLATE 10 MG TABLET (FP) PO SCH (09:28)
[2021-10-22] MEDS: ACYCLOVIR 400 MG TABLET PO SCH ×2 (09:28→21:56)
[2021-10-22] MEDS: POLYETHYLENE GLYCOL (HEALTHYLAX) 3350 17 GM PACKET PO SCH (09:29)
[2021-10-22] MEDS: VANCOMYCIN 250 MG/5 ML ORAL SOLUTION PO SCH (09:31)
[2021-10-22] MEDS: SODIUM CHLORIDE 0.45% 1,000 ML IV SCH (09:33)
[2021-10-22] MEDS ORDERED: methylPREDNISolone 4 MG TABLET PO SCH ×2 (18:15→18:51)
[2021-10-22] MEDS ORDERED: MIRTAZAPINE 15 MG TABLET (FP) ONE (21:15)
[2021-10-22] MEDS: ROSUVASTATIN CA 10 MG TABLET PO SCH (21:54)
[2021-10-22] MEDS: MIRTAZAPINE 30 MG TABLET PO SCH (21:56)
[2021-10-23] MEDS ORDERED: DEXTROSE 5%-WATER 100 ML IVPB ONE ×2 (00:23→09:53)
[2021-10-23] MEDS ORDERED: MEROPENEM 1 GM VIAL (RESTRICTED TO ID) IVPB ONE ×2 (00:23→09:53)
[2021-10-23] MEDS: MEROPENEM 1 GM in DEXTROSE 5%-WATER 100 ML IVPB SCH ×2 (01:02→10:00)
[2021-10-23] MEDS: INSULIN SLIDING SCALE (NOVOLOG) 1 VIAL SQ SCH ×4 (06:20→21:44)
[2021-10-23] MEDS: metFORMIN HCL 500 MG TABLET (FP) PO SCH ×2 (06:20→16:30)
[2021-10-23] MEDS: ATOVAQUONE 750 MG/5 ML (UNIT-DOSE PACKAGING) PO SCH (08:06)
[2021-10-23 08:48] LABS: BASO % 0.2 % (0-2.0); HEMOGLOBIN 10.2 GM/dL (10.7-15.3); LYMPH % 20.9 % (8-40); MCH 27.3 pg (25.7-33.7); MCHC 31.9 g/dl (32.0-36.0); MEAN CELL VOLUME 85.6 fl (80-96); MEAN PLT VOLUME 8.3 fl (7.5-11.1); MONO % 6.8 % (3.8-10.2); NEUT % 71.1 % (42.8-82.8); PLATELET COUNT 471 10^3/uL (134-434); RBC 3.74 M/mm3 (3.60-5.2); RDW 18.4 % (11.6-15.6); WHITE BLOOD COUNT 14.5 K/mm3 (4.0-10.0)
[2021-10-23 09:09] LABS: CALCIUM 9.4 mg/dL (8.5-10.1)
[2021-10-23 09:10] LABS: BLOOD UREA NITROGEN 19.4 mg/dL (7-18)
[2021-10-23 09:12] LABS: CREATININE 0.8 mg/dL (0.55-1.3)
[2021-10-23] MEDS: LACTOBACILLUS ACIDOPHILUS 1 TABLET PO SCH (09:57)
[2021-10-23] MEDS: methylPREDNISolone 4 MG TABLET PO SCH ×2 (09:58→21:46)
[2021-10-23] MEDS: POLYETHYLENE GLYCOL (HEALTHYLAX) 3350 17 GM PACKET PO SCH (09:58)
[2021-10-23] MEDS: amLODIPine BESYLATE 10 MG TABLET (FP) PO SCH (09:58)
[2021-10-23] MEDS: ACYCLOVIR 400 MG TABLET PO SCH ×2 (09:59→21:42)
[2021-10-23] MEDS: PANTOPRAZOLE 40 MG TABLET PO SCH (09:59)
[2021-10-23] MEDS: LABETALOL HCL 100 MG TABLET (FP) PO SCH ×2 (10:00→21:45)
[2021-10-23] MEDS: SODIUM CHLORIDE 0.45% 1,000 ML IV SCH ×2 (10:01→15:56)
[2021-10-23] MEDS ORDERED: MIRTAZAPINE 15 MG TABLET (FP) ONE (20:19)
[2021-10-23] MEDS: ROSUVASTATIN CA 10 MG TABLET PO SCH (21:45)
[2021-10-23] MEDS: MIRTAZAPINE 30 MG TABLET PO SCH (21:47)
[2021-10-24] MEDS: metFORMIN HCL 500 MG TABLET (FP) PO SCH ×2 (06:03→16:43)
[2021-10-24] MEDS: INSULIN SLIDING SCALE (NOVOLOG) 1 VIAL SQ SCH ×4 (06:03→21:43)
[2021-10-24] MEDS: ATOVAQUONE 750 MG/5 ML (UNIT-DOSE PACKAGING) PO SCH (08:18)
[2021-10-24] MEDS: methylPREDNISolone 4 MG TABLET PO SCH ×2 (09:00→21:42)
[2021-10-24] MEDS: PANTOPRAZOLE 40 MG TABLET PO SCH (09:01)
[2021-10-24] MEDS: amLODIPine BESYLATE 10 MG TABLET (FP) PO SCH (09:01)
[2021-10-24] MEDS: POLYETHYLENE GLYCOL (HEALTHYLAX) 3350 17 GM PACKET PO SCH (09:01)
[2021-10-24] MEDS: ACYCLOVIR 400 MG TABLET PO SCH ×2 (09:01→21:41)
[2021-10-24] MEDS: LABETALOL HCL 100 MG TABLET (FP) PO SCH ×2 (09:01→21:44)
[2021-10-24] MEDS: LACTOBACILLUS ACIDOPHILUS 1 TABLET PO SCH (09:01)
[2021-10-24] MEDS: SODIUM CHLORIDE 0.45% 1,000 ML IV SCH ×2 (10:00→17:19)
[2021-10-24] MEDS ORDERED: INSULIN (NOVOLOG) ASPART 100 UNITS/ML 10ML VIAL ONE (11:18)
[2021-10-24] MEDS ORDERED: MIRTAZAPINE 15 MG TABLET (FP) ONE (21:28)
[2021-10-24] MEDS: ROSUVASTATIN CA 10 MG TABLET PO SCH (21:41)
[2021-10-24] MEDS: MIRTAZAPINE 30 MG TABLET PO SCH (21:42)
[2021-10-25] MEDS: SODIUM CHLORIDE 0.45% 1,000 ML IV SCH ×3 (04:10→22:05)
[2021-10-25] MEDS: INSULIN SLIDING SCALE (NOVOLOG) 1 VIAL SQ SCH ×4 (06:27→22:11)
[2021-10-25] MEDS: metFORMIN HCL 500 MG TABLET (FP) PO SCH ×2 (06:27→16:50)
[2021-10-25 08:13] LABS: BASO % 0.6 % (0-2.0); EOS % 0.9 % (0-4.5); HEMATOCRIT 30.1 % (32.4-45.2); HEMOGLOBIN 9.6 GM/dL (10.7-15.3); LYMPH % 19.1 % (8-40); MCH 27.2 pg (25.7-33.7); MCHC 31.8 g/dl (32.0-36.0); MEAN CELL VOLUME 85.5 fl (80-96); MEAN PLT VOLUME 8.9 fl (7.5-11.1); MONO % 7.1 % (3.8-10.2); NEUT % 72.3 % (42.8-82.8); PLATELET COUNT 392 10^3/uL (134-434); RBC 3.51 M/mm3 (3.60-5.2); RDW 18.8 % (11.6-15.6); WHITE BLOOD COUNT 13.8 K/mm3 (4.0-10.0)
[2021-10-25] MEDS: ATOVAQUONE 750 MG/5 ML (UNIT-DOSE PACKAGING) PO SCH (08:15)
[2021-10-25] MEDS: amLODIPine BESYLATE 10 MG TABLET (FP) PO SCH (09:09)
[2021-10-25] MEDS: PANTOPRAZOLE 40 MG TABLET PO SCH (09:09)
[2021-10-25] MEDS: LACTOBACILLUS ACIDOPHILUS 1 TABLET PO SCH (09:09)
[2021-10-25] MEDS: ENOXAPARIN NA (PORCINE) 40 MG/0.4 ML DISP.SYRIN SQ SCH (09:09)
[2021-10-25] MEDS: LABETALOL HCL 100 MG TABLET (FP) PO SCH ×2 (09:09→22:07)
[2021-10-25] MEDS: POLYETHYLENE GLYCOL (HEALTHYLAX) 3350 17 GM PACKET PO SCH ×2 (09:09→09:15)
[2021-10-25] MEDS: methylPREDNISolone 4 MG TABLET PO SCH ×2 (09:12→22:07)
[2021-10-25] MEDS: ACYCLOVIR 400 MG TABLET PO SCH ×2 (09:12→22:07)
[2021-10-25] MEDS ORDERED: INSULIN (NOVOLOG) ASPART 100 UNITS/ML 10ML VIAL ONE (11:40)
[2021-10-25] MEDS ORDERED: MIRTAZAPINE 15 MG TABLET (FP) ONE (21:37)
[2021-10-25] MEDS: MIRTAZAPINE 30 MG TABLET PO SCH (22:06)
[2021-10-25] MEDS: ROSUVASTATIN CA 10 MG TABLET PO SCH (22:06)
[2021-10-26] MEDS: metFORMIN HCL 500 MG TABLET (FP) PO SCH ×2 (06:12→16:58)
[2021-10-26] MEDS: INSULIN SLIDING SCALE (NOVOLOG) 1 VIAL SQ SCH ×4 (06:16→21:57)
[2021-10-26] MEDS: ATOVAQUONE 750 MG/5 ML (UNIT-DOSE PACKAGING) PO SCH (08:01)
[2021-10-26 08:31] LABS: BASO % 0.6 % (0-2.0); EOS % 0.8 % (0-4.5); HEMATOCRIT 29.7 % (32.4-45.2); HEMOGLOBIN 9.4 GM/dL (10.7-15.3); LYMPH % 22.9 % (8-40); MCH 27.4 pg (25.7-33.7); MCHC 31.7 g/dl (32.0-36.0); MEAN CELL VOLUME 86.4 fl (80-96); MEAN PLT VOLUME 8.6 fl (7.5-11.1); MONO % 7.1 % (3.8-10.2); NEUT % 68.6 % (42.8-82.8); PLATELET COUNT 393 10^3/uL (134-434); RBC 3.44 M/mm3 (3.60-5.2); RDW 18.1 % (11.6-15.6); WHITE BLOOD COUNT 11.8 K/mm3 (4.0-10.0)
[2021-10-26 08:48] LABS: CREATININE 0.7 mg/dL (0.55-1.3)
[2021-10-26] MEDS: amLODIPine BESYLATE 10 MG TABLET (FP) PO SCH (09:18)
[2021-10-26] MEDS: LACTOBACILLUS ACIDOPHILUS 1 TABLET PO SCH (09:18)
[2021-10-26] MEDS: LABETALOL HCL 100 MG TABLET (FP) PO SCH ×2 (09:18→21:54)
[2021-10-26] MEDS: PANTOPRAZOLE 40 MG TABLET PO SCH (09:18)
[2021-10-26] MEDS: ACYCLOVIR 400 MG TABLET PO SCH ×2 (09:19→21:53)
[2021-10-26] MEDS: ENOXAPARIN NA (PORCINE) 40 MG/0.4 ML DISP.SYRIN SQ SCH (09:20)
[2021-10-26] MEDS: POLYETHYLENE GLYCOL (HEALTHYLAX) 3350 17 GM PACKET PO SCH (09:20)
[2021-10-26] MEDS: methylPREDNISolone 4 MG TABLET PO SCH ×2 (09:21→21:54)
[2021-10-26] MEDS ORDERED: MIRTAZAPINE 15 MG TABLET (FP) ONE (21:39)
[2021-10-26] MEDS: ROSUVASTATIN CA 10 MG TABLET PO SCH (21:53)
[2021-10-26] MEDS: MIRTAZAPINE 30 MG TABLET PO SCH (21:53)
[2021-10-27] MEDS: metFORMIN HCL 500 MG TABLET (FP) PO SCH ×2 (06:51→16:43)
[2021-10-27] MEDS: INSULIN SLIDING SCALE (NOVOLOG) 1 VIAL SQ SCH ×4 (06:53→21:46)
[2021-10-27] MEDS: ATOVAQUONE 750 MG/5 ML (UNIT-DOSE PACKAGING) PO SCH (08:23)
[2021-10-27 09:18] LABS: CALCIUM 9.2 mg/dL (8.5-10.1)
[2021-10-27 09:19] LABS: BLOOD UREA NITROGEN 22.8 mg/dL (7-18)
[2021-10-27 09:21] LABS: BASO % 0.6 % (0-2.0); HEMOGLOBIN 9.4 GM/dL (10.7-15.3); LYMPH % 17.9 % (8-40); MCH 28.5 pg (25.7-33.7); MCHC 33.5 g/dl (32.0-36.0); MEAN CELL VOLUME 84.9 fl (80-96); MEAN PLT VOLUME 8.7 fl (7.5-11.1); NEUT % 72.5 % (42.8-82.8); PLATELET COUNT 380 10^3/uL (134-434); RDW 18.6 % (11.6-15.6); WHITE BLOOD COUNT 11.4 K/mm3 (4.0-10.0)
[2021-10-27 09:22] LABS: CREATININE 0.7 mg/dL (0.55-1.3)
[2021-10-27] MEDS: LACTOBACILLUS ACIDOPHILUS 1 TABLET PO SCH (10:03)
[2021-10-27] MEDS: LABETALOL HCL 100 MG TABLET (FP) PO SCH ×2 (10:04→21:42)
[2021-10-27] MEDS: POLYETHYLENE GLYCOL (HEALTHYLAX) 3350 17 GM PACKET PO SCH ×2 (10:04→10:15)
[2021-10-27] MEDS: amLODIPine BESYLATE 10 MG TABLET (FP) PO SCH (10:04)
[2021-10-27] MEDS: methylPREDNISolone 4 MG TABLET PO SCH ×2 (10:04→21:42)
[2021-10-27] MEDS: ACYCLOVIR 400 MG TABLET PO SCH (10:05)
[2021-10-27] MEDS: PANTOPRAZOLE 40 MG TABLET PO SCH (10:05)
[2021-10-27] MEDS: ENOXAPARIN NA (PORCINE) 40 MG/0.4 ML DISP.SYRIN SQ SCH (10:05)
[2021-10-27] MEDS ORDERED: MIRTAZAPINE 15 MG TABLET (FP) ONE (21:34)
[2021-10-27] MEDS: ROSUVASTATIN CA 10 MG TABLET PO SCH (21:42)
[2021-10-27] MEDS: MIRTAZAPINE 30 MG TABLET PO SCH (21:43)
[2021-10-28] MEDS: INSULIN SLIDING SCALE (NOVOLOG) 1 VIAL SQ SCH ×4 (06:02→22:13)
[2021-10-28] MEDS: metFORMIN HCL 500 MG TABLET (FP) PO SCH ×2 (06:02→20:16)
[2021-10-28] MEDS: ATOVAQUONE 750 MG/5 ML (UNIT-DOSE PACKAGING) PO SCH (08:27)
[2021-10-28 08:36] LABS: BASO % 0.6 % (0-2.0); EOS % 0.8 % (0-4.5); HEMATOCRIT 28.7 % (32.4-45.2); HEMOGLOBIN 9.4 GM/dL (10.7-15.3); MCH 27.9 pg (25.7-33.7); MCHC 32.7 g/dl (32.0-36.0); MEAN CELL VOLUME 85.5 fl (80-96); MEAN PLT VOLUME 8.7 fl (7.5-11.1); MONO % 7.4 % (3.8-10.2); NEUT % 72.2 % (42.8-82.8); PLATELET COUNT 358 10^3/uL (134-434); RBC 3.36 M/mm3 (3.60-5.2); RDW 18.9 % (11.6-15.6); WHITE BLOOD COUNT 10.5 K/mm3 (4.0-10.0)
[2021-10-28 08:44] LABS: INR 0.97 (0.83-1.09); PROTHROMBIN TIME (PATIENT) 11.1 SEC (9.7-13.0)
[2021-10-28 08:47] LABS: ACTIVATED PTT 26.3 SECONDS (25.2-36.5)
[2021-10-28] MEDS: methylPREDNISolone 4 MG TABLET PO SCH (09:39)
[2021-10-28] MEDS: POLYETHYLENE GLYCOL (HEALTHYLAX) 3350 17 GM PACKET PO SCH (09:39)
[2021-10-28] MEDS: LACTOBACILLUS ACIDOPHILUS 1 TABLET PO SCH (09:39)
[2021-10-28] MEDS: amLODIPine BESYLATE 10 MG TABLET (FP) PO SCH (09:40)
[2021-10-28] MEDS: LABETALOL HCL 100 MG TABLET (FP) PO SCH ×2 (09:40→22:15)
[2021-10-28] MEDS: PANTOPRAZOLE 40 MG TABLET PO SCH (09:40)
[2021-10-28] MEDS ORDERED: SODIUM CHLORIDE 0.45% 1,000 ML IV SCH ×2 (11:00→18:00)
[2021-10-28] MEDS ORDERED: PROPOFOL 20 ML ONE (16:56)
[2021-10-28] MEDS ORDERED: MIDAZOLAM HCL 2 MG/2 ML SINGLE DOSE VIAL ONE (16:56)
[2021-10-28] MEDS ORDERED: CLINDAMYCIN PHOSPHATE 600 MG/4 ML VIAL ONE (17:18)
[2021-10-28] MEDS ORDERED: CLINDAMYCIN 600 MG PREMIX BAG IVPB ONE (17:22)
[2021-10-28] MEDS ORDERED: ONDANSETRON 4 MG/2 ML VIAL ONE (17:29)
[2021-10-28] MEDS ORDERED: KETOROLAC TROMETHAMINE 30 MG/1 ML VIAL ONE (17:49)
[2021-10-28] MEDS ORDERED: ONDANSETRON 4 MG/2 ML VIAL IVPUSH PRN (17:56)
[2021-10-28] MEDS ORDERED: SODIUM CHLORIDE NASAL SPRAY 44 ML BOTTLE NS PRN (18:00)
[2021-10-28] MEDS: LACTATED RINGERS SOLUTION 1,000 ML IV SCH (20:15)
[2021-10-28] MEDS ORDERED: methylPREDNISolone 4 MG TABLET PO SCH (22:00)
[2021-10-28] MEDS ORDERED: MIRTAZAPINE 15 MG TABLET (FP) ONE (22:06)
[2021-10-28] MEDS: ROSUVASTATIN CA 10 MG TABLET PO SCH (22:15)
[2021-10-28] MEDS: MIRTAZAPINE 30 MG TABLET PO SCH (22:16)
[2021-10-28] MEDS ORDERED: MEROPENEM 500 MG VIAL (RESTRICTED TO ID) IVPB ONE (22:43)
[2021-10-28] MEDS ORDERED: DEXTROSE 5%-WATER 100 ML IVPB ONE (22:43)
[2021-10-28] MEDS: MEROPENEM 500 MG in DEXTROSE 5%-WATER 100 ML IVPB SCH (22:48)
[2021-10-29] MEDS ORDERED: DEXTROSE 5%-WATER 100 ML IVPB ONE ×3 (02:04→17:21)
[2021-10-29] MEDS ORDERED: MEROPENEM 500 MG VIAL (RESTRICTED TO ID) IVPB ONE ×2 (02:04→09:11)
[2021-10-29] MEDS: MEROPENEM 500 MG in DEXTROSE 5%-WATER 100 ML IVPB SCH ×2 (02:06→09:34)
[2021-10-29] MEDS: ACETAMINOPHEN 325 MG TABLET (FP) PO PRN ×2 (05:14→22:22)
[2021-10-29] MEDS: INSULIN SLIDING SCALE (NOVOLOG) 1 VIAL SQ SCH ×4 (06:14→22:20)
[2021-10-29] MEDS: metFORMIN HCL 500 MG TABLET (FP) PO SCH ×2 (06:14→17:29)
[2021-10-29 07:35] LABS: HEMATOCRIT 29.7 % (32.4-45.2); HEMOGLOBIN 9.7 GM/dL (10.7-15.3); MCH 27.8 pg (25.7-33.7); MCHC 32.8 g/dl (32.0-36.0); MEAN CELL VOLUME 84.6 fl (80-96); MEAN PLT VOLUME 8.6 fl (7.5-11.1); PLATELET COUNT 287 10^3/uL (134-434); RBC 3.51 M/mm3 (3.60-5.2); RDW 18.6 % (11.6-15.6); WHITE BLOOD COUNT 18.7 K/mm3 (4.0-10.0)
[2021-10-29 07:52] LABS: CALCIUM 8.7 mg/dL (8.5-10.1)
[2021-10-29 07:53] LABS: BLOOD UREA NITROGEN 28.7 mg/dL (7-18)
[2021-10-29 08:42] LABS: ANISOCYTOSIS 1+; MACROCYTOSIS 1+; OVALOCYTE 1+
[2021-10-29] MEDS: LACTOBACILLUS ACIDOPHILUS 1 TABLET PO SCH (09:22)
[2021-10-29] MEDS: PANTOPRAZOLE 40 MG TABLET PO SCH (09:23)
[2021-10-29] MEDS: POLYETHYLENE GLYCOL (HEALTHYLAX) 3350 17 GM PACKET PO SCH (09:24)
[2021-10-29] MEDS: amLODIPine BESYLATE 10 MG TABLET (FP) PO SCH (09:32)
[2021-10-29] MEDS: LABETALOL HCL 100 MG TABLET (FP) PO SCH ×2 (09:32→22:16)
[2021-10-29] MEDS: LACTATED RINGERS SOLUTION 1,000 ML IV SCH ×2 (09:34→18:57)
[2021-10-29] MEDS: ATOVAQUONE 750 MG/5 ML (UNIT-DOSE PACKAGING) PO SCH (09:35)
[2021-10-29] MEDS ORDERED: VANCOMYCIN 1,000 MG in DEXTROSE 5%-WATER - 250 ML IVPB SCH (09:45)
[2021-10-29] MEDS ORDERED: VANCOMYCIN/WATER FOR INJ (PEG) 1,000 MG/200 ML BAG IVPB SCH (10:00)
[2021-10-29] MEDS ORDERED: methylPREDNISolone 4 MG TABLET PO SCH (10:00)
[2021-10-29] MEDS ORDERED: MEROPENEM 500 MG in DEXTROSE 5%-WATER 100 ML IVPB ONE (10:15)
[2021-10-29] MEDS ORDERED: INSULIN (NOVOLOG) ASPART 100 UNITS/ML 10ML VIAL ONE (11:41)
[2021-10-29] MEDS ORDERED: MEROPENEM 1 GM VIAL (RESTRICTED TO ID) IVPB ONE (17:21)
[2021-10-29] MEDS: MEROPENEM 1 GM in DEXTROSE 5%-WATER 100 ML IVPB SCH (17:25)
[2021-10-29] MEDS: ENOXAPARIN NA (PORCINE) 40 MG/0.4 ML DISP.SYRIN SQ SCH (19:20)
[2021-10-29] MEDS ORDERED: MIRTAZAPINE 15 MG TABLET (FP) ONE (21:13)
[2021-10-29] MEDS ORDERED: MEROPENEM 1 GM in DEXTROSE 5%-WATER 100 ML IVPB SCH (22:00)
[2021-10-29] MEDS: ROSUVASTATIN CA 10 MG TABLET PO SCH (22:15)
[2021-10-29] MEDS: MIRTAZAPINE 30 MG TABLET PO SCH (22:15)
[2021-10-30] MEDS ORDERED: MEROPENEM 1 GM VIAL (RESTRICTED TO ID) IVPB ONE ×4 (01:43→23:23)
[2021-10-30] MEDS ORDERED: DEXTROSE 5%-WATER 100 ML IVPB ONE ×4 (01:43→23:24)
[2021-10-30] MEDS: MEROPENEM 1 GM in DEXTROSE 5%-WATER 100 ML IVPB SCH ×3 (02:13→17:13)
[2021-10-30] MEDS: LACTATED RINGERS SOLUTION 1,000 ML IV SCH ×2 (02:13→18:20)
[2021-10-30] MEDS: INSULIN SLIDING SCALE (NOVOLOG) 1 VIAL SQ SCH ×4 (06:51→21:38)
[2021-10-30] MEDS: metFORMIN HCL 500 MG TABLET (FP) PO SCH ×2 (06:51→16:40)
[2021-10-30 08:41] LABS: BASO % 0.1 % (0-2.0); EOS % 0.8 % (0-4.5); HEMATOCRIT 26.8 % (32.4-45.2); HEMOGLOBIN 8.5 GM/dL (10.7-15.3); LYMPH % 11.5 % (8-40); MCHC 31.6 g/dl (32.0-36.0); MEAN CELL VOLUME 85.5 fl (80-96); MEAN PLT VOLUME 8.9 fl (7.5-11.1); MONO % 4.7 % (3.8-10.2); NEUT % 82.9 % (42.8-82.8); PLATELET COUNT 274 10^3/uL (134-434); RBC 3.13 M/mm3 (3.60-5.2); RDW 18.7 % (11.6-15.6); WHITE BLOOD COUNT 17.2 K/mm3 (4.0-10.0)
[2021-10-30] MEDS: ATOVAQUONE 750 MG/5 ML (UNIT-DOSE PACKAGING) PO SCH (08:47)
[2021-10-30 09:07] LABS: BLOOD UREA NITROGEN 16.6 mg/dL (7-18); CALCIUM 8.7 mg/dL (8.5-10.1)
[2021-10-30 09:10] LABS: CREATININE 0.7 mg/dL (0.55-1.3)
[2021-10-30 09:12] LABS: BILIRUBIN,TOTAL 0.4 mg/dL (0.2-1); TOT PROT 5.7 g/dl (6.4-8.2)
[2021-10-30 09:18] LABS: ALBUMIN 2.2 g/dl (3.4-5.0)
[2021-10-30] MEDS: LABETALOL HCL 100 MG TABLET (FP) PO SCH ×2 (09:29→21:33)
[2021-10-30] MEDS: amLODIPine BESYLATE 10 MG TABLET (FP) PO SCH (09:29)
[2021-10-30] MEDS: PANTOPRAZOLE 40 MG TABLET PO SCH (09:29)
[2021-10-30] MEDS: LACTOBACILLUS ACIDOPHILUS 1 TABLET PO SCH (09:29)
[2021-10-30] MEDS: ENOXAPARIN NA (PORCINE) 40 MG/0.4 ML DISP.SYRIN SQ SCH (09:29)
[2021-10-30] MEDS: methylPREDNISolone 4 MG TABLET PO SCH ×2 (09:30→21:33)
[2021-10-30] MEDS: POLYETHYLENE GLYCOL (HEALTHYLAX) 3350 17 GM PACKET PO SCH (09:30)
[2021-10-30] MEDS ORDERED: INSULIN (NOVOLOG) ASPART 100 UNITS/ML 10ML VIAL ONE (11:15)
[2021-10-30] MEDS ORDERED: MIRTAZAPINE 15 MG TABLET (FP) ONE (21:26)
[2021-10-30] MEDS: ROSUVASTATIN CA 10 MG TABLET PO SCH (21:33)
[2021-10-30] MEDS: MIRTAZAPINE 30 MG TABLET PO SCH (21:33)
[2021-10-31] MEDS: MEROPENEM 1 GM in DEXTROSE 5%-WATER 100 ML IVPB SCH ×3 (02:22→17:24)
[2021-10-31] MEDS: metFORMIN HCL 500 MG TABLET (FP) PO SCH ×2 (06:58→16:02)
[2021-10-31] MEDS: INSULIN SLIDING SCALE (NOVOLOG) 1 VIAL SQ SCH ×4 (06:58→22:19)
[2021-10-31 09:15] LABS: BASO % 0.5 % (0-2.0); EOS % 1.1 % (0-4.5); HEMATOCRIT 27.6 % (32.4-45.2); HEMOGLOBIN 8.9 GM/dL (10.7-15.3); LYMPH % 9.1 % (8-40); MCH 27.2 pg (25.7-33.7); MCHC 32.3 g/dl (32.0-36.0); MEAN CELL VOLUME 84.1 fl (80-96); MEAN PLT VOLUME 8.9 fl (7.5-11.1); NEUT % 84.3 % (42.8-82.8); PLATELET COUNT 284 10^3/uL (134-434); RBC 3.28 M/mm3 (3.60-5.2); RDW 18.3 % (11.6-15.6); WHITE BLOOD COUNT 12.3 K/mm3 (4.0-10.0)
[2021-10-31] MEDS ORDERED: MEROPENEM 1 GM VIAL (RESTRICTED TO ID) IVPB ONE ×2 (09:31→16:38)
[2021-10-31] MEDS ORDERED: DEXTROSE 5%-WATER 100 ML IVPB ONE ×2 (09:31→16:38)
[2021-10-31] MEDS: ENOXAPARIN NA (PORCINE) 40 MG/0.4 ML DISP.SYRIN SQ SCH (09:35)
[2021-10-31] MEDS: LACTOBACILLUS ACIDOPHILUS 1 TABLET PO SCH (09:36)
[2021-10-31] MEDS: methylPREDNISolone 4 MG TABLET PO SCH ×2 (09:37→22:18)
[2021-10-31] MEDS: PANTOPRAZOLE 40 MG TABLET PO SCH (09:37)
[2021-10-31] MEDS: amLODIPine BESYLATE 10 MG TABLET (FP) PO SCH (09:37)
[2021-10-31] MEDS: LABETALOL HCL 100 MG TABLET (FP) PO SCH ×2 (09:37→22:19)
[2021-10-31] MEDS: ATOVAQUONE 750 MG/5 ML (UNIT-DOSE PACKAGING) PO SCH (09:38)
[2021-10-31] MEDS: POLYETHYLENE GLYCOL (HEALTHYLAX) 3350 17 GM PACKET PO SCH (09:38)
[2021-10-31] MEDS: ACETAMINOPHEN 325 MG TABLET (FP) PO PRN (09:46)
[2021-10-31 09:56] LABS: CALCIUM 9.3 mg/dL (8.5-10.1)
[2021-10-31 09:57] LABS: BLOOD UREA NITROGEN 14.9 mg/dL (7-18)
[2021-10-31 09:58] LABS: CREATININE 0.7 mg/dL (0.55-1.3)
[2021-10-31] MEDS ORDERED: INSULIN (NOVOLOG) ASPART 100 UNITS/ML 10ML VIAL ONE ×3 (10:49→16:49)
[2021-10-31] MEDS: LACTATED RINGERS SOLUTION 1,000 ML IV SCH (12:47)
[2021-10-31] MEDS ORDERED: MIRTAZAPINE 15 MG TABLET (FP) ONE (21:21)
[2021-10-31] MEDS: ROSUVASTATIN CA 10 MG TABLET PO SCH (22:19)
[2021-10-31] MEDS: MIRTAZAPINE 30 MG TABLET PO SCH (22:20)
[2021-11-01] MEDS ORDERED: MEROPENEM 1 GM VIAL (RESTRICTED TO ID) IVPB ONE ×3 (00:42→17:08)
[2021-11-01] MEDS ORDERED: DEXTROSE 5%-WATER 100 ML IVPB ONE ×3 (00:43→17:09)
[2021-11-01] MEDS: LACTATED RINGERS SOLUTION 1,000 ML IV SCH ×3 (01:21→22:14)
[2021-11-01] MEDS: MEROPENEM 1 GM in DEXTROSE 5%-WATER 100 ML IVPB SCH ×3 (01:22→17:11)
[2021-11-01] MEDS: INSULIN SLIDING SCALE (NOVOLOG) 1 VIAL SQ SCH ×4 (06:10→23:03)
[2021-11-01] MEDS: metFORMIN HCL 500 MG TABLET (FP) PO SCH ×2 (06:11→16:37)
[2021-11-01] MEDS: ATOVAQUONE 750 MG/5 ML (UNIT-DOSE PACKAGING) PO SCH (08:30)
[2021-11-01] MEDS: ASPIRIN 81 MG CHEWABLE TABLETS PO SCH (09:07)
[2021-11-01] MEDS: LACTOBACILLUS ACIDOPHILUS 1 TABLET PO SCH (09:07)
[2021-11-01] MEDS: methylPREDNISolone 4 MG TABLET PO SCH ×2 (09:08→22:13)
[2021-11-01] MEDS: POLYETHYLENE GLYCOL (HEALTHYLAX) 3350 17 GM PACKET PO SCH (09:08)
[2021-11-01] MEDS: amLODIPine BESYLATE 10 MG TABLET (FP) PO SCH (09:09)
[2021-11-01] MEDS: LABETALOL HCL 100 MG TABLET (FP) PO SCH ×2 (09:09→22:11)
[2021-11-01] MEDS: CLOPIDOGREL BISULFATE 75 MG TABLET (FP) PO SCH (09:10)
[2021-11-01] MEDS: PANTOPRAZOLE 40 MG TABLET PO SCH (09:10)
[2021-11-01] MEDS: ENOXAPARIN NA (PORCINE) 40 MG/0.4 ML DISP.SYRIN SQ SCH (09:14)
[2021-11-01 09:17] LABS: EOS % 1.7 % (0-4.5); HEMATOCRIT 26.5 % (32.4-45.2); LYMPH % 14.3 % (8-40); MCH 28.4 pg (25.7-33.7); MEAN CELL VOLUME 83.7 fl (80-96); MEAN PLT VOLUME 9.2 fl (7.5-11.1); MONO % 5.8 % (3.8-10.2); NEUT % 77.2 % (42.8-82.8); PLATELET COUNT 269 10^3/uL (134-434); RBC 3.17 M/mm3 (3.60-5.2); RDW 18.2 % (11.6-15.6); WHITE BLOOD COUNT 9.8 K/mm3 (4.0-10.0)
[2021-11-01 09:22] LABS: CALCIUM 8.9 mg/dL (8.5-10.1)
[2021-11-01 09:23] LABS: BLOOD UREA NITROGEN 18.2 mg/dL (7-18)
[2021-11-01 09:26] LABS: CREATININE 0.7 mg/dL (0.55-1.3)
[2021-11-01] MEDS: ACYCLOVIR 400 MG TABLET PO SCH ×2 (10:20→22:11)
[2021-11-01] MEDS ORDERED: INSULIN (NOVOLOG) ASPART 100 UNITS/ML 10ML VIAL ONE (11:32)
[2021-11-01] MEDS: ACETAMINOPHEN 325 MG TABLET (FP) PO PRN ×2 (15:20→22:25)
[2021-11-01] MEDS ORDERED: MIRTAZAPINE 15 MG TABLET (FP) ONE (20:36)
[2021-11-01] MEDS: ROSUVASTATIN CA 10 MG TABLET PO SCH (22:11)
[2021-11-01] MEDS: MIRTAZAPINE 30 MG TABLET PO SCH (22:12)
[2021-11-02] MEDS ORDERED: MEROPENEM 1 GM VIAL (RESTRICTED TO ID) IVPB ONE ×3 (01:34→17:09)
[2021-11-02] MEDS ORDERED: DEXTROSE 5%-WATER 100 ML IVPB ONE ×2 (01:35→09:40)
[2021-11-02] MEDS: MEROPENEM 1 GM in DEXTROSE 5%-WATER 100 ML IVPB SCH ×3 (01:45→17:18)
[2021-11-02] MEDS: metFORMIN HCL 500 MG TABLET (FP) PO SCH ×2 (06:48→16:53)
[2021-11-02] MEDS: INSULIN SLIDING SCALE (NOVOLOG) 1 VIAL SQ SCH ×4 (07:29→21:20)
[2021-11-02] MEDS: ATOVAQUONE 750 MG/5 ML (UNIT-DOSE PACKAGING) PO SCH (08:16)
[2021-11-02 09:12] LABS: BASO % 1.1 % (0-2.0); EOS % 1.8 % (0-4.5); HEMATOCRIT 30.2 % (32.4-45.2); HEMOGLOBIN 9.8 GM/dL (10.7-15.3); LYMPH % 23.7 % (8-40); MCH 27.2 pg (25.7-33.7); MCHC 32.4 g/dl (32.0-36.0); MEAN CELL VOLUME 84.2 fl (80-96); MEAN PLT VOLUME 8.9 fl (7.5-11.1); MONO % 6.9 % (3.8-10.2); NEUT % 66.5 % (42.8-82.8); PLATELET COUNT 337 10^3/uL (134-434); RBC 3.59 M/mm3 (3.60-5.2); RDW 18.7 % (11.6-15.6); WHITE BLOOD COUNT 8.4 K/mm3 (4.0-10.0)
[2021-11-02 09:38] LABS: CALCIUM 9.5 mg/dL (8.5-10.1)
[2021-11-02 09:39] LABS: BLOOD UREA NITROGEN 15.5 mg/dL (7-18)
[2021-11-02 09:41] LABS: CREATININE 0.7 mg/dL (0.55-1.3)
[2021-11-02] MEDS: LACTOBACILLUS ACIDOPHILUS 1 TABLET PO SCH (09:44)
[2021-11-02] MEDS: ASPIRIN 81 MG CHEWABLE TABLETS PO SCH (09:44)
[2021-11-02] MEDS: LABETALOL HCL 100 MG TABLET (FP) PO SCH ×2 (09:45→21:13)
[2021-11-02] MEDS: POLYETHYLENE GLYCOL (HEALTHYLAX) 3350 17 GM PACKET PO SCH (09:45)
[2021-11-02] MEDS: amLODIPine BESYLATE 10 MG TABLET (FP) PO SCH (09:45)
[2021-11-02] MEDS: CLOPIDOGREL BISULFATE 75 MG TABLET (FP) PO SCH (09:45)
[2021-11-02] MEDS: methylPREDNISolone 4 MG TABLET PO SCH ×2 (09:45→21:12)
[2021-11-02] MEDS: PANTOPRAZOLE 40 MG TABLET PO SCH (09:46)
[2021-11-02] MEDS: ACYCLOVIR 400 MG TABLET PO SCH ×2 (09:46→21:12)
[2021-11-02] MEDS: ENOXAPARIN NA (PORCINE) 40 MG/0.4 ML DISP.SYRIN SQ SCH (09:48)
[2021-11-02] MEDS: SODIUM CHLORIDE 1,000 ML IV SCH (10:44)
[2021-11-02] MEDS: LACTATED RINGERS SOLUTION 1,000 ML IV SCH (14:01)
[2021-11-02] MEDS ORDERED: MIRTAZAPINE 15 MG TABLET (FP) ONE (21:03)
[2021-11-02] MEDS: ROSUVASTATIN CA 10 MG TABLET PO SCH (21:12)
[2021-11-02] MEDS: MIRTAZAPINE 30 MG TABLET PO SCH (21:13)
[2021-11-02] MEDS: METHYL SALICYLATE/MENTHOL OINT 30 GM TUBE TP SCH (21:16)
[2021-11-03] MEDS ORDERED: MEROPENEM 1 GM VIAL (RESTRICTED TO ID) IVPB ONE ×3 (00:53→17:36)
[2021-11-03] MEDS ORDERED: DEXTROSE 5%-WATER 100 ML IVPB ONE ×3 (00:53→17:36)
[2021-11-03] MEDS: MEROPENEM 1 GM in DEXTROSE 5%-WATER 100 ML IVPB SCH ×3 (01:11→17:40)
[2021-11-03] MEDS: INSULIN SLIDING SCALE (NOVOLOG) 1 VIAL SQ SCH ×4 (06:00→21:18)
[2021-11-03] MEDS: metFORMIN HCL 500 MG TABLET (FP) PO SCH ×2 (06:01→17:40)
[2021-11-03] MEDS: amLODIPine BESYLATE 10 MG TABLET (FP) PO SCH (10:02)
[2021-11-03] MEDS: PANTOPRAZOLE 40 MG TABLET PO SCH (10:02)
[2021-11-03] MEDS: LABETALOL HCL 100 MG TABLET (FP) PO SCH ×2 (10:02→21:18)
[2021-11-03] MEDS: ASPIRIN 81 MG CHEWABLE TABLETS PO SCH (10:02)
[2021-11-03] MEDS: ENOXAPARIN NA (PORCINE) 40 MG/0.4 ML DISP.SYRIN SQ SCH (10:02)
[2021-11-03] MEDS: CLOPIDOGREL BISULFATE 75 MG TABLET (FP) PO SCH (10:02)
[2021-11-03] MEDS: LACTOBACILLUS ACIDOPHILUS 1 TABLET PO SCH (10:02)
[2021-11-03] MEDS: POLYETHYLENE GLYCOL (HEALTHYLAX) 3350 17 GM PACKET PO SCH (10:03)
[2021-11-03] MEDS: ATOVAQUONE 750 MG/5 ML (UNIT-DOSE PACKAGING) PO SCH (10:03)
[2021-11-03] MEDS: methylPREDNISolone 4 MG TABLET PO SCH ×2 (10:04→21:18)
[2021-11-03] MEDS: SODIUM CHLORIDE 1,000 ML IV SCH (10:06)
[2021-11-03] MEDS: ACYCLOVIR 400 MG TABLET PO SCH ×2 (10:06→21:17)
[2021-11-03] MEDS: METHYL SALICYLATE/MENTHOL OINT 30 GM TUBE TP SCH ×2 (11:44→21:19)
[2021-11-03] MEDS ORDERED: MIRTAZAPINE 15 MG TABLET (FP) ONE (20:44)
[2021-11-03] MEDS ORDERED: INSULIN (NOVOLOG) ASPART 100 UNITS/ML 10ML VIAL ONE (20:47)
[2021-11-03] MEDS: ROSUVASTATIN CA 10 MG TABLET PO SCH (21:18)
[2021-11-03] MEDS: MIRTAZAPINE 30 MG TABLET PO SCH (21:18)
[2021-11-04] MEDS ORDERED: DEXTROSE 5%-WATER 100 ML IVPB ONE ×2 (00:53→10:24)
[2021-11-04] MEDS ORDERED: MEROPENEM 1 GM VIAL (RESTRICTED TO ID) IVPB ONE ×2 (00:53→10:23)
[2021-11-04] MEDS: MEROPENEM 1 GM in DEXTROSE 5%-WATER 100 ML IVPB SCH ×2 (01:07→11:34)
[2021-11-04] MEDS: INSULIN SLIDING SCALE (NOVOLOG) 1 VIAL SQ SCH ×4 (06:11→21:57)
[2021-11-04] MEDS: metFORMIN HCL 500 MG TABLET (FP) PO SCH ×2 (06:11→17:03)
[2021-11-04 08:56] LABS: BASO % 0.4 % (0-2.0); EOS % 1.5 % (0-4.5); HEMATOCRIT 25.5 % (32.4-45.2); HEMOGLOBIN 8.5 GM/dL (10.7-15.3); LYMPH % 19.9 % (8-40); MCH 27.8 pg (25.7-33.7); MCHC 33.4 g/dl (32.0-36.0); MEAN CELL VOLUME 83.2 fl (80-96); MEAN PLT VOLUME 8.1 fl (7.5-11.1); MONO % 7.7 % (3.8-10.2); NEUT % 70.5 % (42.8-82.8); PLATELET COUNT 301 10^3/uL (134-434); RBC 3.06 M/mm3 (3.60-5.2); WHITE BLOOD COUNT 9.3 K/mm3 (4.0-10.0)
[2021-11-04 09:34] LABS: CALCIUM 9.5 mg/dL (8.5-10.1)
[2021-11-04 09:36] LABS: BLOOD UREA NITROGEN 21.8 mg/dL (7-18)
[2021-11-04 09:37] LABS: ALBUMIN 2.7 g/dl (3.4-5.0); CREATININE 0.6 mg/dL (0.55-1.3)
[2021-11-04 09:39] LABS: BILIRUBIN,TOTAL 0.2 mg/dL (0.2-1); TOT PROT 6.5 g/dl (6.4-8.2)
[2021-11-04 10:04] LABS: ERYTHROCYTE SEDIMENTATION RATE 102 mm/hr (0-30)
[2021-11-04] MEDS: ENOXAPARIN NA (PORCINE) 40 MG/0.4 ML DISP.SYRIN SQ SCH (10:31)
[2021-11-04] MEDS: LACTOBACILLUS ACIDOPHILUS 1 TABLET PO SCH (10:32)
[2021-11-04] MEDS: LABETALOL HCL 100 MG TABLET (FP) PO SCH ×2 (10:32→21:57)
[2021-11-04] MEDS: ASPIRIN 81 MG CHEWABLE TABLETS PO SCH (10:32)
[2021-11-04] MEDS: PANTOPRAZOLE 40 MG TABLET PO SCH (10:32)
[2021-11-04] MEDS: CLOPIDOGREL BISULFATE 75 MG TABLET (FP) PO SCH (10:32)
[2021-11-04] MEDS: ACYCLOVIR 400 MG TABLET PO SCH ×2 (10:33→21:57)
[2021-11-04] MEDS: amLODIPine BESYLATE 10 MG TABLET (FP) PO SCH (10:33)
[2021-11-04] MEDS: ATOVAQUONE 750 MG/5 ML (UNIT-DOSE PACKAGING) PO SCH (10:35)
[2021-11-04] MEDS: methylPREDNISolone 4 MG TABLET PO SCH ×2 (10:36→21:57)
[2021-11-04] MEDS: POLYETHYLENE GLYCOL (HEALTHYLAX) 3350 17 GM PACKET PO SCH (10:39)
[2021-11-04] MEDS ORDERED: INSULIN (NOVOLOG) ASPART 100 UNITS/ML 10ML VIAL ONE (11:07)
[2021-11-04] MEDS: METHYL SALICYLATE/MENTHOL OINT 30 GM TUBE TP SCH ×2 (11:33→21:57)
[2021-11-04] MEDS: SODIUM CHLORIDE 1,000 ML IV SCH (11:36)
[2021-11-04] MEDS ORDERED: MIRTAZAPINE 15 MG TABLET (FP) ONE (21:28)
[2021-11-04] MEDS: MIRTAZAPINE 30 MG TABLET PO SCH (21:57)
[2021-11-04] MEDS: ROSUVASTATIN CA 10 MG TABLET PO SCH (21:57)
[2021-11-05] MEDS: metFORMIN HCL 500 MG TABLET (FP) PO SCH ×2 (06:20→17:00)
[2021-11-05] MEDS: INSULIN SLIDING SCALE (NOVOLOG) 1 VIAL SQ SCH ×4 (06:20→22:18)
[2021-11-05 08:25] LABS: BASO % 0.5 % (0-2.0); EOS % 1.8 % (0-4.5); HEMATOCRIT 25.2 % (32.4-45.2); HEMOGLOBIN 8.2 GM/dL (10.7-15.3); LYMPH % 18.3 % (8-40); MCH 27.5 pg (25.7-33.7); MCHC 32.6 g/dl (32.0-36.0); MEAN CELL VOLUME 84.5 fl (80-96); MEAN PLT VOLUME 8.3 fl (7.5-11.1); MONO % 7.3 % (3.8-10.2); NEUT % 72.1 % (42.8-82.8); PLATELET COUNT 309 10^3/uL (134-434); RBC 2.98 M/mm3 (3.60-5.2); RDW 18.6 % (11.6-15.6); WHITE BLOOD COUNT 8.9 K/mm3 (4.0-10.0)
[2021-11-05] MEDS: ENOXAPARIN NA (PORCINE) 40 MG/0.4 ML DISP.SYRIN SQ SCH (10:45)
[2021-11-05] MEDS: ASPIRIN 81 MG CHEWABLE TABLETS PO SCH (10:45)
[2021-11-05] MEDS: CLOPIDOGREL BISULFATE 75 MG TABLET (FP) PO SCH (10:46)
[2021-11-05] MEDS: ATOVAQUONE 750 MG/5 ML (UNIT-DOSE PACKAGING) PO SCH (10:51)
[2021-11-05] MEDS: methylPREDNISolone 4 MG TABLET PO SCH ×2 (10:52→22:13)
[2021-11-05] MEDS: ACYCLOVIR 400 MG TABLET PO SCH ×2 (10:52→23:12)
[2021-11-05] MEDS: LACTOBACILLUS ACIDOPHILUS 1 TABLET PO SCH (10:52)
[2021-11-05] MEDS: LABETALOL HCL 100 MG TABLET (FP) PO SCH ×2 (10:53→22:13)
[2021-11-05] MEDS: PANTOPRAZOLE 40 MG TABLET PO SCH (10:53)
[2021-11-05] MEDS: amLODIPine BESYLATE 10 MG TABLET (FP) PO SCH (10:53)
[2021-11-05] MEDS: POLYETHYLENE GLYCOL (HEALTHYLAX) 3350 17 GM PACKET PO SCH (10:53)
[2021-11-05] MEDS: METHYL SALICYLATE/MENTHOL OINT 30 GM TUBE TP SCH ×2 (11:21→22:13)
[2021-11-05] MEDS: SODIUM CHLORIDE 1,000 ML IV SCH (11:30)
[2021-11-05] MEDS ORDERED: INSULIN (NOVOLOG) ASPART 100 UNITS/ML 10ML VIAL ONE ×2 (11:47→17:05)
[2021-11-05 15:49] LABS: HEMOGLOBIN 8.4 GM/dL (10.7-15.3); MCH 27.2 pg (25.7-33.7); MCHC 32.5 g/dl (32.0-36.0); MEAN CELL VOLUME 83.8 fl (80-96); MEAN PLT VOLUME 8.1 fl (7.5-11.1); PLATELET COUNT 337 10^3/uL (134-434); RDW 18.3 % (11.6-15.6); WHITE BLOOD COUNT 8.3 K/mm3 (4.0-10.0)
[2021-11-05] MEDS ORDERED: MIRTAZAPINE 15 MG TABLET (FP) ONE (20:48)
[2021-11-05] MEDS: ROSUVASTATIN CA 10 MG TABLET PO SCH (22:13)
[2021-11-05] MEDS: MIRTAZAPINE 30 MG TABLET PO SCH (22:14)
[2021-11-06] MEDS: metFORMIN HCL 500 MG TABLET (FP) PO SCH (06:03)
[2021-11-06] MEDS: INSULIN SLIDING SCALE (NOVOLOG) 1 VIAL SQ SCH ×2 (06:03→11:46)
[2021-11-06 08:47] LABS: CALCIUM 9.1 mg/dL (8.5-10.1)
[2021-11-06 08:48] LABS: ALBUMIN 3.1 g/dl (3.4-5.0); BLOOD UREA NITROGEN 21.1 mg/dL (7-18)
[2021-11-06 08:50] LABS: CREATININE 0.6 mg/dL (0.55-1.3)
[2021-11-06 08:53] LABS: BILIRUBIN,TOTAL 0.4 mg/dL (0.2-1); TOT PROT 6.6 g/dl (6.4-8.2)
[2021-11-06] MEDS: LACTOBACILLUS ACIDOPHILUS 1 TABLET PO SCH (09:10)
[2021-11-06] MEDS: POLYETHYLENE GLYCOL (HEALTHYLAX) 3350 17 GM PACKET PO SCH (09:10)
[2021-11-06] MEDS: ATOVAQUONE 750 MG/5 ML (UNIT-DOSE PACKAGING) PO SCH (09:11)
[2021-11-06] MEDS: ACYCLOVIR 400 MG TABLET PO SCH (09:12)
[2021-11-06] MEDS: LABETALOL HCL 100 MG TABLET (FP) PO SCH (09:12)
[2021-11-06] MEDS: PANTOPRAZOLE 40 MG TABLET PO SCH (09:12)
[2021-11-06] MEDS: amLODIPine BESYLATE 10 MG TABLET (FP) PO SCH (09:12)
[2021-11-06 09:25] LABS: BASO % 0.4 % (0-2.0); EOS % 2.2 % (0-4.5); HEMATOCRIT 29.6 % (32.4-45.2); HEMOGLOBIN 9.8 GM/dL (10.7-15.3); LYMPH % 22.2 % (8-40); MCH 28.5 pg (25.7-33.7); MCHC 33.1 g/dl (32.0-36.0); MEAN CELL VOLUME 86.1 fl (80-96); MEAN PLT VOLUME 8.6 fl (7.5-11.1); MONO % 6.3 % (3.8-10.2); NEUT % 68.9 % (42.8-82.8); PLATELET COUNT 325 10^3/uL (134-434); RBC 3.44 M/mm3 (3.60-5.2); RDW 17.3 % (11.6-15.6)
[2021-11-06] MEDS ORDERED: methylPREDNISolone 4 MG TABLET PO SCH ×2 (10:00→20:00)
[2021-11-06 10:54] VITALS: BMI 20.9
[2021-11-06] MEDS ORDERED: INSULIN (NOVOLOG) ASPART 100 UNITS/ML 10ML VIAL ONE (11:33)
[2021-11-06] MEDS: METHYL SALICYLATE/MENTHOL OINT 30 GM TUBE TP SCH (11:46)
[2021-11-06] MEDS: SODIUM CHLORIDE 1,000 ML IV SCH (11:46)
[2021-11-06 16:05] VITALS: BP 145/80; PULSE 84; TEMP 98.3
== END 2021-11-06 16:00 | disposition home or self-care (01) | DRG 987 ==
LOC: JER 12:12 → JERBED 18:19 → J8W 10-17 08:33
PROVIDERS: ADMIT Hospitalist; ATTEND Internal Medicine
PROC: 02PY33Z Removal of Infusion Device from Great Vessel, Percutaneous Approach (ICD-10-PCS; 2021-10-20)
PROC: 0T778DZ Dilation of Left Ureter with Intraluminal Device, Via Natural or Artificial Opening Endoscopic (ICD-10-PCS; principal; 2021-10-28 14:30)
PROC: 0TC78ZZ Extirpation of Matter from Left Ureter, Via Natural or Artificial Opening Endoscopic (ICD-10-PCS; 2021-10-28 14:30)
PROC: BT1FZZZ Fluoroscopy of Left Kidney, Ureter and Bladder (ICD-10-PCS; 2021-10-28 14:30)
PROC: 30233N1 Transfusion of Nonautologous Red Blood Cells into Peripheral Vein, Percutaneous Approach (ICD-10-PCS; 2021-11-05)
DX: T80.211A Bloodstream infection due to central venous catheter, initial encounter (principal); A41.9 Sepsis, unspecified organism; D84.821 Immunodeficiency due to drugs; Z68.1 Body mass index [BMI] 19.9 or less, adult; N17.9 Acute kidney failure, unspecified; D84.9 Immunodeficiency, unspecified; R64 Cachexia; C18.9 Malignant neoplasm of colon, unspecified; N13.6 Pyonephrosis; G35 Multiple sclerosis; R63.0 Anorexia; E11.51 Type 2 diabetes mellitus with diabetic peripheral angiopathy without gangrene; I10 Essential (primary) hypertension; K75.9 Inflammatory liver disease, unspecified; E78.5 Hyperlipidemia, unspecified; I95.9 Hypotension, unspecified; Y83.9 Surgical procedure, unspecified as the cause of abnormal reaction of the patient, or of later complication, without mention of misadventure at the time of the procedure; R04.0 Epistaxis; D64.9 Anemia, unspecified
CPT/HCPCS: 36415; 36430; 71045-TC-FY; 71250-TC; 72131-TC; 74176-TC; 76000-TC-FY; 80048; 80053; 81003; 82272; 82550; 82962; 83615; 83993; 85025; 85027; 85610; 85651; 85730; 86140; 86850; 86900; 86901; 86922; 87040; 87086; 87177; 87186; 87209; 87324; 87449; 87497; 93005; 93010; 94760; 97116-GP; 97161-GP; 99285-25; C9803-CS; P9058; U0003; U0005

== ENCOUNTER 2023-10-08 07:28 | Day surgery (SDC) | payer OTHER ==
[2023-10-01 15:21] VITALS: BMI 21.5
[2023-10-08 10:07] VITALS: TEMP 97.4
[2023-10-08 10:27] VITALS: BP 114/58; PULSE 79; RESP 16
== END 2023-10-08 10:59 | disposition home or self-care (01) ==
LOC: FASU-ENDO 07:28
PROVIDERS: ATTEND Internal Medicine Gastroenterology
PROC: 0DBN8ZX Excision of Sigmoid Colon, Via Natural or Artificial Opening Endoscopic, Diagnostic (ICD-10-PCS; 2023-10-08)
PROC: 0DBB8ZX Excision of Ileum, Via Natural or Artificial Opening Endoscopic, Diagnostic (ICD-10-PCS; principal; 2023-10-08 09:39)
DX: Z12.11 Encounter for screening for malignant neoplasm of colon (principal); K63.5 Polyp of colon; K64.1 Second degree hemorrhoids; K63.89 Other specified diseases of intestine; Z85.038 Personal history of other malignant neoplasm of large intestine
CPT/HCPCS: 82962; 88305-TC

== ENCOUNTER 2023-11-30 04:27 | Day surgery (SDC) | payer OTHER ==
[2023-11-26 17:40] VITALS: BMI 21.7
[2023-11-30] MEDS ORDERED: LIDOCAINE HCL/PF 1% SDV 5ML VIAL ONE (07:06)
[2023-11-30] MEDS ORDERED: BUPIVACAINE HCL/PF 0.75% 10 ML VIAL ONE (07:06)
[2023-11-30] MEDS ORDERED: BUPIVACAINE HCL/PF 0.5% (5MG/ML) 10 ML VIAL ONE (07:06)
[2023-11-30] MEDS ORDERED: MIDAZOLAM HCL 2 MG/2 ML SINGLE DOSE VIAL ONE ×2 (07:24→08:40)
[2023-11-30] MEDS ORDERED: PROPOFOL 20 ML ONE (08:46)
[2023-11-30] MEDS: BUPIVACAINE HCL/PF 0.25% (2.5MG/ML) 10 ML VIAL IJ ONE (08:47)
[2023-11-30] MEDS: DEXAMETHASONE SOD PHOSPHATE 10 MG/1 ML VIAL IVPUSH ONE (08:47)
[2023-11-30] MEDS: IOHEXOL 180 MG/1 ML ML IJ ONE (08:47)
[2023-11-30] MEDS: LIDOCAINE HCL 1% PRESERVATIVE FREE - 30ML VIAL IJ ONE (08:47)
[2023-11-30 09:21] VITALS: TEMP 97.5
[2023-11-30 11:53] VITALS: BP 141/75; PULSE 81; RESP 18
== END 2023-11-30 12:03 | disposition home or self-care (01) ==
LOC: JASU-SURG 04:27
PROVIDERS: ATTEND Pain Medicine Pain Medicine
PROC: 3E0T33Z Introduction of Anti-inflammatory into Peripheral Nerves and Plexi, Percutaneous Approach (ICD-10-PCS; 2023-11-30)
PROC: 3E0T3BZ Introduction of Anesthetic Agent into Peripheral Nerves and Plexi, Percutaneous Approach (ICD-10-PCS; principal; 2023-11-30 08:00)
DX: G90.59 Complex regional pain syndrome I of other specified site (principal)
CPT/HCPCS: 76000-TC-FY; J1100

== ENCOUNTER 2024-01-14 04:24 | Day surgery (SDC) | payer OTHER ==
[2024-01-11 13:41] VITALS: BMI 21.7
[2024-01-14] MEDS ORDERED: LIDOCAINE HCL/PF 1% SDV 5ML VIAL ONE (07:24)
[2024-01-14] MEDS ORDERED: BUPIVACAINE HCL/PF 0.25% (2.5MG/ML) 10 ML VIAL ONE (07:24)
[2024-01-14] MEDS ORDERED: DEXAMETHASONE SOD PHOSPHATE 10 MG/1 ML VIAL ONE (07:25)
[2024-01-14] MEDS ORDERED: ACETAMINOPHEN 500 MG TABLET (FP) PO PRN (09:35)
[2024-01-14] MEDS ORDERED: SODIUM CHLORIDE 1,000 ML IV SCH (09:45)
[2024-01-14] MEDS: IOHEXOL 180 MG/1 ML ML IJ ONE ×2 (11:46)
[2024-01-14] MEDS: DEXAMETHASONE SOD PHOSPHATE 10 MG/1 ML VIAL IVPUSH ONE (11:46)
[2024-01-14] MEDS: LIDOCAINE 1% P/F 10 MG/ML VIAL INF ONE (11:47)
[2024-01-14] MEDS: BUPIVACAINE HCL/PF 2.5 MG/ML - 30 ML VIAL IJ ONE (11:47)
[2024-01-14 12:08] VITALS: BP 135/64; PULSE 74; RESP 16; TEMP 97.7
== END 2024-01-14 12:51 | disposition home or self-care (01) ==
LOC: JASU-SURG 04:24
PROVIDERS: ATTEND Pain Medicine Pain Medicine
PROC: 3E0T33Z Introduction of Anti-inflammatory into Peripheral Nerves and Plexi, Percutaneous Approach (ICD-10-PCS; 2024-01-14)
PROC: 3E0T3BZ Introduction of Anesthetic Agent into Peripheral Nerves and Plexi, Percutaneous Approach (ICD-10-PCS; principal; 2024-01-14 10:45)
DX: M53.3 Sacrococcygeal disorders, not elsewhere classified (principal)
CPT/HCPCS: 76000-TC-FY; J1100

== ENCOUNTER 2024-03-09 04:21 | Day surgery (SDC) | payer OTHER ==
[2024-03-02 11:02] VITALS: BMI 21.7
[~2024-03-09 04:21] MED LIST changes: -ACETAMINOPHEN 325 MG TABLET (FP) PO PRN; +ACETAMINOPHEN 500 MG TABLET (FP) PO PRN; -DIPHENHYDRAMINE 25 MG in SODIUM CHLORIDE 50 ML IVPB ONE; -NIVOLUMAB IVPB ONE; -SODIUM CHLORIDE IVPB ONE
[2024-03-09] MEDS ORDERED: LIDOCAINE HCL/PF 1% SDV 5ML VIAL ONE ×2 (07:22→11:16)
[2024-03-09] MEDS ORDERED: MIDAZOLAM HCL 2 MG/2 ML SINGLE DOSE VIAL ONE (11:05)
[2024-03-09] MEDS: ceFAZolin SODIUM 1 GM VIAL IVPB ONE (11:12)
[2024-03-09] MEDS ORDERED: LIDOCAINE HCL/PF 2% SDV 5ML VIAL ONE (11:15)
[2024-03-09] MEDS ORDERED: SUCCINYLCHOLINE CHLORIDE 200 MG/10 ML SYRINGE ONE (11:23)
[2024-03-09] MEDS ORDERED: PROPOFOL 20 ML ONE (11:23)
[2024-03-09] MEDS: LIDOCAINE HCL 1% PRESERVATIVE FREE - 30ML VIAL IJ ONE ×2 (11:25)
[2024-03-09] MEDS: LIDOCAINE HCL/PF 2% SDV 5ML VIAL INF ONE ×2 (11:37)
[2024-03-09 12:49] VITALS: BP 143/74; PULSE 84; RESP 16; TEMP 97.7
== END 2024-03-09 13:48 | disposition home or self-care (01) ==
LOC: JASU-SURG 04:21
PROVIDERS: ATTEND Pain Medicine Pain Medicine
PROC: 00HU3MZ Insertion of Neurostimulator Lead into Spinal Canal, Percutaneous Approach (ICD-10-PCS; principal; 2024-03-09 10:00)
DX: G89.4 Chronic pain syndrome (principal)
CPT/HCPCS: 63650; C1897; 76000-TC-FY; 82962; C1889

== ENCOUNTER 2024-05-19 04:01 | Day surgery (SDC) | payer OTHER ==
[2024-05-17 12:07] VITALS: BMI 21.7
[2024-05-19] MEDS: BUPIVACAINE HCL/PF 0.25% (2.5MG/ML) 10 ML VIAL IJ ONE
[2024-05-19] MEDS ORDERED: LIDOCAINE HCL/PF 1% SDV 5ML VIAL ONE (07:24)
[2024-05-19] MEDS ORDERED: LIDOCAINE HCL/PF 2% SDV 5ML VIAL ONE (07:51)
[2024-05-19] MEDS ORDERED: LIDOCAINE 1%/EPI 1:100000 (20 ML MULTI DOSE VIAL) ONE (07:51)
[2024-05-19] MEDS ORDERED: MIDAZOLAM HCL 2 MG/2 ML SINGLE DOSE VIAL ONE ×4 (08:10→12:30)
[2024-05-19] MEDS ORDERED: DEXMEDETOMIDINE HCL 200 MCG/2 ML IVPB ONE (08:12)
[2024-05-19] MEDS ORDERED: BUPIVACAINE HCL/PF 0.25% (2.5MG/ML) 10 ML VIAL ONE (08:29)
[2024-05-19] MEDS: ceFAZolin SODIUM 1 GM VIAL IVPB ONE (08:31)
[2024-05-19] MEDS ORDERED: VANCOMYCIN 1,000 MG VIAL (RESTRICTED TO ID ONLY) ONE (08:40)
[2024-05-19] MEDS ORDERED: GENTAMICIN SO4 80 MG/2 ML VIAL ONE (08:40)
[2024-05-19] MEDS: LIDOCAINE HCL 1% PRESERVATIVE FREE - 30ML VIAL IJ ONE ×2 (08:44)
[2024-05-19] MEDS: VANCOMYCIN 1,000 MG VIAL (RESTRICTED TO ID ONLY) IVPB ONE (08:52)
[2024-05-19] MEDS: LIDOCAINE HCL/PF 2% SDV 5ML VIAL INF ONE ×2 (08:52)
[2024-05-19] MEDS ORDERED: KETAMINE HCL 200 MG/20 ML VIAL ONE (10:00)
[2024-05-19] MEDS ORDERED: ACETAMINOPHEN 500 MG TABLET (FP) PO PRN (10:59)
[2024-05-19] MEDS ORDERED: LACTATED RINGERS SOLUTION 1,000 ML IV SCH (11:15)
[2024-05-19 13:00] VITALS: RESP 20
[2024-05-19 13:41] VITALS: BP 142/67; PULSE 78; TEMP 97.8
== END 2024-05-19 14:39 | disposition home or self-care (01) ==
LOC: JASU-SURG 04:01
PROVIDERS: ATTEND Pain Medicine Pain Medicine
PROC: 00HV3MZ Insertion of Neurostimulator Lead into Spinal Cord, Percutaneous Approach (ICD-10-PCS; principal; 2024-05-19 08:00)
DX: G89.4 Chronic pain syndrome (principal); G57.71 Causalgia of right lower limb
CPT/HCPCS: 63650; 63685; C1778; 76000-TC-FY; 82962; 94760; C1767

== ENCOUNTER 2024-09-23 10:43 | Day surgery (SDC) | payer OTHER ==
[2024-09-23] MEDS: ERTAPENEM SODIUM 1 GM in SODIUM CHLORIDE 50 ML IVPB SCH (11:20)
[2024-09-23 12:04] VITALS: BP 100/80; PULSE 92; RESP 18; TEMP 98.8
== END 2024-09-23 12:09 | disposition home or self-care (01) ==
LOC: FINFUSION 10:43 → FM/S 10:44 → FINFUSION 12:09
PROVIDERS: ATTEND Internal Medicine
DX: N39.0 Urinary tract infection, site not specified (principal); Z16.12 Extended spectrum beta lactamase (ESBL) resistance; B96.1 Klebsiella pneumoniae [K. pneumoniae] as the cause of diseases classified elsewhere
CPT/HCPCS: 96365

== ENCOUNTER 2024-09-24 10:29 | Day surgery (SDC) | payer OTHER ==
[2024-09-24] MEDS: ERTAPENEM SODIUM 1 GM in SODIUM CHLORIDE 50 ML IVPB ONE (11:28)
[2024-09-24 12:56] VITALS: BP 118/68; PULSE 81; RESP 18; TEMP 98.4
== END 2024-09-24 12:56 | disposition home or self-care (01) ==
LOC: FINFUSION 10:29 → FM/S 10:32 → FINFUSION 12:56
PROVIDERS: ATTEND Internal Medicine
DX: N39.0 Urinary tract infection, site not specified (principal); Z16.12 Extended spectrum beta lactamase (ESBL) resistance; B96.1 Klebsiella pneumoniae [K. pneumoniae] as the cause of diseases classified elsewhere
CPT/HCPCS: 96365

== ENCOUNTER 2024-09-25 10:39 | Day surgery (SDC) | payer OTHER ==
[2024-09-25] MEDS: ERTAPENEM SODIUM 1 GM in SODIUM CHLORIDE 50 ML IVPB ONE (12:00)
[2024-09-25 12:26] VITALS: RESP 16; TEMP 98.8
[2024-09-25 12:28] LABS: ALBUMIN 3.8 g/dl (3.4-5.0); BILIRUBIN,TOTAL 0.2 mg/dl (0.2-1); CALCIUM 9.2 mg/dl (8.5-10.1); CREATININE 1.1 mg/dl (0.6-1.3); POTASSIUM 4.2 mmol/L (3.5-5.1)
[2024-09-25 12:45] VITALS: BP 121/72; PULSE 83
[2024-09-25 14:24] LABS: BASO % 0.3 % (0-2.0); EOS % 3.6 % (0-4.5); HEMATOCRIT 31.3 % (32.4-45.2); HEMOGLOBIN 10.1 GM/dL (10.7-15.3); LYMPH % 19.3 % (8-40); MCH 26.3 pg (25.7-33.7); MCHC 32.4 g/dl (32.0-36.0); MEAN CELL VOLUME 81.3 fl (80-96); MEAN PLT VOLUME 8.6 fl (7.5-11.1); MONO % 5.8 % (3.8-10.2); PLATELET COUNT 459 10^3/uL (134-434); RBC 3.85 M/mm3 (3.60-5.2); RDW 15.8 % (11.6-15.6)
== END 2024-09-25 12:54 | disposition home or self-care (01) ==
LOC: FINFUSION 10:39 → FM/S 10:40 → FINFUSION 12:54
PROVIDERS: ATTEND Internal Medicine
DX: N39.0 Urinary tract infection, site not specified (principal); Z86.12 Personal history of poliomyelitis; B96.1 Klebsiella pneumoniae [K. pneumoniae] as the cause of diseases classified elsewhere
CPT/HCPCS: 36415; 80053; 85025; 96365

== ENCOUNTER 2024-09-26 10:25 | Day surgery (SDC) | payer OTHER ==
[2024-09-26] MEDS: ERTAPENEM SODIUM 1 GM in SODIUM CHLORIDE 50 ML IVPB ONE (11:05)
[2024-09-26 12:02] VITALS: BP 110/62; PULSE 70; RESP 18; TEMP 98.4
== END 2024-09-26 11:55 | disposition home or self-care (01) ==
LOC: FINFUSION 10:25 → FM/S 10:25 → FINFUSION 11:55
PROVIDERS: ATTEND Internal Medicine
DX: N39.0 Urinary tract infection, site not specified (principal); B96.1 Klebsiella pneumoniae [K. pneumoniae] as the cause of diseases classified elsewhere; Z16.12 Extended spectrum beta lactamase (ESBL) resistance; Z86.12 Personal history of poliomyelitis
CPT/HCPCS: 96365

== ENCOUNTER 2024-09-27 10:23 | Day surgery (SDC) | payer OTHER ==
[2024-09-27] MEDS: ERTAPENEM SODIUM 1 GM in SODIUM CHLORIDE 50 ML IVPB ONE (11:21)
[2024-09-27 12:25] LABS: HEMATOCRIT 32.5 % (32.4-45.2); HEMOGLOBIN 10.8 G/dL (10.7-15.3); MCH 27.8 pg (25.7-33.7); MCHC 33.1 g/dl (32.0-36.0); MEAN CELL VOLUME 83.9 fl (80-96); PLATELET COUNT 463.8 10^3/uL (134-434); RBC 3.87 10^6/uL (3.60-5.2); RDW 15.8 % (11.6-15.6); WHITE BLOOD COUNT 11.1 10^3/uL (4.0-10.8)
[2024-09-27 12:50] LABS: ALBUMIN 3.8 g/dl (3.4-5.0); BILIRUBIN,TOTAL 0.2 mg/dl (0.2-1); CREATININE 1.1 mg/dl (0.6-1.3); POTASSIUM 4.1 mmol/L (3.5-5.1); TOT PROT 7.3 g/dl (6.4-8.2)
[2024-09-27 12:52] VITALS: BP 120/73; PULSE 78; RESP 18; TEMP 98.6
== END 2024-09-27 12:05 | disposition home or self-care (01) ==
LOC: FINFUSION 10:23 → FM/S 10:53 → FINFUSION 12:05
PROVIDERS: ATTEND Internal Medicine
DX: N39.0 Urinary tract infection, site not specified (principal); B96.1 Klebsiella pneumoniae [K. pneumoniae] as the cause of diseases classified elsewhere; Z16.12 Extended spectrum beta lactamase (ESBL) resistance; Z86.12 Personal history of poliomyelitis
CPT/HCPCS: 36415; 80053; 85027; 96365

== ENCOUNTER 2024-09-28 10:20 | Day surgery (SDC) | payer OTHER ==
[2024-09-28] MEDS: ERTAPENEM SODIUM 1 GM in SODIUM CHLORIDE 50 ML IVPB ONE (11:23)
[2024-09-28 12:13] VITALS: BP 102/58; PULSE 78; RESP 18; TEMP 98.4
== END 2024-09-28 12:14 | disposition home or self-care (01) ==
LOC: FINFUSION 10:20 → FM/S 10:54 → FINFUSION 12:14
PROVIDERS: ATTEND Internal Medicine
DX: N39.0 Urinary tract infection, site not specified (principal); Z16.12 Extended spectrum beta lactamase (ESBL) resistance; B96.1 Klebsiella pneumoniae [K. pneumoniae] as the cause of diseases classified elsewhere
CPT/HCPCS: 96365

== ENCOUNTER 2024-09-29 10:34 | Day surgery (SDC) | payer OTHER ==
[2024-09-29] MEDS: ERTAPENEM SODIUM 1 GM in SODIUM CHLORIDE 50 ML IVPB ONE (11:05)
[2024-09-29 13:24] VITALS: BP 115/52; PULSE 70; RESP 16; TEMP 98.4
== END 2024-09-29 12:40 | disposition home or self-care (01) ==
LOC: FM/S 10:34 → FINFUSION 10:34
PROVIDERS: ATTEND Internal Medicine
DX: N39.0 Urinary tract infection, site not specified (principal); Z16.12 Extended spectrum beta lactamase (ESBL) resistance; B96.1 Klebsiella pneumoniae [K. pneumoniae] as the cause of diseases classified elsewhere
CPT/HCPCS: 96365; 96366; 96367